=== PATIENT | female | born 1965 | race Caucasian/White ===

== ENCOUNTER 2017-06-04 17:22 | Emergency (ER) | payer MEDICARE, SELFPAY ==
[2017-06-04 17:23] VITALS: BP 169/82; PULSE 88; RESP 18; TEMP 36.6; O2SAT 97; BMI 47.3
[2017-06-04] MEDS: Ondansetron 4 MG/2 ML Vial IV (18:35)
[2017-06-04] MEDS: HYDROmorphone 1 MG/ML Syringe 0.5 MG IV ×2 (18:35→19:54)
--- NOTE | 2017-06-04 18:45 | ED.VISSUMM ---
- ER Visit Summary Date of Service: 06/04/17 Chief Complaint: Back pain History of Present Illness: The patient is a 51 F with history of chronic back pain and had back surgery in October 2015. Patient states when she woke this morning she had some normal low back aching, when she sat up and felt sudden sharp pain shooting down her back and down her legs. She has had no problems with bowel or bladder control. Patient does take tramadol chronically for rheumatoid arthritis and fibromyalgia. Physical Examination: Blood pressure is 169/82, otherwise vitals are normal. Patient is an obese female lying in bed. She appears uncomfortable but she is in no acute distress. Heart is regular rate and rhythm. Lung sounds are clear. Abdomen is soft, obese, nontender. Lower extremity examination reveals 1+ bilateral patellar reflexes. She is strong and equal distal pulses. She has good strength and sensation in the legs. Test Results: [] Emergency Department Course and Treatment: Patient was initially treated with a dose of Dilaudid and Zofran. Is no direct injury to the patient's back do not believe imaging is of great benefit. On repeat evaluation she did report some improvement. She was given an additional dose of Dilaudid, 0.5 mg, along with a dose of Toradol. On final repeat evaluation patient sitting upright in bed smiling. She states her pain is significantly improved. She wishes to take ibuprofen in addition to her normal tramadol at home. She will follow up with her primary care physician. Treatment Plan: [] Disposition: Discharge Impression: Acute on chronic back pain This note was generated with [employer] dictation software. It may contain incorrect words, spelling, and punctuation that were not noted in review of the chart prior to signing ED Disposition - Plan for ED Patient: Disposition: Home or Assisted Living Chief Complaint: Back Instructions: ED Neck Back Pain General Referrals: Richar Galvez MD [Primary Care Provider] - 3-5 Days if not improving
[2017-06-04] MEDS: Ketorolac 30 MG/ML Syringe IV (19:54)
--- NOTE | 2017-06-04 20:52 | ED.DEP ---
ED Disposition - Plan for ED Patient: Disposition: Home or Assisted Living Chief Complaint: Back Instructions: ED Neck Back Pain General Referrals: Richar Galvez MD [Primary Care Provider] - 3-5 Days if not improving
== END 2017-06-04 20:59 | disposition home or self-care (01) ==
PROVIDERS: Emergency Provider Emergency Medicine; Family Provider Family Medicine; PCP Family Medicine
DX: M54.5 Low back pain (principal); G89.29 Other chronic pain; M06.9 Rheumatoid arthritis, unspecified; M79.7 Fibromyalgia; E66.9 Obesity, unspecified; E11.9 Type 2 diabetes mellitus without complications; I10 Essential (primary) hypertension; E78.00 Pure hypercholesterolemia, unspecified; F41.9 Anxiety disorder, unspecified; F32.9 Major depressive disorder, single episode, unspecified; Z72.0 Tobacco use; Z79.4 Long term (current) use of insulin; Z79.51 Long term (current) use of inhaled steroids; Z79.82 Long term (current) use of aspirin; Z79.891 Long term (current) use of opiate analgesic; Z79.899 Other long term (current) drug therapy
CPT/HCPCS: 96374; 96375; 96376; 99285; A4216; J2405

== ENCOUNTER 2017-06-06 16:59 | Emergency (ER) | payer MEDICARE, SELFPAY ==
[2017-06-06 17:00] VITALS: BP 158/81; PULSE 88; RESP 18; TEMP 36.8; O2SAT 94; BMI 47.0
[2017-06-06] MEDS: Ketorolac 15 MG/ML Vial IV (18:05)
[2017-06-06] MEDS: HYDROmorphone 1 MG/ML Syringe 0.5 MG IV (18:05)
[2017-06-06] MEDS: Ondansetron 4 MG/2 ML Vial IV (18:05)
--- NOTE | 2017-06-06 19:26 | ED.DCSUM_ITS ---
- ER Visit Summary Date of Service: 06/06/17 Chief Complaint: Back pain History of Present Illness: The patient is a 51 F 3 day history of low back pain. She has a history of prior back surgery. On the morning of the she sat up in bed and had sudden pain. It does radiate to her legs. She has had no problems with bowel or bladder control. She was seen here on the and was improved after pain meds. She has been taking tramadol and ibuprofen at home without improvement. She presents back today due to continued worsening pain. She is an appointment with her primary care physician next week. Physical Examination: Vital signs are gross unremarkable. Patient's lying in bed, tearful. Head and neck examination is otherwise unremarkable. Heart is regular rate and rhythm. Lung sounds are clear. Abdomen is soft, obese, distended. There is no focal tenderness. Back examination was tenderness in the low lumbar paraspinals. Lower extremity examination reveals good strength and sensation with strong distal pulses. Test Results: [] Emergency Department Course and Treatment: She was given 0.5 mg of Dilaudid and 15 mill grams of Toradol. On repeat evaluation she is significantly improved. She will be given a short course of Percocet that she is to use in place of her tramadol. She is going to call her primary care physician tomorrow to see if she can be seen sooner. There was no direct injury to her back so I do not feel that imaging is going to be beneficial. Treatment Plan: [] Disposition: Discharge Impression: Acute on chronic back pain This note was generated with [employer] dictation software. It may contain incorrect words, spelling, and punctuation that were not noted in review of the chart prior to signing ED Disposition - Plan for ED Patient: Chief Complaint: Back Referrals: Richar Galvez MD [Primary Care Provider] -
--- NOTE | 2017-06-06 19:26 | ED.DEP ---
ED Disposition - Plan for ED Patient: Disposition: Home or Assisted Living Chief Complaint: Back Instructions: ED Neck Back Pain General Prescriptions: Oxycodone HCl/Acetaminophen [Percocet 5/325] 1 tablet PO Q6H PRN PRN 3 Days #12 tablet PRN Reason: Pain Referrals: Richar Galvez MD [Primary Care Provider] - Keep Aiden appointment
[2017-06-06 19:49] VITALS: BP 138/76; PULSE 77; RESP 16; O2SAT 98
== END 2017-06-06 19:49 | disposition home or self-care (01) ==
PROVIDERS: Emergency Provider Emergency Medicine; Family Provider Family Medicine; PCP Family Medicine
DX: M54.5 Low back pain (principal); G89.29 Other chronic pain; E66.9 Obesity, unspecified; E11.9 Type 2 diabetes mellitus without complications; I10 Essential (primary) hypertension; E78.00 Pure hypercholesterolemia, unspecified; F41.9 Anxiety disorder, unspecified; F32.9 Major depressive disorder, single episode, unspecified; Z79.51 Long term (current) use of inhaled steroids; Z79.82 Long term (current) use of aspirin; Z79.4 Long term (current) use of insulin; Z79.891 Long term (current) use of opiate analgesic; Z79.899 Other long term (current) drug therapy
CPT/HCPCS: 96374; 96375; 99285; A4216; J2405

== ENCOUNTER 2017-06-08 14:48 | Emergency (ER) | payer MEDICARE, SELFPAY ==
[2017-06-08 15:03] VITALS: BP 121/65; PULSE 75; RESP 18; TEMP 36.6; O2SAT 96; BMI 46.3
[2017-06-08] MEDS: Ketorolac 30 MG/ML Syringe IM (17:06)
--- NOTE | 2017-06-08 17:30 | ED.DCSUM_ITS ---
- ER Visit Summary Date of Service: 06/08/17 Chief Complaint: Back pain History of Present Illness: The patient is a 51 F with history of chronic back pain and history of spine surgery presents for lower back pain for 4 days. This is patient's third visit this week, and she states she woke up 4 days ago with severe lower back pain worse than her baseline. She received Dilaudid in the emergency department and was discharged home. She felt well for 2 days and then was having worsening pain again. She returned to the emergency department and received additional Dilaudid, and was prescribed Percocet for home. She states the Percocet is not helping but the Dilaudid did. She denies any loss of bowel or bladder function or any worsening numbness in her legs above her baseline diabetic neuropathy. She states her home medications have not been helping. She called her primary care doctor and states he told her to come to the emergency department for an MRI. Patient denies abdominal pain, fever, dysuria, urinary frequency or urgency, bowel or bladder incontinence, or numbness in the groin. Physical Examination: Vital signs: afebrile, hemodynamically stable, no hypoxia on room air General: well nourished, well developed,, obese, sitting in a wheelchair in no distress Skin: warm, dry, no rash, no pallor HEENT: normocephalic and atraumatic; PERRL, EOMI, moist mucous membranes Cardiovascular: regular rate and rhythm without murmurs, no peripheral edema, 2 + pulses all distal extremities Respiratory: No increased work of breathing Abdominal: Abdomen is soft, nontender with normoactive bowel sounds, no guarding or rebound, no masses Back: Diffuse bilateral lower back tenderness to palpation. No difficulty walking. No diminished strength or sensation. Patient urinated while in the emergency department and stated she had no difficulty. MSK: Moves all extremities, no deformities, normal strength Neuro: Awake and alert, oriented ?4. No facial droop, sensation and motor function intact and symmetric Test Results: [] Emergency Department Course and Treatment: Patient's examination shows no lower extremity weakness or sensory deficits that are new beyond her baseline neuropathy. Patient was able to walk without difficulty to the bathroom. Patient was given Toradol IM for pain. Because she said she was sent to the emergency department to get an MRI by her primary care doctor, she was discussed with Dr. Galvez, who said that she had called his office and said she could not get out of bed and made it sound like she was paralyzed. Thus they instructed her to call 911 but did not tell her she was getting an MRI. We discussed her pain control issues, and he would like her to make an appointment with him next week. I discussed with the patient that because this is a chronic pain issue, I cannot give her an opiate prescription, especially since she has regular prescriptions for tramadol. I also do not give Dilaudid for chronic back pain. Patient was instructed that she will need to follow-up with her doctor for further discussion about pain control. We also discussed nonopiate pain management as well as non-medicinal pain management, such as exercise and stretching. Patient was discharged home. She had no red flag symptoms that indicated imaging or any further testing. Treatment Plan: [] Disposition: [] Impression: chronic back pain This note was generated with [employer] dictation software. It may contain incorrect words, spelling, and punctuation that were not noted in review of the chart prior to signing ED Disposition - Plan for ED Patient: Disposition: Home or Assisted Living Chief Complaint: Back Instructions: ED Back Care Tips, ED Chronic Pain Management Referrals: Richar Galvez MD [Primary Care Provider] - Keep Aiden appointment Additional Instructions: Please keep your appointment next week with her primary care doctor. Please continue your home pain management regimen, including [id number] pain medications as needed. You may try a heat pack for your back pain or ice if that works better. Gentle exercise such as walking also is known to help back pain. You may try gentle stretching.
== END 2017-06-08 18:07 | disposition home or self-care (01) ==
PROVIDERS: Emergency Provider Emergency Medicine; Family Provider Family Medicine; PCP Family Medicine
DX: M54.5 Low back pain (principal); G89.29 Other chronic pain; E11.40 Type 2 diabetes mellitus with diabetic neuropathy, unspecified; E66.9 Obesity, unspecified; Z79.51 Long term (current) use of inhaled steroids; Z79.82 Long term (current) use of aspirin; Z79.4 Long term (current) use of insulin; Z79.891 Long term (current) use of opiate analgesic; Z79.899 Other long term (current) drug therapy
CPT/HCPCS: 96372; 99283

== ENCOUNTER → 2017-06-12 15:14 | Outpatient (CLI) | payer MEDICARE, SELFPAY ==
--- NOTE | 2017-06-12 15:17 | RAD_ITS ---
STUDY: X-RAY - LUMBAR SPINE REASON FOR EXAM: Female, 51 years old. Chronic low back pain. TECHNIQUE: 4 view(s) of the lumbar spine were obtained. COMPARISON: August 07, 2015 FINDINGS: Normal lumbar lordosis. There is mild dextroscoliosis of the mid lumbar spine. There is a normal alignment of the vertebrae. Normal vertebral bodies and endplates. There is multilevel mild intervertebral disc space narrowing with small osteophytes at L2-3, L3-4 and L4-5. There is stable diffuse facet sclerosis. The soft tissue structures are unremarkable. RAD/L/S Spine Min 4 Views IMPRESSION: Stable mild lumbar spondylosis as described. Electronically Signed: Theron Gomez MD at 18:57 EST , Service support ,
== END ==
PROVIDERS: Family Provider Family Medicine; PCP Family Medicine; Visit Provider Family Medicine
DX: M51.27 Other intervertebral disc displacement, lumbosacral region (principal); M54.42 Lumbago with sciatica, left side; M54.41 Lumbago with sciatica, right side
CPT/HCPCS: 72110

== ENCOUNTER 2017-06-19 12:07 | Emergency (ER) | payer MEDICARE, SELFPAY ==
[2017-06-19 12:09] VITALS: BP 128/82; PULSE 85; RESP 22; TEMP 37; O2SAT 94; BMI 46.3
--- NOTE | 2017-06-19 13:16 | ED.VISSUMM ---
- ER Visit Summary Date of Service: 06/19/17 Chief Complaint: Back pain History of Present Illness: The patient is a 51 F with a long-term history of lower back pain. The pain radiates into her bilateral buttocks and down her legs. This has been going on for several weeks. It started after she rolled out of bed. She had an outpatient x-ray which showed degenerative changes. She was recently approved for an MRI. Her PCP sent her here because she is having trouble walking despite taking ibuprofen, tramadol, and prednisone. No other new symptoms. Physical Examination: Afebrile and vital signs unremarkable. Nontoxic and in no acute distress. Bilateral paraspinal muscle tenderness to palpation. Legs unremarkable. Good strength and sensation. Good pulses. Diminished reflexes bilaterally. Skin appears normal. Test Results: None indicated. Emergency Department Course and Treatment: I spoke with the hospitalist. They will admit the patient if she is unable to ambulate, but otherwise she and I felt that this was appropriate for an outpatient workup. I did treat the patient's pain with morphine and Norflex. Will reassess the patient and try to ambulate. The patient received a dose of morphine and Norflex here. Her pain improved. She was able to ambulate without any difficulty at all. She was up multiple times. I do not believe she requires inpatient care. The patient agrees. She was also seen by the group social worker. She also discussed this with the patient and the patient felt like they would follow-up as an outpatient. Will prescribe a course of Flexeril. Return for any new or worsening issues. Treatment Plan: As above Disposition: Discharge Impression: 1. Low back pain This note was generated with [employer] dictation software. It may contain incorrect words, spelling, and punctuation that were not noted in review of the chart prior to signing ED Disposition - Plan for ED Patient: Chief Complaint: Back Referrals: Richar Galvez MD [Primary Care Provider] -
[2017-06-19] MEDS: Orphenadrine 60 MG/2 ML Ampul IM (13:41)
--- NOTE | 2017-06-19 14:03 | CM.ED ---
CM consulted due to frequent utilization of ED. This is the patient's forth visit to ED in the past two weeks. Patient states she Dr. Foster for pain management, prior to back surgery. Patient remarked that he told her she took too much Tramadol (650 mg per pt). Patient states she had an epidural and it only worked for two days. Patient states she does not want to see pain management again. Patient states that in addition to chronic back pain she has lupus, rheumatoid arthritis and fibromyalgia. She no longer has a glass bulb silverer because there are none in network with [facility]. I offered to assist in locating one for her and she refused stating that she just checked herself. Patient plans to move to [place], [place] this summer. She states her block and case maker with [facility], Marta Liriano, is finding new providers for her relocation. Patient states she is having separation anxiety from her dog and would like to discharge to home and have MRI as an outpatient. Patient comments that she is having relief from meds provided in ED and does have a ride she can call to transport her to home.
--- NOTE | 2017-06-19 14:11 | ED.DEP ---
ED Disposition - Plan for ED Patient: Chief Complaint: Back Instructions: ED Sciatica Prescriptions: Cyclobenzaprine [Flexeril] 10 mg PO TID #20 tab Referrals: Richar Galvez MD [Primary Care Provider] -
[2017-06-19 14:23] VITALS: PULSE 79; RESP 16; O2SAT 94
== END 2017-06-19 14:24 | disposition home or self-care (01) ==
LOC: ED 12:37
PROVIDERS: Emergency Provider Emergency Medicine; Family Provider Family Medicine; PCP Family Medicine
DX: M54.5 Low back pain (principal); I10 Essential (primary) hypertension; E78.00 Pure hypercholesterolemia, unspecified; M06.9 Rheumatoid arthritis, unspecified; M79.7 Fibromyalgia; E03.9 Hypothyroidism, unspecified; H40.9 Unspecified glaucoma; G62.9 Polyneuropathy, unspecified; Z72.0 Tobacco use; Z79.51 Long term (current) use of inhaled steroids; Z79.82 Long term (current) use of aspirin; Z79.891 Long term (current) use of opiate analgesic; Z79.899 Other long term (current) drug therapy
CPT/HCPCS: 96372; 99282

== ENCOUNTER → 2017-07-03 12:28 | Outpatient (CLI) | payer MEDICARE, SELFPAY ==
--- NOTE | 2017-07-03 12:32 | MRI_ITS ---
STUDY: MRI LUMBAR SPINE WITH AND WITHOUT CONTRAST REASON FOR EXAM: Female, 52 years old. Radiculopathy. Low back pain and bilateral leg pain. TECHNIQUE: Standardized fat and water weighted pulse sequences were obtained in the sagittal and axial planes. 11 ml of Gadavist contrast material was administered for the contrast portion of the examination. COMPARISON: 08/23/2015. FINDINGS: T10-T11: (Sagittal only). Prominent right anterior marginal spurs. Minimal degenerative anterolisthesis of T10 on T1. Normal endplates. Minimal disc height narrowing at normal disc hydration and morphology. Normal central canal and bilateral intervertebral neural foramina. T11-T12: (Sagittal only). Normal endplates. Normal disc height, hydration and morphology. Normal central canal and bilateral intervertebral neural foramina. T12-L1: (Sagittal only). Normal endplates. Normal disc height, hydration and morphology. Normal central canal and bilateral intervertebral neural foramina. Normal lumbar lordosis. There is no substantial scoliosis. Normal conus medullaris that terminates at the L1-L2 disc level. L1-2: Normal endplates. Normal disc height, hydration and morphology. Normal bilateral facet joints. Normal central canal and bilateral lateral recesses. Normal bilateral intervertebral neural foramina. L2-3: Normal endplates. Normal disc height, hydration and morphology. Mild central canal stenosis secondary to developmentally short pedicles and dorsal epidural lipomatosis. The AP canal diameter is 8 mm. Normal bilateral lateral recesses. Moderate left degenerative facet arthropathy. Mild right degenerative facet arthropathy. Normal bilateral intervertebral neural foramina. L3-4: Normal endplates. Increased disc height narrowing following discectomy of the right-sided caudally extruded disc fragment. Pronounced central canal stenosis secondary to developmentally short pedicles and dorsal epidural lipomatosis. There is, however, worsening of pronounced central canal stenosis due to nonenhancing recurrent right posterior paramedian extruded disc fragment with surrounding enhancing postoperative fibrosis. Moderately pronounced left due to facet arthropathy and moderate right degenerative facet arthropathy are unchanged. Normal bilateral intervertebral neural foramina. L4-5: More pronounced right-sided disc space height narrowing with Modic type II degenerative vertebral marrow fatty changes underneath the right side of the adjacent vertebral endplates. Pronounced central canal stenosis secondary to developmentally short pedicles, dorsal epidural lipomatosis and bilateral posterior ligamenta flava hypertrophy. The AP canal diameter is 4 mm. Moderate bilateral degenerative facet hypertrophy. Normal bilateral intervertebral neural foramina. L5-S1: Normal endplates. Normal disc height but moderate loss of disc hydration. Normal disc morphology. Normal central canal and bilateral lateral recesses. Moderate right degenerative facet arthropathy. Mild left degenerative facet arthropathy. Normal bilateral intervertebral neural foramina. Normal visualized sacral ala. Normal visualized paraspinous soft tissue structures. Enhancing posterior fibrosis surrounding the right-sided L3-L4 posteriorly extruded disc fragment. MRI/Spine Lumbar W/WO Contrast IMPRESSION: 1. Recurrent right L3-L4 posterior paramedian extruded disc fragment causing worsening of the pronounced central canal stenosis when compared to 08/23/2015. 2. Increased L3-L4 disc height narrowing following discectomy of the right-sided caudally extruded disc fragment when compared to 08/23/2015. 3. Pronounced central canal stenosis at L4-L5 disc space level secondary to developmentally short pedicles is unchanged but there is more pronounced right-sided L4-L5 disc space height narrowing when compared to 08/23/2015. 4. Mild central canal stenosis at L2-L3 disc space level secondary to developmentally short pedicles and dorsal epidural lipomatosis. 5. Prominent right T10-T11 anterior marginal spurs with minimal degenerative anterolisthesis of T10 on T11. This area was not included to the previous study. Electronically Signed: Mick Holcomb MD at 14:20 EDT , Service support ,
[2017-07-03 12:56] LABS: CREATININE FINGERSTICK 0.8 mg/dL (0.55-1.02); EGFR FINGERSTICK > 60.0000 mL/min (>60)
== END ==
PROVIDERS: Family Provider Family Medicine; PCP Family Medicine; Visit Provider Family Medicine
DX: M54.16 Radiculopathy, lumbar region (principal); M51.27 Other intervertebral disc displacement, lumbosacral region
CPT/HCPCS: 72158; A9585

== ENCOUNTER → 2017-08-21 12:50 | Outpatient (CLI) | payer MEDICARE, SELFPAY ==
--- NOTE | 2017-08-21 12:51 | BI_ITS ---
MAMMOGRAPHY - BILATERAL SCREENING REASON FOR EXAM: Female, 52 years old. Routine annual screening examination. PERTINENT HISTORY: NO FAM HX LT NEEDLE BX 2006 TECHNIQUE: Digital bilateral breast jeremie (3D mammographic acquisition) in the CC and MLO projections. 2-D mediolateral oblique (MLO) and craniocaudad (CC) views of both breasts were obtained. CAD: Full Field Digital Mammography with Computer Added Detection was performed. COMPARISON: Jun 15 2016 3:11pm , May 20 2015 4:49pm FINDINGS: Breast Composition: There are scattered areas of fibroglandular density. There are no dominant masses or suspicious calcifications. No other significant abnormalities are identified. BI/SCREENING MAMM (CAD), BILAT IMPRESSION: Stable bilateral screening mammogram. Yearly follow-up mammogram recommended. (A) ASSESSMENT CATEGORY: BIRADS Category 2: Benign. A letter regarding these results will be sent to the patient by the facility within 30 days. Approximately 10% of breast cancers are not detected by mammography. A normal mammogram should not delay biopsy of a clinically suspicious abnormality. [id number] Electronically Signed: Bennett Patel MD at 12:49 EDT Tel , Service support ,
== END ==
PROVIDERS: Family Provider Family Medicine; PCP Family Medicine; Visit Provider Obstetrics & Gynecology
DX: Z12.31 Encounter for screening mammogram for malignant neoplasm of breast (principal)
CPT/HCPCS: 77063; 77067

== ENCOUNTER → 2017-09-19 07:33 | Outpatient (CLI) | payer MEDICARE, SELFPAY ==
[2017-09-19 10:40] LABS: ALB/GLOB Ratio 0.8 RATIO (0.9-2.4); AST(SGOT) 14 U/L (15-37); Alanine Aminotransfer ALT/SGPT 33 U/L (13-56); Albumin, Serum 3.4 g/dL (3.2-5.0); Alkaline Phosphatase 134 U/L (45-117); Anion Gap 10 (5-15); BUN 25 mg/dL (7-18); Chloride 99 mmol/L (98-107); Cholesterol 127 mg/dL (200); Creatinine, Serum 1.04 mg/dL (0.55-1.02); EST Glomerular Filtration Rate 59 mL/min (>60); Est Glom Filt Rate - Afr Amer 71 mL/min (>60); Globulin 4.3 g/dL (2.2-4.2); Glucose 62 mg/dL (74-106); High Density Lipoprotein 58 mg/dL; Potassium 3.6 mmol/L (3.5-5.1); Protein, Total 7.7 g/dL (6.4-8.2); Sodium Level 143 mmol/L (136-145); Thyroid Stim Hormone (TSH) 3.83 uIU/mL (0.358-3.74); Triglycerides 160 mg/dL; Very Low Density Lipoprotein 32 mg/dL (5-40)
== END ==
PROVIDERS: Family Provider Family Medicine; PCP Family Medicine; Visit Provider Nurse Practitioner
DX: E11.621 Type 2 diabetes mellitus with foot ulcer (principal); E11.49 Type 2 diabetes mellitus with other diabetic neurological complication; L97.509 Non-pressure chronic ulcer of other part of unspecified foot with unspecified severity; M32.9 Systemic lupus erythematosus, unspecified
CPT/HCPCS: 36415; 80053; 80061; 82043; 82570; 83036; 84443

== ENCOUNTER → 2017-11-06 14:03 | Outpatient (CLI) | payer MEDICARE, SELFPAY ==
[2017-11-06 16:01] LABS: Thyroid Stim Hormone (TSH) 1.32 uIU/mL (0.358-3.74)
== END ==
PROVIDERS: Family Provider Family Medicine; PCP Family Medicine; Visit Provider Nurse Practitioner
DX: E03.9 Hypothyroidism, unspecified (principal)
CPT/HCPCS: 36415; 84443

== ENCOUNTER 2017-11-22 15:30 | Outpatient (RCR) | payer MEDICARE, SELFPAY ==
--- NOTE | 2017-10-17 16:12 | HP.PTEVAL_ITS ---
Patient's Visit Information NAVEEN DANIELS is a 52 year old F referred to Physical Therapy by DAMARIS COLEMAN with a diagnosis of Lumbar Disc Herniation. Date of Evaluation: 10/12/17 Physical Therapist: Ronit Cárdenas - Visit Plan Frequency: 2x /Week Duration: 4 Weeks Plan: Therapeutic exercises and activities on land and in an aquatic setting targeting BLE/core strength, endurance and flexibility. Modalities and Manual as needed to decrease pain and improve ROM. Incorporate HEP to promote maintainence and progression. - Subjective Subjective: Patient presents in therapy today with low back pain. Started about 4 months ago with L leg pain that runs down back to knee with no cause i just woke up like this. States she had surgery October 2015 low back surgery to repair a disc. She saw a doctor who said pain is originating in same spot as surgery and is unable to have surgery there again. She is taking pain medication to help relieve pain. She tried heat but it did not make anything better. Had x- ray showing central canal stenosis L3-L5, decreased disc height throughout lumbar spine. Pain worsens throughout the day, when standing for longer durations. Sitting help relieves the pain. Has a health aide that helps with house work and bathing. PMHx: Patient has lupus and arthritis in all joints, edema in legs, diabetic, fibromyalgia. Patient is on disability. - Pain low back Pain Intensity (Out of 10): Unrated Pain Intensity Range: 4, 10 Comment: left side more than the right - Objective Appearance: Patient obese; Slouched posture with increasing posterior pelvic tilt. Palpation: Tenderness along paraspinals throughout lower thoracic and lumbar spine; tenderness along left buttock area. Sensaton: No numbness or tingling; Intact to light touch. Posture: Static standing equal WB through BLE ; Slight L scoliosis of thoracic spine. ROM: Limited lumbar and thoracic motion in all planes with moderate limitation of lumbar flexion, extension, sidebending and minimal rotation limitation. moderate limitation throracic rotation to the right and minimal to the left. Strength: BLE grossly 4/5 except hip abduction 4-/5, hip extension 4-/5 and hip adduction 4-/5, core strength grossly 3/5 strength. Endurance: Patient displays poor endurance with SOB with transitions from supine to sitting and multiple repetitions of movements. Gait: Patient ambulating with heel/toe to flat foot progression with mild hip drop bilaterally; Ascend/descend step to pattern with handrail support. Flexibility: Moderate hamstring tightness bilaterally (testing limited by adipose tissue restriction). Repeated Movements: Pain worsen with repeated extension and flexion - Goals Goal 1:: Patient will increase BLE grossly 4+/5 for improved performance with functional mobility. Goal Time Frame: 4-6 Weeks Goal 2:: Patient will increase core strength 4/5 for improved posture Goal Time Frame: 4-6 Weeks Goal 3:: Patient will maintain upright sitting posture for 5 minutes without low back pain. Goal Time Frame: 4-6 Weeks Goal 4:: Patient will increase hamstring flexibility bilaterally for improved mobility Goal Time Frame: 4-6 Weeks Goal 5:: Patient will increase lumbar spine motion in all planes for improved mobility. Goal Time Frame: 4-6 Weeks - Rehabilitation Potential Physical Therapy Diagnosis: Muscle Weakness; Limited Flexibility; Decreased Activity Tolerance Rehabilitation Potential: Fair - Anticipated Interventions Patient/Client Instruction: Educate patient on: Condition, Plan of Care For the Purpose of:: To decrease pain, To increase ROM, To improve muscle performance and motor function, To improve performance and independence with ADL 's, To improve ability of physical actions for home/community/work/leisure, To increase flexibility/ROM, To improve endurance Therapeutic Exercise to Include: Strength training, Endurance training, Body mechanics, Postural training, Flexibilty training, In an aquatic setting, Dynamic Lumbar Stabilization, Carmen Exercises For the Purpose of:: To decrease pain, To increase ROM, To improve muscle performance and motor function, To improve performance and independence with ADL 's, To improve ability of physical actions for home/community/work/leisure, To increase flexibility/ROM, To improve endurance Functional Training to Include: ADL Training For the Purpose of:: To improve performance and independence with ADL's, To improve ability of physical actions for home/community/work/leisure Comment: MASSAGE NOT COVERED For the Purpose of:: To decrease pain, To increase ROM Iontophoresis (with Dexamethozone, with Acetic acid): No For the Purpose of:: To decrease pain, To increase ROM, To increase flexibility/ ROM Thank you for the opportunity to evaluate your patient. For Medicare and Medicare HMO plans, please review the plan of care and approve it. It will need to be FAXED BACK to us at [phone] for Medicare purposes. Please let me know if there are questions or concerns regarding this plan of care. Physician Signature: Date:
--- NOTE | 2017-12-13 13:15 | HP.PTDCNRP_ITS ---
HP - Discharge Summary (1) - Patient Information NAVEEN DANIELS was seen in my office for initial evaluation on 10/12/17. The following Plan of Care was established for this patient: Initial Frequency: 2x /Week Initial Duration: 4 Weeks - Anticipated Interventions Patient/Client Instruction: Educate patient on: Condition, Plan of Care For the Purpose of:: To decrease pain, To increase ROM, To improve muscle performance and motor function, To improve performance and independence with ADL 's, To improve ability of physical actions for home/community/work/leisure, To increase flexibility/ROM, To improve endurance Therapeutic Exercise to Include: Strength training, Endurance training, Body mechanics, Postural training, Flexibilty training, In an aquatic setting, Dynamic Lumbar Stabilization, Carmen Exercises For the Purpose of:: To decrease pain, To increase ROM, To improve muscle performance and motor function, To improve performance and independence with ADL 's, To improve ability of physical actions for home/community/work/leisure, To increase flexibility/ROM, To improve endurance Functional Training to Include: ADL Training For the Purpose of:: To improve performance and independence with ADL's, To improve ability of physical actions for home/community/work/leisure Comment: MASSAGE NOT COVERED For the Purpose of:: To decrease pain, To increase ROM Iontophoresis (with Dexamethozone, with Acetic acid): No For the Purpose of:: To decrease pain, To increase ROM, To increase flexibility/ ROM This patient was last seen in our office 11/22/17. Pertinent comments regarding their Physical therapy will appear below: This patient has not returned to Physical Therapy and is appropriate to return to MD for further follow-up as needed. At this point I will be discontinuing this patient from physical therapy. I would be happy to see this patient again in the future if found appropriate by the physician. Thank you! Ronit Cárdenas
== END 2017-11-22 19:00 | disposition home or self-care (01) ==
LOC: PT 15:30
PROVIDERS: Family Provider Family Medicine; PCP Family Medicine
DX: M51.26 Other intervertebral disc displacement, lumbar region (principal)
CPT/HCPCS: 97110; 97113; 97162; 97530

== ENCOUNTER → 2018-03-01 08:33 | Outpatient (CLI) | payer MEDICARE, SELFPAY ==
[2018-03-01 10:21] LABS: Erythrocyte Sedimentation Rate 22 mm/hr (0-30)
[2018-03-01 10:35] LABS: Hemoglobin A1c 9.7 % (4.2-6.3)
[2018-03-01 10:43] LABS: ALB/GLOB Ratio 0.8 RATIO (0.9-2.4); AST(SGOT) 12 U/L (15-37); Alanine Aminotransfer ALT/SGPT 25 U/L (13-56); Albumin, Serum 3.5 g/dL (3.2-5.0); Alkaline Phosphatase 141 U/L (45-117); Anion Gap 8 (5-15); BUN 12 mg/dL (7-18); BUN/Creat Ratio 11.3 RATIO (10-20); CRP 3.53 mg/L (0.0-3.0); Calcium,Total 8.8 mg/dL (8.5-10.1); Chloride 97 mmol/L (98-107); Cholesterol 96 mg/dL (200); Creatinine, Serum 1.06 mg/dL (0.55-1.02); EST Glomerular Filtration Rate 57 mL/min (>60); Est Glom Filt Rate - Afr Amer 69 mL/min (>60); Globulin 4.5 g/dL (2.2-4.2); Glucose 201 mg/dL (74-106); High Density Lipoprotein 32 mg/dL; Microalbumin:Creatinine Ratio 158.2 mg/g CRE (<30 mg/g CRE); Potassium 4.1 mmol/L (3.5-5.1); Rheumatoid Factor < 10.0 IU/mL (<15); Sodium Level 136 mmol/L (136-145); Thyroid Stim Hormone (TSH) 3.94 uIU/mL (0.358-3.74); Triglycerides 154 mg/dL; Very Low Density Lipoprotein 31 mg/dL (5-40)
[2018-03-04 12:04] LABS: CCP IgG Antibodies 6 units (0-19)
[2018-03-04 14:07] LABS: ANTINUCLEAR ANTIBODIES DIRECT Positive (Negative); Anti-Centromere B Ab <0.2 AI (0.0-0.9); Anti-Chromatin <0.2 AI (0.0-0.9); Anti-Jo <0.2 AI (0.0-0.9); Anti-Scleroderma-70 AB <0.2 AI (0.0-0.9); RNP Ab 0.2 AI (0.0-0.9); SJOGREN'S Anti-SS-A test < 0.2 AI (0.0-0.9); SJOGREN'S Anti-SS-B test < 0.2 AI (0.0-0.9); Smith Ab <0.2 AI (0.0-0.9)
[2018-03-05 11:55] LABS: Anti-dsDNA Ab 12 IU/mL (0-9)
== END ==
PROVIDERS: Nurse Practitioner; Family Provider Family Medicine; PCP Family Medicine; Referring Provider Family Medicine; Visit Provider Family Medicine
DX: E11.49 Type 2 diabetes mellitus with other diabetic neurological complication (principal); E11.65 Type 2 diabetes mellitus with hyperglycemia; E03.9 Hypothyroidism, unspecified; M06.9 Rheumatoid arthritis, unspecified; M32.19 Other organ or system involvement in systemic lupus erythematosus
CPT/HCPCS: 36415; 80053; 80061; 82043; 82570; 83036; 84443; 85652; 86038; 86140; 86200; 86225; 86235; 86431

== ENCOUNTER → 2018-04-04 13:55 | Outpatient (CLI) | payer MEDICARE, SELFPAY ==
[2018-04-04 12:46] VITALS: BMI 44.3
--- OUTSIDE RECORDS SUMMARY | 2018-05-21 10:14 | XMS RPT_ITS ---
:1965 Author Organization OHIP Support Name Relationship Address Phone D Unavailable Unavailable Unavailable FERGUSON, CHARLES Unavailable [address] + [place] [address] D Unavailable Unavailable Unavailable FERGUSON, CHARLES Unavailable [address] + [place] [address] D Unavailable Unavailable Unavailable FERGUSON, CHARLES Unavailable [address] + [place] [address] D Unavailable Unavailable Unavailable FERGUSON, CHARLES Unavailable [address] + [place] [address] D Unavailable Unavailable Unavailable FERGUSON, CHARLES Unavailable [address] + [place] [address] D Unavailable Unavailable Unavailable FERGUSON, CHARLES Unavailable [address] + [place] [address] D Unavailable Unavailable Unavailable FERGUSON, CHARLES Unavailable [address] + [place] [address] D Unavailable Unavailable Unavailable FERGUSON, CHARLES Unavailable [address] + [place] [address] D Unavailable Unavailable Unavailable FERGUSON, CHARLES Unavailable [address] + [place] [address] D Unavailable Unavailable Unavailable FERGUSON, CHARLES Unavailable [address] + [place] [address] D Unavailable Unavailable Unavailable FERGUSON, CHARLES Unavailable [address] + [place] [address] D Unavailable Unavailable Unavailable FERGUSON, CHARLES Unavailable [address] + [place] [address] D Unavailable Unavailable Unavailable FERGUSON, CHARLES Unavailable [address] + [place] [address] D Unavailable Unavailable Unavailable FERGUSON, CHARLES Unavailable [address] + [place] [address] D Unavailable Unavailable Unavailable FERGUSON, CHARLES Unavailable [address] + [place] [address] D Unavailable Unavailable Unavailable FERGUSON, CHARLES Unavailable [address] + [place] [address] D Unavailable Unavailable Unavailable FERGUSON, CHARLES Unavailable [address] + [place] [address] D Unavailable Unavailable Unavailable FERGUSON, CHARLES Unavailable [address] + [place] [address] D Unavailable Unavailable Unavailable FERGUSON, CHARLES Unavailable [address] + [place] [address] Care Team Providers Name Role Phone Tamica Zaidi SIDE STITCHING MACHINE OPERATOR-C Attending Unavailable Lenny, Richar Referring Unavailable Barbara Woodruff Attending Unavailable Lenny, Richar Primary Care Unavailable Tamica Zaidi SIDE STITCHING MACHINE OPERATOR-C Attending Unavailable Lenny, Richar Referring Unavailable Lenny, Richar Primary Care Unavailable Lenny, Richar Primary Care Unavailable Bhavani Galeana Attending Unavailable Lenny, Richar Primary Care Unavailable Bhavani Galeana Attending Unavailable Lenny, Richar Primary Care Unavailable Gayle Tian Attending Unavailable Lenny, Richar Attending Unavailable Lenny, Richar Primary Care Unavailable Lenny, Richar Primary Care Unavailable Froilan Lawton Attending Unavailable Lenny, Richar Attending Unavailable Lenny, Richar Referring Unavailable Lenny, Richar Primary Care Unavailable Vinayak Herrera Unavailable Tamica Zaidi SIDE STITCHING MACHINE OPERATOR-C Attending Unavailable Lenny, Richar Referring Unavailable Gail Scruggs Attending Unavailable Lenny, Richar Primary Care Unavailable Tamica Zaidi SIDE STITCHING MACHINE OPERATOR-C Attending Unavailable Tmaica Zaidi SIDE STITCHING MACHINE OPERATOR-C Referring Unavailable Lenny, Richar Primary Care Unavailable Tamica Zaidi SIDE STITCHING MACHINE OPERATOR-C Attending Unavailable Lenny, Richar Referring Unavailable Lenny, Richar Primary Care Unavailable Ryan Wiseman Attending Unavailable Lenny, Richar Referring Unavailable Lenny, Richar Primary Care Unavailable Lenny, Richar Primary Care Unavailable EDWIN ACUNA Attending Unavailable EDWIN ACUNA Referring Unavailable Tamica Zaidi SIDE STITCHING MACHINE OPERATOR-C Attending Unavailable Tamica Zaidi SIDE STITCHING MACHINE OPERATOR-C Referring Unavailable Lenny, Richar Primary Care Unavailable Tamica Zaidi SIDE STITCHING MACHINE OPERATOR-C Attending Unavailable Lenny, Richar Referring Unavailable Lenny, Richar Primary Care Unavailable Juaquin Alberto Attending Unavailable Richar Galvez Referring Unavailable Richar Galvez Attending Unavailable Richar Galvez Referring Unavailable Richar Galvez Primary Care Unavailable Tamica Zaidi SIDE STITCHING MACHINE OPERATOR-C Consulting Unavailable PROBLEMS PROBLEMS DATE TYPE CONDITION / CODE ATTENDING STATUS SOURCE 04/04/2018 Unknown E11.49 - Type 2 Tamica Zaidi Active [facility] diabetes mellitus SIDE STITCHING MACHINE OPERATOR-C Community with other diabetic Hospital neurological Repository complication / E11.49(ICD-10) 04/04/2018 Unknown E03.9 - Tamica Zaidi Active [facility] Hypothyroidism, SIDE STITCHING MACHINE OPERATOR-C Community unspecified / Hospital E03.9(ICD-10) Repository 04/04/2018 Unknown E11.621 - Type 2 Tamica Zaidi Active [facility] diabetes mellitus SIDE STITCHING MACHINE OPERATOR-C Community with foot ulcer / Hospital E11.621(ICD-10) Repository 04/04/2018 Unknown M32.9 - Systemic Tamica Zaidi Active [facility] lupus erythematosus, SIDE STITCHING MACHINE OPERATOR-C Community unspecified / Hospital M32.9(ICD-10) Repository 04/04/2018 Unknown L97.509 - Tamica Zaidi Active [facility] Non-pressure chronic SIDE STITCHING MACHINE OPERATOR-C Community ulcer of other part Hospital of unspecified foot Repository with unspecified severity / L97.509(ICD-10) 03/01/2018 Unknown E11.65 - Type 2 LennyRichar parker Active [facility] diabetes mellitus Community with hyperglycemia / Hospital E11.65(ICD-10) Repository 03/01/2018 Unknown M06.9 - Rheumatoid Richar Galvez Active [facility] arthritis, Community unspecified / Hospital M06.9(ICD-10) Repository 03/01/2018 Unknown M32.19 - Other organ Lenny Richar Active [facility] or system Community involvement in Hospital systemic lupus Repository erythematosus / M32.19(ICD-10) 01/09/2018 Unknown E11.40 - Type 2 Juaquin Alberto Active [facility] diabetes mellitus Community with diabetic Hospital neuropathy, Repository unspecified / E11.40(ICD-10) 12/14/2017 Unknown M51.26 - Other EDWIN ACUNA Active [facility] intervertebral disc Community displacement, lumbar Hospital region / Repository M51.26(ICD-10) 06/12/2017 Unknown M51.27 - Other Richar Galvez Active [facility] intervertebral disc Community displacement, Hospital lumbosacral region / Repository M51.27(ICD-10) 06/12/2017 Unknown M54.42 - [place] Richar Galvez Active [facility] with sciatica, left Community side / Hospital M54.42(ICD-10) Repository 06/12/2017 Unknown M54.41 - [place] Richar Galvez Active [facility] with sciatica, right Community side / Hospital M54.41(ICD-10) Repository 06/06/2017 Unknown M54.9 - Dorsalgia, GaleanaBhavani trevizo Active [facility] unspecified / Community M54.9(ICD-10) Hospital Repository PROCEDURES PROCEDURES No Procedure Records FoundRESULTS RESULTS ENDOCRINOLOGY VISIT Observed: 04/06/2018 Status: F Source: [place] REPORT 7:29 PM [facility] REPOSITORY [facility] [address] [place] [address] OFFICE VISIT Date of Service: 04/04/18 MR#: [id number] Acct: [id number] Name: CARLIE WATKINS Rep #: [id number] : 1965 Provider: Tamica Zaidi NP Age/Sex: 52/F Location: [facility] Status: Signed HPI History of present illness Carlie Watkins is a 52 year old female who present for follow up of diabetes type 2. Last seen 11/08/2017 Continues on U-500 insulin daily taking what appears to be 15 units in am and 15 in pm using an insulin syringe U-100. She reports her BG readings have been in the 100 - 250 range. Feels she is getting things back in order after passing of her boyfriend, her dog, and then her father. Pt denies difficulty with injections or self monitoring of BG. Denies any signs of infection or irritation at site of injections. Reports taking insulin as directed Since our last visit she denies excessive thirst, increased frequency of urination, chest pain or dyspnea. Follows a reasonable diet, Is compliant with medication and is tolerating without side effects. At time of visit: -Pt denies symptoms of hypertensive emergency (CP,SOB,FLORES, or blurred vision) and hypotension(dizziness or lightheadedness) -Pt denies symptoms of hypoglycemia ( sweaty, confusion, anxiety, tremor, hunger, palpitations) and hyperglycemia ( polydipsia, polyuria) -Pt denies potential medication adverse effect. Hypoglycemia Aware of hypoglycemia: When awake Able to self treat low BG: Yes Frequent low Blood sugar: No Has supply of glucagon: No SMBG BG 3-4 times daily reported 100-250 range with occ higher BG if she does not monitor diet and activity. Pain issues with back which creates higher BG Exam Const General: comfortable, no acute distress Nutritional Appearance: overweight Orientation: oriented x3 HENMT Head: normal to inspection, atraumatic Ears: hearing grossly normal bilaterally Mouth: oral mucosae normal, moist mucous membranes Eyes General: appearance normal, both eyes and all related structures Conjunctivae: conjunctivae normal Sclera: sclerae normal Pupils: PERRL Neck Neck: normal visual inspection Neck mass: No Chest Chest palpation AND inspection: deferred Resp Effort AND Inspection: normal respiratory effort, able to speak in complete sentences, symmetric chest movement Cardio Rate: regular rate Rhythm: regular rhythm Heart Sounds: S1 normal, S2 normal GI Inspection: obese Auscultation: normal bowel sounds Palpation: no guarding Skin General: sweaty Wounds: no wounds Diabetic Foot Monofilament test: Left foot: abnormal, Right foot: abnormal Neuro General: oriented x3, decrease sensation to monofilament Cranial Nerves: hearing normal Cognition: normal cognition Speech: speech normal Extrem General: normal to inspection, pedal edema Psych Appearance: well kempt Mood: congruent mood Affect: normal affect Attitude: cooperative Thought Process: normal Thought Content: normal Judgment: judgment good Type: type 2, insulin-requiring Glucose control symptoms: Reports high post-meal glucose Weight and fatigue symptoms: Reports weight loss; denies snoring Cardiopulmonary symptoms: Reports lightheadedness; denies chest pain at rest, dyspnea on exertion or myalgias GI symptoms: Reports diarrhea, nausea/dyspepsia and vomiting; denies constipation Other symptoms: Denies blurry vision or change in vision Self monitoring: Yes Percentage of fasting blood glucose within goal: 25%-50% of the time Dietary compliance: Diabetes: good Diabetes education in past year: Yes Glucose testing: demonstrates correct use of meter, understands testing schedule Sick day education - understands ketone testing: Yes Physical activity: sedentary lifestyle Intake Vital Signs04/04/18 Height 5 ft 4 in 04/04/18 Weight: 258 lb 2 oz 04/04/18 Body Mass Index (BMI) 44.3 04/04/18 Blood Pressure 102/63 04/04/18 Blood Pressure Location Lt popliteal 04/04/18 Blood Pressure Position Sitting Intake Visit Reasons: diabetes Payroll Administrator Required: No Accompanied by: Self Allergies Sulfa (Sulfonamide Antibiotics) Allergy (Verified 04/04/18 12:42) Hives Medications Albuterol Inhaler [Ventolin Hfa] 2 puff INHALATION Q4H PRN 01/20/13 [History Confirmed 04/04/18] Aspirin E.C. [Ecotrin] 81 mg PO DAILY@0800 01/20/13 [History Confirmed 04/04/18] Latanoprost 0.005% [Xalatan Opthalmic] 1 drp EACH EYE QHS 01/20/13 [History Confirmed 04/04/18] Furosemide [Lasix] 10 mg PO QODAY 01/27/15 [History Confirmed 04/04/18] Timolol 0.5% [Timoptic] 1 drp EACH EYE DAILY 01/27/15 [History Confirmed 04/04/18] traMADol [Ultram (G)] 100 mg PO TID 02/20/15 [History Confirmed 04/04/18] busPIRone [Buspar] 15 mg PO TID 03/10/17 [History Confirmed 04/04/18] gabapentin 300 mg capsule 300 mg PO DAILY cap 05/08/17 [History Confirmed 04/04/18] gabapentin 600 mg tablet 600 mg PO .4 x qd tab 05/08/17 [History Confirmed 04/04/18] lisinopril 40 mg tablet 20 mg PO DAILY 05/08/17 [History Confirmed 04/04/18] rosuvastatin 40 mg tablet 40 mg PO DAILY 05/08/17 [History Confirmed 04/04/18] Cyclobenzaprine [Flexeril] 10 mg PO TID #20 tab 06/19/17 [Rx Confirmed 04/04/18] Zolpidem Tartrate [Ambien] 06/19/17 [History Confirmed 04/04/18] insulin syringe-needle U-100 0.5 mL 29 gauge x 1/2 1 syr SQ .MEDSUPPLY #100 ea 06/19/17 [Rx Confirmed 04/04/18] OneTouch Ultra Blue Test Strip See Dose Instructions .ROUTE .MEDSUPPLY #100 ea NS 10/10/17 [Rx Confirmed 04/04/18] duloxetine 60 mg capsule,delayed release 120 mg PO DAILY 01/09/18 [History Confirmed 04/04/18] fluticasone 500 mcg-salmeterol 50 mcg/dose blistr powdr for inhalation 1 inh INHALATION DAILY ea 01/09/18 [History Confirmed 04/04/18] insulin regular human U- 500concentrate 500 unit/mL subcutaneous soln See Rx Instructions SC BID ml 01/09/18 [History Confirmed 04/04/18] fluconazole 50 mg tablet 50 mg PO DAILY 04/04/18 [History Confirmed 04/04/18] levothyroxine 100 mcg tablet 100 mcg PO DAILY 04/04/18 [History Confirmed 04/04/18] Nurse's Note: blood sugars : low : 46 high : 370 [facility] Medical History Asthma (Acute) Chest pain (Acute) Diabetes (Acute) Diabetes type 2, controlled (Acute) Difficulty balancing (Acute) Fatigue (Acute) Glaucoma (Acute) Hyperlipidemia (Acute) Hypothyroidism (Acute) Incontinence (Acute) Knee pain (Acute) Limb weakness (Acute) Obesity, Class III, BMI 40-49.9 (morbid obesity) (Acute) Rheumatoid arthritis (Acute) SLE (systemic lupus erythematosus) (Acute) SOB (shortness of breath) (Acute) Shoulder pain (Acute) Thyroid disease (Acute) Tremor (Acute) HTN (hypertension) (Chronic) Surgical History H/O dilation and curettage (Acute) H/O tubal ligation (Acute) H/O umbilical hernia repair (Acute) History of bladder surgery (Acute) S/P LASIK surgery of both eyes (Acute) lower back surgery (Acute) Family History Father Heart disease Parkinsons Hypertension Diabetes Mother Heart disease Kidney disease Thyroid disorder High cholesterol Hypertension Diabetes Brother Hypertension Diabetes Chronic bronchitis Asthma Seasonal allergies Grandfather CVA (cerebral vascular accident) Heart disease Hypertension Diabetes Grandmother Diabetes Throat cancer Arthritis Rheumatoid arthritis Osteoarthritis Hypertension Unknown Asthma Diabetes Alcoholism Arthritis Social History Smoking Status: Current every day smoker tobacco type: cigarettes second hand exposure: No alcohol intake: current alcohol intake frequency: holidays/special occasions only substance use type: marijuana ROS Const Constitutional: Positive for chills, fever(s), night sweats and change in appetite; no anorexia, body ache, fatigue, frequent falls, decreased energy, malaise, weakness, weight change, sleep problems, abnormal sleep pattern, other, headache(s), snoring or excessive sweating Eyes Eyes: No blurry vision, change in vision, double vision, discharge, dry eyes, bulging eyes, floaters, visual disturbances, eye pain, light sensitivity, spots in vision, tunnel vision or other ENT ENT: No abnormal hearing, ear pain, ear discharge, ear pressure, hearing loss, tinnitus, dizziness/vertigo, balance problems, nosebleed/epistaxis, nasal congestion, nasal obstruction, nose pain, sinus pressure, sinus pain, nasal discharge, post nasal drip, headache(s), facial pain, dental pain, dry mouth, bad breath, hoarseness, lip swelling, mouth lesions, mouth pain, sore throat, tongue swelling, throat swelling, other, difficulty swallowing or neck pain Resp Respiratory: Positive for cough, shortness of breath and wheezing; no change in phlegm color, chest congestion, excessive phlegm production, hemoptysis, pain on inspiration, pain with cough, snoring, stridor or other Cardio Cardiology: Positive for generalized swelling and lightheadedness; no chest pain at rest, chest pain with exertion, leg pain with exertion, excessive sweating, shortness of breath, dyspnea on exertion, irregular heart rhythm, orthopnea, radiating jaw, neck or arm pain, fast heart rate, slow heart rate, palpitations or other Gastro GI: Positive for diarrhea, nausea/dyspepsia and vomiting; no abdominal pain, belching, bloating, change in bowel habits, change in stool character, coffee ground emesis, constipation, cramping, heartburn, difficulty swallowing, feeling full early, excessive flatus, incontinent of stools, Vomiting blood/hematemesis, blood in stool, loose stools, Black,tarry stools, pain with swallowing or other Genitourinary-Female: Positive for burning urination and urinary frequency; no difficulty urinating, painful urination, urinary incontinence, urinary hesitancy, urinary retention, blood in urine, Frequent nighttime urination/ nocturia, post void dribbling, suprapubic fullness, side pain, sexual problems, genital lesions, genital itching, hot flashes, abnormal periods, abnormal vaginal bleeding, absent period, painful periods, light periods, heavy periods, difficulty getting , painful intercourse, pelvic pain, vaginal dryness, vaginal odor, Vaginal Itching or other Musc Musculoskeletal: No abnormal walking, joint pain, back pain, deformity, joint swelling, limited range of motion, loss of height, muscle cramps, muscle weakness, decreased muscle mass, body aches, neck pain, numbness, radiating pain into limb, stiffness, tingling or other Skin Skin: No acne, hair loss, change in hair, nail changes, boil, change in skin color, dry skin, redness, excessive hair growth, yellowing of the skin, lesions, itching, rash, skin pain, skin ulcer, sores, skin swelling, wounds or other Breast Breast: No other Neuro Neurology: No frequent falls, weakness, visual disturbances, abnormal hearing, headache(s), abnormal walking, numbness or tingling Psych Psychiatric: No abnormal sleep pattern, Positive for change in appetite Endo Endocrine: No fatigue, other or excessive sweating Aller/Imm Allergy/Immunologic: Positive for wheezing; no lip swelling, tongue swelling, throat swelling or itchy eyes Assessment AND Plan Problems 1. Acquired hypothyroidism E03.9 2. 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 Systemic lupus erythematosus, unspecified SLE type, unspecified organ involvement status M32.9 Plan Hypothyroidism Levothyroxine adjusted to 100mcg daily. Patient feeling better. Taking medication as directed. Lupus: Managed by Another provider. Diabetes: Is losing weight and reports she has decreased her insulin to avoid low BG. We reviewed incremental changes/adjustment and also how to adjust reviewed. Continues to report chronic pain issues. On statin as directed and without side effects. On noe inhibitor without side effects. Patient Instructions Control portions Food selections should be healthy Choose more low carb vegetables Avoid snacks and desserts. Drink water Exercise daily Eat more fresh foods, not canned or processed Eat more slowly Orders Orders: Medications New: Plan Detail Additional Comments 1. Please schedule follow up in 3 months. 2. Lab work one week before appointment. 3. Discussed importance of regular exercise and recommend starting or continuing a regular exercise program for good health. 4. The patient was encouraged to lose weight for good health 5. The importance of monitoring blood sugar regularly was reviewed. 6. The importance of monitoring the HBA1c level regularly was reviewed. 7. The importance of prper foot care and regularly checking feet to prevent sores and loss of limbs was reviewed. 8. The importance of keeping BP at or below 130/80 to prevent stroke, heart attacks, kidney failure, blindness was reviewed. Spent approximately 30 minutes with patient with over 50% of time spent in discussion and counseling regarding medication adjustment, symptoms and treatment of hypoglycemia, diet adherence, and checking BG before driving. 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 Systemic lupus erythematosus, unspecified SLE type, unspecified organ involvement status M32.9 Systemic lupus erythematosus type: unspecified Systemic lupus erythematosus organ involvement: unspecified 04/06/181928 <Electronically signed by Tamica AMARO> Date Tamica AMARO Cosigner Signature: Date (if applicable) CC: Observed: 04/04/2018 Status: F Source: [place] CULTURE, URINE 1:57 PM [facility] REPOSITORY Urine Culture ORGANISM 1: Klebsiella pneumoniae sp pneum [place] Count 25,000-50,000 Klebsiella pneumoniae sp pneum: REACTION Amoxacillin/Clavulanic Acid $ <=2 S Ampicillin $ >=32 R Ampicillin/Sulbactam $ 4 S Cefazolin $ <=4 S Cefepime $ <=1 S Ceftriaxone $ <=1 S Ciprofloxacin $ <=0.25 S ESBL - Ertapenim $$$ <=0.5 S Gentamicin $ <=1 S Imipenem *NF <=0.25 S Levofloxacin $ <=0.12 S Nitrofurantoin $ 64 I Piperacillin/Tazobactam $$ <=4 S Tobramycin $ <=1 S Trimethoprim/Sulfametho $ <=20 S (NF) indicates non-formulary drug at [facility]. Approval by Infectious Disease Specialist required before non-formulary drugs may be ordered and/or dispensed. Performed By: #### M100.0650 #### [facility] [address] [place], [place], [address] ERYTHROCYTE SED RATE Collected: 03/01/2018 Status: F Source: [place] 8:38 AM [facility] REPOSITORY Order Comment: LUIS ZAIDI ORDERED A1C LIPID MIACRE CMP DR. GALVEZ ORDERED BMP TSH SED CRP RF CBCD G[facility] CCP TYPE CODE TESTS RESULT OUT OF RANGE REFERENCE UNITS LAB L102.0000 0-30 mm/hr Normal SED RATE 22 Performed By: #### L101.9900 #### [facility] [address] [place], [place], [address] CCP IGG ANTIBODIES Collected: 03/01/2018 Status: F Source: [place] 8:38 AM [facility] REPOSITORY Order Comment: LUIS ZAIDI ORDERED A1C LIPID MIACRE CMP DR. GALVEZ ORDERED BMP TSH SED CRP RF CBCD GISELL CCP TYPE CODE TESTS RESULT OUT OF RANGE REFERENCE UNITS LAB L4600.0100 0-19 units Normal ANTI-CCP 6 [id number] Result Comment: Negative <20 Weak positive 20 - 39 Moderate positive 40 - 59 Strong positive >59 Performed at: - [facility] [id number] Certified Massage Therapist: Jose Moser MD, Phone: [phone] Performed By: #### L4600.0100 #### [facility] (refer to report for specific site) refer to report for address and phone number GISELL W/ REFLEX MULT Collected: 03/01/2018 Status: F Source: [place] CONFIRM 8:38 AM [facility] REPOSITORY Order Comment: LUIS ZAIDI ORDERED A1C LIPID MIACRE CMP DR. GALVEZ ORDERED BMP TSH SED CRP RF CBCD GISELL CCP TYPE CODE TESTS RESULT OUT OF REFERENCE UNITS RANGE LAB L3100.5475 Negative High Positive GISELL-DIRECT LAB L3100.5500 0-9 IU/mL 12 High dsDNA AB Result Comment: Negative <5 Equivocal 5 - 9 Positive >9 LAB L3100.9200 0.0-0.9 AI Anti-SS-A Normal < 0.2 LAB L3100.9300 0.0-0.9 AI Anti-SS-B Normal < 0.2 LAB L3410.0427 0.0-0.9 AI ANTICHROMATIN Normal <0.2 LAB L3410.0500 0.0-0.9 AI ANTI-SHERRY Normal <0.2 LAB L3410.0700 0.0-0.9 AI ANTISCLER Normal <0.2 LAB L3410.1200 0.0-0.9 AI COMPRESSOR TECHNICIAN Ab Normal 0.2 LAB L3410.1300 0.0-0.9 AI ESTRADA Ab Normal <0.2 LAB L3410.4010 0.0-0.9 AI ANTI-CENT B Normal <0.2 LAB L3410.4150 . COMMENT Normal Comment Result Comment: Autoantibody Disease Association Condition Frequency --------- Antinuclear Antibody, SLE, mixed connective Direct (GISELL-D) tissue diseases --------- dsDNA SLE 40 - 60% --------- Chromatin Drug induced SLE 90% SLE 48 - 97% --------- SSA (Ro) SLE 25 - 35% Sjogren's Syndrome 40 - 70% Lupus 100% --------- SSB ([place]) SLE 10% Sjogren's Syndrome 30% --------- Sm (anti-Estrada) SLE 15 - 30% --------- COMPRESSOR TECHNICIAN Mixed Connective Tissue Disease 95% (U1 nRNP, SLE 30 - 50% anti-ribonucleoprotein) Polymyositis and/or Dermatomyositis 20% --------- Scl-70 (antiDNA Scleroderma (diffuse) 20 - 35% topoisomerase) Crest 13% --------- Sherry-1 Polymyositis and/or Dermatomyositis 20 - 40% --------- Centromere B Scleroderma - Crest variant 80% Performed at: - [facility] [address] [id number] Certified Massage Therapist: Ba Clark PhD, Phone: [phone] Performed By: #### L3377.1502 #### [facility] (refer to report for specific site) refer to report for address and phone number HEMOGLOBIN A1C Collected: 03/01/2018 Status: F Source: [place] 8:37 AM [facility] REPOSITORY Order Comment: LUIS ZAIDI ORDERED A1C LIPID MIACRE CMP DR. GALVEZ ORDERED BMP TSH SED CRP RF CBCD GISELL CCP TYPE CODE TESTS RESULT OUT OF RANGE REFERENCE UNITS LAB L501.9985 4.2-6.3 % High HGB A1C 9.7 Performed By: #### L501.9985 #### [facility] [address] [place], [address] COMPREHENSIVE METABOLIC Collected: 03/01/2018 Status: F Source: [place] PROFIL 8:37 AM [facility] REPOSITORY Order Comment: LUIS ZAIDI ORDERED A1C LIPID MIACRE CMP DR. GALVEZ ORDERED BMP TSH SED CRP RF CBCD GISELL CCP TYPE CODE TESTS RESULT OUT OF RANGE REFERENCE UNITS LAB L501.0100 74-106 mg/dL High GLU 201 Result Comment: Glucose result greater than or equal to 200 mg/dL suggests DIABETES MELLITUS per A.D.A. criteria. Please note revised GLUCOSE reference range effective 2017. LAB L501.1000 7-18 mg/dL Normal BUN 12 LAB L501.1100 0.55-1.02 mg/dL High CREAT,SERUM 1.06 Result Comment: The validity of the calculated GFR AND GFRAA in patients over 70 years has not been determined. Clinical correlation is essential. LAB L501.1110 >60 mL/min Low EST GFR 57 Result Comment: Non- GFR Calc LAB L501.1115 >60 mL/min Normal EST GFR - AA 69 Result Comment: GFR Calc LAB L501.1300 10-20 RATIO Normal BUN/CRE 11.3 LAB L501.1500 6.4-8.2 g/dL T Normal PROT 8.0 LAB L501.1800 3.2-5.0 g/dL Normal ALB 3.5 LAB L501.1950 2.2-4.2 g/dL High GLOB 4.5 LAB L501.2000 0.9-2.4 RATIO Low A/G 0.8 LAB L501.2200 8.5-10.1 mg/dL CA Normal 8.8 LAB L501.4100 15-37 U/L Low AST 12 Result Comment: Slight Hemolysis, Result may be falsely increased. LAB L501.4305 45-117 U/L High ALK P 141 LAB L501.4405 13-56 U/L Normal ALT 25 LAB L501.4600 0.20-1.00 mg/dL Normal T BILI 0.20 LAB L501.5300 136-145 mmol/L Normal NA 136 LAB L501.5600 3.5-5.1 mmol/L Normal K 4.1 Result Comment: Slight Hemolysis, Result may be falsely increased. LAB L501.5900 98-107 mmol/L Low CL 97 LAB L501.6100 21.0-32.0 mmol/L Normal CO2 31.0 LAB L501.6200 5-15 Normal GAP 8 Performed By: #### L500.4050, L500.4100, L501.6710, L501.9520, L505.7010 #### [facility] [address] [place], [place], [id number] LIPID PROFILE Collected: 03/01/2018 Status: F Source: [place] 8:37 AM [facility] REPOSITORY Order Comment: LUIS ZAIDI ORDERED A1C LIPID MIACRE CMP DR. GALVEZ ORDERED BMP TSH SED CRP RF CBCD GISELL CCP TYPE CODE TESTS RESULT OUT OF RANGE REFERENCE UNITS LAB L501.4900 200 mg/dL Normal CHOL 96 Result Comment: <200 mg/dL Desirable 200-240 mg/dL Borderline >240 mg/dL High Risk LAB L501.5000 mg/dL Normal TRIG 154 Result Comment: The drugs N-Acetylcysteine and Metamizole may falsely depress this assay. Serum Triglycerides Reference Interval Normal <150 mg/dL Borderline high 150 - 199 mg/dL High 200 - 499 mg/dL Very High > or = 500 mg/dL LAB L501.6400 mg/dL Low HDL 32 Result Comment: The drugs N-Acetylcysteine and Metamizole may falsely depress this assay. Reference Range HDL <40 mg/dL Low HDL Cholesterol HDL >or= 60 mg/dL High HDL Cholesterol LAB L501.6500 0-130 mg/dL Normal LDL 33 LAB L501.6600 5-40 mg/dL Normal VLDL 31 Performed By: #### L500.4050, L500.4100, L501.6710, L501.9520, L505.7010 #### [facility] [address] [place], [place], [id number] CRP Collected: 03/01/2018 Status: F Source: [place] 8:37 AM [facility] REPOSITORY Order Comment: LUIS ZAIDI ORDERED A1C LIPID MIACRE CMP DR. GALVEZ ORDERED BMP TSH SED CRP RF CBCD GISELL CCP TYPE CODE TESTS RESULT OUT OF RANGE REFERENCE UNITS LAB L501.6710 0.0-3.0 mg/L High 3.53 C-REACTIVE PROT Result Comment: C-Reactive Protein (CRP) provides useful information for the diagnosis, therapy and monitoring of inflammatory processes and associated diseases. For the evaluation of Relative Risk for Cardiovascular Disease, a High Sensitivity CRP (HSCRP) should be ordered. Performed By: #### L500.4050, L500.4100, L501.6710, L501.9520, L505.7010 #### [facility] [address] [facility] [place], [place], [id number] THYROID STIM HORMONE Collected: 03/01/2018 Status: F Source: [place] (TSH) 8:37 AM [facility] REPOSITORY Order Comment: LUIS ZAIDI ORDERED A1C LIPID MIACRE CMP DR. GALVEZ ORDERED BMP TSH SED CRP RF CBCD GISELL CCP TYPE CODE TESTS RESULT OUT OF RANGE REFERENCE UNITS LAB L501.9520 0.358-3.74 uIU/mL High TSH 3.94 Performed By: #### L500.4050, L500.4100, L501.6710, L501.9520, L505.7010 #### [facility] [address] [place], [place], [id number] RHEUMATOID FACTOR Collected: 03/01/2018 Status: F Source: [place] 8:37 AM [facility] REPOSITORY Order Comment: LUIS ZAIDI ORDERED A1C LIPID MIACRE CMP DR. GALVEZ ORDERED BMP TSH SED CRP RF CBCD GISELL CCP TYPE CODE TESTS RESULT OUT OF RANGE REFERENCE UNITS LAB L505.7010 <15 IU/mL Normal RHEUMATOID FAC < 10.0 Performed By: #### L500.4050, L500.4100, L501.6710, L501.9520, L505.7010 #### [facility] [address] [place], [place], [id number] MICROALB:CREAT Collected: 03/01/2018 Status: F Source: [place] RATIO,RANDOM UR 8:37 AM [facility] REPOSITORY Order Comment: LUIS ZAIDI ORDERED A1C LIPID MIACRE CMP DR. GALVEZ ORDERED BMP TSH SED CRP RF CBCD GISELL CCP TYPE CODE TESTS RESULT OUT OF RANGE REFERENCE UNITS LAB L501.1200 NO RANGE EST. mg/dL Normal UR CREAT 55.00 LAB L502.0500 NO RANGE EST. mg/L Normal 87.0 MICROALBUMIN ,UR LAB L502.0600 <30 mg/g CRE mg/g CRE High 158.2 MALB:CREAT Performed By: #### L502.0250 #### [facility] [address] [place], [place], [address] URGENT CARE VISIT Observed: 01/09/2018 Status: F Source: [place] REPORT 4:28 PM [facility] REPOSITORY [facility] [address] [place] [address] [address] [place], [place] [address] OFFICE VISIT Date of Service: 01/09/18 MR#: [id number] Acct: [id number] Name: CARLIE WATKINS Rep #: [id number] : 1965 Provider: KORINA Alberto Age/Sex: 52/F Location: [facility] [place] Status: Signed Intake Vital Signs01/09/18 Height 5 ft 4 in Intake Visit Reasons: CHEST CONGESTION Chief Complaint: Chest congestion and cough Allergies Sulfa (Sulfonamide Antibiotics) Allergy (Verified 01/09/18 15:18) Hives Medications Albuterol Inhaler [Ventolin Hfa] 2 puff INHALATION Q4H PRN 01/20/13 [History Confirmed 01/09/18] Aspirin E.C. [Ecotrin] 81 mg PO DAILY@0800 01/20/13 [History Confirmed 01/09/18] Latanoprost 0.005% [Xalatan Opthalmic] 1 drp EACH EYE QHS 01/20/13 [History Confirmed 01/09/18] Levothyroxine Sodium [Levoxyl] 75 mcg PO DAILY 01/20/13 [History Confirmed 01/09/18] Furosemide [Lasix] 10 mg PO QODAY 01/27/15 [History Confirmed 01/09/18] Timolol 0.5% [Timoptic] 1 drp EACH EYE DAILY 10/07/15 [History Confirmed 01/09/18] traMADol [Ultram (G)] 100 mg PO TID 02/20/15 [History Confirmed 01/09/18] busPIRone [Buspar] 15 mg PO TID 03/10/17 [History Confirmed 01/09/18] gabapentin 300 mg capsule 300 mg PO DAILY cap 05/08/17 [History Confirmed 01/09/18] gabapentin 600 mg tablet 600 mg PO .4 x qd tab 05/08/17 [History Confirmed 01/09/18] lisinopril 40 mg tablet 20 mg PO DAILY 05/08/17 [History Confirmed 01/09/18] rosuvastatin 40 mg tablet 40 mg PO DAILY 05/08/17 [History Confirmed 01/09/18] Cyclobenzaprine [Flexeril] 10 mg PO TID #20 tab 06/19/17 [Rx Confirmed 01/09/18] Zolpidem Tartrate [Ambien] 06/19/17 [History Confirmed 01/09/18] insulin syringe-needle U-100 0.5 mL 29 gauge x 1/2 1 syr SQ .MEDSUPPLY #100 ea 06/19/17 [Rx Confirmed 01/09/18] OneTouch Ultra Blue Test Strip See Dose Instructions .ROUTE .MEDSUPPLY #100 ea NS 10/10/17 [Rx Confirmed 01/09/18] azithromycin 250 mg tablet See Label Instructions PO .COMPLEX #6 tab 01/09/18 [Rx Confirmed 01/09/18] duloxetine 60 mg capsule,delayed release 120 mg PO DAILY 01/09/18 [History Confirmed 01/09/18] fluticasone 500 mcg-salmeterol 50 mcg/dose blistr powdr for inhalation 1 inh INHALATION DAILY ea 01/09/18 [History Confirmed 01/09/18] insulin regular human U-500concentrate 500 unit/mL subcutaneous soln See Label Instructions SC BID ml 01/09/18 [History] PFSH Medical History Asthma (Acute) Chest pain (Acute) Diabetes (Acute) Diabetes type 2, controlled (Acute) Difficulty balancing (Acute) Fatigue (Acute) Glaucoma (Acute) Hyperlipidemia (Acute) Hypothyroidism (Acute) Incontinence (Acute) Knee pain (Acute) Limb weakness (Acute) Obesity, Class III, BMI 40-49.9 (morbid obesity) (Acute) Rheumatoid arthritis (Acute) SLE (systemic lupus erythematosus) (Acute) SOB (shortness of breath) (Acute) Shoulder pain (Acute) Thyroid disease (Acute) Tremor (Acute) HTN (hypertension) (Chronic) Surgical History H/O dilation and curettage (Acute) H/O tubal ligation (Acute) H/O umbilical hernia repair (Acute) History of bladder surgery (Acute) S/P LASIK surgery of both eyes (Acute) lower back surgery (Acute) Family History Father Heart disease Parkinsons Hypertension Diabetes Mother Heart disease Kidney disease Thyroid disorder High cholesterol Hypertension Diabetes Brother Hypertension Diabetes Chronic bronchitis Asthma Seasonal allergies Grandfather CVA (cerebral vascular accident) Heart disease Hypertension Diabetes Grandmother Diabetes Throat cancer Arthritis Rheumatoid arthritis Osteoarthritis Hypertension Unknown Asthma Diabetes Alcoholism Arthritis Social History Smoking Status: Current every day smoker tobacco type: cigarettes second hand exposure: No alcohol intake: current alcohol intake frequency: holidays/special occasions only substance use type: marijuana HPI HPI Chief Complaint: Chest congestion and cough Details: CARLIE WATKINS, is a 52 F who presents to the office today for chest congestion with cough. She is productive of yellow sputum. She continues to smoke 1 pack of cigarettes per day. She continues to take her Advair and albuterol inhalers as directed. ROS Const Constitutional: No chills or fever(s) Eyes Eyes: No change in vision ENT ENT: No ear pain, sore throat, nasal congestion or nasal discharge Resp Respiratory: Positive for cough, change in phlegm color, chest congestion and wheezing; no shortness of breath Cardio Cardiology: No chest pain at rest or chest pain with exertion Gastro GI: No abdominal pain, diarrhea, vomiting or nausea/dyspepsia Musc Musculoskeletal: No back pain or abnormal walking Skin Skin: No rash or change in skin color Neuro Neurology: No confusion, abnormal walking or abnormal speech Psych Psychiatric: No confusion Aller/Imm Allergy/Immunologic: Positive for wheezing Exam Const General: healthy appearing, no acute distress Orientation: oriented x3, oriented to person, oriented to place, oriented to time [facility] Head: normocephalic Ears: external ears normal, TM's normal bilaterally, EAC's normal Eyes General: appearance normal, both eyes and all related structures Conjunctivae: conjunctivae normal Sclera: sclerae normal Pupils: PERRL Neck Neck: no lymphadenopathy Thyroid: thyroid normal Resp Auscultation: Bilateral: Diminished Lung Sounds, Rhonchi Cardio Rate: regular rate Rhythm: regular rhythm GI Inspection: normal to inspection Auscultation: normal bowel sounds Palpation: no hepatosplenomegaly, no splenomegaly, no masses Skin General: no pallor Rashes: no rashes Nails: no clubbing Neuro General: oriented x3, gait normal Extrem General: normal to inspection, no pedal edema, no calf tenderness, normal gait, no edema, no cyanosis, no clubbing, no calf tenderness bilaterally, no pedal edema Psych Mood: congruent mood Affect: normal affect Speech and Movement: speech and movement normal Assessment AND Plan Problems 1. URI, acute J06.9 Plan Patient was advised to take the antibiotic as directed. Advised to quit smoking. Continue her home medications as she is doing. Return to the clinic if needed. Follow-up with primary care if needed. Medications New: Coding Level of Care Code Off vis,new,level 4 Diagnoses URI, acute J06.9 01/09/18 1628 <Electronically signed by Juaquin HUI> Date Juaquin HUI Cosigner Signature: Date (if applicable) CC: ENDOCRINOLOGY VISIT Observed: 11/11/2017 Status: F Source: [place] REPORT 8:54 PM [facility] REPOSITORY [facility] [address] [place] [address]. [address] [place] [address] OFFICE VISIT Date of Service: 11/08/17 MR#: [id number] Acct: [id number] Name: CARLIE WATKINS Rep #: [id number] : 1965 Provider: Tamica Zaidi NP Age/Sex: 52/F Location: [facility] [place] Status: Signed HPI History of present illness HPI History of present illness Carlie Watkins is a 52 year old female who present for follow up of diabetes type 2. Continues on U-500 insulin daily taking what appears to be 23 units in am and 17 in pm using an insulin syringe U-100. She reports her BG readings have been in the 100 - 250 range. Feels she is getting things back in order after passing of her boyfriend, her dog, and then her father. Pt denies difficulty with injections or self monitoring of BG. Denies any signs of infection or irritation at site of injections. Reports taking insulin as directed Since our last visit she denies excessive thirst, increased frequency of urination, chest pain or dyspnea. Follows a reasonable diet, Is compliant with medication and is tolerating without side effects. At time of visit: -Pt denies symptoms of hypertensive emergency (CP,SOB,FLORES, or blurred vision) and hypotension(dizziness or lightheadedness) -Pt denies symptoms of hypoglycemia ( sweaty, confusion, anxiety, tremor, hunger, palpitations) and hyperglycemia ( polydipsia, polyuria) -Pt denies potential medication adverse effect. Hypoglycemia Aware of hypoglycemia: When awake Able to self treat low BG: Yes Frequent low Blood sugar: No Has supply of glucagon: No SMBG BG 3-4 times daily reported 100-250 range with occ higher BG if she does not monitor diet and activity. Pain issues with back which creates higher BG Type: insulin-requiring, type 2 Cardiopulmonary symptoms: Reports dyspnea on exertion; denies chest pain at rest GI symptoms: Denies constipation or increased hunger Other symptoms: Reports depression; denies blurry vision or change in vision Self monitoring: Yes Glucometer type: Relion Exam Const General: comfortable, no acute distress Nutritional Appearance: overweight Orientation: oriented x3 [facility] Head: normal to inspection, atraumatic Ears: hearing grossly normal bilaterally Mouth: oral mucosae normal, moist mucous membranes Eyes General: appearance normal, both eyes and all related structures Conjunctivae: conjunctivae normal Sclera: sclerae normal Pupils: PERRL Neck Neck: normal visual inspection Neck mass: No Chest Chest palpation AND inspection: deferred Resp Effort AND Inspection: normal respiratory effort, able to speak in complete sentences, symmetric chest movement Cardio Rate: regular rate Rhythm: regular rhythm Heart Sounds: S1 normal, S2 normal GI Inspection: obese Auscultation: normal bowel sounds Palpation: no guarding Skin General: sweaty Wounds: no wounds Diabetic Foot Monofilament test: Left foot: abnormal, Right foot: abnormal Neuro General: oriented x3, decrease sensation to monofilament Cranial Nerves: hearing normal Cognition: normal cognition Speech: speech normal Extrem General: normal to inspection, pedal edema Psych Appearance: well kempt Mood: congruent mood Affect: normal affect Attitude: cooperative Thought Process: normal Thought Content: normal Judgment: judgment good Weight and fatigue symptoms: Denies snoring Cardiopulmonary symptoms: Reports lightheadedness; denies chest pain at rest, GI symptoms: Reports nausea/dyspepsia and vomiting; denies constipation or diarrhea Other symptoms: Denies blurry vision or change in vision Weight and fatigue symptoms: Denies snoring Cardiopulmonary symptoms: Reports chest pain at rest and lightheadedness; denies dyspnea on exertion or myalgias GI symptoms: Denies constipation, diarrhea, nausea/dyspepsia or vomiting Other symptoms: Denies blurry vision or change in vision Type: type 2 Glucose control symptoms: Reports nocturia (occasionally will get up to use restroom more closely to morning time.); denies high fasting glucose, high post-meal glucose, polydipsia, polyuria, hypoglycemic with activity, daytime hypoglycemia, nocturnal hypoglycemia, confusion at night, recent nightmares or loss of consciousness Weight and fatigue symptoms: Denies weight gain, weight loss, not sleeping well, wakes up feeling tired, tired all the time, daytime sleepiness or snoring Cardiopulmonary symptoms: Denies chest pain with activity, chest pain at rest, dyspnea, dyspnea on exertion, dyspnea at rest, myalgias, postural hypotension, lightheadedness, dizziness or claudication GI symptoms: Denies early satiety, nausea/dyspepsia, vomiting, diarrhea, constipation or increased hunger Skin and extremity symptoms: Reports tingling/numbness/burning (in all four extremities ); denies erectile dysfunction, foot ulcers, poorly healing wound, claudication or recurrent infections Other symptoms: Denies blurry vision, change in vision, recurrent infections, depression or other Pertinent visit history: Reports recent visit to ER (in August, for her back. 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 [Ecotrin] 81 mg PO DAILY@0800 01/20/13 [History Confirmed 11/08/17] Fluticasone/Salmeterol [Advair 500/50 Mcg Diskus] 1 puff INHALATION DAILY 01/20/13 [History Confirmed 11/08/17] Latanoprost 0.005% [Xalatan Opthalmic] 1 drp EACH EYE QHS 01/20/13 [History Confirmed 11/08/17] Levothyroxine Sodium [Levoxyl] 75 mcg PO DAILY 01/20/13 [History Confirmed 11/08/17] Duloxetine Hcl [Cymbalta] 120 mg PO DAILY 01/27/15 [History Confirmed 11/08/17] Furosemide [Lasix] 10 mg PO QODAY 01/27/15 [History Confirmed 11/08/17] Timolol 0.5% [Timoptic] 1 drp EACH EYE DAILY 01/27/15 [History Confirmed 11/08/17] traMADol [Ultram (G)] 100 mg PO TID 02/20/15 [History Confirmed 11/08/17] busPIRone [Buspar] 15 mg PO TID 03/10/17 [History Confirmed 11/08/17] gabapentin 300 mg capsule 300 mg PO DAILY cap 05/08/17 [History Confirmed 11/08/17] gabapentin 600 mg tablet 600 mg PO .4 x qd tab 05/08/17 [History Confirmed 11/08/17] hydroxyzine pamoate 50 mg capsule 50 mg PO TID cap 05/08/17 [History Confirmed 11/08/17] lisinopril 40 mg tablet 20 mg PO DAILY 05/08/17 [History Confirmed 11/08/17] rosuvastatin 40 mg tablet 40 mg PO DAILY 05/08/17 [History Confirmed 11/08/17] Cyclobenzaprine [Flexeril] 10 mg PO TID #20 tab 06/19/17 [Rx Confirmed 11/08/17] Zolpidem Tartrate [Ambien] 06/19/17 [History Confirmed 11/08/17] insulin regular human U-500concentrate 500 unit/mL subcutaneous soln See Label Instructions SC BID #20 ml 06/19/17 [Rx Confirmed 11/08/17] insulin syringe-needle U-100 0.5 mL 29 gauge x 1/2 1 syr SQ .MEDSUPPLY #100 ea 06/19/17 [Rx Confirmed 11/08/17] OneTouch Ultra Blue Test Strip See Dose Instructions .ROUTE .MEDSUPPLY #100 ea NS 10/10/17 [Rx Confirmed 11/08/17] diphenhydramine 25 mg capsule 25 mg PO QHS PRN 10/15/17 [History Confirmed 11/08/17] [facility] Medical History Diabetes type 2, controlled (Acute) Glaucoma (Acute) Hyperlipidemia (Acute) Hypothyroidism (Acute) Obesity, Class III, BMI 40-49.9 (morbid obesity) (Acute) Rheumatoid arthritis (Acute) SLE (systemic lupus erythematosus) (Acute) Tremor (Acute) HTN (hypertension) (Chronic) Surgical History H/O dilation and curettage (Acute) H/O tubal ligation (Acute) H/O umbilical hernia repair (Acute) History of bladder surgery (Acute) S/P LASIK surgery of both eyes (Acute) lower back surgery (Acute) Family History Father Heart disease Parkinsons Hypertension Diabetes Mother Heart disease Kidney disease Thyroid disorder High cholesterol Hypertension Diabetes Brother Hypertension Diabetes Chronic bronchitis Asthma Seasonal allergies Grandfather CVA (cerebral vascular accident) Heart disease Hypertension Diabetes Grandmother Diabetes Throat cancer Arthritis Rheumatoid arthritis Osteoarthritis Hypertension Unknown Asthma Diabetes Alcoholism Arthritis Social History Smoking Status: Current every day smoker tobacco type: cigarettes second hand exposure: No alcohol intake: current alcohol intake frequency: holidays/special occasions only substance use type: marijuana ROS Const Constitutional: No snoring, excessive sweating or fatigue Eyes Eyes: No blurry vision or change in vision ENT ENT: No other Resp Respiratory: No snoring Cardio Cardiology: No chest pain at rest, dyspnea on exertion, lightheadedness or excessive sweating Gastro GI: No nausea/dyspepsia, vomiting, diarrhea or constipation Musc Musculoskeletal: No body aches Neuro Neurology: No dizziness Psych Psychiatric: No depression Endo Endocrine: Positive for cold intolerance; no change in body appearance, excessive sweating, fatigue, flushing, heat intolerance, increased thirst/drinking, increased hunger, increased urination or other Assessment AND Plan Problems 1. Acquired hypothyroidism E03.9 2. 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 Drink water Exercise daily Eat more fresh foods, not canned or processed Eat more slowly Armchair exercises as well as physical therapy. Make sure approved by therapist. Orders Orders: Plan Detail Additional Comments 1. Please schedule follow up in 3 months. 2. Lab work one week before appointment. 3. Discussed importance of regular exercise and recommend starting or continuing a regular exercise program for good health. 4. The patient was encouraged to lose weight for good health 5. The importance of monitoring blood sugar regularly was reviewed. 6. The importance of monitoring the HBA1c level regularly was reviewed. 7. The importance of prper foot care and regularly checking feet to prevent sores and loss of limbs was reviewed. 8. The importance of keeping BP at or below 130/80 to prevent stroke, heart attacks, kidney failure, blindness was reviewed. Spent approximately 30 minutes with patient with over 50% of time spent in discussion and counseling regarding medication adjustment, symptoms and treatment of hypoglycemia, diet adherence, and checking BG before driving. 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 [place], [address] ENDOCRINOLOGY VISIT Observed: 10/26/2017 Status: F Source: [place] REPORT 6:45 AM [facility] REPOSITORY [facility] [address] [place] [address] OFFICE VISIT Date of Service: 09/25/17 MR#: [id number] Acct: [id number] Name: CARLIE WATKINS Rep #: [id number] : 1965 Provider: Tamica Zaidi NP Age/Sex: 52/F Location: [facility] [place] Status: Signed HPI History of present illness Carlie Watkins is a 52 year old female who present for follow up of diabetes type 2. Continues on U-500 insulin daily taking what appears to be 23 units in am and 17 in pm using an insulin syringe U-100. She reports her BG readings have been in the 100 - 200 range. Feels she is getting things back in order after passing of her boyfriend, her dog, and then her father. Pt denies difficulty with injections or self monitoring of BG. Denies any signs of infection or irritation at site of injections. Reports taking insulin as directed Since our last visit she denies excessive thirst, increased frequency of urination, chest pain or dyspnea. Follows a reasonable diet, Is compliant with medication and is tolerating without side effects. At time of visit: -Pt denies symptoms of hypertensive emergency (CP,SOB,FLORES, or blurred vision) and hypotension(dizziness or lightheadedness) -Pt denies symptoms of hypoglycemia ( sweaty, confusion, anxiety, tremor, hunger, palpitations) and hyperglycemia ( polydipsia, polyuria) -Pt denies potential medication adverse effect. Hypoglycemia Aware of hypoglycemia: When awake Able to self treat low BG: Yes Frequent low Blood sugar: No Has supply of glucagon: Yes BG 4 times daily reported 100-200 range with occ higher BG if she does not monitor diet and activity. Type: insulin-requiring, type 2 Cardiopulmonary symptoms: Reports dyspnea on exertion; denies chest pain at rest GI symptoms: Denies constipation or increased hunger Other symptoms: Reports depression; denies blurry vision or change in vision Self monitoring: Yes Glucometer type: Relion Exam Const General: comfortable, no acute distress Nutritional Appearance: overweight Orientation: oriented x3 HENSC Head: normal to inspection, atraumatic Ears: hearing grossly normal bilaterally Mouth: oral mucosae normal, moist mucous membranes Eyes General: appearance normal, both eyes and all related structures Conjunctivae: conjunctivae normal Sclera: sclerae normal Pupils: PERRL Neck Neck: normal visual inspection Neck mass: No Chest Chest palpation AND inspection: deferred Resp Effort AND Inspection: normal respiratory effort, able to speak in complete sentences, symmetric chest movement Cardio Rate: regular rate Rhythm: regular rhythm Heart Sounds: S1 normal, S2 normal GI Inspection: obese Auscultation: normal bowel sounds Palpation: no guarding Skin General: sweaty Wounds: no wounds Diabetic Foot Monofilament test: Left foot: abnormal, Right foot: abnormal Neuro General: oriented x3, decrease sensation to monofilament Cranial Nerves: hearing normal Cognition: normal cognition Speech: speech normal Extrem General: normal to inspection, pedal edema Psych Appearance: well kempt Mood: congruent mood Affect: normal affect Attitude: cooperative Thought Process: normal Thought Content: normal Judgment: judgment good Weight and fatigue symptoms: Denies snoring Cardiopulmonary symptoms: Reports lightheadedness; denies chest pain at rest, GI symptoms: Reports nausea/dyspepsia and vomiting; denies constipation or diarrhea Other symptoms: Denies blurry vision or change in vision Weight and fatigue symptoms: Denies snoring Cardiopulmonary symptoms: Reports chest pain at rest and lightheadedness; denies dyspnea on exertion or myalgias GI symptoms: Denies constipation, diarrhea, nausea/dyspepsia or vomiting Other symptoms: Denies blurry vision or change in vision Intake Vital Signs09/25/17 Weight: 277 lb 6 oz 09/25/17 Blood Pressure 115/71 09/25/17 Blood Pressure Location Lt popliteal 09/25/17 Blood Pressure Position Sitting 09/25/17 Respiratory Rate 18 Intake Visit Reasons: Diabetes follow-up Payroll Administrator Required: No Accompanied by: Self Is patient in pain?: No Allergies Sulfa (Sulfonamide Antibiotics) Allergy (Verified 10/15/17 16:11) Hives Medications Albuterol Inhaler [Ventolin Hfa] 2 puff INHALATION Q4H PRN 01/20/13 [History Confirmed 10/15/17] Aspirin E.C. [Ecotrin] 81 mg PO DAILY@0800 01/20/13 [History Confirmed 10/15/17] Fluticasone/Salmeterol [Advair 500/50 Mcg Diskus] 1 puff INHALATION DAILY 01/20/13 [History Confirmed 10/15/17] Latanoprost 0.005% [Xalatan Opthalmic] 1 drp EACH EYE QHS 01/20/13 [History Confirmed 10/15/17] Levothyroxine Sodium [Levoxyl] 75 mcg PO DAILY 01/20/13 [History Confirmed 10/15/17] Duloxetine Hcl [Cymbalta] 120 mg PO DAILY 01/27/15 [History Confirmed 10/15/17] Furosemide [Lasix] 10 mg PO QODAY 01/27/15 [History Confirmed 10/15/17] Timolol 0.5% [Timoptic] 1 drp EACH EYE DAILY 01/27/15 [History Confirmed 10/15/17] traMADol [Ultram (G)] 100 mg PO TID 02/20/15 [History Confirmed 10/15/17] busPIRone [Buspar] 15 mg PO TID 03/10/17 [History Confirmed 10/15/17] gabapentin 300 mg capsule 300 mg PO DAILY cap 05/08/17 [History Confirmed 10/15/17] gabapentin 600 mg tablet 600 mg PO .4 x qd tab 05/08/17 [History Confirmed 10/15/17] hydroxyzine pamoate 50 mg capsule 50 mg PO TID cap 05/08/17 [History Confirmed 10/15/17] lisinopril 40 mg tablet 20 mg PO DAILY 05/08/17 [History Confirmed 10/15/17] rosuvastatin 40 mg tablet 40 mg PO DAILY 05/08/17 [History Confirmed 10/15/17] Oxycodone HCl/Acetaminophen [Percocet 5/325] 1 tab PO Q6H PRN PRN 3 Days #12 tab 06/06/17 [Rx Confirmed 10/15/17] Cyclobenzaprine [Flexeril] 10 mg PO TID #20 tab 06/19/17 [Rx Confirmed 10/15/17] Zolpidem Tartrate [Ambien] 06/19/17 [History Confirmed 10/15/17] insulin regular human U-500concentrate 500 unit/mL subcutaneous soln See Label Instructions SC BID #20 ml 06/19/17 [Rx Confirmed 10/15/17] insulin syringe-needle U-100 0.5 mL 29 gauge x 1/2 1 syr SQ .MEDSUPPLY #100 ea 06/19/17 [Rx Confirmed 10/15/17] OneTouch Ultra Blue Test Strip See Dose Instructions .ROUTE .MEDSUPPLY #100 ea NS 10/10/17 [Rx Confirmed 10/15/17] diphenhydramine 25 mg capsule 25 mg PO QHS PRN 10/15/17 [History Confirmed 10/15/17] prednisone 5 mg tablets in a dose pack mg PO 10/15/17 [History Confirmed 10/15/17] Is last menstrual period known: No Post menopausal: Yes Patient : No Nurse's Note: blood sugars : low : 128 high : 400+ PFSH Medical History Diabetes type 2, controlled (Acute) Glaucoma (Acute) Hyperlipidemia (Acute) Hypothyroidism (Acute) Obesity, Class III, BMI 40-49.9 (morbid obesity) (Acute) Rheumatoid arthritis (Acute) SLE (systemic lupus erythematosus) (Acute) Tremor (Acute) HTN (hypertension) (Chronic) Surgical History H/O dilation and curettage (Acute) H/O tubal ligation (Acute) H/O umbilical hernia repair (Acute) History of bladder surgery (Acute) S/P LASIK surgery of both eyes (Acute) lower back surgery (Acute) Family History Father Heart disease Parkinsons Hypertension Diabetes Mother Heart disease Kidney disease Thyroid disorder High cholesterol Hypertension Diabetes Brother Hypertension Diabetes Chronic bronchitis Asthma Seasonal allergies Grandfather CVA (cerebral vascular accident) Heart disease Hypertension Diabetes Grandmother Diabetes Throat cancer Arthritis Rheumatoid arthritis Osteoarthritis Hypertension Unknown Asthma Diabetes Alcoholism Arthritis Social History Smoking Status: Current every day smoker tobacco type: cigarettes second hand exposure: No alcohol intake: current alcohol intake frequency: holidays/special occasions only substance use type: marijuana ROS Const Constitutional: Positive for fatigue, night sweats, weight change and change in appetite; no anorexia, body ache, chills, fever(s), frequent falls, decreased energy, malaise, weakness, sleep problems, abnormal sleep pattern, other, headache(s), snoring or excessive sweating Eyes Eyes: No blurry vision, change in vision, double vision, discharge, dry eyes, bulging eyes, floaters, visual disturbances, eye pain, light sensitivity, spots in vision, tunnel vision or other ENT ENT: Positive for ear pressure, nasal discharge and sore throat; no abnormal hearing, ear pain, ear discharge, hearing loss, tinnitus, dizziness/vertigo, balance problems, nosebleed/epistaxis, nasal congestion, nasal obstruction, nose pain, sinus pressure, sinus pain, post nasal drip, headache(s), facial pain, dental pain, dry mouth, bad breath, hoarseness, lip swelling, mouth lesions, mouth pain, tongue swelling, throat swelling, other, difficulty swallowing or neck pain Resp Respiratory: Positive for cough, shortness of breath and wheezing; no change in phlegm color, chest congestion, excessive phlegm production, hemoptysis, pain on inspiration, pain with cough, snoring, stridor or other Cardio Cardiology: Positive for chest pain at rest, chest pain with exertion, generalized swelling and lightheadedness; no leg pain with exertion, excessive sweating, shortness of breath, dyspnea on exertion, irregular heart rhythm, orthopnea, radiating jaw, neck or arm pain, fast heart rate, slow heart rate, palpitations or other Gastro GI: No abdominal pain, belching, bloating, change in bowel habits, change in stool character, coffee ground emesis, constipation, cramping, diarrhea, heartburn, difficulty swallowing, feeling full early, excessive flatus, incontinent of stools, Vomiting blood/hematemesis, blood in stool, loose stools, Black,tarry stools, nausea/dyspepsia, pain with swallowing, vomiting or other Genitourinary-Female: Positive for urinary incontinence; no difficulty urinating, burning urination, painful urination, urinary frequency, urinary urgency, urinary hesitancy, urinary retention, blood in urine, Frequent nighttime urination/ nocturia, post void dribbling, suprapubic fullness, side pain, sexual problems, genital lesions, genital itching, hot flashes, abnormal periods, abnormal vaginal bleeding, absent period, painful periods, light periods, heavy periods, difficulty getting , painful intercourse, pelvic pain, vaginal dryness, vaginal odor, Vaginal Itching or other Musc Musculoskeletal: Positive for back pain; no abnormal walking, joint pain, deformity, joint swelling, limited range of motion, loss of height, muscle cramps, muscle weakness, decreased muscle mass, body aches, neck pain, numbness, radiating pain into limb, stiffness, tingling or other Skin Skin: Positive for sores (bilat legs); no acne, hair loss, change in hair, nail changes, boil, change in skin color, dry skin, redness, excessive hair growth, yellowing of the skin, lesions, itching, rash, skin pain, skin ulcer, skin swelling, wounds or other Breast Breast: No other Neuro Neurology: No frequent falls, weakness, visual disturbances, abnormal hearing, headache(s), abnormal walking, numbness or tingling Psych Psychiatric: No abnormal sleep pattern, Positive for change in appetite Endo Endocrine: Positive for fatigue; no other or excessive sweating Aller/Imm Allergy/Immunologic: Positive for wheezing; no lip swelling, tongue swelling, throat swelling or itchy eyes Assessment AND Plan 1. 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 Need to develop habits in eating, exercise, monitoring. 2. Acquired hypothyroidism E03.9 Plan Add 1/2 additional tablet to regimen each week and then recheck in 6 weeks. 3. Anxiety F41.9 Plan Detail Additional Comments 1. Please schedule follow up in 3 months. 2. Lab work one week before appointment. 3. Discussed importance of regular exercise and recommend starting or continuing a regular exercise program for good health. 4. The patient was encouraged to lose weight for good health 5. The importance of monitoring blood sugar regularly was reviewed. 6. The importance of monitoring the HBA1c level regularly was reviewed. 7. The importance of prper foot care and regularly checking feet to prevent sores and loss of limbs was reviewed. 8. The importance of keeping BP at or below 130/80 to prevent stroke, heart attacks, kidney failure, blindness was reviewed. Spent approximately 30 minutes with patient with over 50% of time spent in discussion and counseling regarding medication adjustment, symptoms and treatment of hypoglycemia, diet adherence, and checking BG before driving. 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 [place], [place] [address] Fax REHABILITATION SERVICES INITIAL EVALUATION MR#: [id number] Acct: [id number] Name: CARLIE WATKINS Rep #: [id number] : 1965 52 From: Ronit Cárdenas PT, Cert. MDT Referring DrJeannine: Status: REG R Insurance: [facility] SELF PAY INSURANCE Patient's Visit Information CARLIE WATKINS is a 52 year old F referred to Physical Therapy by DAMARIS COLEMAN with a diagnosis of Lumbar Disc Herniation. Date of Evaluation: 10/12/17 Physical Therapist: Ronit Cárdenas - Visit Plan Frequency: 2x /Week Duration: 4 Weeks Plan: Therapeutic exercises and activities on land and in an aquatic setting targeting BLE/core strength, endurance and flexibility. Modalities and Manual as needed to decrease pain and improve ROM. Incorporate HEP to promote maintainence and progression. - Subjective Subjective: Patient presents in therapy today with low back pain. Started about 4 months ago with L leg pain that runs down back to knee with no cause i just woke up like this. States she had surgery October 2015 low back surgery to repair a disc. She saw a doctor who said pain is originating in same spot as surgery and is unable to have surgery there again. She is taking pain medication to help relieve pain. She tried heat but it did not make anything better. Had x-ray showing central canal stenosis L3-L5, decreased disc height throughout lumbar spine. Pain worsens throughout the day, when standing for longer durations. Sitting help relieves the pain. Has a health aide that helps with house work and bathing. PMHx: Patient has lupus and arthritis in all joints, edema in legs, diabetic, fibromyalgia. Patient is on disability. - Pain low back Pain Intensity (Out of 10): Unrated Pain Intensity Range: 4, 10 Comment: left side more than the right - Objective Appearance: Patient obese; Slouched posture with increasing posterior pelvic tilt. Palpation: Tenderness along paraspinals throughout lower thoracic and lumbar spine; tenderness along left buttock area. Sensaton: No numbness or tingling; Intact to light touch. Posture: Static standing equal WB through BLE; Slight L scoliosis of thoracic spine. ROM: Limited lumbar and thoracic motion in all planes with moderate limitation of lumbar flexion, extension, sidebending and minimal rotation limitation. moderate limitation throracic rotation to the right and minimal to the left. Strength: BLE grossly 4/5 except hip abduction 4-/5, hip extension 4-/5 and hip adduction 4-/5, core strength grossly 3/5 strength. Endurance: Patient displays poor endurance with SOB with transitions from supine to sitting and multiple repetitions of movements. Gait: Patient ambulating with heel/toe to flat foot progression with mild hip drop bilaterally; Ascend/descend step to pattern with handrail support. Flexibility: Moderate hamstring tightness bilaterally (testing limited by adipose tissue restriction). Repeated Movements: Pain worsen with repeated extension and flexion - Goals Goal 1:: Patient will increase BLE grossly 4+/5 for improved performance with functional mobility. Goal Time Frame: 4-6 Weeks Goal 2:: Patient will increase core strength 4/5 for improved posture Goal Time Frame: 4-6 Weeks Goal 3:: Patient will maintain upright sitting posture for 5 minutes without low back pain. Goal Time Frame: 4-6 Weeks Goal 4:: Patient will increase hamstring flexibility bilaterally for improved mobility Goal Time Frame: 4-6 Weeks Goal 5:: Patient will increase lumbar spine motion in all planes for improved mobility. Goal Time Frame: 4-6 Weeks - Rehabilitation Potential Physical Therapy Diagnosis: Muscle Weakness; Limited Flexibility; Decreased Activity Tolerance Rehabilitation Potential: Fair - Anticipated Interventions Patient/Client Instruction: Educate patient on: Condition, Plan of Care For the Purpose of:: To decrease pain, To increase ROM, To improve muscle performance and motor function, To improve performance and independence with ADL's, To improve ability of physical actions for home/community/work/leisure, To increase flexibility/ROM, To improve endurance Therapeutic Exercise to Include: Strength training, Endurance training, Body mechanics, Postural training, Flexibilty training, In an aquatic setting, Dynamic Lumbar Stabilization, Carmen Exercises For the Purpose of:: To decrease pain, To increase ROM, To improve muscle performance and motor function, To improve performance and independence with ADL's, To improve ability of physical actions for home/community/work/leisure, To increase flexibility/ROM, To improve endurance Functional Training to Include: ADL Training For the Purpose of:: To improve performance and independence with ADL's, To improve ability of physical actions for home/community/work/leisure Comment: MASSAGE NOT COVERED For the Purpose of:: To decrease pain, To increase ROM Iontophoresis (with Dexamethozone, with Acetic acid): No For the Purpose of:: To decrease pain, To increase ROM, To increase flexibility/ROM Thank you for the opportunity to evaluate your patient. For Medicare and Medicare HMO plans, please review the plan of care and approve it. It will need to be FAXED BACK to us at [phone] for Medicare purposes. Please let me know if there are questions or concerns regarding this plan of care. Physician Signature: Date: <Electronically signed by Ronit Cárdenas PT, Cert. MDT> 10/17/17 1925 CC: OUT OF TOWN DOCTOR; Richar Galvez MD PTIER Signed For Medicare only, by signing this I certify the plan of care. Physicians Signature Date MICROALB:QUANG Collected: 09/19/2017 Status: F Source: [place] RATIO,RANDOM UR 7:38 AM [facility] REPOSITORY TYPE CODE TESTS RESULT OUT OF RANGE REFERENCE UNITS LAB L501.1200 NO RANGE EST. mg/dL Normal UR CREAT 150.00 LAB L502.0500 NO RANGE EST. mg/L Normal 273.0 MICROALBUMIN ,UR LAB L502.0600 <30 mg/g CRE mg/g CRE High 182.0 MALB:CREAT Performed By: #### L502.0250, L501.9985, L500.4050, L500.4100, L501.9520 #### [facility] [address] [place], [place], [address] HEMOGLOBIN A1C Collected: 09/19/2017 Status: F Source: [place] 7:38 AM [facility] REPOSITORY TYPE CODE TESTS RESULT OUT OF RANGE REFERENCE UNITS LAB L501.9985 4.2-6.3 % High HGB A1C 10.0 Performed By: #### L502.0250, L501.9985, L500.4050, L500.4100, L501.9520 #### [facility] [address] [place], [place], [id number] COMPREHENSIVE METABOLIC Collected: 09/19/2017 Status: F Source: [place] PROFIL 7:38 AM [facility] REPOSITORY TYPE CODE TESTS RESULT OUT OF RANGE REFERENCE UNITS LAB L501.0100 74-106 mg/dL Low GLU 62 Result Comment: Please note revised GLUCOSE reference range effective 2017. LAB L501.1000 7-18 mg/dL High BUN 25 LAB L501.1100 0.55-1.02 mg/dL High CREAT,SERUM 1.04 Result Comment: The validity of the calculated GFR AND GFRAA in patients over 70 years has not been determined. Clinical correlation is essential. LAB L501.1110 >60 mL/min Low EST GFR 59 Result Comment: Non- GFR Calc LAB L501.1115 >60 mL/min Normal EST GFR - AA 71 Result Comment: GFR Calc LAB L501.1300 10-20 RATIO High BUN/CRE 24.0 LAB L501.1500 6.4-8.2 g/dL T Normal PROT 7.7 LAB L501.1800 3.2-5.0 g/dL Normal ALB 3.4 LAB L501.1950 2.2-4.2 g/dL High GLOB 4.3 LAB L501.2000 0.9-2.4 RATIO Low A/G 0.8 LAB L501.2200 8.5-10.1 mg/dL CA Normal 9.0 LAB L501.4100 15-37 U/L Low AST 14 LAB L501.4305 45-117 U/L High ALK P 134 LAB L501.4405 13-56 U/L Normal ALT 33 LAB L501.4600 0.20-1.00 mg/dL T Normal BILI 0.30 LAB L501.5300 136-145 mmol/L NA Normal 143 LAB L501.5600 3.5-5.1 mmol/L K Normal 3.6 LAB L501.5900 98-107 mmol/L CL Normal 99 LAB L501.6100 21.0-32.0 mmol/L High CO2 34.0 LAB L501.6200 5-15 Normal GAP 10 Performed By: #### L502.0250, L501.9985, L500.4050, L500.4100, L501.9520 #### [facility] [address] [place], [address] LIPID PROFILE Collected: 09/19/2017 Status: F Source: [place] 7:38 AM [facility] REPOSITORY TYPE CODE TESTS RESULT OUT OF RANGE REFERENCE UNITS LAB L501.4900 200 mg/dL Normal CHOL 127 Result Comment: <200 mg/dL Desirable 200-240 mg/dL Borderline >240 mg/dL High Risk LAB L501.5000 mg/dL Normal TRIG 160 Result Comment: The drugs N-Acetylcysteine and Metamizole may falsely depress this assay. Serum Triglycerides Reference Interval Normal <150 mg/dL Borderline high 150 - 199 mg/dL High 200 - 499 mg/dL Very High > or = 500 mg/dL LAB L501.6400 mg/dL Normal HDL 58 Result Comment: The drugs N-Acetylcysteine and Metamizole may falsely depress this assay. Reference Range HDL <40 mg/dL Low HDL Cholesterol HDL >or= 60 mg/dL High HDL Cholesterol LAB L501.6500 0-130 mg/dL Normal LDL 37 LAB L501.6600 5-40 mg/dL Normal VLDL 32 Performed By: #### L502.0250, L501.9985, L500.4050, L500.4100, L501.9520 #### [facility] [address] [place], [address] THYROID STIM HORMONE Collected: 09/19/2017 Status: F Source: [place] (TSH) 7:38 AM [facility] REPOSITORY TYPE CODE TESTS RESULT OUT OF RANGE REFERENCE UNITS LAB L501.9520 0.358-3.74 uIU/mL High TSH 3.83 Performed By: #### L502.0250, L501.9985, L500.4050, L500.4100, L501.9520 #### [facility] [address] [place], [address] SCREENING MAMM (CAD), Observed: 08/21/2017 Status: F Source: [place] BILAT 12:51 PM [facility] REPOSITORY [facility] Imaging Services [address] [place] [address] SCREENING MAMM (CAD), BILAT MR#: [id number] Acct: [id number] Name: CARLIE WATKINS Preet Rep #: [id number] : 1965 F 52 From: Bennett Patel MD PCP: Richar Galvez Status: REG CLI Study: SCREENING MAMM (CAD), BILAT Date of Exam: 08/21/17 Exam# [id number] Ordering Dr: Gail Benavidez MD MAMMOGRAPHY - BILATERAL SCREENING REASON FOR EXAM: Female, 52 years old. Routine annual screening examination. PERTINENT HISTORY: NO FAM HX LT NEEDLE BX 2006 TECHNIQUE: Digital bilateral breast jeremie (3D mammographic acquisition) in the CC and MLO projections. 2-D mediolateral oblique (MLO) and craniocaudad (CC) views of both breasts were obtained. CAD: Full Field Digital Mammography with Computer Added Detection was performed. COMPARISON: Jun 15 2016 3:11pm , May 20 2015 4:49pm FINDINGS: Breast Composition: There are scattered areas of fibroglandular density. There are no dominant masses or suspicious calcifications. No other significant abnormalities are identified. BI/SCREENING MAMM (CAD), BILAT IMPRESSION: Stable bilateral screening mammogram. Yearly follow-up mammogram recommended. (A) ASSESSMENT CATEGORY: BIRADS Category 2: Benign. A letter regarding these results will be sent to the patient by the facility within 30 days. Approximately 10% of breast cancers are not detected by mammography. A normal mammogram should not delay biopsy of a clinically suspicious abnormality. [id number] Electronically Signed: Bennett Patel MD at 12:49 EDT Tel , Service support , CC: Richar Galvez; Gail Scruggs MD Vegetable Cook: Signed ENDOCRINOLOGY VISIT Observed: 08/05/2017 Status: F Source: [place] REPORT 7:28 PM [facility] REPOSITORY [facility] [address] [place] [address]. [address] [place] [address] OFFICE VISIT Date of Service: 08/02/17 MR#: [id number] Acct: [id number] Name: CARLIE WAKTINS Rep #: [id number] : 1965 Provider: Tamica Zaidi NP Age/Sex: 52/F Location: [facility] Status: Signed HPI History of present illness Carlie Watkins is a 52 year old female who present for follow up of diabetes type 2. Continues on U-500 insulin daily taking what appears to be 23 units in am and 17 in pm using an insulin syringe U-100. She reports her BG readings have recently began to improve and her readings are mostly in the 100 range. Feels she is getting things back in order after passing of her boyfriend, her dog, and then her father. Pt denies difficulty with injections or self monitoring of BG. Denies any signs of infection or irritation at site of injections. Reports taking insulin as directed At time of visit: -Pt denies symptoms of hypertensive emergency (CP,SOB,FLORES, or blurred vision) and hypotension(dizziness or lightheadedness) -Pt denies symptoms of hypoglycemia ( sweaty, confusion, anxiety, tremor, hunger, palpitations) and hyperglycemia ( polydipsia, polyuria) -Pt denies potential medication adverse effect. Hypoglycemia Aware of hypoglycemia: When awake Able to self treat low BG: Yes Frequent low Blood sugar: No Has supply of glucagon: Yes BG 4 times daily reported 100 range with occ higher BG if she does not monitor diet and activity. Type: insulin-requiring, type 2 Cardiopulmonary symptoms: Reports dyspnea on exertion; denies chest pain at rest GI symptoms: Denies constipation or increased hunger Other symptoms: Reports depression; denies blurry vision or change in vision Self monitoring: Yes Glucometer type: Relion Exam Const General: comfortable, no acute distress Nutritional Appearance: overweight Orientation: oriented x3 HENMT Head: normal to inspection, atraumatic Ears: hearing grossly normal bilaterally Mouth: oral mucosae normal, moist mucous membranes Eyes General: appearance normal, both eyes and all related structures Conjunctivae: conjunctivae normal Sclera: sclerae normal Pupils: PERRL Neck Neck: normal visual inspection Neck mass: No Chest Chest palpation AND inspection: deferred Resp Effort AND Inspection: normal respiratory effort, able to speak in complete sentences, symmetric chest movement Cardio Rate: regular rate Rhythm: regular rhythm Heart Sounds: S1 normal, S2 normal GI Inspection: normal to inspection Auscultation: normal bowel sounds Palpation: no guarding Skin General: no rashes or lesions noted Wounds: no wounds Diabetic Foot Monofilament test: Left foot: abnormal, Right foot: abnormal Neuro General: oriented x3, decrease sensation to monofilament Cranial Nerves: hearing normal Cognition: normal cognition Speech: speech normal Extrem General: normal to inspection, pedal edema Psych Appearance: well kempt Mood: congruent mood Affect: normal affect Attitude: cooperative Thought Process: normal Thought Content: normal Judgment: judgment good Weight and fatigue symptoms: Denies snoring Cardiopulmonary symptoms: Reports lightheadedness; denies chest pain at rest, dyspnea on exertion or myalgias GI symptoms: Reports nausea/dyspepsia and vomiting; denies constipation or diarrhea Other symptoms: Denies blurry vision or change in vision Intake Vital Signs08/02/17 Blood Pressure 129/73 08/02/17 Weight: 272 lb 8 oz 08/02/17 Blood Pressure 113/68 08/02/17 Blood Pressure Location Lt popliteal 08/02/17 Blood Pressure Position Sitting Intake Visit Reasons: follow up Payroll Administrator Required: No Accompanied by: Self Is patient in pain?: No Allergies Sulfa (Sulfonamide Antibiotics) Allergy (Verified 08/02/17 13:26) Hives Medications Albuterol Inhaler [Ventolin Hfa] 2 puff INHALATION Q4H PRN 01/20/13 [History Confirmed 08/02/17] Aspirin E.C. [Ecotrin] 81 mg PO DAILY@0800 01/20/13 [History Confirmed 08/02/17] Fluticasone/Salmeterol [Advair 500/50 Mcg Diskus] 1 puff INHALATION DAILY 01/20/13 [History Confirmed 08/02/17] Latanoprost 0.005% [Xalatan Opthalmic] 1 drp EACH EYE QHS 01/20/13 [History Confirmed 08/02/17] Levothyroxine Sodium [Levoxyl] 75 mcg PO DAILY 01/20/13 [History Confirmed 08/02/17] Duloxetine Hcl [Cymbalta] 120 mg PO DAILY 01/27/15 [History Confirmed 08/02/17] Furosemide [Lasix] 10 mg PO QODAY 01/27/15 [History Confirmed 08/02/17] Timolol 0.5% [Timoptic] 1 drp EACH EYE DAILY 01/27/15 [History Confirmed 08/02/17] traMADol [Ultram (G)] 100 mg PO TID 02/20/15 [History Confirmed 08/02/17] busPIRone [Buspar] 15 mg PO TID 03/10/17 [History Confirmed 08/02/17] gabapentin 300 mg capsule 300 mg PO DAILY cap 05/08/17 [History Confirmed 08/02/17] gabapentin 600 mg tablet 600 mg PO .4 x qd tab 05/08/17 [History Confirmed 08/02/17] hydroxyzine pamoate 50 mg capsule 50 mg PO TID cap 05/08/17 [History Confirmed 08/02/17] lisinopril 40 mg tablet 20 mg PO DAILY 05/08/17 [History Confirmed 08/02/17] rosuvastatin 40 mg tablet 40 mg PO DAILY 05/08/17 [History Confirmed 08/02/17] Oxycodone HCl/Acetaminophen [Percocet 5/325] 1 tab PO Q6H PRN PRN 3 Days #12 tab 06/06/17 [Rx Confirmed 08/02/17] Cyclobenzaprine [Flexeril] 10 mg PO TID #20 tab 06/19/17 [Rx Confirmed 08/02/17] Zolpidem Tartrate [Ambien] 06/19/17 [History Confirmed 08/02/17] insulin regular human U-500concentrate 500 unit/mL subcutaneous soln See Label Instructions SC BID #20 ml 06/19/17 [Rx Confirmed 08/02/17] insulin syringe-needle U-100 0.5 mL 29 gauge x 1/2 1 syr SQ .MEDSUPPLY #100 ea 06/19/17 [Rx Confirmed 08/02/17] Is last menstrual period known: No Post menopausal: Yes Patient : No Nurse's Note: blood sugars : low : 67 high : 200+ PFSH Medical History Diabetes type 2, controlled (Acute) Glaucoma (Acute) Hyperlipidemia (Acute) Hypothyroidism (Acute) Obesity, Class III, BMI 40-49.9 (morbid obesity) (Acute) Rheumatoid arthritis (Acute) SLE (systemic lupus erythematosus) (Acute) Tremor (Acute) lower back surgery (Acute) HTN (hypertension) (Chronic) Surgical History H/O dilation and curettage (Acute) H/O tubal ligation (Acute) H/O umbilical hernia repair (Acute) History of bladder surgery (Acute) S/P LASIK surgery of both eyes (Acute) Family History Father Heart disease Parkinsons Hypertension Diabetes Mother Heart disease Kidney disease Thyroid disorder High cholesterol Hypertension Diabetes Brother Hypertension Diabetes Chronic bronchitis Asthma Seasonal allergies Grandfather CVA (cerebral vascular accident) Heart disease Hypertension Diabetes Grandmother Diabetes Throat cancer Arthritis Rheumatoid arthritis Osteoarthritis Hypertension Unknown Asthma Diabetes Alcoholism Arthritis Social History Smoking Status: Current every day smoker tobacco type: cigarettes second hand exposure: No alcohol intake: current alcohol intake frequency: holidays/special occasions only substance use type: marijuana ROS Const Constitutional: No anorexia, body ache, chills, fatigue, fever(s), frequent falls, decreased energy, malaise, night sweats, weakness, weight change, sleep problems, abnormal sleep pattern, change in appetite, other, headache(s), snoring or excessive sweating Eyes Eyes: No blurry vision, change in vision, double vision, discharge, dry eyes, bulging eyes, floaters, visual disturbances, eye pain, light sensitivity, spots in vision, tunnel vision or other ENT ENT: No abnormal hearing, ear pain, ear discharge, ear pressure, hearing loss, tinnitus, dizziness/vertigo, balance problems, nosebleed/epistaxis, nasal congestion, nasal obstruction, nose pain, sinus pressure, sinus pain, nasal discharge, post nasal drip, headache(s), facial pain, dental pain, dry mouth, bad breath, hoarseness, lip swelling, mouth lesions, mouth pain, sore throat, tongue swelling, throat swelling, other, difficulty swallowing or neck pain Resp Respiratory: Positive for shortness of breath and wheezing; no cough, change in phlegm color, chest congestion, excessive phlegm production, hemoptysis, pain on inspiration, pain with cough, snoring, stridor or other Cardio Cardiology: Positive for lightheadedness; no chest pain at rest, chest pain with exertion, leg pain with exertion, excessive sweating, shortness of breath, dyspnea on exertion, generalized swelling, irregular heart rhythm, orthopnea, radiating jaw, neck or arm pain, fast heart rate, slow heart rate, palpitations or other Gastro GI: Positive for nausea/dyspepsia and vomiting; no abdominal pain, belching, bloating, change in bowel habits, change in stool character, coffee ground emesis, constipation, cramping, diarrhea, heartburn, difficulty swallowing, feeling full early, excessive flatus, incontinent of stools, Vomiting blood/hematemesis, blood in stool, loose stools, Black,tarry stools, pain with swallowing or other Genitourinary-Female: Positive for urinary incontinence; no difficulty urinating, burning urination, painful urination, urinary frequency, urinary urgency, urinary hesitancy, urinary retention, blood in urine, Frequent nighttime urination/ nocturia, post void dribbling, suprapubic fullness, side pain, sexual problems, genital lesions, genital itching, hot flashes, abnormal periods, abnormal vaginal bleeding, absent period, painful periods, light periods, heavy periods, difficulty getting , painful intercourse, pelvic pain, vaginal dryness, vaginal odor, Vaginal Itching or other Musc Musculoskeletal: Positive for back pain and radiating pain into limb; no abnormal walking, joint pain, deformity, joint swelling, limited range of motion, loss of height, muscle cramps, muscle weakness, decreased muscle mass, body aches, neck pain, numbness, stiffness, tingling or other Skin Skin: Positive for sores (L outer calf); no acne, hair loss, change in hair, nail changes, boil, change in skin color, dry skin, redness, excessive hair growth, yellowing of the skin, lesions, itching, rash, skin pain, skin ulcer, skin swelling, wounds or other Breast Breast: No other Neuro Neurology: No frequent falls, weakness, visual disturbances, abnormal hearing, headache(s), abnormal walking, numbness or tingling Psych Psychiatric: No abnormal sleep pattern, No change in appetite Endo Endocrine: No fatigue, other or excessive sweating Aller/Imm Allergy/Immunologic: Positive for wheezing; no lip swelling, tongue swelling, throat swelling or itchy eyes Assessment AND Plan Problems 1. 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 Acquired hypothyroidism E03.9 Orders Orders: Plan Detail Additional Comments 1. Please schedule follow up in 3 months. 2. Lab work one week before appointment. 3. Discussed importance of regular exercise and recommend starting or continuing a regular exercise program for good health. 4. The patient was encouraged to lose weight for good health 5. The importance of monitoring blood sugar regularly was reviewed. 6. The importance of monitoring the HBA1c level regularly was reviewed. 7. The importance of prper foot care and regularly checking feet to prevent sores and loss of limbs was reviewed. 8. The importance of keeping BP at or below 130/80 to prevent stroke, heart attacks, kidney failure, blindness was reviewed. Spent approximately 30 minutes with patient with over 50% of time spent in discussion and counseling regarding medication adjustment, symptoms and treatment of hypoglycemia, diet adherence, and checking BG before driving. 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 [place] [address] SPINE LUMBAR W/WO Observed: 07/03/2017 Status: F Source: [place] CONTRAST 12:33 PM [facility] REPOSITORY [facility] Imaging Services [address] [place] [address] Spine Lumbar W/WO Contrast MR#: [id number] Acct: [id number] Name: CARLIE WATKINS Rep #: [id number] : 1965 F 52 From: Mick Holcomb MD PCP: Richar Galvez Status: REG CLI Study: Spine Lumbar W/WO Contrast Date of Exam: 07/03/17 Exam# [id number] Ordering Dr: Richar Galvez MD STUDY: MRI LUMBAR SPINE WITH AND WITHOUT CONTRAST REASON FOR EXAM: Female, 52 years old. Radiculopathy. Low back pain and bilateral leg pain. TECHNIQUE: Standardized fat and water weighted pulse sequences were obtained in the sagittal and axial planes. 11 ml of Gadavist contrast material was administered for the contrast portion of the examination. COMPARISON: 08/23/2015. FINDINGS: T10-T11: (Sagittal only). Prominent right anterior marginal spurs. Minimal degenerative anterolisthesis of T10 on T1. Normal endplates. Minimal disc height narrowing at normal disc hydration and morphology. Normal central canal and bilateral intervertebral neural foramina. T11-T12: (Sagittal only). Normal endplates. Normal disc height, hydration and morphology. Normal central canal and bilateral intervertebral neural foramina. T12-L1: (Sagittal only). Normal endplates. Normal disc height, hydration and morphology. Normal central canal and bilateral intervertebral neural foramina. Normal lumbar lordosis. There is no substantial scoliosis. Normal conus medullaris that terminates at the L1-L2 disc level. L1-2: Normal endplates. Normal disc height, hydration and morphology. Normal bilateral facet joints. Normal central canal and bilateral lateral recesses. Normal bilateral intervertebral neural foramina. L2-3: Normal endplates. Normal disc height, hydration and morphology. Mild central canal stenosis secondary to developmentally short pedicles and dorsal epidural lipomatosis. The AP canal diameter is 8 mm. Normal bilateral lateral recesses. Moderate left degenerative facet arthropathy. Mild right degenerative facet arthropathy. Normal bilateral intervertebral neural foramina. L3-4: Normal endplates. Increased disc height narrowing following discectomy of the right-sided caudally extruded disc fragment. Pronounced central canal stenosis secondary to developmentally short pedicles and dorsal epidural lipomatosis. There is, however, worsening of pronounced central canal stenosis due to nonenhancing recurrent right posterior paramedian extruded disc fragment with surrounding enhancing postoperative fibrosis. Moderately pronounced left due to facet arthropathy and moderate right degenerative facet arthropathy are unchanged. Normal bilateral intervertebral neural foramina. L4-5: More pronounced right-sided disc space height narrowing with Modic type II degenerative vertebral marrow fatty changes underneath the right side of the adjacent vertebral endplates. Pronounced central canal stenosis secondary to developmentally short pedicles, dorsal epidural lipomatosis and bilateral posterior ligamenta flava hypertrophy. The AP canal diameter is 4 mm. Moderate bilateral degenerative facet hypertrophy. Normal bilateral intervertebral neural foramina. L5-S1: Normal endplates. Normal disc height but moderate loss of disc hydration. Normal disc morphology. Normal central canal and bilateral lateral recesses. Moderate right degenerative facet arthropathy. Mild left degenerative facet arthropathy. Normal bilateral intervertebral neural foramina. Normal visualized sacral ala. Normal visualized paraspinous soft tissue structures. Enhancing posterior fibrosis surrounding the right-sided L3- L4 posteriorly extruded disc fragment. MRI/Spine Lumbar W/WO Contrast IMPRESSION: 1. Recurrent right L3-L4 posterior paramedian extruded disc fragment causing worsening of the pronounced central canal stenosis when compared to 08/23/2015. 2. Increased L3-L4 disc height narrowing following discectomy of the right-sided caudally extruded disc fragment when compared to 08/23/2015. 3. Pronounced central canal stenosis at L4-L5 disc space level secondary to developmentally short pedicles is unchanged but there is more pronounced right-sided L4-L5 disc space height narrowing when compared to 08/23/2015. 4. Mild central canal stenosis at L2-L3 disc space level secondary to developmentally short pedicles and dorsal epidural lipomatosis. 5. Prominent right T10-T11 anterior marginal spurs with minimal degenerative anterolisthesis of T10 on T11. This area was not included to the previous study. Electronically Signed: Mick Holcomb MD at 14:20 EDT , Service support , CC: Richar Galvez Vegetable Cook: Signed EMERGENCY DEPARTMENT Observed: 06/19/2017 Status: F Source: [place] SUMMARY 4:35 PM [facility] REPOSITORY [facility] Medical Records Department [address] [place] [address] Emergency Department Summary 06/19/17 1316 MR#: [id number] Acct: [id number] Name: JERMEIAHCARLIE D Rep #: [id number] : 1965 51 From: Froilan Lawton MD PCP: Richar Galvez Status: DEP ER - ER Visit Summary Date of Service: 06/19/17 Chief Complaint: Back pain History of Present Illness: The patient is a 51 F with a long- term history of lower back pain. The pain radiates into her bilateral buttocks and down her legs. This has been going on for several weeks. It started after she rolled out of bed. She had an outpatient x-ray which showed degenerative changes. She was recently approved for an MRI. Her PCP sent her here because she is having trouble walking despite taking ibuprofen, tramadol, and prednisone. No other new symptoms. Physical Examination: Afebrile and vital signs unremarkable. Nontoxic and in no acute distress. Bilateral paraspinal muscle tenderness to palpation. Legs unremarkable. Good strength and sensation. Good pulses. Diminished reflexes bilaterally. Skin appears normal. Test Results: None indicated. Emergency Department Course and Treatment: I spoke with the hospitalist. They will admit the patient if she is unable to ambulate, but otherwise she and I felt that this was appropriate for an outpatient workup. I did treat the patient's pain with morphine and Norflex. Will reassess the patient and try to ambulate. The patient received a dose of morphine and Norflex here. Her pain improved. She was able to ambulate without any difficulty at all. She was up multiple times. I do not believe she requires inpatient care. The patient agrees. She was also seen by the transition social worker. She also discussed this with the patient and the patient felt like they would follow-up as an outpatient. Will prescribe a course of Flexeril. Return for any new or worsening issues. Treatment Plan: As above Disposition: Discharge Impression: 1. Low back pain This note was generated with [employer] dictation software. It may contain incorrect words, spelling, and punctuation that were not noted in review of the chart prior to signing ED Disposition - Plan for ED Patient: Chief Complaint: Back Referrals: Richar Galvez MD [Primary Care Provider] - What to do if you have Problems For any increased pain, shortness of breath, bleeding, nausea or vomiting, chest pain, or any unexpected problems, contact your Primary Care Provider. Call [facility] ([phone]) or report to the closest Emergency Room. Call 911 if necessary. 06/19/17 2459 <Electronically signed by Froilan Lawton MD> Date Froilan Lawton MD Cosigner Signature (If Indicated): Date CC: Richar Galvez DISCHARGE INSTRUCTION Observed: 06/19/2017 Status: F Source: [place] 4:35 PM [facility] Medical Records Department [address] [place] [address] Discharge Instruction 06/19/17 1411 MR#: [id number] Acct: [id number] Name: CARLIE WATKINS Rep #: [id number] : 1965 51 From: Froilan Lawton MD PCP: Richar Galvez Status: DEP ER ED Disposition - Plan for ED Patient: Chief Complaint: Back Instructions: ED Sciatica Prescriptions: Cyclobenzaprine [Flexeril] 10 mg PO TID #20 tab Referrals: Richar Galvez MD [Primary Care Provider] - What to do if you have Problems For any increased pain, shortness of breath, bleeding, nausea or vomiting, chest pain, or any unexpected problems, contact your Primary Care Provider. Call [facility] ([phone]) or report to the closest Emergency Room. Call 911 if necessary. 06/19/17 1635 <Electronically signed by Froilan Lawton MD> Date Froilan Lawton MD Cosigner Signature (If Indicated): Date CC: Richar Galvez L/S SPINE MIN 4 Observed: 06/12/2017 Status: F Source: [place] VIEWS 3:18 PM [facility] Imaging Services [address] [place] [address] L/S Spine Min 4 Views MR#: [id number] Acct: [id number] Name: CARLIE WATKINS Rep #: [id number] : 1965 F 51 From: Theron Gomez MD PCP: Richar Galvez Status: REG CLI Study: L/S Spine Min 4 Views Date of Exam: 06/12/17 Exam# [id number] Ordering Dr: Richar Galvez MD STUDY: X-RAY - LUMBAR SPINE REASON FOR EXAM: Female, 51 years old. Chronic low back pain. TECHNIQUE: 4 view(s) of the lumbar spine were obtained. COMPARISON: August 07, 2015 FINDINGS: Normal lumbar lordosis. There is mild dextroscoliosis of the mid lumbar spine. There is a normal alignment of the vertebrae. Normal vertebral bodies and endplates. There is multilevel mild intervertebral disc space narrowing with small osteophytes at L2-3, L3-4 and L4-5. There is stable diffuse facet sclerosis. The soft tissue structures are unremarkable. RAD/L/S Spine Min 4 Views IMPRESSION: Stable mild lumbar spondylosis as described. Electronically Signed: Theron Gomez MD at 18:57 EST , Service support , CC: Richar Galvez Vegetable Cook: Signed EMERGENCY DEPARTMENT Observed: 06/09/2017 Status: F Source: [place] SUMMARY 1:21 AM [facility] Medical Records Department [address] [place] [address] Emergency Department Summary 06/08/17 1726 MR#: [id number] Acct: [id number] Name: CARLIE WATKINS Rep #: [id number] : 1965 51 From: Gayle Tian MD PCP: Richar Galvez Status: DEP ER - ER Visit Summary Date of Service: 06/08/17 Chief Complaint: Back pain History of Present Illness: The patient is a 51 F with history of chronic back pain and history of spine surgery presents for lower back pain for 4 days. This is patient's third visit this week, and she states she woke up 4 days ago with severe lower back pain worse than her baseline. She received Dilaudid in the emergency department and was discharged home. She felt well for 2 days and then was having worsening pain again. She returned to the emergency department and received additional Dilaudid, and was prescribed Percocet for home. She states the Percocet is not helping but the Dilaudid did. She denies any loss of bowel or bladder function or any worsening numbness in her legs above her baseline diabetic neuropathy. She states her home medications have not been helping. She called her primary care doctor and states he told her to come to the emergency department for an MRI. Patient denies abdominal pain, fever, dysuria, urinary frequency or urgency, bowel or bladder incontinence, or numbness in the groin. Physical Examination: Vital signs: afebrile, hemodynamically stable, no hypoxia on room air General: well nourished, well developed,, obese, sitting in a wheelchair in no distress Skin: warm, dry, no rash, no pallor HEENT: normocephalic and atraumatic; PERRL, EOMI, moist mucous membranes Cardiovascular: regular rate and rhythm without murmurs, no peripheral edema, 2+ pulses all distal extremities Respiratory: No increased work of breathing Abdominal: Abdomen is soft, nontender with normoactive bowel sounds, no guarding or rebound, no masses Back: Diffuse bilateral lower back tenderness to palpation. No difficulty walking. No diminished strength or sensation. Patient urinated while in the emergency department and stated she had no difficulty. MSK: Moves all extremities, no deformities, normal strength Neuro: Awake and alert, oriented 4. No facial droop, sensation and motor function intact and symmetric Test Results: [] Emergency Department Course and Treatment: Patient's examination shows no lower extremity weakness or sensory deficits that are new beyond her baseline neuropathy. Patient was able to walk without difficulty to the bathroom. Patient was given Toradol IM for pain. Because she said she was sent to the emergency department to get an MRI by her primary care doctor, she was discussed with Dr. Galvez, who said that she had called his office and said she could not get out of bed and made it sound like she was paralyzed. Thus they instructed her to call 911 but did not tell her she was getting an MRI. We discussed her pain control issues, and he would like her to make an appointment with him next week. I discussed with the patient that because this is a chronic pain issue, I cannot give her an opiate prescription, especially since she has regular prescriptions for tramadol. I also do not give Dilaudid for chronic back pain. Patient was instructed that she will need to follow-up with her doctor for further discussion about pain control. We also discussed nonopiate pain management as well as non-medicinal pain management, such as exercise and stretching. Patient was discharged home. She had no red flag symptoms that indicated imaging or any further testing. Treatment Plan: [] Disposition: [] Impression: chronic back pain This note was generated with [employer] dictation software. It may contain incorrect words, spelling, and punctuation that were not noted in review of the chart prior to signing ED Disposition - Plan for ED Patient: Disposition: Home or Assisted Living Chief Complaint: Back Instructions: ED Back Care Tips, ED Chronic Pain Management Referrals: Richar Galvez MD [Primary Care Provider] - Keep [place]iden appointment Additional Instructions: Please keep your appointment next week with her primary care doctor. Please continue your home pain management regimen, including [id number] pain medications as needed. You may try a heat pack for your back pain or ice if that works better. Gentle exercise such as walking also is known to help back pain. You may try gentle stretching. What to do if you have Problems For any increased pain, shortness of breath, bleeding, nausea or vomiting, chest pain, or any unexpected problems, contact your Primary Care Provider. Call [facility] ([phone]) or report to the closest Emergency Room. Call 911 if necessary. 06/09/17 0121 <Electronically signed by Gayle Tian MD> Date Gayle Tian MD Cosigner Signature (If Indicated): Date CC: Richar Galvez DISCHARGE INSTRUCTION Observed: 06/09/2017 Status: F Source: [place] 12:18 AM [facility] REPOSITORY [facility] Medical Records Department [address] [place] [address] Discharge Instruction 06/08/17 1730 MR#: [id number] Acct: [id number] Name: CARLIE WATKINS Rep #: [id number] : 1965 51 From: Gayle Tian MD PCP: Richar Galvez Status: DEP ER ED Disposition - Plan for ED Patient: Disposition: Home or Assisted Living Chief Complaint: Back Instructions: ED Back Care Tips, ED Chronic Pain Management Referrals: Richar Galvez MD [Primary Care Provider] - Keep Aiden appointment Additional Instructions: Please keep your appointment next week with her primary care doctor. Please continue your home pain management regimen, including [id number]-[id number] pain medications as needed. You may try a heat pack for your back pain or ice if that works better. Gentle exercise such as walking also is known to help back pain. You may try gentle stretching. What to do if you have Problems For any increased pain, shortness of breath, bleeding, nausea or vomiting, chest pain, or any unexpected problems, contact your Primary Care Provider. Call [facility] ([phone]) or report to the closest Emergency Room. Call 911 if necessary. 06/09/17 0018 <Electronically signed by Gayle Tian MD> Date Gayle Tian MD Cosigner Signature (If Indicated): Date CC: Richar Galvez EMERGENCY DEPARTMENT Observed: 06/06/2017 Status: F Source: [place] SUMMARY 10:54 PM [facility] REPOSITORY [facility] Medical Records Department [address] [place] [address] Emergency Department Summary 06/06/174 MR#: [id number] Acct: [id number] Name: CARLIE WATKINS Rep #: [id number] : 1965 51 From: Bhavani Galeana MD PCP: Richar Galvez Status: DEP ER - ER Visit Summary Date of Service: 06/06/17 Chief Complaint: Back pain History of Present Illness: The patient is a 51 F 3 day history of low back pain. She has a history of prior back surgery. On the morning of the she sat up in bed and had sudden pain. It does radiate to her legs. She has had no problems with bowel or bladder control. She was seen here on the and was improved after pain meds. She has been taking tramadol and ibuprofen at home without improvement. She presents back today due to continued worsening pain. She is an appointment with her primary care physician next week. Physical Examination: Vital signs are gross unremarkable. Patient's lying in bed, tearful. Head and neck examination is otherwise unremarkable. Heart is regular rate and rhythm. Lung sounds are clear. Abdomen is soft, obese, distended. There is no focal tenderness. Back examination was tenderness in the low lumbar paraspinals. Lower extremity examination reveals good strength and sensation with strong distal pulses. Test Results: [] Emergency Department Course and Treatment: She was given 0.5 mg of Dilaudid and 15 mill grams of Toradol. On repeat evaluation she is significantly improved. She will be given a short course of Percocet that she is to use in place of her tramadol. She is going to call her primary care physician tomorrow to see if she can be seen sooner. There was no direct injury to her back so I do not feel that imaging is going to be beneficial. Treatment Plan: [] Disposition: Discharge Impression: Acute on chronic back pain This note was generated with [employer] dictation software. It may contain incorrect words, spelling, and punctuation that were not noted in review of the chart prior to signing ED Disposition - Plan for ED Patient: Chief Complaint: Back Referrals: Richar Galvez MD [Primary Care Provider] - What to do if you have Problems For any increased pain, shortness of breath, bleeding, nausea or vomiting, chest pain, or any unexpected problems, contact your Primary Care Provider. Call [facility] ([phone]) or report to the closest Emergency Room. Call 911 if necessary. 06/06/17 9560 <Electronically signed by Bhavani Galeana MD> Date Bhavani Mcintosh Signature (If Indicated): Date CC: Richar Galvez DISCHARGE INSTRUCTION Observed: 06/06/2017 Status: F Source: [place] 7:28 PM [facility] REPOSITORY [facility] Medical Records Department [address] [place] [address] Discharge Instruction 06/06/171925 MR#: [id number] Acct: [id number] Name: CARLIE WATKINS Rep #: [id number] : 1965 51 From: Bhavani Galeana MD PCP: Richar Galvez Status: REG ER ED Disposition - Plan for ED Patient: Disposition: Home or Assisted Living Chief Complaint: Back Instructions: ED Neck Back Pain General Prescriptions: Oxycodone HCl/Acetaminophen [Percocet 5/325] 1 tablet PO Q6H PRN PRN 3 Days #12 tablet PRN Reason: Pain Referrals: Richar Galvez MD [Primary Care Provider] - Keep [place] appointment What to do if you have Problems For any increased pain, shortness of breath, bleeding, nausea or vomiting, chest pain, or any unexpected problems, contact your Primary Care Provider. Call [facility] ([phone]) or report to the closest Emergency Room. Call 911 if necessary. 06/06/171927 <Electronically signed by Bhavani Galeana MD> Date Bhavani Mcintosh Signature (If Indicated): Date CC: Richar Galvez EMERGENCY DEPARTMENT Observed: 06/05/2017 Status: F Source: [place] SUMMARY 2:35 AM [facility] REPOSITORY [facility] Medical Records Department [address] [place] [address] Emergency Department Summary 06/04/17 1845 MR#: [id number] Acct: [id number] Name: CARLIE WATKINS Rep #: [id number] : 1965 51 From: Bhavani Galeana MD PCP: Richar Galvez Status: DEP ER - ER Visit Summary Date of Service: 06/04/17 Chief Complaint: Back pain History of Present Illness: The patient is a 51 F with history of chronic back pain and had back surgery in October 2015. Patient states when she woke this morning she had some normal low back aching, when she sat up and felt sudden sharp pain shooting down her back and down her legs. She has had no problems with bowel or bladder control. Patient does take tramadol chronically for rheumatoid arthritis and fibromyalgia. Physical Examination: Blood pressure is 169/82, otherwise vitals are normal. Patient is an obese female lying in bed. She appears uncomfortable but she is in no acute distress. Heart is regular rate and rhythm. Lung sounds are clear. Abdomen is soft, obese, nontender. Lower extremity examination reveals 1+ bilateral patellar reflexes. She is strong and equal distal pulses. She has good strength and sensation in the legs. Test Results: [] Emergency Department Course and Treatment: Patient was initially treated with a dose of Dilaudid and Zofran. Is no direct injury to the patient's back do not believe imaging is of great benefit. On repeat evaluation she did report some improvement. She was given an additional dose of Dilaudid, 0.5 mg, along with a dose of Toradol. On final repeat evaluation patient sitting upright in bed smiling. She states her pain is significantly improved. She wishes to take ibuprofen in addition to her normal tramadol at home. She will follow up with her primary care physician. Treatment Plan: [] Disposition: Discharge Impression: Acute on chronic back pain This note was generated with [employer] dictation software. It may contain incorrect words, spelling, and punctuation that were not noted in review of the chart prior to signing ED Disposition - Plan for ED Patient: Disposition: Home or Assisted Living Chief Complaint: Back Instructions: ED Neck Back Pain General Referrals: Richar Galvez MD [Primary Care Provider] - 3-5 Days if not improving What to do if you have Problems For any increased pain, shortness of breath, bleeding, nausea or vomiting, chest pain, or any unexpected problems, contact your Primary Care Provider. Call [facility] ([phone]) or report to the closest Emergency Room. Call 911 if necessary. 06/05/175 <Electronically signed by Bhavani Galeana MD> Date Bhavani Galeana MD Cosigner Signature (If Indicated): Date CC: Richar Galvez DISCHARGE INSTRUCTION Observed: 06/04/2017 Status: F Source: [place] 8:53 PM [facility] REPOSITORY [facility] Medical Records Department [address] [place] [address] [place] [address] Discharge Instruction 06/04/172051 MR#: [id number] Acct: [id number] Name: CARLIE WATKINS Rep #: [id number] : 1965 51 From: Bhavani Galeana MD PCP: Richar Galvez Status: REG ER ED Disposition - Plan for ED Patient: Disposition: Home or Assisted Living Chief Complaint: Back Instructions: ED Neck Back Pain General Referrals: Richar Galvez MD [Primary Care Provider] - 3-5 Days if not improving What to do if you have Problems For any increased pain, shortness of breath, bleeding, nausea or vomiting, chest pain, or any unexpected problems, contact your Primary Care Provider. Call [facility] ([phone]) or report to the closest Emergency Room. Call 911 if necessary. 06/04/172052 <Electronically signed by Bhavani Galeana MD> Date Bhavani Galeana MD Cosigner Signature (If Indicated): Date CC: Richar Galvez ENDOCRINOLOGY VISIT Observed: 05/30/2017 Status: F Source: [place] REPORT 7:56 PM [facility] REPOSITORY [place] [facility] [address] [place] [address] OFFICE VISIT Date of Service: 05/24/17 MR#: [id number] Acct: [id number] Name: CARLIE WATKINS Rep #: [id number] : 1965 Provider: Tamica Zaidi NP Age/Sex: 51/F Location: [facility] Status: Signed HPI History of present illness Carlie Watkins is a 51 year old female who present for follow up of diabetes type 2. Continues on U-500 insulin daily taking what appears to be 23 units in am and 17 in pm using an insulin syringe U-100. She reports her BG readings have recently began to improve and her readings are mostly in the 100 range. Feels she is getting things back in order after passing of her boyfriend, her dog, and then her father. Pt denies difficulty with injections or self monitoring of BG. Denies any signs of infection or irritation at site of injections. Reports taking insulin as directed At time of visit: -Pt denies symptoms of hypertensive emergency (CP,SOB,FLORES, or blurred vision) and hypotension(dizziness or lightheadedness) -Pt denies symptoms of hypoglycemia ( sweaty, confusion, anxiety, tremor, hunger, palpitations) and hyperglycemia ( polydipsia, polyuria) -Pt denies potential medication adverse effect. Hypoglycemia Aware of hypoglycemia: When awake Able to self treat low BG: Yes Frequent low Blood sugar: No Has supply of glucagon: Yes BG 4 times daily reported 100 range with occ higher BG if she does not monitor diet and activity. Type: insulin-requiring, type 2 Cardiopulmonary symptoms: Reports dyspnea on exertion; denies chest pain at rest GI symptoms: Denies constipation or increased hunger Other symptoms: Reports depression; denies blurry vision or change in vision Self monitoring: Yes Glucometer type: Relion Exam Const General: comfortable, no acute distress Nutritional Appearance: overweight Orientation: oriented x3 HENMT Head: normal to inspection, atraumatic Ears: hearing grossly normal bilaterally Mouth: oral mucosae normal, moist mucous membranes Eyes General: appearance normal, both eyes and all related structures Conjunctivae: conjunctivae normal Sclera: sclerae normal Pupils: PERRL Neck Neck: normal visual inspection Neck mass: No Chest Chest palpation AND inspection: deferred Resp Effort AND Inspection: normal respiratory effort, able to speak in complete sentences, symmetric chest movement Cardio Rate: regular rate Rhythm: regular rhythm Heart Sounds: S1 normal, S2 normal GI Inspection: normal to inspection Auscultation: normal bowel sounds Palpation: no guarding Skin General: no rashes or lesions noted Wounds: no wounds Diabetic Foot Monofilament test: Left foot: abnormal, Right foot: abnormal Neuro General: oriented x3, decrease sensation to monofilament Cranial Nerves: hearing normal Cognition: normal cognition Speech: speech normal Extrem General: normal to inspection, pedal edema Psych Appearance: well kempt Mood: congruent mood Affect: normal affect Attitude: cooperative Thought Process: normal Thought Content: normal Judgment: judgment good Intake Vital Signs05/24/17 Height 5 ft 4 in 05/24/17 Blood Pressure 129/73 05/24/17 Pulse Ox 93 Intake Visit Reasons: 3 M FU, Diabetes Mellitus Type 2 Payroll Administrator Required: No Accompanied by: Self Is patient in pain?: No Allergies Sulfa (Sulfonamide Antibiotics) Allergy (Verified 05/08/17 16:41) Hives Medications Albuterol Inhaler [Ventolin Hfa] 2 puff INHALATION Q4H PRN 01/20/13 [History Confirmed 05/24/17] Aspirin E.C. [Ecotrin] 81 mg PO DAILY@0800 01/20/13 [History Confirmed 05/24/17] Fluticasone/Salmeterol [Advair 500/50 Mcg Diskus] 1 puff INHALATION DAILY 01/20/13 [History Confirmed 05/24/17] Latanoprost 0.005% [Xalatan Opthalmic] 1 drp EACH EYE QHS 01/20/13 [History Confirmed 05/24/17] Levothyroxine Sodium [Levoxyl] 75 mcg PO DAILY 01/20/13 [History Confirmed 05/24/17] Duloxetine Hcl [Cymbalta] 120 mg PO DAILY 01/27/15 [History Confirmed 05/24/17] Furosemide [Lasix] 10 mg PO QODAY 01/27/15 [History Confirmed 05/24/17] Timolol 0.5% [Timoptic] 1 drp EACH EYE DAILY 01/27/15 [History Confirmed 05/24/17] TraMADol [Ultram (G)] 100 mg PO TID 02/20/15 [History Confirmed 05/24/17] BusPIRone [Buspar] 15 mg PO TID 03/10/17 [History Confirmed 05/24/17] gabapentin 300 mg capsule 300 mg PO QDAY cap 05/08/17 [History Confirmed 05/24/17] gabapentin 600 mg tablet 600 mg PO .4 x qd tab 05/08/17 [History Confirmed 05/24/17] hydroxyzine pamoate 50 mg capsule 50 mg PO TID cap 05/08/17 [History Confirmed 05/24/17] insulin regular human U-500concentrate 500 unit/mL subcutaneous soln See Label Instructions SC BID ml 05/08/17 [History Confirmed 05/24/17] insulin syringe-needle U-100 0.5 mL 29 gauge x 1/2 See Dose Instructions .ROUTE .MEDSUPPLY #10 ea 05/08/17 [History Confirmed 05/24/17] lisinopril 40 mg tablet 40 mg PO QDAY 05/08/17 [History Confirmed 05/24/17] nabumetone 750 mg tablet 750 mg PO BID 05/08/17 [History Confirmed 05/24/17] nitrofurantoin macrocrystal 100 mg capsule 100 mg PO QHS 05/08/17 [History Confirmed 05/24/17] prednisone 10 mg tablet 10 mg PO TID tab 05/08/17 [History Confirmed 05/24/17] rosuvastatin 40 mg tablet 40 mg PO QDAY 05/08/17 [History Confirmed 05/24/17] [facility] Medical History Diabetes type 2, controlled (Acute) Glaucoma (Acute) Hyperlipidemia (Acute) Hypothyroidism (Acute) Obesity, Class III, BMI 40-49.9 (morbid obesity) (Acute) Rheumatoid arthritis (Acute) SLE (systemic lupus erythematosus) (Acute) Tremor (Acute) lower back surgery (Acute) HTN (hypertension) (Chronic) Surgical History H/O dilation and curettage (Acute) H/O tubal ligation (Acute) H/O umbilical hernia repair (Acute) History of bladder surgery (Acute) S/P LASIK surgery of both eyes (Acute) Family History Father Heart disease Parkinsons Hypertension Diabetes Mother Heart disease Kidney disease Thyroid disorder High cholesterol Hypertension Diabetes Brother Hypertension Diabetes Chronic bronchitis Asthma Seasonal allergies Grandfather CVA (cerebral vascular accident) Heart disease Hypertension Diabetes Grandmother Diabetes Throat cancer Arthritis Rheumatoid arthritis Osteoarthritis Hypertension Unknown Asthma Diabetes Alcoholism Arthritis Social History Smoking Status: Current every day smoker tobacco type: cigarettes second hand exposure: No alcohol intake: current alcohol intake frequency: holidays/special occasions only substance use type: marijuana ROS Const Constitutional: Positive for excessive sweating; no body ache, chills, frequent falls or fatigue Eyes Eyes: No blurry vision, change in vision, double vision, discharge, visual disturbances, floaters or bulging eyes ENT ENT: No hearing loss, abnormal hearing, dizziness/vertigo, nasal congestion, nosebleed/epistaxis, difficulty swallowing, mouth lesions, sore throat, lip swelling or hoarseness Resp Respiratory: Positive for wheezing (Intermittently; has inhalers if occurs. Not often currently) Cardio Cardiology: Positive for excessive sweating and dyspnea on exertion; no chest pain at rest, shortness of breath, radiating jaw, neck or arm pain, fast heart rate or palpitations Gastro GI: No difficulty swallowing, constipation, blood in stool, incontinent of stools, Vomiting blood/hematemesis or Black,tarry stools Genitourinary-Female: No difficulty urinating, burning urination, painful urination, urinary urgency, urinary frequency, urinary incontinence, urinary hesitancy, urinary retention, blood in urine, post void dribbling, Frequent nighttime urination/ nocturia, side pain, sexual problems, abnormal periods, suprapubic fullness, abnormal vaginal bleeding, painful periods, light periods, painful intercourse, difficulty getting , heavy periods, pelvic pain, vaginal dryness, vaginal odor or Vaginal Itching Musc Musculoskeletal: Positive for back pain, joint pain, stiffness, numbness and tingling; no abnormal walking, deformity or joint swelling Skin Skin: Positive for dry skin; no hair loss, change in hair, nail changes, excessive hair growth, redness, change in skin color, yellowing of the skin, lesions, itching or rash Breast Breast: No change in breast shape, breast swelling, nipple discharge, breast lump, breast pain or breast skin changes Neuro Neurology: Positive for numbness and tingling; no frequent falls, visual disturbances, abnormal hearing or abnormal walking Psych Psychiatric: Positive for depression, No panic attacks, No hallucinations, No paranoia, No Thoughts of harming yourself/Others Endo Endocrine: Positive for excessive sweating and heat intolerance; no change in body appearance, cold intolerance, fatigue, increased thirst/drinking, increased urination or increased hunger Aller/Imm Allergy/Immunologic: Positive for wheezing (Intermittently; has inhalers if occurs. Not often currently); no lip swelling or itchy eyes Omar/Lymp Hematologic/Lymphatic: No easy bleeding, easy bruising or enlarged lymph nodes Assessment AND Plan Problems 1. 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 Acquired hypothyroidism E03.9 Hypothyroidism type: acquired Time Spent (min) 30 05/30/171955 <Electronically signed by Tamica AMARO> Date Tamica AMARO Cosigner Signature: Date (if applicable) CC: ALLERGIES ALLERGIES DATE TYPE / CODE NAME / CODE REACTION SEVERITY SOURCE 04/04/2018 Drug Sulfa Hives Unknown [facility] Allergy/4160 (Sulfonamide [facility] 14820(SNOMED Antibiotics)/ Repository CT) [id number](RX NORM) ENCOUNTERS ENCOUNTERS ADMIT/DISCHARGE ACCOUNT ADMITTING ENCOUNTER LOCATION SOURCE NUMBER CLASS 04/04/2018 [id number] Ambulatory [address] ing:BFHLAB Repository 04/04/2018/ [id number] Ambulatory BMSBuilding:B [place] [address] [facility] Repository 03/01/2018 [id number] Ambulatory [place] 8 [facility] Hospital ing:MTLAB Repository 01/09/2018/ [id number] Ambulatory BMSBuilding:B [place] [facility] 2 [facility] Repository 11/22/2017/ [id number] [place] 7 [facility] Hospital ing:PT Repository 11/08/2017/ [id number] Ambulatory BMSBuilding:B [place] [address] [facility] Repository 11/06/2017 [id number] Ambulatory [place] 8 [facility] Hospital ing:MTLAB Repository 09/25/2017/ [id number] Ambulatory BMSBuilding:B [place] [address] [facility] Repository 09/25/2017/ [id number] Ambulatory BMSBuilding:B [place] 8 4 [facility] Repository 09/19/2017 [id number] Ambulatory [place] 7 [facility] Hospital ing:MTLAB Repository 08/21/2017 [id number] Ambulatory [place] 2 [facility] Hospital ing:OPBI Repository 08/02/2017/ [id number] Ambulatory BMSBuilding:B [place] [address] [facility] Repository 07/03/2017 [id number] [facility] [place] [facility] Repository 06/19/2017/ [id number] Emergency [place] [facility] ing:ED Repository 06/12/2017 [id number] [facility] [place] [facility]HPR[facility] Repository 06/08/2017/ [id number] Emergency [place] [facility] Repository 06/06/2017/ [id number] Emergency [place] [facility]ED Repository 06/04/2017/ [id number] Emergency [place] [facility] ing:ED Repository 05/24/2017/ [id number] Ambulatory BMSBuilding:B [place] [address] [facility] Repository PAYERS PAYERS ENCOUNTER GUARANTOR PAYER SUBSCRIBER SOURCE 04/04/2018 CARLIE D Primary CARLIE D [place] [id number] Insurance:MYCARE CRSC HATCHERDOB: [address] *IN [facility] [id number] Number: Repository [id number]: [phone] [id number] [phone] (HP) Date:[id number] CLAIMS [address] [place] [id number]: 04/04/2018 Secondary NOT GIVENUNK [place] Insurance:SELF PAY [facility] Number: Effective Repository Date:2018-04-04 04/04/2018 CARLIE D Primary CARLIE D [place] [id number] Insurance:MYCARE CRSC HATCHERDOB: Community [address] *IN [facility] [id number] Number: Repository [id number]: [phone] [id number] [phone] (HP) Date:3642-60-29MMMI CLAIMS DEPTPO [address] [place] [id number]: 04/04/2018 Secondary NOT GIVENUNK [place] Insurance:SELF PAY [facility] Number: Effective Repository Date:2018-04-04 03/01/2018 CARLIE D Primary CARLIE D [place] [id number] Insurance:MYCARE CRSC HATCHERDOB: Community [address] *IN [facility] [id number] Number: Repository [id number]: [phone] [id number] [phone] (HP) Date:4478-13-19EYOE CLAIMS [address], [place] [address]SY: 03/01/2018 Secondary NOT GIVENUNK [place] Insurance:SELF PAY [facility] Number: Effective Repository Date:2018-03-01 01/09/2018 CARLIE D Primary CARLIE D [place] [id number] Insurance:MYCARE CRSC HATCHERDOB: Community [address] *IN [facility] [id number] Number: Repository [id number]: [phone] [id number] [phone] (HP) Date:[id number] CLAIMS DEPTPO [address], [place] [address]YA: 01/09/2018 Secondary NOT GIVENUNK [place] Insurance:SELF PAY [facility] Number: Effective Repository Date:2018-01-09 11/22/2017 CARLIE D Primary CARLIE D [place] [id number] Insurance:MYCARE CRSC HATCHERDOB: Community [address] *IN [facility] [id number], [place] Number: Repository [id number]: [phone] [id number] [phone] (HP) Date:5516-64-42VFBJ CLAIMS DEPTPO [address] [place] [address]BO: 11/22/2017 Secondary NOT GIVENUNK [place] Insurance:SELF PAY [facility] Number: Effective Repository Date:2017-10-09 11/08/2017 CARLIE D Primary CARLIE D [place] [id number] Insurance:MYCARE CRSC HATCHERDOB: Community [address] *IN [facility] [id number], [place] Number: Repository [id number]: [phone] [id number] [phone] (HP) Date:4436-93-67UZPH CLAIMS DEPTPO [address], [place] [address]UD: 11/08/2017 Secondary NOT GIVENUNK [place] Insurance:SELF PAY [facility] Number: Effective Repository Date:2017-11-08 11/06/2017 CARLIE D Primary CARLIE D [place] [id number] Insurance:MYCARE CRSC HATCHERDOB: Community [address] *IN [facility] [id number], [place] Number: Repository [id number]: [phone] [id number] [phone] (HP) Date:0451-93-55GMWS CLAIMS DEPTPO [address] [place] [address]SN: 11/06/2017 Secondary NOT GIVENUNK [place] Insurance:SELF PAY [facility] Number: Effective Repository Date:2017-11-06 09/25/2017 CARLIE D Primary CARLIE D [place] [id number] Insurance:MYCARE CRSC HATCHERDOB: Community [address] *IN [facility] [id number] Number: Repository [address]Zph: [phone] [id number] [phone]) Date:3661-43-57VDBM CLAIMS DEPTPO [address] [place] [address]TN: 09/25/2017 Secondary NOT GIVENUNK [place] Insurance:[facility] Number: Effective Repository Date:2017-10-04 09/25/2017 CARLIE D Primary CARLIE D [place] [id number] Insurance:MYCARE CRSC HATCHERDOB: Community [address] *IN [facility] [id number] Number: Repository [address]Sbw: [id number] [phone] (HP) Date:4406-52-90NLNU CLAIMS DEPTPO [address] [place] [address]CY: 09/25/2017 Secondary NOT GIVENUNK [place] Insurance:[facility] Number: Effective Repository Date:2017-10-08 09/19/2017 CARLIE D Primary CARLIE D [place] [id number] Insurance:MYCARE CRSC HATCHERDOB: Community [address] *IN [facility] [id number] Number: Repository [id number]: [phone] [id number] [phone]) Date:4431-92-40JIZK CLAIMS DEPTPO [address], [place] [address]OJ: 09/19/2017 Secondary NOT GIVENUNK [place] Insurance:SELF PAY [facility] Number: Effective Repository Date:2017-09-19 08/21/2017 CARLIE D Primary CARLIE D [place] [id number] Insurance:MYCARE CRSC HATCHERDOB: Community [address] *IN [facility] [id number] Number: Repository [address]Olb: [phone] [id number] [phone] (HP) Date:4096-16-93DVIS CLAIMS DEPTPO [address] [place] [address]LI: 08/21/2017 Secondary NOT GIVENUNK [place] Insurance:SELF PAY [facility] Number: Effective Repository Date:2017-07-25 08/02/2017 CARLIE D Primary CARLIE D [place] [id number] Insurance:MYCARE CRSC HATCHERDOB: Community [address] *IN [facility] [id number] [place] Number: Repository [address]Iyw: [phone] [id number] [phone] (HP) Date:0847-01-01KYSF CLAIMS DEPTPO [address] [address]CL: 08/02/2017 Secondary NOT GIVENUNK [place] Insurance:SELF PAY [facility] Number: Effective Repository Date:2017-08-02 07/03/2017 CARLIE D Primary CARLIE D [place] [id number] Insurance:MYCARE CRSC HATCHERDOB: Community [address] *IN [facility] [id number] Number: Repository [phone]: [phone] [id number] [phone] (HP) Date:9562-77-29ZQED CLAIMS DEPTPO [address], [place] [address]TK: 07/03/2017 Secondary NOT GIVENUNK [place] Insurance:SELF PAY [facility] Number: Effective Repository Date:2017-06-25 06/19/2017 CARLIE D Primary CARLEI D [place] [id number] Insurance:MYCARE CRSC HATCHERDOB: Community [address] *IN [facility] [id number] [place] Number: Repository [address]Xgz: [phone] [id number] [phone]) Date:6683-19-47PLAD CLAIMS [address]PO [address], [place] [address]UZ: 06/19/2017 Secondary NOT GIVENUNK [place] Insurance[facility] Number: Effective Repository Date:2017-06-19 06/12/2017 CARLIE D Primary CARLIE D [place] [id number] Insurance:MYCARE CRSC HATCHERDOB: Community [address] *IN [facility] [id number], [place] Number: Repository [address]Mek: [phone] [id number] [phone] (HP) Date:8986-62-49TUEE CLAIMS [address]PTPO [address], [place] [address]FT: 06/12/2017 Secondary NOT GIVENUNK [place] Insurance[facility] Number: Effective Repository Date:2017-06-12 06/08/2017 CARLIE D Primary CARLIE D [place] [id number] Insurance:MYCARE CRSC HATCHERDOB: Community [address] *IN [facility] [id number] Number: Repository [address]Kho: [phone] [id number] [phone] (HP) Date:2829-07-72FJDB CLAIMS DEPTPO [address], [place] [address]MX: 06/08/2017 Secondary NOT GIVENUNK [place] Insurance[facility] Number: Effective Repository Date:2017-06-08 06/06/2017 CARLIE D Primary CARLIE D [place] [id number] Insurance:MYCARE CRSC HATCHERDOB: Community [address] *IN [facility] [id number], [place] Number: Repository [address]Mjv: [phone] [id number] [phone] (HP) Date:4145-00-05PYIK CLAIMS DEPTPO [address] [address]SP: 06/06/2017 Secondary NOT GIVENUNK [place] Insurance:SELF PAY [facility] Number: Effective Repository Date:2017-06-06 06/04/2017 CARLIE D Primary CARLIE D [place] [id number] Insurance:MYCARE CRSC HATCHERDOB: Community [address] *IN [facility] [id number] Number: Repository [phone]: [phone] [id number] [phone] (HP) Date:3830-62-20AVVL CLAIMS [address]PO [address], [place] [address]LV: 06/04/2017 Secondary NOT GIVENUNK [place] Insurance:SELF PAY [facility] Number: Effective Repository Date:2017-06-04 05/24/2017 CARLIE D Primary CARLIE D [place] [id number] Insurance:MYCARE CRSC HATCHERDOB: Community [address] *IN [facility] [id number] Number: Repository [address]Ptu: [phone] [id number] [phone] (HP) Date:7509-83-82KXFI CLAIMS [address], [place] [address]BE: 05/24/2017 Secondary NOT GIVENUNK [place] Insurance:SELF PAY [facility] Number: Effective Repository Date:2017-05-24
== END ==
PROVIDERS: Family Provider Family Medicine; PCP Family Medicine; Visit Provider Family Medicine
DX: N39.0 Urinary tract infection, site not specified (principal); R30.0 Dysuria
CPT/HCPCS: 87077; 87086; 87088; 87186

== ENCOUNTER → 2018-05-28 15:25 | Outpatient (CLI) | payer MEDICARE, SELFPAY ==
[2018-04-04 12:46] VITALS: BMI 44.3
[2018-06-03 12:13] LABS: HPV APTIMA, High Risk Negative (Negative)
== END ==
PROVIDERS: Visit Provider Obstetrics & Gynecology
DX: Z12.4 Encounter for screening for malignant neoplasm of cervix (principal)
CPT/HCPCS: 87624; 88175; G0145

== ENCOUNTER → 2018-06-05 15:32 | Outpatient (CLI) | payer MEDICARE, SELFPAY ==
[2018-04-04 12:46] VITALS: BMI 44.3
[2018-06-05 18:00] LABS: T4 Free Direct 1.18 ng/dL (0.76-1.46); Thyroid Stim Hormone (TSH) 1.33 uIU/mL (0.358-3.74)
== END ==
PROVIDERS: Visit Provider Family Medicine
DX: E03.9 Hypothyroidism, unspecified (principal)
CPT/HCPCS: 36415; 84439; 84443

== ENCOUNTER → 2018-06-25 13:57 | Outpatient (CLI) | payer MEDICARE, SELFPAY ==
[2018-04-04 12:46] VITALS: BMI 44.3
[2018-06-20 12:31] VITALS: BMI 44.3
--- NOTE | 2018-06-25 14:00 | US_ITS ---
STUDY: RENAL ULTRASOUND - COMPLETE REASON FOR EXAM: Female, 53 years old. Chronic UTIs TECHNIQUE: Ultrasound evaluation of the kidneys was performed with real-time and static sutton-scale imaging. COMPARISON: None. FINDINGS: RIGHT KIDNEY: Normal location of the right kidney, which is normal in size. The right kidney measures 13.0 x 6.6 x 5.5 cm. There is a normal cortex of the right kidney. The renal cortex measures 1.5 cm. There is no right renal mass or cyst. There are no right renal calculi. There is no right hydronephrosis. DISTAL RIGHT URETER: There is non-visualization of the distal right ureter. There is a visualized right ureteral jet. LEFT KIDNEY: Normal location of the left kidney, which is normal in size. The left kidney measures 12.6 x 5.1 x 5.2 cm. There is a normal cortex of the left kidney. The renal cortex measures 1.3 cm. There is no left renal mass or cyst. There are no left renal calculi. There is no left hydronephrosis. DISTAL LEFT URETER: There is non-visualization of the distal left ureter. There is a visualized left ureteral jet. BLADDER: The distended urinary bladder has a volume of 114 ml. There is a normal wall thickness of the distended urinary bladder. There is no demonstrated mass within the urinary bladder. There are no demonstrated bladder calculi. US/Kidney and Bladder IMPRESSION: Normal ultrasound of the kidneys and urinary bladder. Electronically Signed: Marvin Mehta DO at 23:50 EST Tel [phone], Service support ,
== END ==
PROVIDERS: Family Provider Family Medicine; PCP Family Medicine; Referring Provider Urology; Visit Provider Urology
DX: N39.0 Urinary tract infection, site not specified (principal)
CPT/HCPCS: 76770

== ENCOUNTER → 2018-09-03 14:09 | Outpatient (CLI) | payer MEDICARE, SELFPAY ==
[2018-06-20 12:31] VITALS: BMI 44.3
[2018-09-03 15:20] LABS: Absolute Lymphocyte Count 1.66 X10^3/ul (0.83-4.51); Absolute Neutrophil Count 5.8 X10^3/uL (2.0-7.7); Basophil# 0.04 X10^3/uL; Basophil% 0.5 % (0-1); Eosinophil# 0.18 X10^3/uL; Eosinophils% 2.2 % (0-5); Hemoglobin 16.7 g/dl (12.0-15.0); Lymphocyte # 1.66 X10^3/ul (4.0); Lymphocyte % 19.9 % (19-41); Mean Corp Hgb Conc 32.7 g/gl (32-36); Mean Corpuscular Hgb 27.7 pg (27.0-32.0); Mean Corpuscular Volume 84.7 fL (81-99); Mean Platelet Vol. 9.9 fl (6.2-12.0); Monocyte# 0.63 X10^3/uL; Monocyte% 7.6 % (0-10); Neutrophil % 69.6 % (47-70); Platelet Count 216 K/mm3 (150-450); RBC Distribution Width CV 14.6 % (11.6-14.6); RBC Distribution Width SD 45.3 fl (35.1-43.9); Red Blood Count 6.02 M/mm3 (4.2-5.4); White Blood Count 8.3 K/mm3 (4.4-11.0)
[2018-09-03 15:35] LABS: Hemoglobin A1c 8.4 % (4.2-6.3)
[2018-09-03 15:50] LABS: POSITIVE COUNT NO; POSITIVE DIFFERENTIAL NO; POSITIVE MORPHOLOGY NO
[2018-09-03 16:00] LABS: Vitamin B12 429 pg/mL (211-911)
[2018-09-03 16:08] LABS: ALB/GLOB Ratio 0.8 RATIO (0.9-2.4); AST(SGOT) 18 U/L (15-37); Alanine Aminotransfer ALT/SGPT 23 U/L (13-56); Albumin, Serum 3.2 g/dL (3.2-5.0); Alkaline Phosphatase 139 U/L (45-117); Anion Gap 9 (5-15); BUN 15 mg/dL (7-18); BUN/Creat Ratio 14.2 RATIO (10-20); Calcium,Total 8.5 mg/dL (8.5-10.1); Chloride 99 mmol/L (98-107); Creatinine, Serum 1.06 mg/dL (0.55-1.02); EST Glomerular Filtration Rate 57 mL/min (>60); Est Glom Filt Rate - Afr Amer 69 mL/min (>60); Glucose 271 mg/dL (74-106); Potassium 4.1 mmol/L (3.5-5.1); Protein, Total 7.2 g/dL (6.4-8.2); Sodium Level 136 mmol/L (136-145); T4 Free Direct 1.13 ng/dL (0.76-1.46); Thyroid Stim Hormone (TSH) 1.09 uIU/mL (0.358-3.74)
[2018-09-03 19:48] LABS: Cholesterol 190 mg/dL (200); High Density Lipoprotein 38 mg/dL; Triglycerides 154 mg/dL; Very Low Density Lipoprotein 31 mg/dL (5-40)
== END ==
PROVIDERS: Nurse Practitioner; Family Provider Family Medicine; PCP Family Medicine; Visit Provider Family Medicine
DX: M06.9 Rheumatoid arthritis, unspecified (principal); E03.9 Hypothyroidism, unspecified; E11.21 Type 2 diabetes mellitus with diabetic nephropathy; I10 Essential (primary) hypertension; E55.9 Vitamin D deficiency, unspecified
CPT/HCPCS: 36415; 80053; 80061; 82306; 82607; 83036; 84439; 84443; 85025

== ENCOUNTER → 2018-09-24 | Outpatient (CLI) | payer MEDICARE, SELFPAY ==
[2018-06-20 12:31] VITALS: BMI 44.3
--- NOTE | 2018-09-24 13:34 | BI_ITS ---
MAMMOGRAPHY - BILATERAL SCREENING REASON FOR EXAM: Female, 53 years old. Routine annual screening examination. PERTINENT HISTORY: Non-contributory. Remote left breast biopsy. TECHNIQUE: Digital bilateral breast bk (3D mammographic acquisition) in the CC and MLO projections. 2-D mediolateral oblique (MLO) and craniocaudad (CC) views of both breasts were obtained. CAD: Full Field Digital Mammography with Computer Added Detection was performed. COMPARISON: Comparison is made with prior study August 21, 2017 and April 14, 2017. FINDINGS: Breast Composition: There are scattered areas of fibroglandular density. There are no dominant masses or suspicious calcifications. A tissue clip marker is seen in the upper lateral aspect of the left breast. This is unchanged. Stable benign appearing bilateral axillary lymph nodes. No other significant abnormalities are identified. There has been no significant change since the prior study. BI/SCREEN MAMM (CAD) W/BK BILAT IMPRESSION: Stable bilateral screening mammogram. Yearly follow-up mammogram recommended. (A) ASSESSMENT CATEGORY: BIRADS Category 2: Benign. A letter regarding these results will be sent to the patient by the facility within 30 days. Approximately 10% of breast cancers are not detected by mammography. A normal mammogram should not delay biopsy of a clinically suspicious abnormality. [id number] Electronically Signed: Joey Morris, at 15:08 EDT , Service support ,
== END | disposition home or self-care (01) ==
LOC: OPBI 13:32
PROVIDERS: Family Provider Family Medicine; PCP Family Medicine; Referring Provider Obstetrics & Gynecology; Visit Provider Obstetrics & Gynecology
DX: Z12.31 Encounter for screening mammogram for malignant neoplasm of breast (principal)
CPT/HCPCS: 77063; 77067

== ENCOUNTER → 2019-01-09 | Outpatient (CLI) | payer MEDICARE, SELFPAY ==
[2018-06-20 12:31] VITALS: BMI 44.3
[2019-01-09 15:51] LABS: Basophil# 0.05 X10^3/uL; Basophil% 0.6 % (0-1); Eosinophil# 0.22 X10^3/uL; Eosinophils% 2.5 % (0-5); Hematocrit 50.6 % (37-47); Hemoglobin 16.5 g/dL (12.0-15.0); Lymphocyte % 20.1 % (19-41); Mean Corp Hgb Conc 32.6 g/dL (32-36); Mean Corpuscular Hgb 27.8 pg (27.0-32.0); Mean Corpuscular Volume 85.2 fL (81-99); Mean Platelet Vol. 9.6 fl (6.2-12.0); Monocyte% 8.9 % (0-10); NRBC Flagged by Analyzer 0 % (0-5); Neutrophil # 6.04 X10^3/uL (2.7-7.7); Neutrophil % 67.2 % (47-70); Platelet Count 214 K/mm3 (150-450); RBC Distribution Width CV 15.7 % (11.6-14.6); RBC Distribution Width SD 46.5 fl (35.1-43.9); Red Blood Count 5.94 M/mm3 (4.2-5.4)
[2019-01-09 16:03] LABS: Erythrocyte Sedimentation Rate 40 mm/hr (0-30)
[2019-01-09 16:15] LABS: ALB/GLOB Ratio 0.8 RATIO (0.9-2.4); AST(SGOT) 13 U/L (15-37); Alanine Aminotransfer ALT/SGPT 25 U/L (13-56); Albumin, Serum 3.3 g/dL (3.2-5.0); Alkaline Phosphatase 150 U/L (45-117); Anion Gap 7 (5-15); BUN 15 mg/dL (7-18); BUN/Creat Ratio 17.4 RATIO (10-20); CRP 5.58 mg/L (0.0-3.0); Chloride 99 mmol/L (98-107); Creatinine, Serum 0.86 mg/dL (0.55-1.02); EST Glomerular Filtration Rate 73 mL/min (>60); Est Glom Filt Rate - Afr Amer 88 mL/min (>60); Globulin 4.4 g/dL (2.2-4.2); Glucose 189 mg/dL (74-106); Potassium 3.8 mmol/L (3.5-5.1); Protein, Total 7.7 g/dL (6.4-8.2); Sodium Level 137 mmol/L (136-145); Thyroid Stim Hormone (TSH) 1.97 uIU/mL (0.358-3.74)
[2019-01-09 16:16] LABS: Rheumatoid Factor < 10.0 IU/mL (<15)
[2019-01-10 11:09] LABS: Hepatitis B Surface Antigen Non-Reactive (Nonreactive); Hepatitis C Antibody Non-Reactive (Nonreactive)
[2019-01-12 21:41] LABS: CCP IgG Antibodies 7 units (0-19)
[2019-01-14 16:53] LABS: ANTINUCLEAR ANTIBODIES DIRECT Negative (Negative)
== END | disposition home or self-care (01) ==
LOC: BFHLAB 11:46
PROVIDERS: Family Provider Family Medicine; PCP Family Medicine; Visit Provider Family Medicine
DX: E03.9 Hypothyroidism, unspecified (principal); E11.21 Type 2 diabetes mellitus with diabetic nephropathy; E11.65 Type 2 diabetes mellitus with hyperglycemia; M32.9 Systemic lupus erythematosus, unspecified; M06.9 Rheumatoid arthritis, unspecified; R06.00 Dyspnea, unspecified; R60.9 Edema, unspecified
CPT/HCPCS: 36415; 80053; 83880; 84443; 85025; 85652; 86038; 86140; 86200; 86225; 86235; 86431; 86803; 87340

== ENCOUNTER → 2019-01-21 | Outpatient (CLI) | payer MEDICARE, SELFPAY ==
[2018-06-20 12:31] VITALS: BMI 44.3
[2019-01-21 12:59] LABS: Anion Gap 9 (5-15); BUN 21 mg/dL (7-18); BUN/Creat Ratio 17.9 RATIO (10-20); Chloride 97 mmol/L (98-107); Creatinine, Serum 1.17 mg/dL (0.55-1.02); EST Glomerular Filtration Rate 51 mL/min (>60); Est Glom Filt Rate - Afr Amer 62 mL/min (>60); Glucose 309 mg/dL (74-106); Sodium Level 134 mmol/L (136-145)
== END | disposition home or self-care (01) ==
LOC: BFHLAB 11:20
PROVIDERS: Family Provider Family Medicine; PCP Family Medicine; Visit Provider Family Medicine
DX: R60.9 Edema, unspecified (principal)
CPT/HCPCS: 36415; 80048

== ENCOUNTER → 2019-02-20 | Outpatient (CLI) | payer MEDICARE, SELFPAY ==
[2018-06-20 12:31] VITALS: BMI 44.3
--- NOTE | 2019-02-20 12:37 | ECHOCS_ITS ---
Reason For Study: DYSPNEA Procedure This was a 2D Doppler, Color Flow transthoracic echocardiogram. The study was technically difficult. Contrast injection was performed. Exam performed in department. Left Ventricle Normal LV size. The estimated ejection fraction is 65 %. Diastolic function is indeterminate. No regional wall motion abnormalities noted. Right Ventricle Normal RV size. Normal systolic function. Atria The left atrium is mildly enlarged. Normal right atrium. No doppler evidence for ASD. Mitral Valve There is mild mitral annular calcification. There is no mitral valve stenosis. No mitral valve insufficiency. Tricuspid Valve There is no tricuspid stenosis. Unable to estimate RV systolic pressure due to insufficient tricuspid regurgitant envelope. Trivial tricuspid valve insufficiency. Aortic Valve Aortic sclerosis, no stenosis. There is no aortic stenosis. No aortic valve insufficiency. Pulmonic Valve There is no pulmonic valvular stenosis. No pulmonic valve insufficiency. Great Vessels Normal aortic root. Pericardium/Pleural No pericardial effusion. Medication 22 gauge I.V. with prn adaptor inserted into right arm. Diluted definity 3.0ml given slow IV push to enhance endocardial definition. MMode/2D Measurements & Calculations RVDd: 3.6 cm LVOT diam: 2.2 cm Ao root diam: 3.3 cm LVOT area: 3.8 cm2 LAV(MOD-bp): 74.4 ml SV(MOD-sp4): 66.1 ml LVAd ap4: 29.2 cm2 LAV(MOD-bp) Indexed: 34.0 ml/m2 EDV(MOD-sp4): 93.8 ml LAV(MOD-sp2): 60.2 ml EDV(sp4-el): 96.3 ml LAV(MOD-sp4): 72.2 ml LVAs ap4: 14.3 cm2 ESV(MOD-sp4): 27.7 ml ESV(sp4-el): 27.3 ml EF(MOD-sp4): 70.4 % EF(sp4-el): 71.7 % SV(sp4-el): 69.1 ml LA dimension(2D): 4.4 cm LA A4 area: 23.6 cm2 RA A4 area: 16.3 cm2 Time Measurements MV dec time: 0.19 sec Doppler Measurements & Calculations MV E max edison: 135.1 cm/sec Lat Peak E' Edison: 7.7 cm/sec Med Peak E' Edison: 5.9 cm/sec MV A max edison: 89.4 cm/sec E/E' lat: 17.4 E/E' med: 22.8 MV E/A: 1.5 MV V2 max: 133.3 cm/sec Ao V2 max: 168.7 cm/sec LV V1 max: 135.5 cm/sec MV max P.1 mmHg Ao max P.4 mmHg LV V1 max P.3 mmHg MV V2 mean: 83.9 cm/sec TAWANA(V,D): 3.0 cm2 MV mean P.2 mmHg MV V2 VTI: 30.2 cm TR max edison: 269.8 cm/sec MV P1/2t-pr_phl: 59.1 msec TR max P.3 mmHg Interpretation Summary The study was technically difficult. Diluted definity 3.0ml given slow IV push to enhance endocardial definition. The estimated ejection fraction is 65 %. Diastolic function is indeterminate. Trivial tricuspid valve insufficiency. Aortic sclerosis, no stenosis. The study was technically difficult. Ordering Physician: Richar Galvez Referring Physician: Richar Galvez Performed By: Aby Delaney, RDCS, RVT
== END | disposition home or self-care (01) ==
LOC: CVS 12:34
PROVIDERS: Family Provider Family Medicine; PCP Family Medicine; Referring Provider Family Medicine; Visit Provider Family Medicine
DX: R06.00 Dyspnea, unspecified (principal); R60.9 Edema, unspecified; R09.89 Other specified symptoms and signs involving the circulatory and respiratory systems; Z72.0 Tobacco use
CPT/HCPCS: 93306; Q9957; A4216; C8929

== ENCOUNTER → 2019-05-27 17:58 | Outpatient (CLI) | payer MEDICARE, MEDICAID, SELFPAY ==
[2018-06-20 12:31] VITALS: BMI 44.3
== END ==
PROVIDERS: PCP Family Medicine; Referring Provider Podiatrist; Visit Provider Podiatrist
DX: L03.115 Cellulitis of right lower limb (principal)
CPT/HCPCS: 87070; 87075; 87077; 87186; 87205

== ENCOUNTER → 2019-06-05 13:43 | Outpatient (CLI) | payer MEDICARE, SELFPAY ==
[2019-06-03 14:33] VITALS: BMI 44.6
--- NOTE | 2019-06-05 13:56 | RAD_ITS ---
STUDY: X-RAY - RIGHT FOOT CLINICAL: Female, 53 years old. Right foot, diabetic foot infection TECHNIQUE: 3 view(s) of the foot. COMPARISON: None. FINDINGS: There is an enthesophyte involving the posterior superior calcaneus at the site of insertion of the Achilles tendon. Normal visualized subtalar, talonavicular, calcaneocuboid, tarsal and tarsometatarsal articulations. Normal metatarsi. Normal metatarsophalangeal joint of the great toe. Normal tibial and fibular sesamoid bones. Normal interphalangeal joint of the great toe. Normal phalanges of the great toe. Normal second through fifth metatarsophalangeal joints. Normal interphalangeal joints and phalanges of the lesser toes. There is soft tissue swelling of the dorsal aspect of the foot. RAD/Foot min 3 Views IMPRESSION: Soft tissue swelling. No demonstrated acute osseous changes. Electronically Signed: Vinay Quesada MD at 0:48 EST Tel , Service support ,
[2019-06-05 15:39] LABS: Hemoglobin 17.3 g/dL (12.0-15.0); Mean Corp Hgb Conc 29.6 g/dL (32-36); Mean Corpuscular Hgb 24.7 pg (27.0-32.0); Mean Corpuscular Volume 83.5 fL (81-99); Mean Platelet Vol. 9.2 fl (6.2-12.0); Platelet Count 271 K/mm3 (150-450); RBC Distribution Width CV 17.3 % (11.6-14.6); RBC Distribution Width SD 47.6 fl (35.1-43.9); Red Blood Count 6.99 M/mm3 (4.2-5.4); White Blood Count 7.8 K/mm3 (4.4-11.0)
[2019-06-05 15:50] LABS: Erythrocyte Sedimentation Rate 8 mm/hr (0-30)
[2019-06-05 15:51] LABS: Hematocrit 58.4 % (37-47)
[2019-06-05 15:59] LABS: ALB/GLOB Ratio 0.7 RATIO (0.9-2.4); AST(SGOT) 8 U/L (15-37); Alanine Aminotransfer ALT/SGPT 18 U/L (13-56); Albumin, Serum 3.3 g/dL (3.2-5.0); Alkaline Phosphatase 170 U/L (45-117); Anion Gap 5 (5-15); BUN 18 mg/dL (7-18); BUN/Creat Ratio 15.5 RATIO (10-20); Calcium,Total 9.7 mg/dL (8.5-10.1); Chloride 93 mmol/L (98-107); Creatinine, Serum 1.16 mg/dL (0.55-1.02); EST Glomerular Filtration Rate 51 mL/min (>60); Est Glom Filt Rate - Afr Amer 62 mL/min (>60); Globulin 4.9 g/dL (2.2-4.2); Glucose 157 mg/dL (74-106); Prealbumin 23.4 mg/dL (20.0-40.0); Protein, Total 8.2 g/dL (6.4-8.2); Sodium Level 134 mmol/L (136-145)
[2019-06-05 16:00] LABS: Hemoglobin A1c 10.8 % (4.2-6.3)
== END ==
PROVIDERS: PCP Family Medicine; Referring Provider Nurse Practitioner Family; Visit Provider Nurse Practitioner Family
DX: E11.9 Type 2 diabetes mellitus without complications (principal); L97.519 Non-pressure chronic ulcer of other part of right foot with unspecified severity
CPT/HCPCS: 36415; 73630; 80053; 83036; 84134; 85027; 85652

== ENCOUNTER 2019-06-09 15:56 | Observation (INO) | payer MEDICARE, MEDICAID, SELFPAY ==
[2019-06-03 14:33] VITALS: BMI 44.6
[2019-06-09 15:57] VITALS: BP 122/62; PULSE 89; RESP 18; TEMP 36.4; O2SAT 92; BMI 43.9
--- NOTE | 2019-06-09 16:11 | ED.DCSUM_ITS ---
- ER Visit Summary Date of Service: 06/09/19 Chief Complaint: [Foot infection] History of Present Illness: The patient is a 53 F [presents to the emergency department with a diabetic foot wound that she had for about 2 weeks. Patient denies any pain to the area she has neuropathy. Patient has been seen at the wound center and just finished a round of antibiotics today however the wound is no better. Patient states that she had blood work and an x-ray of the foot several days ago. Patient was referred to the ER by the wound center for admission for IV antibiotics. Patient denies any fever although she has had some chills. Patient has history of diabetes, hypertension, rheumatoid arthritis, lupus, SLE, hypothyroidism, and anxiety. Patient continues to smoke cigarettes.] Physical Examination: [HEENT-PERRLA, EOMI. Cranial nerves II through XII grossly intact. TMs clear. Mucous membranes moist. No adenopathy. Cardiovascular-regular rate and rhythm without murmur or ectopy Lungs-clear to auscultation, chest wall stable without crepitus or subcu emphysema Abdomen-normoactive bowel sounds, soft, nontender, no rebound or rigidity, no peritoneal signs. Extremities-intact ?4, normal range of motion, normal pulses, atraumatic. Right foot-patient has a diabetic foot wound/ulceration to the plantar aspect of the medial midfoot just proximal to the first MTP joints. Patient has some surrounding erythema. No significant drainage noted. Patient does have some chronic venous stasis discoloration to left foot and lower extremity. No lymphangitic streaking noted. No real bony tenderness on exam.] Test Results: [CBC with differential obtained showed a white blood cell count of 8.0, hemoglobin 17, hematocrit 57, platelets 221. Chemistries unremarkable. X-ray obtained on the 13th of the month showed no bony destruction.] Emergency Department Course and Treatment: [Patient was started on Unasyn and vancomycin IV.] Treatment Plan: [Admit for IV antibiotics] Disposition: [Admit] Impression: [Diabetic foot ulcer with cellulitis-failed outpatient therapy] This note was generated with [employer]view[employer] software. It may contain incorrect words, spelling, and punctuation that were not noted in review of the chart prior to signing ED Disposition - Plan for ED Patient: Referrals: Richar Galvez MD [Primary Care Provider] -
[2019-06-09 16:24] VITALS: TEMP 36.4
[2019-06-09 16:48] LABS: Absolute Lymphocyte Count 2.04 X10^3/uL (0.83-4.51); Absolute Neutrophil Count 4.6 X10^3/uL (2.0-7.7); Basophil# 0.07 X10^3/uL; Basophil% 0.9 % (0-1); Eosinophil# 0.33 X10^3/uL; Eosinophils% 4.1 % (0-5); Hemoglobin 17.5 g/dL (12.0-15.0); Lymphocyte # 2.04 X10^3/ul (4.0); Lymphocyte % 25.6 % (19-41); Mean Corp Hgb Conc 30.8 g/dL (32-36); Mean Corpuscular Hgb 25.8 pg (27.0-32.0); Mean Corpuscular Volume 83.9 fL (81-99); Mean Platelet Vol. 9.3 fl (6.2-12.0); Monocyte# 0.86 X10^3/uL; Monocyte% 10.8 % (0-10); NRBC Flagged by Analyzer 0 % (0-5); Neutrophil # 4.61 X10^3/uL (2.7-7.7); Neutrophil % 57.8 % (47-70); Platelet Count 221 K/mm3 (150-450); RBC Distribution Width CV 17.2 % (11.6-14.6); RBC Distribution Width SD 47.3 fl (35.1-43.9); Red Blood Count 6.78 M/mm3 (4.2-5.4)
[2019-06-09 17:01] LABS: Anion Gap 1 (5-15); BUN 19 mg/dL (7-18); BUN/Creat Ratio 17.8 RATIO (10-20); Calcium,Total 9.6 mg/dL (8.5-10.1); Chloride 100 mmol/L (98-107); Creatinine, Serum 1.07 mg/dL (0.55-1.02); EST Glomerular Filtration Rate 56 mL/min (>60); Est Glom Filt Rate - Afr Amer 68 mL/min (>60); Glucose 106 mg/dL (74-106); Potassium 4.3 mmol/L (3.5-5.1); Sodium Level 137 mmol/L (136-145)
[2019-06-09 17:06] LABS: Hematocrit 56.9 % (37-47)
[2019-06-09 17:09] LABS: Erythrocyte Sedimentation Rate 26 mm/hr (0-30)
--- NOTE | 2019-06-09 17:54 | NURSING ---
MED SURG OBS KOTSONIS DIABETIC FOOT ULCER AND CELLULITIS
[2019-06-09 18:29] VITALS: BMI 43.9; BMI 44.0
[2019-06-09 18:41] VITALS: BP 116/63; PULSE 78; RESP 18; TEMP 36.4; O2SAT 92
--- NOTE | 2019-06-09 18:49 | HP.PCM_ITS ---
History of Present Illness Date of Admission: 06/09/19 Chief Complaint: Told to come in to the ER The patient is a 53 year old F with a PMH as below who presents from the wound care center. She says that she feels fine and that her foot looks great however they felt that it was not getting any better and she just completed about a week's worth of antibiotics however she was told that she needed to come into the ER for IV antibiotics. She does not know why and she cannot remember what organism they said she was growing and why she needed IV antibiotics. She has no leukocytosis. She is hemoconcentrated but otherwise denies any fevers or chills. She says that the ulcer on the bottom of her right foot looks about the same as when they started treatment. There is no redness and she has not noticed any increasing pain or drainage. She also has not noticed any red streaking up her legs. 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 Hypothyroidism (Chronic) Continues on levothyroxine 100 mcg daily. Takes as directed. Denies any s/s of hypothyroidism. Medical History: Medical History (Last Reviewed 06/20/18 @ 12:28 by Ann Licea) Asthma J45.909 Chest pain R07.9 Diabetes E11.9 Diabetes type 2, controlled E11.9 Dx : 1996 Last exacerbation : DKA : never Hypoglycemic episode : never ER visit : never Difficulty balancing R29.818 Fatigue R53.83 Glaucoma H40.9 Hyperlipidemia E78.5 Hypothyroidism E03.9 Incontinence R32 Knee pain M25.569 Limb weakness R29.898 Obesity, Class III, BMI 40-49.9 (morbid obesity) E66.01 Rheumatoid arthritis M06.9 SLE (systemic lupus erythematosus) M32.9 SOB (shortness of breath) R06.02 Shoulder pain M25.519 Thyroid disease E07.9 Tremor R25.1 HTN (hypertension) I10 Allergies Sulfa (Sulfonamide Antibiotics) Allergy (Verified 06/09/19 15:59) Hives Home Medications: Ambulatory Orders Medication Instructions Recorded Aspirin E.C. [Ecotrin] 81 mg PO DAILY@0800 01/20/13 Latanoprost 0.005% [Xalatan 1 drp EACH EYE QHS 01/20/13 Opthalmic] Furosemide [Lasix] 20 mg PO DAILY 01/27/15 Timolol 0.5% [Timoptic] 1 drp EACH EYE DAILY 01/27/15 traMADol [Ultram (G)] 100 mg PO Q6H PRN PRN 02/20/15 busPIRone [Buspar] 7.5 mg PO TID 03/10/17 insulin regular hum U-500 conc 500 15 - 25 units SC BID ml 01/09/18 unit/mL subcutaneous soln levothyroxine 100 mcg tablet 100 mcg PO DAILY 04/04/18 Albuterol Inhaler [Ventolin Hfa 2 puff INHALATION DAILY 06/03/19 (SP)] Aripiprazole 15 mg PO DAILY@1200 06/03/19 Cholecalciferol (Vitamin D3) 5,000 unit PO DAILY 06/03/19 [Vitamin D3] Duloxetine Hcl [Cymbalta] 60 mg PO DAILY 06/03/19 Fluticasone/Salmeterol [Advair 1 ea IH BID 06/03/19 500-50 Diskus] Mirabegron [Myrbetriq] 50 mg PO DAILY 06/03/19 Zolpidem Tartrate [Ambien] 10 mg PO QHS 06/03/19 cycloBENZAPRine HCl [Flexeril] 10 mg PO QHS 06/03/19 Duloxetine Hcl [Cymbalta] 30 mg PO DAILY 06/09/19 Gabapentin 600 mg PO 4X/DAY 06/09/19 Gabapentin [Neurontin] 300 mg PO QHS 06/09/19 Lisinopril [Zestril] 20 mg PO DAILY 06/09/19 Surgical History: Surgical History (Last Reviewed 06/20/18 @ 12:28 by Ann Licea) H/O dilation and curettage Z98.890 H/O tubal ligation Z98.51 H/O umbilical hernia repair Z98.890, Z87.19 History of bladder surgery Z98.890 S/P LASIK surgery of both eyes Z98.890 lower back surgery Surgical History: dilatation and curettage, - - Tubal ligation, bladder sling, umbilical hernia Smoking Status: Current every day smoker Tobacco Use: Cigarettes Alcohol: None Drugs: None - *Family History Maternal Family History: Family History (Last Reviewed 06/20/18 @ 12:28 by Ann Licea) Father Heart disease Parkinsons Hypertension Diabetes Mother Heart disease Kidney disease Thyroid disorder High cholesterol Hypertension Diabetes Brother Hypertension Diabetes Chronic bronchitis Asthma Seasonal allergies Grandfather CVA (cerebral vascular accident) Heart disease Hypertension Diabetes Grandmother Diabetes Throat cancer Arthritis Rheumatoid arthritis Osteoarthritis Hypertension Unknown Asthma Diabetes Alcoholism Arthritis History Items: Cancer, Diabetes, Hypertension, Renal Disease, Stroke, - - Thyroid, kidney disease Paternal Family History: Family History (Last Reviewed 06/20/18 @ 12:28 by Ann Licea) Father Heart disease Parkinsons Hypertension Diabetes Mother Heart disease Kidney disease Thyroid disorder High cholesterol Hypertension Diabetes Brother Hypertension Diabetes Chronic bronchitis Asthma Seasonal allergies Grandfather CVA (cerebral vascular accident) Heart disease Hypertension Diabetes Grandmother Diabetes Throat cancer Arthritis Rheumatoid arthritis Osteoarthritis Hypertension Unknown Asthma Diabetes Alcoholism Arthritis History Items: Diabetes, Heart Disease, Hypertension Sibling Family History: Family History (Last Reviewed 06/20/18 @ 12:28 by Ann Licea) Father Heart disease Parkinsons Hypertension Diabetes Mother Heart disease Kidney disease Thyroid disorder High cholesterol Hypertension Diabetes Brother Hypertension Diabetes Chronic bronchitis Asthma Seasonal allergies Grandfather CVA (cerebral vascular accident) Heart disease Hypertension Diabetes Grandmother Diabetes Throat cancer Arthritis Rheumatoid arthritis Osteoarthritis Hypertension Unknown Asthma Diabetes Alcoholism Arthritis History Items: Diabetes, Hypertension Review of Systems Constitutional: Denies: Chills, Fever, Weight Change HEENT: Denies: Head Aches, Sinus Congestion, Sinus Drainage Cardiovascular: Denies: Chest Pain, Palpitations Respiratory: Denies: Cough, Shortness of breath at rest, Sputum production Gastrointestinal: Denies: Abdominal Pain, Nausea, Vomiting Genitourinary: Denies: Dysuria Musculoskeletal: Denies: Joint Pain, Joint Tenderness Skin: Reports: Wounds - Chronic ulcer on the bottom of her right foot. Denies: Rash Neurological: Denies: Numbness, Tingling, Focal weakness Psychiatric: Denies: Anxiety, Depression, Homicidal Ideations, Suicidal Ideations Hematologic/ Lymphatic: Denies: Easy Bruising, Easy Bleeding VTE Information - Inpt Only VTE Present on Admission: No - Physical Exam Vitals/I&O's: Vital Signs Temp Pulse Resp BP Pulse Ox 97.6 F L 78 18 116/63 92 06/09/19 18:41 06/09/19 18:41 06/09/19 18:41 06/09/19 18:41 06/09/19 18:41 Oxygen Delivery Method Room Air Weight: 256 lb 3.187 oz Body Mass Index (BMI) 43.9 Intake and Output for Last 24 Hours 06/07/19 06/08/19 06/09/19 23:59 23:59 23:59 Intake Total 121.75 / 121.75 Balance 121.75 / 121.75 General: Alert, Oriented x3, Cooperative, No apparent distress HEENT: Atraumatic, PERRLA, EOMI, Normocephalic Oral: Moist Mucosa Neck: Supple, No JVD Lungs: Clear to auscultation, Normal air movement, No rhonchi, No wheeze, No rales, Diminished Cardiovascular: Regular rate, Regular Rhythm, Normal S1, Normal S2, No murmurs Abdomen: Soft, Non Tender, Non-Distended, No Hepato-splenomegaly Extremities: No edema, Capillary Refill Less than 3 Seconds Skin: Ulcer/ Wound - She has had a 3 to 4 cm ulcer on the bottom of her right foot with sloughing, there is no surrounding redness erythema swelling or drainage Neurological: Neuro grossly intact, Sensory exam intact to light touch and pain Psych/Mental Status: Normal Affect, Appropriate Laboratory Results 06/09/19 16:20: WBC 8.0, RBC 6.78 H, Hgb 17.5 H, Hct 56.9 H, MCV 83.9, MCH 25.8 L, MCHC 30.8 L, RDW Std Deviation 47.3 H, RDW Coeff of Kierra 17.2 H, Plt Count 221, MPV 9.3, Immature Gran % (Auto) 0.800, Neut % (Auto) 57.8, Lymph % (Auto) 25.6, [place] % (Auto) 10.8 H, Eos % (Auto) 4.1, Baso % (Auto) 0.9, Absolute Neuts (auto) 4.6, Absolute Lymphs (auto) 2.04, Nucleated RBC % 0, ESR 26 06/09/19 16:20: Sodium 137, Potassium 4.3, Chloride 100, Carbon Dioxide 36.0 H, Anion Gap 1 L, BUN 19 H, Creatinine 1.07 H, Estim Creat Clear Calc 51.30, Est GFR (MDRD) Af Amer 68, Est GFR (MDRD) Non-Af 56 L, BUN/Creatinine Ratio 17.8, Glucose 106, Calcium 9.6 Current Medications Sodium Chloride () 250 mls @ 15 mls/hr IV .[id number] PRN PRN Reason: Saline Flush Last Infusion: 06/09/19 17:46 Dose: 0 mls/hr Documented by: Sodium Chloride () 250 mls @ 15 mls/hr IV .[id number] PRN PRN Reason: Additional IVPB Infusion Assessment/Plan All Active Problems (Last Reviewed 06/20/18 @ 12:28 by Ann Licea) Non-healing ulcer of foot with fat layer exposed (Acute) Diabetic foot infection (Acute) 1. Chronic right lower extremity wound -This was being managed with the wound care center however this that she is growing a bacteria that needs IV antibiotics -The only culture data that I can see is MRSA and enterococcus from June 04, the Pseudomonas that she had been growing earlier was not growing on the most recent culture -We will consult both podiatry and ID and continue with vancomycin -She received a dose of Unasyn as well in the ER but it looks based on the previous culture data that she should be able to do fine with vancomycin alone 2. DM 2 -We will place her on Lantus 20 units at night as well as a sliding scale insulin -Accu-Cheks AC at bedtime 3. Hypothyroidism -Stable -Continue with Synthroid 4. HTN/HLD/morbid obesity -We will continue with her home blood pressure medications -Discussed lifestyle modifications 5. RA/SLE - c/w gabapentin Flexeril -Continue with latanoprost and timolol 6. Anxiety/depression -Stable -Continue with Abilify, BuSpar, duloxetine DVT: Low risk, ambulation Code Visit OBSV E&M: [id number] Initial observation care L2
--- NOTE | 2019-06-09 19:01 | PCM.RX.CS ---
Consult Pharmacy has been consulted to manage selected antiobiotic: Vancomycin Type of Consult: New start Prior Doses of Antibiotics Received/Current Regimen: Medications Discontinued Medications Vancomycin HCl 1,750 mg/ (Dextrose) 535 mls @ 250 mls/hr IV X1 ONE Stop: 06/09/19 18:23 Last Admin: 06/09/19 17:44 Dose: 250 mls/hr Documented by: Labs: Sodium 137 mmol/L (136-145) 06/09/19 16:20 Potassium 4.3 mmol/L (3.5-5.1) 06/09/19 16:20 Chloride 100 mmol/L (98-107) 06/09/19 16:20 Carbon Dioxide 36.0 mmol/L (21.0-32.0) H 06/09/19 16:20 Anion Gap 1 (5-15) L 06/09/19 16:20 BUN 19 mg/dL (7-18) H 06/09/19 16:20 Creatinine 1.07 mg/dL (0.55-1.02) H 06/09/19 16:20 Est GFR (MDRD) Af Amer 68 mL/min (>60) 06/09/19 16:20 Est GFR (MDRD) Non-Af 56 mL/min (>60) L 06/09/19 16:20 BUN/Creatinine Ratio 17.8 RATIO (10-20) 06/09/19 16:20 Glucose 106 mg/dL (74-106) 06/09/19 16:20 Weight used for dosin kg Estimated Creatinine Clearance: 51 mL/min Goal Trough: 15-20 mcg/mL Pharmacy Plan for Drug Dosing: Initial 1750mg vanc given x1 in ED, continue 1250mg IV q12h with trough prior to 4th dose per policy. Pharmacy Service will continue to monitor and adjust dosing as required. Follow-Up Labs: Trough Vancomycin - 06/11 @ 0530
[2019-06-09] MEDS: Gabapentin 600 MG Tablet PO (20:25)
[2019-06-09] MEDS: 0.9% Normal Saline 1,000 ML 100 ML IV (20:27)
[2019-06-09] MEDS: busPIRone 5 MG Tablet 7.5 MG PO (20:29)
[2019-06-09 20:56] VITALS: BP 124/63; PULSE 86; RESP 20; TEMP 36.5; O2SAT 94
[2019-06-09 22:30] VITALS: PULSE 88; RESP 16
[2019-06-09] MEDS: Albuterol 2.5 MG/3 ML VIAL.NEB. INHALATION (22:30)
[2019-06-09] MEDS: Budesonide Respules 0.5 MG/2 ML AMPUL.NEB. INHALATION (22:40)
[2019-06-09] MEDS: cycloBENZAPRine HCl 10 MG Tablet PO (23:46)
[2019-06-09] MEDS: Gabapentin 300 MG Capsule PO (23:47)
[2019-06-09] MEDS: Latanoprost 0.005% 1 Bottle 1 DRP EACH EYE (23:48)
[2019-06-09] MEDS: traMADol 50 MG Tablet 100 MG PO (23:50)
[2019-06-10] VITALS (7 sets, daily range): BP systolic 130–148; BP diastolic 70–88; PULSE 75–90; RESP 18–21; TEMP 36.5–36.7; O2SAT 86–94
[2019-06-10 01:01] LABS: Bedside Glucose 89 mg/dL (70-110)
[2019-06-10 06:16] LABS: Absolute Lymphocyte Count 1.69 X10^3/uL (0.83-4.51); Absolute Neutrophil Count 4.5 X10^3/uL (2.0-7.7); Basophil# 0.06 X10^3/uL; Basophil% 0.8 % (0-1); Eosinophil# 0.33 X10^3/uL; Eosinophils% 4.5 % (0-5); Hematocrit 53.9 % (37-47); Hemoglobin 16.5 g/dL (12.0-15.0); Lymphocyte # 1.69 X10^3/ul (4.0); Lymphocyte % 23.3 % (19-41); Mean Corp Hgb Conc 30.6 g/dL (32-36); Mean Corpuscular Hgb 25.7 pg (27.0-32.0); Mean Corpuscular Volume 84.1 fL (81-99); Mean Platelet Vol. 9.4 fl (6.2-12.0); Monocyte# 0.61 X10^3/uL; Monocyte% 8.4 % (0-10); NRBC Flagged by Analyzer 0 % (0-5); Neutrophil # 4.54 X10^3/uL (2.7-7.7); Neutrophil % 62.6 % (47-70); Platelet Count 199 K/mm3 (150-450); RBC Distribution Width CV 17.4 % (11.6-14.6); RBC Distribution Width SD 48.2 fl (35.1-43.9); Red Blood Count 6.41 M/mm3 (4.2-5.4); White Blood Count 7.3 K/mm3 (4.4-11.0)
[2019-06-10 06:39] LABS: Anion Gap 3 (5-15); BUN 12 mg/dL (7-18); BUN/Creat Ratio 14.4 RATIO (10-20); Chloride 99 mmol/L (98-107); Creatinine, Serum 0.83 mg/dL (0.55-1.02); EST Glomerular Filtration Rate 75 mL/min (>60); Est Glom Filt Rate - Afr Amer 91 mL/min (>60); Estimated Creatinine Clearance 66.13 ml/min; Glucose 158 mg/dL (74-106); Potassium 4.2 mmol/L (3.5-5.1); Sodium Level 137 mmol/L (136-145)
[2019-06-10] MEDS: Levothyroxine 100 MCG Tablet PO (07:00)
[2019-06-10] MEDS: busPIRone 5 MG Tablet 7.5 MG PO (07:00)
[2019-06-10] MEDS: Gabapentin 600 MG Tablet PO ×2 (07:00→09:29)
[2019-06-10] MEDS: Budesonide Respules 0.5 MG/2 ML AMPUL.NEB. INHALATION (07:20)
[2019-06-10] MEDS: Albuterol 2.5 MG/3 ML VIAL.NEB. INHALATION (07:20)
[2019-06-10] MEDS: Insulin Lispro 100 UNIT/ML INSULN.PEN SC (07:25)
[2019-06-10] MEDS: 0.9% Normal Saline 1,000 ML 100 ML IV (07:25)
[2019-06-10 07:45] LABS: Bedside Glucose 153 mg/dL (70-110)
[2019-06-10] MEDS: Aspirin E.C. 81 MG Tablet PO (08:15)
--- NOTE | 2019-06-10 09:04 | CON.PCM_ITS ---
Reason for Consult Date of Consultation: 06/10/19 Reason for Consultation: Ulcer right foot History of Present Illness: The patient is a 53 year old female with uncontrolled diabetes, tobacco dependence was admitted for right foot ulceration yesterday. Patient was following with me in office, I referred patient to the wound center, who she saw last week on Sunday, wound was debrided and new cultures obtained. Patient relates she was called by wound center yesterday and told to go to the hospital for IV antibiotics. She was admitted for IV antibiotics which have been started. Podiatry was consulted for further evaluation. WBC normal, patient afebrile. 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 Hypothyroidism (Chronic) Continues on levothyroxine 100 mcg daily. Takes as directed. Denies any s/s of hypothyroidism. Medical History: Medical History (Last Reviewed 06/20/18 @ 12:28 by Ann Licea) Asthma J45.909 Chest pain R07.9 Diabetes E11.9 Diabetes type 2, controlled E11.9 Dx : 1996 Last exacerbation : DKA : never Hypoglycemic episode : never ER visit : never Difficulty balancing R29.818 Fatigue R53.83 Glaucoma H40.9 Hyperlipidemia E78.5 Hypothyroidism E03.9 Incontinence R32 Knee pain M25.569 Limb weakness R29.898 Obesity, Class III, BMI 40-49.9 (morbid obesity) E66.01 Rheumatoid arthritis M06.9 SLE (systemic lupus erythematosus) M32.9 SOB (shortness of breath) R06.02 Shoulder pain M25.519 Thyroid disease E07.9 Tremor R25.1 HTN (hypertension) I10 Allergies Sulfa (Sulfonamide Antibiotics) Allergy (Verified 06/09/19 15:59) Hives Home Medications: Ambulatory Orders Medication Instructions Recorded Aspirin E.C. [Ecotrin] 81 mg PO DAILY@0800 01/20/13 Latanoprost 0.005% [Xalatan 1 drp EACH EYE QHS 01/20/13 Opthalmic] Furosemide [Lasix] 20 mg PO DAILY 01/27/15 Timolol 0.5% [Timoptic] 1 drp EACH EYE DAILY 01/27/15 traMADol [Ultram] 100 mg PO TID 02/20/15 busPIRone [Buspar] 7.5 mg PO TID 03/10/17 insulin regular hum U-500 conc 500 15 - 25 units SC BID ml 01/09/18 unit/mL subcutaneous soln levothyroxine 100 mcg tablet 100 mcg PO DAILY 04/04/18 Albuterol Inhaler [Ventolin Hfa] 2 puff INHALATION DAILY 06/03/19 Aripiprazole 15 mg PO DAILY@1200 06/03/19 Cholecalciferol (Vitamin D3) 5,000 unit PO DAILY 06/03/19 [Vitamin D3] Duloxetine Hcl [Cymbalta] 60 mg PO DAILY 06/03/19 Fluticasone/Salmeterol [Advair 1 ea IH BID 06/03/19 500-50 Diskus] Mirabegron [Myrbetriq] 50 mg PO DAILY 06/03/19 Zolpidem Tartrate [Ambien] 10 mg PO QHS 06/03/19 cycloBENZAPRine HCl [Flexeril] 10 mg PO QHS 06/03/19 Duloxetine Hcl [Cymbalta] 30 mg PO DAILY 06/09/19 Gabapentin 600 mg PO 4X/DAY 06/09/19 Gabapentin [Neurontin] 300 mg PO QHS 06/09/19 Lisinopril [Zestril] 20 mg PO DAILY 06/09/19 Nicotine [Nicoderm Cq] 21 mg TRANSDERM. DAILY #30 patch 06/10/19 Surgical History: Surgical History (Last Reviewed 06/20/18 @ 12:28 by Ann Licea) H/O dilation and curettage Z98.890 H/O tubal ligation Z98.51 H/O umbilical hernia repair Z98.890, Z87.19 History of bladder surgery Z98.890 S/P LASIK surgery of both eyes Z98.890 lower back surgery Surgical History: dilatation and curettage, - - Tubal ligation, bladder sling, umbilical hernia Smoking Status: Current every day smoker Tobacco Use: Cigarettes Alcohol: None Drugs: None - *Family History Maternal Family History: Family History (Last Reviewed 06/20/18 @ 12:28 by Ann Licea) Father Heart disease Parkinsons Hypertension Diabetes Mother Heart disease Kidney disease Thyroid disorder High cholesterol Hypertension Diabetes Brother Hypertension Diabetes Chronic bronchitis Asthma Seasonal allergies Grandfather CVA (cerebral vascular accident) Heart disease Hypertension Diabetes Grandmother Diabetes Throat cancer Arthritis Rheumatoid arthritis Osteoarthritis Hypertension Unknown Asthma Diabetes Alcoholism Arthritis History Items: Cancer, Diabetes, Hypertension, Renal Disease, Stroke, - - Thyroid, kidney disease Paternal Family History: Family History (Last Reviewed 06/20/18 @ 12:28 by Ann Licea) Father Heart disease Parkinsons Hypertension Diabetes Mother Heart disease Kidney disease Thyroid disorder High cholesterol Hypertension Diabetes Brother Hypertension Diabetes Chronic bronchitis Asthma Seasonal allergies Grandfather CVA (cerebral vascular accident) Heart disease Hypertension Diabetes Grandmother Diabetes Throat cancer Arthritis Rheumatoid arthritis Osteoarthritis Hypertension Unknown Asthma Diabetes Alcoholism Arthritis History Items: Diabetes, Heart Disease, Hypertension Sibling Family History: Family History (Last Reviewed 06/20/18 @ 12:28 by Ann Licea) Father Heart disease Parkinsons Hypertension Diabetes Mother Heart disease Kidney disease Thyroid disorder High cholesterol Hypertension Diabetes Brother Hypertension Diabetes Chronic bronchitis Asthma Seasonal allergies Grandfather CVA (cerebral vascular accident) Heart disease Hypertension Diabetes Grandmother Diabetes Throat cancer Arthritis Rheumatoid arthritis Osteoarthritis Hypertension Unknown Asthma Diabetes Alcoholism Arthritis History Items: Diabetes, Hypertension Review of Systems Constitutional: Denies: Chills, Fever Gastrointestinal: Denies: Nausea, Vomiting Skin: Reports: Wounds - Physical Exam Vitals/I&O's: Vital Signs Temp Pulse Resp BP Pulse Ox 97.7 F L 75 18 138/70 H 92 06/10/19 07:26 06/10/19 07:26 06/10/19 07:26 06/10/19 07:26 06/10/19 07:26 Oxygen Flow Rate (L/min) 1 Oxygen Delivery Method Nasal Cannula Weight: 116.21 kg Body Mass Index (BMI) 43.9 Intake and Output for Last 24 Hours 06/08/19 06/09/19 06/10/19 23:59 23:59 23:59 Intake Total 656.75 / 1156.75 1611.67 / 1611.67 Output Total 550 / 550 Balance 656.75 / 606.75 1061.67 / 1061.67 General: Alert, Oriented x3, Cooperative, No apparent distress Extremities: No cyanosis, Capillary Refill Less than 3 Seconds, No Calf Tenderness, - - Plantar right foot ulceration to the arch area down to subcutaneous tissue layer with fibrogranular base, there is dry eschar to dorsal distal base of 5th toe on the right foot. There is no cellulitis, no visible abscess, no maloder, no fluctuance, no crepitus, no probe to bone or deeper tissue, no blistering, no necrosis or evidence of acute infection to the right foot at this time. No evidence of acute ischemia to the foot bilateral. No open lesions to the left foot. Psych/Mental Status: Normal Affect, Appropriate, Alert and oriented to time, place, person, mood and affect Laboratory Results 06/09/19 16:20: WBC 8.0, RBC 6.78 H, Hgb 17.5 H, Hct 56.9 H, MCV 83.9, MCH 25.8 L, MCHC 30.8 L, RDW Std Deviation 47.3 H, RDW Coeff of Kierra 17.2 H, Plt Count 221, MPV 9.3, Immature Gran % (Auto) 0.800, Neut % (Auto) 57.8, Lymph % (Auto) 25.6, [place] % (Auto) 10.8 H, Eos % (Auto) 4.1, Baso % (Auto) 0.9, Absolute Neuts (auto) 4.6, Absolute Lymphs (auto) 2.04, Nucleated RBC % 0, ESR 26 06/09/19 16:20: Sodium 137, Potassium 4.3, Chloride 100, Carbon Dioxide 36.0 H, Anion Gap 1 L, BUN 19 H, Creatinine 1.07 H, Estim Creat Clear Calc 51.30, Est GFR (MDRD) Af Amer 68, Est GFR (MDRD) Non-Af 56 L, BUN/Creatinine Ratio 17.8, Glucose 106, Calcium 9.6 06/09/19 23:59: POC Glucose 89 06/10/19 06:04: WBC 7.3, RBC 6.41 H, Hgb 16.5 H, Hct 53.9 H, MCV 84.1, MCH 25.7 L, MCHC 30.6 L, RDW Std Deviation 48.2 H, RDW Coeff of Kierra 17.4 H, Plt Count 199, MPV 9.4, Immature Gran % (Auto) 0.400, Neut % (Auto) 62.6, Lymph % (Auto) 23.3, [place] % (Auto) 8.4, Eos % (Auto) 4.5, Baso % (Auto) 0.8, Absolute Neuts (auto) 4.5, Absolute Lymphs (auto) 1.69, Nucleated RBC % 0 06/10/19 06:04: Sodium 137, Potassium 4.2, Chloride 99, Carbon Dioxide 35.0 H, Anion Gap 3 L, BUN 12, Creatinine 0.83, Estim Creat Clear Calc 66.13, Est GFR (MDRD) Af Amer 91, Est GFR (MDRD) Non-Af 75, BUN/Creatinine Ratio 14.4, Glucose 158 H, Calcium 9.0 06/10/19 07:09: POC Glucose 153 H Current Medications Acetaminophen (Tylenol) 650 mg PO Q6H PRN PRN PRN Reason: Pain Score 1-10/Temp > 100.7 F Albuterol Sulfate (Ventolin Aerosols) 2.5 mg INHALATION Q6HWA.RT [facility] Last Admin: 06/10/19 07:20 Dose: 2.5 mg Documented by: Aspirin (Ecotrin) 81 mg PO DAILY@0800 [facility] Last Admin: 06/10/19 08:15 Dose: 81 mg Documented by: Budesonide (Pulmicort Aerosol) 0.5 mg INHALATION Q12H.RT [facility] Last Admin: 06/10/19 07:20 Dose: 0.5 mg Documented by: Buspirone HCl (Buspar) 7.5 mg PO TID [facility] Last Admin: 06/10/19 07:00 Dose: 7.5 mg Documented by: Collagenase (Santyl) 1 applic TOPICAL DAILY [facility]; Protocol Cyclobenzaprine HCl (Flexeril) 10 mg PO QHS [facility] Last Admin: 06/09/19 23:46 Dose: 10 mg Documented by: Dextrose (D50w Syringe) 0 gm IV X1 PRN; Protocol PRN Reason: Hypoglycemia Duloxetine HCl (Cymbalta) 30 mg PO DAILY [facility] Duloxetine HCl (Cymbalta) 60 mg PO DAILY [facility] Furosemide (Lasix) 20 mg PO DAILY [facility] Gabapentin (Neurontin) 600 mg PO 0600,1000,1400,1800 [facility] Last Admin: 06/10/19 07:00 Dose: 600 mg Documented by: Gabapentin (Neurontin) 300 mg PO QHS [facility] Last Admin: 06/09/19 23:47 Dose: 300 mg Documented by: Glucagon () 1 mg IM .X1 PRN PRN Reason: Hypoglycemia Sodium Chloride () 1,000 mls @ 100 mls/hr IV .Q10H [facility] Last Infusion: 06/10/19 07:32 Dose: 0 mls/hr Documented by: Vancomycin IV Pharmacy to Dose (1 ea/ Sodium Chloride) 500 mls @ 250 mls/hr IV X1 PRN; Protocol PRN Reason: Rx to Dose Vancomycin HCl 1,250 mg/ (Sodium Chloride) 275 mls @ 167 mls/hr IV Q12H [facility] Last Admin: 06/10/19 07:00 Dose: 167 mls/hr Documented by: Insulin Glargine (Lantus (Bkc)) 20 units SC QHS [facility] Last Admin: 06/10/19 00:00 Dose: Not Given Documented by: Insulin Human Lispro (Humalog Kwikpen (Bkc)) 0 unit SC ACHS [facility]; Protocol Last Admin: 06/10/19 07:25 Dose: 2 u Documented by: Latanoprost (Xalatan Opthalmic) 1 drop EACH EYE QHS [facility] Last Admin: 06/09/19 23:48 Dose: 1 drop Documented by: Levothyroxine Sodium (Synthroid) 100 mcg PO DAILY@0600 [facility] Last Admin: 06/10/19 07:00 Dose: 100 mcg Documented by: Lisinopril (Zestril) 20 mg PO DAILY [facility] Melatonin (Melatonin) 3 mg PO QHS PRN PRN PRN Reason: INSOMNIA Mirabegron (Myrbetriq) 50 mg PO DAILY [facility] Ondansetron HCl (Zofran) 4 mg IV Q8H PRN PRN PRN Reason: NAUSEA/VOMITING Sodium Chloride () 10 - 40 ml IV UD PRN PRN Reason: SALINE FLUSH Timolol Maleate (Timoptic) 1 drop EACH EYE DAILY [facility] Tramadol HCl (Ultram) 100 mg PO Q8H PRN PRN PRN Reason: Pain Score 5-10/10 Last Admin: 06/09/19 23:50 Dose: 100 mg Documented by: Assessment/Plan All Active Problems (Last Reviewed 06/20/18 @ 12:28 by Ann Licea) Non-healing ulcer of foot with fat layer exposed (Acute) Diabetic foot infection (Acute) Ulceration right foot down to subcutaneous tissue Diabetes w/ peripheral neuropathy Tobacco Dependence, possible chronic PAD Reviewed diagnostic data. Reviewed findings, discussed with Dr. Loza. Reviewed culture results. There is no clinical evidence of infection at this time to the foot. Although culture results show multiple organisms, this is likely colonization. Dr. Taylor from ID service was consulted for further opinion, and per review of his note he agrees. Antibiotics were discontinued at this time. If new signs/symptoms of infection develop wound restart antibiotics with new cultures. I did order noninvasive lower extremity arterial studies but was not completed before patient left today. She is to get these as outpatient. Importance of proper blood sugar and tobacco cessation to optimize wound healing has been discussed with her in great detail. Continue with local wound care - santyl with overlying gauze dressing which was applied today. Keep offloaded at all times. Continue follow up with wound center for further wound care management. Thank you for consultation.
--- NOTE | 2019-06-10 09:17 | PCM.DC ---
You will use the following diet at home:: Calorie/Carbohydrate Controlled (specify 1200, 1400, etc) - 1600 ADA Your food should be the consistency of: Regular Discharge Activity: May Not Drive Call your doctor if you observe: Fever of 101 or Higher, Coldness, Increased Pain, Numbness or Tingling, Change in Color, Inability to have a bowel movement, Shortness of breath, Dizziness, Fainting spells, Swelling in the ankles, Chest pain, Prolonged hiccoughing, Increased palpitations (irregular heartbeat), Calf discomfort, Uncontrolled pain Additional Instructions: [facility] center Allergies/Adverse Reactions: Allergies Sulfa (Sulfonamide Antibiotics) Allergy (Verified 06/09/19 15:59) Hives Medications to take at Discharge Aspirin E.C. [Ecotrin] 81 mg PO DAILY@0800 01/20/13 Latanoprost 0.005% [Xalatan Opthalmic] 1 drp EACH EYE QHS 01/20/13 Furosemide [Lasix] 20 mg PO DAILY 01/27/15 Timolol 0.5% [Timoptic] 1 drp EACH EYE DAILY 01/27/15 traMADol [Ultram] 100 mg PO TID 02/20/15 busPIRone [Buspar] 7.5 mg PO TID 03/10/17 insulin regular hum U-500 conc 500 unit/mL subcutaneous soln 15 - 25 units SC BID ml 01/09/18 levothyroxine 100 mcg tablet 100 mcg PO DAILY 04/04/18 Albuterol Inhaler [Ventolin Hfa] 2 puff INHALATION DAILY 06/03/19 Aripiprazole 15 mg PO DAILY@1200 06/03/19 Cholecalciferol (Vitamin D3) [Vitamin D3] 5,000 unit PO DAILY 06/03/19 Duloxetine Hcl [Cymbalta] 60 mg PO DAILY 06/03/19 Fluticasone/Salmeterol [Advair 500-50 Diskus] 1 ea IH BID 06/03/19 Mirabegron [Myrbetriq] 50 mg PO DAILY 06/03/19 Zolpidem Tartrate [Ambien] 10 mg PO QHS 06/03/19 cycloBENZAPRine HCl [Flexeril] 10 mg PO QHS 06/03/19 Duloxetine Hcl [Cymbalta] 30 mg PO DAILY 06/09/19 Gabapentin 600 mg PO 4X/DAY 06/09/19 Gabapentin [Neurontin] 300 mg PO QHS 06/09/19 Lisinopril [Zestril] 20 mg PO DAILY 06/09/19 Nicotine [Nicoderm Cq] 21 mg TRANSDERM. DAILY #30 patch 06/10/19 Primary Care Physician: Richar Galvez MD [Primary Care Provider] - Please follow up with your Primary Care Physician in: in 2 weeks Test Results: Test results from this visit will be discussed in further detail at your follow-up appointment, if applicable. Please Follow Up With: Trey Estrada DPM When: for right foot chr ulcer Please Follow Up With: Deo Sandhu MD When: as needed for fever, antibiotic issues
[2019-06-10] MEDS: DULoxetine Hcl 60 MG Capsule PO (09:27)
[2019-06-10] MEDS: DULoxetine Hcl 30 MG Capsule PO (09:28)
[2019-06-10] MEDS: Mirabegron 50 MG TAB.ER.24H PO (09:29)
[2019-06-10] MEDS: Furosemide 20 MG Tablet PO (09:29)
[2019-06-10] MEDS: Collagenase 30gm Tube 1 APPLIC TOPICAL (09:30)
[2019-06-10] MEDS: Timolol 0.5% 5ML OPTH.BTL 1 DRP EACH EYE (09:32)
[2019-06-10] MEDS: Lisinopril 20 MG Tablet PO (09:33)
--- NOTE | 2019-06-10 10:17 | NURSING ---
wound photo: right plantar foot
--- NOTE | 2019-06-10 10:18 | NURSING ---
wound photo: right lateral foot
--- NOTE | 2019-06-10 10:36 | PCM.HP.ID ---
Problem List (1) Diabetic ulcer of right foot Status: Chronic Qualifiers: Diabetic foot ulcer location: toe Diabetes mellitus type: type 2 Non-pressure ulcer stage: with fat layer exposed Qualified Code(s): E11.621 - Type 2 diabetes mellitus with foot ulcer; L97.512 - Non-pressure chronic ulcer of other part of right foot with fat layer exposed Reason for Consult: foot infection Consulted by: Dr. Bello History of Present Illness: The patient is a 53 year old F with DM neuropathy, R foot wound for past 3 weeks. Started with a blister on foot. Started going to wound care, cxs sent, had some fever, some odor, some purulent drainage, some redness and pain. Given 1 week of levaquin and augmentin, foot much improved. No further odor or fever. Finished abx yesterday. She is not sure why she was sent to the hospital. Admitted with unasyn x1, then iv vanc. Feeling fine, no n/v/d. Full ROS Performed and neg except as noted above. 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 Hypothyroidism (Chronic) Continues on levothyroxine 100 mcg daily. Takes as directed. Denies any s/s of hypothyroidism. Allergies/Adverse Reactions: Allergies Sulfa (Sulfonamide Antibiotics) Allergy (Verified 06/09/19 15:59) Hives Home Medications: Ambulatory Orders Medication Instructions Recorded Aspirin E.C. [Ecotrin] 81 mg PO DAILY@0800 01/20/13 Latanoprost 0.005% [Xalatan 1 drp EACH EYE QHS 01/20/13 Opthalmic] Furosemide [Lasix] 20 mg PO DAILY 01/27/15 Timolol 0.5% [Timoptic] 1 drp EACH EYE DAILY 10/07/15 traMADol [Ultram] 100 mg PO TID 02/20/15 busPIRone [Buspar] 7.5 mg PO TID 03/10/17 insulin regular hum U-500 conc 500 15 - 25 units SC BID ml 01/09/18 unit/mL subcutaneous soln levothyroxine 100 mcg tablet 100 mcg PO DAILY 04/04/18 Albuterol Inhaler [Ventolin Hfa] 2 puff INHALATION DAILY 06/03/19 Aripiprazole 15 mg PO DAILY@1200 06/03/19 Cholecalciferol (Vitamin D3) 5,000 unit PO DAILY 06/03/19 [Vitamin D3] Duloxetine Hcl [Cymbalta] 60 mg PO DAILY 06/03/19 Fluticasone/Salmeterol [Advair 1 ea IH BID 06/03/19 500-50 Diskus] Mirabegron [Myrbetriq] 50 mg PO DAILY 06/03/19 Zolpidem Tartrate [Ambien] 10 mg PO QHS 06/03/19 cycloBENZAPRine HCl [Flexeril] 10 mg PO QHS 06/03/19 Duloxetine Hcl [Cymbalta] 30 mg PO DAILY 06/09/19 Gabapentin 600 mg PO 4X/DAY 06/09/19 Gabapentin [Neurontin] 300 mg PO QHS 06/09/19 Lisinopril [Zestril] 20 mg PO DAILY 06/09/19 Nicotine [Nicoderm Cq] 21 mg TRANSDERM. DAILY #30 patch 06/10/19 - Social History Tobacco Use: cigarettes Vital Signs Temp Pulse Resp BP Pulse Ox 97.7 F L 80 18 130/82 H 92 06/10/19 09:25 06/10/19 09:25 06/10/19 09:25 06/10/19 09:25 06/10/19 09:25 Oxygen Flow Rate (L/min) 1 Oxygen Delivery Method Room Air Weight: 116.21 kg Body Mass Index (BMI) 43.9 Laboratory Tests Past 24 Hrs 06/09/19 06/09/19 06/10/19 16:20 16:20 06:04 WBC 8.0 7.3 RBC 6.78 H 6.41 H Hgb 17.5 H 16.5 H Hct 56.9 H 53.9 H MCV 83.9 84.1 MCH 25.8 L 25.7 L MCHC 30.8 L 30.6 L RDW Std Deviation 47.3 H 48.2 H RDW Coeff of Kierra 17.2 H 17.4 H Plt Count 221 199 MPV 9.3 9.4 Immature Gran % (Auto) 0.800 0.400 Neut % (Auto) 57.8 62.6 Lymph % (Auto) 25.6 23.3 Walton % (Auto) 10.8 H 8.4 Eos % (Auto) 4.1 4.5 Baso % (Auto) 0.9 0.8 Absolute Neuts (auto) 4.6 4.5 Absolute Lymphs (auto) 2.04 1.69 Nucleated RBC % 0 0 ESR 26 Sodium 137 Potassium 4.3 Chloride 100 Carbon Dioxide 36.0 H Anion Gap 1 L BUN 19 H Creatinine 1.07 H Estim Creat Clear Calc 51.30 Est GFR (MDRD) Af Amer 68 Est GFR (MDRD) Non-Af 56 L BUN/Creatinine Ratio 17.8 Glucose 106 Calcium 9.6 06/10/19 06:04 WBC RBC Hgb Hct MCV MCH MCHC RDW Std Deviation RDW Coeff of Kierra Plt Count MPV Immature Gran % (Auto) Neut % (Auto) Lymph % (Auto) Walton % (Auto) Eos % (Auto) Baso % (Auto) Absolute Neuts (auto) Absolute Lymphs (auto) Nucleated RBC % ESR Sodium 137 Potassium 4.2 Chloride 99 Carbon Dioxide 35.0 H Anion Gap 3 L BUN 12 Creatinine 0.83 Estim Creat Clear Calc 66.13 Est GFR (MDRD) Af Amer 91 Est GFR (MDRD) Non-Af 75 BUN/Creatinine Ratio 14.4 Glucose 158 H Calcium 9.0 - Other Studies Radiology: [] reviewed Other Studies: [] Route of nutrition/ use of supplements: [] Nutritional Intake: [] IV Site: [] Martínez Catheter: [] - Physical Exam General: Alert, Oriented x3, Cooperative, No apparent distress HEENT: Atraumatic, PERRLA, EOMI Neck: Supple, No Nodes Lungs: Clear to auscultation, Normal air movement Cardiovascular: Regular rate, Regular Rhythm Abdomen: Soft, Non Tender, Non-Distended Extremities: Edema Skin: Ulcer/ Wound - R foot photos reviewed IV Site: Peripheral, without redness Musculoskeletal: No Tenderness to Palpation of Joints or Extremities Neurological: Cranial nerves II-XII grossly intact - Assessment/Plan Antibiotics: [] Assessment/Plan: [] R foot infected ulcer - recent cxs with mrsa, PsA, enterococcus, anaerobes, strep. Responded well to appropriate course of levaquin/augmentin as an outpt, does not appear to have an ongoing infection. Ok for d/c home off of abx. 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
[2019-06-10 11:25] LABS: Bedside Glucose 307 mg/dL (70-110)
--- NOTE | 2019-06-10 11:53 | PCM.DC.SUM ---
<Geovanna Cabral - Last Filed: 06/10/19 12:07> Discharge Date and Diagnosis Date of Admission: 06/09/19 Date of Discharge: 06/10/19 - Primary Discharge Diagnosis 1. Nonhealing right foot infected ulcer 2. Type 2 diabetes mellitus 3. Hypothyroidism 4. Hypertension 4. Hyperlipidemia 5. Morbid obesity 6. RA/SLE 7. 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 Hypothyroidism (Chronic) Continues on levothyroxine 100 mcg daily. Takes as directed. Denies any s/s of hypothyroidism. Hospital Course and Treatment Consultations 06/09/19 18:51 Consult: Onc/Wound/television servicer Routine Comment: Reason for Consult:: RLE foot wound Dr. Sandhu- ID Dr. Estrada- Podiatry Operations: None Procedures: None Summary of Care Provided: The patient is a 53 year old F admitted 06/09/2019 due to right foot wound. 1. Nonhealing right foot infected ulcer-following with wound center. Evaluated by podiatry and ID. Per ID, no ongoing infection. No further antibiotics at discharge. Afebrile. No leukocytosis. Wound does not appear actively infected. Recent wound cultures with MRSA, PSA, enterococcus, anaerobes and strep. Continue close follow-up with wound center/Podiatry. Continue dressing changes as ordered. 2. Type 2 diabetes mellitus-continue home insulin regimen. 3. Hypothyroidism-continue Synthroid regimen. 4. Hypertension-continue Lasix, lisinopril regimen. 4. Hyperlipidemia-continue statin. 5. Morbid obesity-encouraged diet lifestyle of occasions. 6. RA/SLE-continue gabapentin, Flexeril regimen. 7. Anxiety/depression-continue Abilify, BuSpar, duloxetine. General: Alert, Oriented x3, Cooperative, No apparent distress HEENT: Atraumatic, PERRLA, EOMI, Normocephalic Oral: Moist Mucosa Neck: Supple, No JVD Lungs: Clear to auscultation, Normal air movement Cardiovascular: Regular rate, Regular Rhythm, Normal S1, Normal S2, No murmurs Abdomen: Soft, Non Tender, Non-Distended, No Hepato-splenomegaly Extremities: No edema, Capillary Refill Less than 3 Seconds Skin: Stable right foot ulcer, present on admission Neurological: Neuro grossly intact, Sensory exam intact to light touch and pain Psych/Mental Status: Normal Affect, Appropriate Patient seen and examined prior to discharge. Physical assessment as noted above. Patient is stable for discharge with follow up recommendations as noted above. This patient was seen by SONDRA Encarnacion under the supervision of Dr. Loza. - Physical Exam Vitals/I&O's: Vital Signs Temp Pulse Resp BP Pulse Ox 97.7 F L 80 18 130/82 H 92 06/10/19 09:25 06/10/19 09:25 06/10/19 09:25 06/10/19 09:25 06/10/19 09:25 Oxygen Flow Rate (L/min) 1 Oxygen Delivery Method Room Air Weight: 256 lb 3.187 oz Body Mass Index (BMI) 43.9 Intake and Output for Last 24 Hours 06/08/19 06/09/19 06/10/19 23:59 23:59 23:59 Intake Total 656.75 / 1156.75 1611.67 / 1611.67 Output Total 550 / 550 Balance 656.75 / 606.75 1061.67 / 1061.67 Laboratory Results 06/09/19 16:20: WBC 8.0, RBC 6.78 H, Hgb 17.5 H, Hct 56.9 H, MCV 83.9, MCH 25.8 L, MCHC 30.8 L, RDW Std Deviation 47.3 H, RDW Coeff of Kierra 17.2 H, Plt Count 221, MPV 9.3, Immature Gran % (Auto) 0.800, Neut % (Auto) 57.8, Lymph % (Auto) 25.6, Sac % (Auto) 10.8 H, Eos % (Auto) 4.1, Baso % (Auto) 0.9, Absolute Neuts (auto) 4.6, Absolute Lymphs (auto) 2.04, Nucleated RBC % 0, ESR 26 06/09/19 16:20: Sodium 137, Potassium 4.3, Chloride 100, Carbon Dioxide 36.0 H, Anion Gap 1 L, BUN 19 H, Creatinine 1.07 H, Estim Creat Clear Calc 51.30, Est GFR (MDRD) Af Amer 68, Est GFR (MDRD) Non-Af 56 L, BUN/Creatinine Ratio 17.8, Glucose 106, Calcium 9.6 06/09/19 23:59: POC Glucose 89 06/10/19 06:04: WBC 7.3, RBC 6.41 H, Hgb 16.5 H, Hct 53.9 H, MCV 84.1, MCH 25.7 L, MCHC 30.6 L, RDW Std Deviation 48.2 H, RDW Coeff of Kierra 17.4 H, Plt Count 199, MPV 9.4, Immature Gran % (Auto) 0.400, Neut % (Auto) 62.6, Lymph % (Auto) 23.3, Sac % (Auto) 8.4, Eos % (Auto) 4.5, Baso % (Auto) 0.8, Absolute Neuts (auto) 4.5, Absolute Lymphs (auto) 1.69, Nucleated RBC % 0 06/10/19 06:04: Sodium 137, Potassium 4.2, Chloride 99, Carbon Dioxide 35.0 H, Anion Gap 3 L, BUN 12, Creatinine 0.83, Estim Creat Clear Calc 66.13, Est GFR (MDRD) Af Amer 91, Est GFR (MDRD) Non-Af 75, BUN/Creatinine Ratio 14.4, Glucose 158 H, Calcium 9.0 06/10/19 07:09: POC Glucose 153 H 06/10/19 11:09: POC Glucose 307 H Current Medications Acetaminophen (Tylenol) 650 mg PO Q6H PRN PRN PRN Reason: Pain Score 1-10/Temp > 100.7 F Albuterol Sulfate (Ventolin Aerosols) 2.5 mg INHALATION Q6HWA.RT [facility] Last Admin: 06/10/19 07:20 Dose: 2.5 mg Documented by: Aspirin (Ecotrin) 81 mg PO DAILY@0800 [facility] Last Admin: 02/18/20 08:15 Dose: 81 mg Documented by: Budesonide (Pulmicort Aerosol) 0.5 mg INHALATION Q12H.RT [facility] Last Admin: 06/10/19 07:20 Dose: 0.5 mg Documented by: Buspirone HCl (Buspar) 7.5 mg PO TID [facility] Last Admin: 06/10/19 07:00 Dose: 7.5 mg Documented by: Collagenase (Santyl) 1 applic TOPICAL DAILY [facility]; Protocol Last Admin: 06/10/19 09:30 Dose: 1 applicatio Documented by: Cyclobenzaprine HCl (Flexeril) 10 mg PO QHS [facility] Last Admin: 06/09/19 23:46 Dose: 10 mg Documented by: Dextrose (D50w Syringe) 0 gm IV X1 PRN; Protocol PRN Reason: Hypoglycemia Duloxetine HCl (Cymbalta) 30 mg PO DAILY [facility] Last Admin: 06/10/19 09:28 Dose: 30 mg Documented by: Duloxetine HCl (Cymbalta) 60 mg PO DAILY [facility] Last Admin: 06/10/19 09:27 Dose: 60 mg Documented by: Furosemide (Lasix) 20 mg PO DAILY [facility] Last Admin: 06/10/19 09:29 Dose: 20 mg Documented by: Gabapentin (Neurontin) 600 mg PO 0600,1000,1400,1800 [facility] Last Admin: 06/10/19 09:29 Dose: 600 mg Documented by: Gabapentin (Neurontin) 300 mg PO QHS [facility] Last Admin: 06/09/19 23:47 Dose: 300 mg Documented by: Glucagon () 1 mg IM .X1 PRN PRN Reason: Hypoglycemia Sodium Chloride () 1,000 mls @ 100 mls/hr IV .Q10H [facility] Last Infusion: 06/10/19 07:32 Dose: 0 mls/hr Documented by: Insulin Glargine (Lantus (Bkc)) 20 units SC QHS [facility] Last Admin: 06/10/19 00:00 Dose: Not Given Documented by: Insulin Human Lispro (Humalog Kwikpen (Bkc)) 0 unit SC ACHS [facility]; Protocol Last Admin: 06/10/19 07:25 Dose: 2 u Documented by: Latanoprost (Xalatan Opthalmic) 1 drop EACH EYE QHS [facility] Last Admin: 06/09/19 23:48 Dose: 1 drop Documented by: Levothyroxine Sodium (Synthroid) 100 mcg PO DAILY@0600 [facility] Last Admin: 06/10/19 07:00 Dose: 100 mcg Documented by: Lisinopril (Zestril) 20 mg PO DAILY [facility] Last Admin: 06/10/19 09:33 Dose: 20 mg Documented by: Melatonin (Melatonin) 3 mg PO QHS PRN PRN PRN Reason: INSOMNIA Mirabegron (Myrbetriq) 50 mg PO DAILY [facility] Last Admin: 06/10/19 09:29 Dose: 50 mg Documented by: Nicotine (Nicoderm Cq (kc)) 21 mg TRANSDERM. DAILY [facility] Ondansetron HCl (Zofran) 4 mg IV Q8H PRN PRN PRN Reason: NAUSEA/VOMITING Sodium Chloride () 10 - 40 ml IV UD PRN PRN Reason: SALINE FLUSH Timolol Maleate (Timoptic) 1 drop EACH EYE DAILY [facility] Last Admin: 06/10/19 09:32 Dose: 1 drop Documented by: Tramadol HCl (Ultram) 100 mg PO Q8H PRN PRN PRN Reason: Pain Score 5-10/10 Last Admin: 06/09/19 23:50 Dose: 100 mg Documented by: Discharge Diet: Low fat/ Low Cholesterol Discharge Activity: May Not Drive Call your doctor if you observe: Fever of 101 or Higher, Coldness, Increased Pain, Numbness or Tingling, Change in Color, Inability to have a bowel movement, Shortness of breath, Dizziness, Fainting spells, Swelling in the ankles, Chest pain, Prolonged hiccoughing, Increased palpitations (irregular heartbeat), Calf discomfort, Uncontrolled pain Home Medications: Medications to take at Discharge Aspirin E.C. [Ecotrin] 81 mg PO DAILY@0800 01/20/13 Latanoprost 0.005% [Xalatan Opthalmic] 1 drp EACH EYE QHS 01/20/13 Furosemide [Lasix] 20 mg PO DAILY 01/27/15 Timolol 0.5% [Timoptic] 1 drp EACH EYE DAILY 01/27/15 traMADol [Ultram] 100 mg PO TID 02/20/15 busPIRone [Buspar] 7.5 mg PO TID 03/10/17 insulin regular hum U-500 conc 500 unit/mL subcutaneous soln 15 - 25 units SC BID ml 01/09/18 levothyroxine 100 mcg tablet 100 mcg PO DAILY 04/04/18 Albuterol Inhaler [Ventolin Hfa] 2 puff INHALATION DAILY 06/03/19 Aripiprazole 15 mg PO DAILY@1200 06/03/19 Cholecalciferol (Vitamin D3) [Vitamin D3] 5,000 unit PO DAILY 06/03/19 Duloxetine Hcl [Cymbalta] 60 mg PO DAILY 06/03/19 Fluticasone/Salmeterol [Advair 500-50 Diskus] 1 ea IH BID 06/03/19 Mirabegron [Myrbetriq] 50 mg PO DAILY 06/03/19 Zolpidem Tartrate [Ambien] 10 mg PO QHS 06/03/19 cycloBENZAPRine HCl [Flexeril] 10 mg PO QHS 06/03/19 Duloxetine Hcl [Cymbalta] 30 mg PO DAILY 06/09/19 Gabapentin 600 mg PO 4X/DAY 06/09/19 Gabapentin [Neurontin] 300 mg PO QHS 06/09/19 Lisinopril [Zestril] 20 mg PO DAILY 06/09/19 Nicotine [Nicoderm Cq] 21 mg TRANSDERM. DAILY #30 patch 06/10/19 Following Prescrptions Were Given to Patient: Nicotine [Nicoderm Cq] 21 mg TRANSDERM. DAILY #30 patch Transmission Status: Received by [facility] [place] - [id number] Primary Care Physician: Richar Galvez MD [Primary Care Provider] - Please follow up with your Primary Care Physician in: in 2 weeks Please Follow Up With: Trey Estrada DPM When: for right foot chr ulcer Please Follow Up With: Deo Sandhu MD When: as needed for fever, antibiotic issues Disposition: Home Minutes spent on discharge:: 35 Patient Condition:: Stable Medical Necessity - Tobacco Use Smoking Status: Current every day smoker Tobacco Use: Cigarettes Meaningful Use Info Meaningful Use Diagnoses (Choose all that apply): None applicable <Dipak Loza - Last Filed: 06/10/19 16:40> Discharge Date and Diagnosis - Secondary Discharge Diagnosis Chronic Problems (Last Reviewed 06/20/18 @ 12:28 by Ann Licea) Diabetic ulcer of right foot (Chronic) Tobacco dependence due to cigarettes (Chronic) Essential (primary) hypertension (Chronic) Rheumatoid arthritis (Chronic) Lupus (Chronic) Morbid obesity with BMI of 40.0-44.9, adult (Chronic) SLE (systemic lupus erythematosus) (Chronic) 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 Hypothyroidism (Chronic) Continues on levothyroxine 100 mcg daily. Takes as directed. Denies any s/s of hypothyroidism. Hospital Course and Treatment Consultations 06/09/19 18:51 Consult: Onc/Wound/television servicer Routine Comment: Reason for Consult:: RLE foot wound Summary of Care Provided: This patient was seen in conjunction with Geovanna STILL. I have independently interviewed and examined the patient and reviewed pertinent history, examination findings, laboratory and plan of management. I have reviewed the note and agree with the documented findings with the few additional points. In brief, patient is 53-year-old female with history of diabetes type 2 with chronic peripheral neuropathy was admitted with nonhealing right foot ulcer with no acute change in discharge of ulcer, fever or chills. Patient was evaluated by wound center and sent for abnormal wound culture. Wound culture shows multiple organization, MRSA, Enterococcus faecalis, Streptococcus, Pseudomonas aeruginosa, bacteroids fragilis/anaerobic cocci, and Klebsiella faecalis. In view of negative systemic signs of infection and multiple organisms in culture it is all suggestive of colonization of wound. ID was consulted for second opinion and agree that patient does not need oral or systemic antibiotics. Continue changing dressing and follow-up with wound center. Type 2 diabetes mellitus: Continue home insulin. Glucose was controlled. Needs further titration of insulin outpatient. Other comorbidities as mentioned above including hypothyroidism, hypertension, on inhaler; dyslipidemia and morbid obesity and RA/lupus. Discharge medication reconciliation done. Discharge follow-up instructions completed. Discharge process discussed with the patient and all questions were answered to patient's satisfaction. Patient was sent home without antibiotics as she does not need it Total time spent, exact 35 minutes on discharge meds reconciliation, examination, coordination of care with nurses and ancillary staff, review of imaging and blood test and discussion with the patient on follow-up instructions I have discussed my assessment with Geovanna STILL and orders have been reviewed. [] Subjective: Seen and examined. Hemodynamically stable. No fever or chills. There is no change of drainage from ulcer of the right foot. Discussed with the biofuels product development manager and wound care nurse and ID. - Physical Exam Vitals/I&O's: Vital Signs Temp Pulse Resp BP Pulse Ox 98.1 F 78 18 148/79 H 94 06/10/19 12:21 06/10/19 12:21 06/10/19 12:21 06/10/19 12:21 06/10/19 12:21 Oxygen Flow Rate (L/min) 1 Oxygen Delivery Method Room Air Weight: 256 lb 3.187 oz Body Mass Index (BMI) 43.9 Intake and Output for Last 24 Hours 06/08/19 06/09/19 06/10/19 23:59 23:59 23:59 Intake Total 656.75 / 1156.75 2061.67 / 2061.67 Output Total 550 / 550 Balance 656.75 / 606.75 1511.67 / 1511.67 General: Alert, Oriented x3, Cooperative HEENT: Atraumatic, PERRLA, EOMI, Normocephalic Neck: Supple, No JVD, Negative Carotid Bruits Lungs: Clear to auscultation, No rhonchi, No wheeze, No rales, Diminished Cardiovascular: Regular rate, Regular Rhythm, Normal S1, Normal S2, No murmurs Abdomen: Bowel Sounds Present, Soft, Non Tender Extremities: Capillary Refill Less than 3 Seconds, Edema Skin: Ulcer/ Wound - Chronic nonhealing ulcer at the arc of the right foot. Superficial minimal slough. Granulation tissue on the surface. Wound margin is thickened and fibrotic. Small dry ulcer over the lateral margin of foot. Musculoskeletal: No Tenderness to Palpation of Joints or Extremities, Arthritic Changes Neurological: Cranial nerves II-XII grossly intact, - - Patient has position sense of bilateral great toes. Decreased sensation to touch in both feet mainly on plantar surface, peripheral neuropathy Psych/Mental Status: Normal Affect, Appropriate Laboratory Results 06/09/19 16:20: WBC 8.0, RBC 6.78 H, Hgb 17.5 H, Hct 56.9 H, MCV 83.9, MCH 25.8 L, MCHC 30.8 L, RDW Std Deviation 47.3 H, RDW Coeff of Kierra 17.2 H, Plt Count 221, MPV 9.3, Immature Gran % (Auto) 0.800, Neut % (Auto) 57.8, Lymph % (Auto) 25.6, Sac % (Auto) 10.8 H, Eos % (Auto) 4.1, Baso % (Auto) 0.9, Absolute Neuts (auto) 4.6, Absolute Lymphs (auto) 2.04, Nucleated RBC % 0, ESR 26 06/09/19 16:20: Sodium 137, Potassium 4.3, Chloride 100, Carbon Dioxide 36.0 H, Anion Gap 1 L, BUN 19 H, Creatinine 1.07 H, Estim Creat Clear Calc 51.30, Est GFR (MDRD) Af Amer 68, Est GFR (MDRD) Non-Af 56 L, BUN/Creatinine Ratio 17.8, Glucose 106, Calcium 9.6 06/09/19 23:59: POC Glucose 89 06/10/19 06:04: WBC 7.3, RBC 6.41 H, Hgb 16.5 H, Hct 53.9 H, MCV 84.1, MCH 25.7 L, MCHC 30.6 L, RDW Std Deviation 48.2 H, RDW Coeff of Kierra 17.4 H, Plt Count 199, MPV 9.4, Immature Gran % (Auto) 0.400, Neut % (Auto) 62.6, Lymph % (Auto) 23.3, Sac % (Auto) 8.4, Eos % (Auto) 4.5, Baso % (Auto) 0.8, Absolute Neuts (auto) 4.5, Absolute Lymphs (auto) 1.69, Nucleated RBC % 0 06/10/19 06:04: Sodium 137, Potassium 4.2, Chloride 99, Carbon Dioxide 35.0 H, Anion Gap 3 L, BUN 12, Creatinine 0.83, Estim Creat Clear Calc 66.13, Est GFR (MDRD) Af Amer 91, Est GFR (MDRD) Non-Af 75, BUN/Creatinine Ratio 14.4, Glucose 158 H, Calcium 9.0 06/10/19 07:09: POC Glucose 153 H 06/10/19 11:09: POC Glucose 307 H Code Visit Inpatient E&M: 94571 Disch Hosp
== END 2019-06-10 12:27 | disposition home or self-care (01) ==
LOC: ED 16:12 → MS3 17:53
PROVIDERS: Admitting Provider Family Medicine; Emergency Provider Emergency Medicine; PCP Family Medicine; Visit Provider Internal Medicine
DX: E11.621 Type 2 diabetes mellitus with foot ulcer (principal); L97.512 Non-pressure chronic ulcer of other part of right foot with fat layer exposed; L03.115 Cellulitis of right lower limb; I10 Essential (primary) hypertension; E11.65 Type 2 diabetes mellitus with hyperglycemia; M06.9 Rheumatoid arthritis, unspecified; E11.42 Type 2 diabetes mellitus with diabetic polyneuropathy; E78.5 Hyperlipidemia, unspecified; F17.210 Nicotine dependence, cigarettes, uncomplicated; E66.01 Morbid (severe) obesity due to excess calories; F32.9 Major depressive disorder, single episode, unspecified; M32.9 Systemic lupus erythematosus, unspecified; E03.9 Hypothyroidism, unspecified; F41.9 Anxiety disorder, unspecified; Z79.899 Other long term (current) drug therapy; Z79.4 Long term (current) use of insulin; Z79.82 Long term (current) use of aspirin; Z79.51 Long term (current) use of inhaled steroids; Z68.41 Body mass index [BMI] 40.0-44.9, adult; Z71.3 Dietary counseling and surveillance
CPT/HCPCS: 36415; 80048; 82962; 85025; 85652; 94640; 96361; 96365; 96366; 96367; 99218; 99283; 99406; J7030; J7050; A4216; G0378; J0295

== ENCOUNTER 2019-06-20 08:00 | Outpatient (RCR) | payer MEDICARE, SELFPAY ==
[2018-06-20 12:31] VITALS: BMI 44.3
[2019-06-03 14:33] VITALS: BP 119/59; PULSE 94; RESP 18; TEMP 36.9; BMI 44.6
--- NOTE | 2019-06-03 17:18 | HP.PCM_ITS ---
(1) Diabetic ulcer of right foot Status: Chronic Current Visit: Yes Qualifiers: Diabetic foot ulcer location: toe Diabetes mellitus type: type 2 Non- pressure ulcer stage: with fat layer exposed Qualified Code(s): E11.621 - Type 2 diabetes mellitus with foot ulcer; L97.512 - Non-pressure chronic ulcer of other part of right foot with fat layer exposed Code(s): E11.621 - Type 2 diabetes mellitus with foot ulcer; L97.519 - Non- pressure chronic ulcer of other part of right foot with unspecified severity (2) Non-healing ulcer of foot with fat layer exposed Status: Acute Current Visit: Yes Qualifiers: Laterality: right Qualified Code(s): L97.512 - Non-pressure chronic ulcer of other part of right foot with fat layer exposed Code(s): L97.502 - Non-pressure chronic ulcer of other part of unspecified foot with fat layer exposed (3) Diabetic foot infection Status: Acute Current Visit: Yes Code(s): E11.628 - Type 2 diabetes mellitus with other skin complications; L08.9 - Local infection of the skin and subcutaneous tissue, unspecified (4) Tobacco dependence due to cigarettes Status: Chronic Current Visit: Yes Code(s): F17.210 - Nicotine dependence, cigarettes, uncomplicated (5) Essential (primary) hypertension Status: Chronic Current Visit: No Code(s): I10 - Essential (primary) hypertension (6) Rheumatoid arthritis Status: Chronic Current Visit: No Code(s): M06.9 - Rheumatoid arthritis, unspecified (7) Lupus Status: Chronic Current Visit: No Code(s): M32.9 - Systemic lupus erythematosus, unspecified (8) Morbid obesity with BMI of 40.0-44.9, adult Status: Chronic Current Visit: Yes Code(s): E66.01 - Morbid (severe) obesity due to excess calories; Z68.41 - Body mass index (BMI) 40.0-44.9, adult (9) Diabetes mellitus type 2 with neurological manifestations Status: Chronic Current Visit: Yes Code(s): E11.49 - Type 2 diabetes mellitus with other diabetic neurological complication (10) Diabetic neuropathy Status: Chronic Current Visit: Yes Qualifiers: Diabetes mellitus type: type 2 Diabetes mellitus complication detail: diabetic polyneuropathy Qualified Code(s): E11.42 - Type 2 diabetes mellitus with diabetic polyneuropathy Code(s): E11.40 - Type 2 diabetes mellitus with diabetic neuropathy, unspecified History of Present Illness Date of Service: 06/03/19 Chief Complaint: Right foot wounds History of Wound: Patient is a pleasant 53-year-old female who [facility] for evaluation and treatment of wounds to her right foot. About 2 weeks ago, she believes that she stepped on a hot cigarette butt, causing a wound on her right plantar arch. A few days later she visited her administrative office specialist, Dr. Estrada, and cultures were collected. She was started on Levaquin and Augmentin, and has a few days left of these antibiotics. She was instructed to use Pretty to her right foot wound, and cover with gauze. She has been doing daily dressing changes with Pretty. She also has a diabetic foot ulcer on her right dorsal fifth metatarsal, and is unsure how long this has been present. She is also using Pretty to this DFU. She denies any pain with her foot wounds, due to her diabetic neuropathy. She denies any increasing redness, swelling, or drainage. She denies any foul-smelling or purulent drainage. She reports having a fever before her antibiotics were started, but it has since resolved. She denies any nausea, vomiting, or diarrhea. Patient wears diabetic shoes, and has an offloading boot for her right foot which she sometimes wears. She reports walking barefoot in home. She also reports frequently sleeping in a chair without her feet elevated. Patient has a significant past medical history of tobacco dependence, smoking 1 pack/day. She is also a type II diabetic, with poor glycemic control. She has extensive peripheral neuropathy. She also has comorbidities of hypertension, rheumatoid arthritis, lupus, and morbid obesity with a BMI of 44.6. She sees Dr. Verdugo as her primary care provider. She denies any recent lab work. She has not had any x-rays of her right foot since these wounds developed, and has not had any recent vascular studies completed. 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 Hypothyroidism (Chronic) Continues on levothyroxine 100 mcg daily. Takes as directed. Denies any s/s of hypothyroidism. Surgical History: dilatation and curettage, - - Tubal ligation, bladder sling, umbilical hernia Allergies/Adverse Reactions: Allergies Sulfa (Sulfonamide Antibiotics) Allergy (Verified 06/20/18 12:27) Hives Home Medications: Ambulatory Orders Medication Instructions Recorded Aspirin E.C. [Ecotrin] 81 mg PO DAILY@0800 01/20/13 Latanoprost 0.005% [Xalatan 1 drp EACH EYE QHS 01/20/13 Opthalmic] Furosemide [Lasix] 20 mg PO DAILY 01/27/15 Timolol 0.5% [Timoptic] 1 drp EACH EYE DAILY 01/27/15 traMADol [Ultram (G)] 100 mg PO TID 02/20/15 busPIRone [Buspar] 7.5 mg PO TID 03/10/17 gabapentin 300 mg capsule 600 mg PO 4X/DAY cap 05/08/17 gabapentin 600 mg tablet 300 mg PO QHS tab 05/08/17 lisinopril 40 mg tablet 20 mg PO DAILY 05/08/17 rosuvastatin 40 mg tablet 40 mg PO DAILY 05/08/17 Zolpidem Tartrate [Ambien] 06/19/17 OneTouch Ultra Blue Test Strip See Dose Instructions .ROUTE 10/10/17 .MEDSUPPLY #100 ea NS insulin regular hum U-500 conc 500 See Rx Instructions SC BID ml 01/09/18 unit/mL subcutaneous soln levothyroxine 100 mcg tablet 100 mcg PO DAILY 04/04/18 aripiprazole 10 mg tablet 15 mg PO DAILY 06/20/18 mirabegron 25 mg tablet,extended 25 mg PO DAILY 06/20/18 release 24 hr Albuterol Inhaler [Ventolin Hfa 2 puff INHALATION DAILY 06/03/19 (SP)] Aripiprazole 15 mg PO DAILY 06/03/19 Cholecalciferol (Vitamin D3) 5,000 unit PO DAILY 06/03/19 [Vitamin D3] Duloxetine Hcl [Cymbalta] 90 mg PO DAILY 06/03/19 Fluticasone/Salmeterol [Advair 1 ea IH BID 06/03/19 500-50 Diskus] Lisinopril 20 mg PO DAILY 06/03/19 Mirabegron [Myrbetriq] 50 mg PO DAILY 06/03/19 Timolol 0.5% 0.5 drp EACH EYE DAILY 06/03/19 Zolpidem Tartrate [Ambien] 10 mg PO QHS 06/03/19 cycloBENZAPRine HCl [Flexeril] 10 mg PO QHS 06/03/19 traMADol [Ultram (G)] 50 mg PO Q6H PRN PRN 06/03/19 - Family History Maternal Family History: Family History (Last Reviewed 06/20/18 @ 12:28 by Ann Licea) Father Heart disease Parkinsons Hypertension Diabetes Mother Heart disease Kidney disease Thyroid disorder High cholesterol Hypertension Diabetes Brother Hypertension Diabetes Chronic bronchitis Asthma Seasonal allergies Grandfather CVA (cerebral vascular accident) Heart disease Hypertension Diabetes Grandmother Diabetes Throat cancer Arthritis Rheumatoid arthritis Osteoarthritis Hypertension Unknown Asthma Diabetes Alcoholism Arthritis Cancer, Diabetes, Hypertension, Renal Disease, Stroke, - - Thyroid, kidney disease Paternal Family History: Family History (Last Reviewed 06/20/18 @ 12:28 by Ann Licea) Father Heart disease Parkinsons Hypertension Diabetes Mother Heart disease Kidney disease Thyroid disorder High cholesterol Hypertension Diabetes Brother Hypertension Diabetes Chronic bronchitis Asthma Seasonal allergies Grandfather CVA (cerebral vascular accident) Heart disease Hypertension Diabetes Grandmother Diabetes Throat cancer Arthritis Rheumatoid arthritis Osteoarthritis Hypertension Unknown Asthma Diabetes Alcoholism Arthritis Diabetes, Heart Disease, Hypertension Sibling Family History: Family History (Last Reviewed 06/20/18 @ 12:28 by Ann Licea) Father Heart disease Parkinsons Hypertension Diabetes Mother Heart disease Kidney disease Thyroid disorder High cholesterol Hypertension Diabetes Brother Hypertension Diabetes Chronic bronchitis Asthma Seasonal allergies Grandfather CVA (cerebral vascular accident) Heart disease Hypertension Diabetes Grandmother Diabetes Throat cancer Arthritis Rheumatoid arthritis Osteoarthritis Hypertension Unknown Asthma Diabetes Alcoholism Arthritis Diabetes, Hypertension Smoking Status: Current every day smoker Review of Systems Constitutional: Denies: Chills, Fever, Weight Change Eyes: Denies: Pain, Vision Change HEENT: Denies: Difficulty Hearing, Difficulty Swallowing, Sinus Congestion Cardiovascular: Denies: Chest Pain, Palpitations Respiratory: Denies: Cough, Shortness of Breath Gastrointestinal: Denies: Diarrhea, Nausea, Vomiting Genitourinary: Denies: Dysuria, Hematuria Musculoskeletal: Denies: Foot Pain Skin: Reports: Wounds - Wounds of right foot?plantar arch and dorsal fifth metatarsal Neurological: Reports: Numbness, Tingling - Chronic diabetic neuropathy Endocrine: Denies: Heat/ Cold Intolerance Hematologic/ Lymphatic: Denies: Easy Bruising, Easy Bleeding - Physical Exam Vital Signs Temp Pulse Resp BP 98.4 F 94 18 119/59 L 06/03/19 14:33 06/03/19 14:33 06/03/19 14:33 06/03/19 14:33 General: Alert, Oriented x3, Cooperative, No apparent distress HEENT: Atraumatic, EOMI, Normocephalic Oral: Moist Mucosa Neck: Supple, No JVD, Trachea Midline Lungs: Clear to auscultation, Normal air movement Cardiovascular: Regular rate, Regular Rhythm Abdomen: Bowel Sounds Present, Soft, Non Tender, Obese Extremities: No clubbing, No Calf Tenderness, Clubbing, Diminished Peripheral Pulses, Edema - 1+ pitting edema bilateral lower extremities, capillary refill 5 seconds in bilateral lower extremities Skin: Ulcer/ Wound - Large ulcer of right plantar arch with subcutaneous layer exposed, with large amount of slough and devitalized tissue present; no tunneling, undermining, or probing to bone. Wound is malodorous, but no purulent drainage noted. Mild erythema of shraddha-ulcer area, no swelling. Mild tenderness with debridement. DFU of right dorsal fifth metatarsal, with subcutaneous layer exposed, no tunneling, undermining, or probing to bone. Small amount of purulent drainage, malodorous. Mild surrounding erythema, no swelling., Rash Present - Venous stasis dermatitis of bilateral lower extremities. Absence of hair on bilateral lower extremities below the knee. Wound Measurements and Assessment WC - Nurse 1 - General Ulcer Measurement Start: 06/03/19 14:32 Freq: Status: Active Protocol: Activity Type Activity Date Activity User E-Sign Co-Sign Detail Recorded Client Recorded Date Recorded By Document 06/03/19 14:33 IMMANUEL [id number] 06/03/19 14:47 IMMANUEL 06/03/19 14:33 Wound Center Nurse 1 [Ulcer Assessment] 4-right dorsal 5th metatarsal -Combined with other wound No -Current Size (cm) - Length 1.2 -Current Size (cm) - Width 0.7 -Current Size (cm) - Depth 0.1 -Total Square Cm 0.84 -Photo Taken Yes -Epithelialization None Present -Tunneling No -Undermining/Tunneling No -Circular Undermining No -Classification - Thickness Unclassifiable (Eschar Covered ) -Exudate Amt None Present -Wound Margin Flat & Intact -Granulation Amt None Present (0 %) -Slough/Fibrin Yes -Necrosis Amt Large (67-100%) -Necrotic Tissue Type Adherent Slough -Structure Exposed N/A -Texture (Shraddha-wound Skin Appearance) Assessed, Localized Edema -Moisture (Shraddha-wound Skin Appearance Assessed,Dry/ ) Scaly -Color (Shraddha-wound Skin Appearance) Assessed -Temperature (Shraddha-wound Skin No Abnormality Appearance) (Pt Warm) -Tenderness on Palpation (Shraddha-wound No Skin Appearance) -Ulcer Cleansing Rinsed/ Irrigated with Saline -Foul Odor after Cleansing No -Anesthetic Used 4% Lidocaine Solution 3-right plantar foot -Combined with other wound No -Current Size (cm) - Length 4.1 -Current Size (cm) - Width 2.0 -Current Size (cm) - Depth 0.3 -Total Square Cm 8.20 -Photo Taken Yes -Epithelialization None Present -Tunneling No -Undermining/Tunneling No -Circular Undermining No -Classification - Chavez Grading ( Grade 2 Diabetic Ulcer) -Exudate Amt Small -Exudate Type Serosanguineous -Wound Margin Flat & Intact -Granulation Amt Small (1-33%) -Granulation Quality Red -Slough/Fibrin Yes -Necrosis Amt Large (67-100%) -Necrotic Tissue Type Adherent Slough -Structure Exposed N/A -Texture (Shraddha-wound Skin Appearance) Assessed,Callus -Moisture (Shraddha-wound Skin Appearance Assessed ) -Color (Shraddha-wound Skin Appearance) Assessed -Temperature (Shraddha-wound Skin No Abnormality Appearance) (Pt Warm) -Tenderness on Palpation (Shraddha-wound No Skin Appearance) -Ulcer Cleansing Rinsed/ Irrigated with Saline -Foul Odor after Cleansing No -Anesthetic Used 4% Lidocaine Solution [Edema Assessment] -Lower Limb Edema Present Yes -Right Calf (cm) 41.2 -Right Ankle (cm) 26.2 -Left Calf (cm) 42.2 -Left Ankle (cm) 26.0 WC - Nurse 2 - General Ulcer CM Notes Start: 06/03/19 14:32 Freq: Status: Active Protocol: Activity Type Activity Date Activity User E-Sign Co-Sign Detail Recorded Client Recorded Date Recorded By Document 06/03/19 15:52 DV [id number] 06/03/19 16:18 DV 06/03/19 15:52 Wound Center Nurse 2 [Procedure/Treatment] 4-right dorsal 5th metatarsal -Time 15:57 -Correct Patient Yes -Correct Side, Site, Position Yes -Correct Procedure Yes -Procedure Performed Yes -Type of Procedure Debridement -Clinical Debridement Subcutaneous -Post Debridement Size (cm) - Length 1.3 -Post Debridement Size (cm) - Width 1.0 -Post Debridement Size (cm) - Depth 0.3 -Total Square Cm 1.30 -Wound/Ulcer Outcome Not Healed -Ulcer Cleansing Rinsed/ Irrigated with Saline -Foul Odor after Cleansing No -Bioengineered Tissue No -Bleeding Controlled with Pressure -Offloading Yes -Type of Offloading Camwalker -Treatment Response Procedure Tolerated Well 3-right plantar foot -Time 15:57 -Correct Patient Yes -Correct Side, Site, Position Yes -Correct Procedure Yes -Procedure Performed Yes -Type of Procedure Debridement -Clinical Debridement Subcutaneous -Post Debridement Size (cm) - Length 3.1 -Post Debridement Size (cm) - Width 4.2 -Post Debridement Size (cm) - Depth 0.9 -Total Square Cm 13.02 -Wound/Ulcer Outcome Not Healed -Ulcer Cleansing Rinsed/ Irrigated with Saline -Foul Odor after Cleansing No -Bioengineered Tissue No -Bleeding Controlled with Pressure -Offloading Yes -Type of Offloading Camwalker -Treatment Response Procedure Tolerated Well [See Physician Procedure note for Specifics] Pain Scale: 0-10 Numeric [Pain] -Is Patient Pain Free? Yes Musculoskeletal: No Muscle Wasting Neurological: Cranial nerves II-XII grossly intact Psych/Mental Status: Normal Affect, Appropriate Debridement Note Post-Debridement Measurements/Treatment WC - Nurse 2 - General Ulcer CM Notes Start: 06/03/19 14:32 Freq: Status: Active Protocol: Activity Type Activity Date Activity User E-Sign Co-Sign Detail Recorded Client Recorded Date Recorded By Document 06/03/19 15:52 DV [id number] 06/03/19 16:18 DV 06/03/19 15:52 Wound Center Nurse 2 4-right dorsal 5th metatarsal -Time 15:57 -Correct Patient Yes -Correct Side, Site, Position Yes -Correct Procedure Yes -Procedure Performed Yes -Type of Procedure Debridement -Clinical Debridement Subcutaneous -Post Debridement Size (cm) - Length 1.3 -Post Debridement Size (cm) - Width 1.0 -Post Debridement Size (cm) - Depth 0.3 -Total Square Cm 1.30 -Wound/Ulcer Outcome Not Healed -Ulcer Cleansing Rinsed/ Irrigated with Saline -Foul Odor after Cleansing No -Bioengineered Tissue No -Bleeding Controlled with Pressure -Offloading Yes -Type of Offloading Camwalker -Treatment Response Procedure Tolerated Well 3-right plantar foot -Time 15:57 -Correct Patient Yes -Correct Side, Site, Position Yes -Correct Procedure Yes -Procedure Performed Yes -Type of Procedure Debridement -Clinical Debridement Subcutaneous -Post Debridement Size (cm) - Length 3.1 -Post Debridement Size (cm) - Width 4.2 -Post Debridement Size (cm) - Depth 0.9 -Total Square Cm 13.02 -Wound/Ulcer Outcome Not Healed -Ulcer Cleansing Rinsed/ Irrigated with Saline -Foul Odor after Cleansing No -Bioengineered Tissue No -Bleeding Controlled with Pressure -Offloading Yes -Type of Offloading Camwalker -Treatment Response Procedure Tolerated Well Pain Scale: 0-10 Numeric Is Patient Pain Free? Yes Wound debrided: Right dorsal fifth metatarsal Laterality: Right Wound Grade/Stage: Grade 1 Type of Debridement: Excisional debridement Anesthesia Used: 5% Lidocaine Gel Depth: in the subcutaneous layer Percentage of wound debrided: 100 Instrument Used: 5mm curette Tissue Removed: Slough and devitalized tissue Severity: Fat Layer Exposed Amount of bleeding with debridement: Mild Bleeding Controlled with: Pressure Patient tolerated procedure well - Additional Wound Wound debrided: Right plantar foot Laterality: Right Wound Grade/Stage: Grade 1 Type of Debridement: Excisional debridement Anesthesia Used: 5% Lidocaine Gel Depth: in the subcutaneous layer Percentage of wound debrided: 100 Instrument Used: 7mm curette Tissue Removed: Slough and devitalized tissue Severity: Fat Layer Exposed Amount of bleeding with debridement: Mild Bleeding Controlled with: Pressure Patient tolerated procedure: Patient tolerated procedure well Assessment/Plan Active Problems (Last Reviewed 06/20/18 @ 12:28 by Ann Licea) Diabetic ulcer of right foot (Chronic) Non-healing ulcer of foot with fat layer exposed (Acute) Diabetic foot infection (Acute) Tobacco dependence due to cigarettes (Chronic) Morbid obesity with BMI of 40.0-44.9, adult (Chronic) 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 Diabetic ulcer of right foot, chronic (right dorsal 5th metatarsal). 2. Nonhealing ulcer of foot with fat layer exposed, acute (right plantar foot). 3. Diabetic foot infection, acute (right foot). 4. Tobacco dependence due to cigarettes, chronic. 5. Morbid obesity, BMI 44.6, chronic. 6. T2DM with neurological manifestations, chronic. 7. Diabetic neuropathy, chronic Plan: Debridement performed today in clinic today as annotated above. Santyl prescribed. Patient is to continue with daily dressing changes using Santyl. May use moisturizing lotion such as Aquacel, Eucerin, or CeraVe to legs and feet, but do not use on ulcers. May continue to shower. Remove dressing prior to showering. Wash shraddha-ulcer areas with mild antibacterial soap, rinse well and pat dry. Apply clean dressing following shower. Do not soak or submerge right foot/ulcers. Avoid ambulating barefoot at home, wear diabetic shoes and/or offloading boot to right foot when ambulating. Compression: Double Tubigrip applied today in office. Patient is to continue compression daily at home. Off-loading: Avoid prolonged standing or dangling of legs. Keep feet elevated at or above waist level when seated. Lay flat or with feet elevated while sleeping. Continue use of offloading boot to right foot. Diet: Patient encouraged to increase protein and vitamin C intake while taking caution to avoid high carbohydrate and/or sugar intake. Discussed at length the importance of smoking cessation, and patient encouraged to follow-up with primary care provider if smoking cessation aids are desired. Labs/cultures/imaging: Repeat cultures ordered and collected today, due to purulent and foul-smelling drainage from right foot. Routine baseline labwork ordered. Arterial studies ordered. X-ray of right foot ordered. Follow-up: Return to clinic in 1 week for re- evaluation. Return sooner or report to the emergency room should symptoms worsen, or new symptoms arise. Note: [employer] speech recognition golf cart attendant software was used to create portions of this document. Sound-alike and misspelled words, as well as other golf cart attendant errors may be contained in the documentation. Code Visit Office Visits / Consults: [id number] [facility] New [id number]: [id number] Teresa subq tissue 20 sq cm/<
[2019-06-13 08:07] VITALS: BP 134/71; PULSE 85; RESP 16; TEMP 36.1; BMI 44.6
--- NOTE | 2019-06-13 11:19 | PCM.WC.PN ---
(1) Diabetic ulcer of right foot Status: Chronic Current Visit: Yes Qualifiers: Diabetic foot ulcer location: toe Diabetes mellitus type: type 2 Non-pressure ulcer stage: with fat layer exposed Qualified Code(s): E11.621 - Type 2 diabetes mellitus with foot ulcer; L97.512 - Non-pressure chronic ulcer of other part of right foot with fat layer exposed Code(s): E11.621 - Type 2 diabetes mellitus with foot ulcer; L97.519 - Non-pressure chronic ulcer of other part of right foot with unspecified severity (2) Non-healing ulcer of foot with fat layer exposed Status: Acute Current Visit: Yes Qualifiers: Laterality: right Qualified Code(s): L97.512 - Non-pressure chronic ulcer of other part of right foot with fat layer exposed Code(s): L97.502 - Non-pressure chronic ulcer of other part of unspecified foot with fat layer exposed (3) Diabetic foot infection Status: Resolved Current Visit: Yes Code(s): E11.628 - Type 2 diabetes mellitus with other skin complications; L08.9 - Local infection of the skin and subcutaneous tissue, unspecified (4) Tobacco dependence due to cigarettes Status: Chronic Current Visit: Yes Code(s): F17.210 - Nicotine dependence, cigarettes, uncomplicated (5) Essential (primary) hypertension Status: Chronic Current Visit: No Code(s): I10 - Essential (primary) hypertension (6) Rheumatoid arthritis Status: Chronic Current Visit: No Code(s): M06.9 - Rheumatoid arthritis, unspecified (7) Lupus Status: Chronic Current Visit: No Code(s): M32.9 - Systemic lupus erythematosus, unspecified (8) Morbid obesity with BMI of 40.0-44.9, adult Status: Chronic Current Visit: No Code(s): E66.01 - Morbid (severe) obesity due to excess calories; Z68.41 - Body mass index (BMI) 40.0-44.9, adult (9) Diabetes mellitus type 2 with neurological manifestations Status: Chronic Current Visit: No Code(s): E11.49 - Type 2 diabetes mellitus with other diabetic neurological complication (10) Diabetic neuropathy Status: Chronic Current Visit: Yes Qualifiers: Diabetes mellitus type: type 2 Diabetes mellitus complication detail: diabetic polyneuropathy Qualified Code(s): E11.42 - Type 2 diabetes mellitus with diabetic polyneuropathy Code(s): E11.40 - Type 2 diabetes mellitus with diabetic neuropathy, unspecified Type of Wound Date of Service: 06/13/19 Chief Complaint: Right foot wounds History of Wound: Patient is a pleasant 53-year-old female who [facility] evaluation and treatment of wounds to her right foot. About 2 weeks ago, she believes that she stepped on a hot cigarette butt, causing a wound on her right plantar arch. A few days later she visited her groundwater consultant, Dr. Estrada, and cultures were collected. She was started on Levaquin and Augmentin, and has a few days left of these antibiotics. She was instructed to use Pretty to her right foot wound, and cover with gauze. She has been doing daily dressing changes with Pretty. She also has a diabetic foot ulcer on her right dorsal fifth metatarsal, and is unsure how long this has been present. She is also using Pretty to this DFU. She denies any pain with her foot wounds, due to her diabetic neuropathy. She denies any increasing redness, swelling, or drainage. She denies any foul-smelling or purulent drainage. She reports having a fever before her antibiotics were started, but it has since resolved. She denies any nausea, vomiting, or diarrhea. Patient wears diabetic shoes, and has an offloading boot for her right foot which she sometimes wears. She reports walking barefoot in home. She also reports frequently sleeping in a chair without her feet elevated. Patient has a significant past medical history of tobacco dependence, smoking 1 pack/day. She is also a type II diabetic, with poor glycemic control. She has extensive peripheral neuropathy. She also has comorbidities of hypertension, rheumatoid arthritis, lupus, and morbid obesity with a BMI of 44.6. She sees Dr. Verdugo as her primary care provider. She denies any recent lab work. She has not had any x-rays of her right foot since these wounds developed, and has not had any recent vascular studies completed. Progress of Wound: Patient has been compliant with Santyl dressing changes. No clinical signs or symptoms of infection today. The patient denies any fever, chills, nausea, vomiting, or diarrhea. Denies any signs of infection, including increasing pain, redness, swelling, or drainage from affected area. She has not been compliant with use of offloading boot at all times when ambulating. She reports her apartment is too small for her to wear offloading boot while inside. She does report she is keeping her foot covered with socks and diabetic shoes. On 06/10/2019, I contacted patient with the results of her wound cultures collected 06/03/2019, as follows: Right plantar foot positive for 1+ Streptococcus gallolyticus pas, rare Staphylococcus aureus, and anaerobic cocci. Right toe positive for very rare Staphylococcus aureus, and growth of Enterococcus faecalis. Given these positive results, and the clinical presentation of patient's wounds demonstrating purulent and malodorous drainage when last evaluated in the wound clinic, I consulted with collaborating physician, Dr. Bonilla, to discuss appropriate interventions. Patient was sent to the emergency room for evaluation and treatment. She was admitted to inpatient care and given a dose of Unasyn in the ER, followed by IV vancomycin. ID and podiatry (Dr. Estrada) were consulted, and it was felt that the positive cultures were indicative of colonization. Antibiotics were discontinued and patient was discharged home. Dr. Estrada ordered arterial studies for patient to complete outpatient--these have not yet been done. She reports feeling much better since her hospitalization. She reports the swelling in her bilateral legs has decreased. Patient's right foot x-ray (06/05/2019) demonstrated the following: Soft tissue swelling, no acute osseous changes. Patient's recent labs showed the following: A1c 10.8%, ESR 26, WBC 7.3, creatinine 1.16 (06/05/2019) down to 0.83 (06/10/2019), prealbumin 23.4. Please see lab reports in chart for full details. - Physical Exam Vital Signs Temp Pulse Resp BP 96.9 F L 85 16 134/71 H 06/13/19 08:07 06/13/19 08:07 06/13/19 08:07 06/13/19 08:07 General: Alert, Oriented x3, Cooperative, No apparent distress HEENT: Atraumatic, EOMI, Normocephalic Oral: Moist Mucosa Neck: Supple, No JVD, Trachea Midline Lungs: Normal air movement Cardiovascular: Regular rate Extremities: No cyanosis, Capillary Refill Less than 3 Seconds, No Calf Tenderness, Clubbing, Diminished Peripheral Pulses, Edema - Trace edema in bilateral lower extremities Skin: Ulcer/ Wound - Large ulcer of right plantar arch with subcutaneous layer exposed, moderate amount of slough and devitalized tissue present; no tunneling, undermining, or probing to bone. Malodor of wound has resolved. Shraddha-ulcer erythema has improved. Nontender to debridement. DFU of right dorsal fifth metatarsal with subcutaneous layer exposed, no tunneling, undermining, or probing to bone. Purulent drainage has resolved, as well as malodor. Shraddha-ulcer erythema is stable, no swelling. Venous stasis dermatitis of bilateral lower extremities present. Absence of hair on bilateral lower extremities below the knee. Wound Measurements and Assessment WC - Nurse 1 - General Ulcer Measurement Start: 06/03/19 14:32 Freq: Status: Active Protocol: Activity Type Activity Date Activity User E-Sign Co-Sign Detail Recorded Client Recorded Date Recorded By Document 06/13/19 08:07 MW [id number] 06/13/19 08:19 MW 06/13/19 08:07 Wound Center Nurse 1 [Ulcer Assessment] 4-right dorsal 5th metatarsal -Combined with other wound No -Current Size (cm) - Length 0.5 -Current Size (cm) - Width 0.3 -Current Size (cm) - Depth 0.1 -Total Square Cm 0.15 -Photo Taken No -Epithelialization None Present -Tunneling No -Undermining/Tunneling No -Circular Undermining No -Exudate Amt None Present -Wound Margin Flat & Intact -Granulation Amt None Present (0 %) -Granulation Quality N/A -Slough/Fibrin Yes -Necrosis Amt Large (67-100%) -Necrotic Tissue Type Adherent Slough -Structure Exposed N/A -Texture (Shraddha-wound Skin Appearance) No Abnormality, Assessed -Moisture (Shraddha-wound Skin Appearance Assessed,Dry/ ) Scaly -Color (Shraddha-wound Skin Appearance) No Abnormality, Assessed -Temperature (Shraddha-wound Skin No Abnormality Appearance) (Pt Warm) -Tenderness on Palpation (Shraddha-wound Yes Skin Appearance) -Ulcer Cleansing SOAP AND WATER -Foul Odor after Cleansing No -Anesthetic Used 5% Lidocaine Gel 3-right plantar foot -Combined with other wound No -Current Size (cm) - Length 2.3 -Current Size (cm) - Width 3.2 -Current Size (cm) - Depth 0.2 -Total Square Cm 7.36 -Photo Taken No -Epithelialization None Present -Tunneling No -Undermining/Tunneling No -Circular Undermining No -Exudate Amt Medium -Exudate Type Serosanguineous -Wound Margin Flat & Intact -Granulation Amt Large (67-100%) -Granulation Quality [place] -Slough/Fibrin Yes -Necrosis Amt Small (1-33%) -Necrotic Tissue Type Adherent Slough -Structure Exposed N/A -Texture (Shraddha-wound Skin Appearance) Assessed,Callus -Moisture (Shraddha-wound Skin Appearance Assessed,Dry/ ) Scaly -Color (Shraddha-wound Skin Appearance) No Abnormality, Assessed -Temperature (Shraddha-wound Skin No Abnormality Appearance) (Pt Warm) -Tenderness on Palpation (Shraddha-wound No Skin Appearance) -Ulcer Cleansing SOAP AND WATER -Foul Odor after Cleansing No -Anesthetic Used 5% Lidocaine Gel [Edema Assessment] -Lower Limb Edema Present Yes -Right Calf (cm) 37.6 -Right Ankle (cm) 23.5 WC - Nurse 2 - General Ulcer CM Notes Start: 06/03/19 14:32 Freq: Status: Active Protocol: Activity Type Activity Date Activity User E-Sign Co-Sign Detail Recorded Client Recorded Date Recorded By Document 06/13/19 08:33 DV [id number] 06/13/19 08:40 DV 20 08:33 Wound Center Nurse 2 [Procedure/Treatment] 4-right dorsal 5th metatarsal -Time 08:36 -Correct Patient Yes -Correct Side, Site, Position Yes -Correct Procedure Yes -Procedure Performed Yes -Type of Procedure Debridement -Clinical Debridement Subcutaneous -Post Debridement Size (cm) - Length 1.1 -Post Debridement Size (cm) - Width 1.1 -Post Debridement Size (cm) - Depth 0.2 -Total Square Cm 1.21 -Wound/Ulcer Outcome Not Healed -Ulcer Cleansing Rinsed/ Irrigated with Saline -Foul Odor after Cleansing No -Bioengineered Tissue No -Bleeding Controlled with Pressure -Offloading No -Treatment Response Procedure Tolerated Well 3-right plantar foot -Time 08:33 -Correct Patient Yes -Correct Side, Site, Position Yes -Correct Procedure Yes -Procedure Performed Yes -Type of Procedure Debridement -Clinical Debridement Subcutaneous -Post Debridement Size (cm) - Length 2.2 -Post Debridement Size (cm) - Width 3.4 -Post Debridement Size (cm) - Depth 0.6 -Total Square Cm 7.48 -Wound/Ulcer Outcome Not Healed -Ulcer Cleansing Rinsed/ Irrigated with Saline -Foul Odor after Cleansing No -Bioengineered Tissue No -Bleeding Controlled with Pressure -Offloading No -Treatment Response Procedure Tolerated Well [See Physician Procedure note for Specifics] Musculoskeletal: No Muscle Wasting Neurological: Cranial nerves II-XII grossly intact Psych/Mental Status: Normal Affect, Appropriate Debridement Note Post-Debridement Measurements/Treatment WC - Nurse 2 - General Ulcer CM Notes Start: 06/03/19 14:32 Freq: Status: Active Protocol: Activity Type Activity Date Activity User E-Sign Co-Sign Detail Recorded Client Recorded Date Recorded By Document 06/03/19 15:52 DV [id number] 06/03/19 16:18 DV Document 06/13/19 08:33 DV [id number] 06/13/19 08:40 DV 06/03/19 06/13/19 15:52 08:33 Wound Center Nurse 2 4-right dorsal 5th metatarsal -Time 15:57 08:36 -Correct Patient Yes Yes -Correct Side, Site, Position Yes Yes -Correct Procedure Yes Yes -Procedure Performed Yes Yes -Type of Procedure Debridement Debridement -Clinical Debridement Subcutaneous Subcutaneous -Post Debridement Size (cm) - Length 1.3 1.1 -Post Debridement Size (cm) - Width 1.0 1.1 -Post Debridement Size (cm) - Depth 0.3 0.2 -Total Square Cm 1.30 1.21 -Wound/Ulcer Outcome Not Healed Not Healed -Ulcer Cleansing Rinsed/ Rinsed/ Irrigated with Irrigated with Saline Saline -Foul Odor after Cleansing No No -Bioengineered Tissue No No -Bleeding Controlled with Pressure Pressure -Offloading Yes No -Type of Offloading Camwalker -Treatment Response Procedure Procedure Tolerated Well Tolerated Well 3-right plantar foot -Time 15:57 08:33 -Correct Patient Yes Yes -Correct Side, Site, Position Yes Yes -Correct Procedure Yes Yes -Procedure Performed Yes Yes -Type of Procedure Debridement Debridement -Clinical Debridement Subcutaneous Subcutaneous -Post Debridement Size (cm) - Length 3.1 2.2 -Post Debridement Size (cm) - Width 4.2 3.4 -Post Debridement Size (cm) - Depth 0.9 0.6 -Total Square Cm 13.02 7.48 -Wound/Ulcer Outcome Not Healed Not Healed -Ulcer Cleansing Rinsed/ Rinsed/ Irrigated with Irrigated with Saline Saline -Foul Odor after Cleansing No No -Bioengineered Tissue No No -Bleeding Controlled with Pressure Pressure -Offloading Yes No -Type of Offloading Camwalker -Treatment Response Procedure Procedure Tolerated Well Tolerated Well Pain Scale: 0-10 Numeric Is Patient Pain Free? Yes Wound debrided: Right dorsal fifth metatarsal Laterality: Right Wound Grade/Stage: Grade 1 Type of Debridement: Excisional debridement Anesthesia Used: 5% Lidocaine Gel Depth: in the subcutaneous layer Percentage of wound debrided: 100 Instrument Used: 5mm curette Tissue Removed: Slough and devitalized tissue Severity: Fat Layer Exposed Amount of bleeding with debridement: Mild Bleeding Controlled with: Pressure Patient tolerated procedure well - Additional Wound Wound debrided: Right plantar foot Laterality: Right Wound Grade/Stage: Grade 1 Type of Debridement: Excisional debridement Anesthesia Used: 5% Lidocaine Gel Depth: in the subcutaneous layer Percentage of wound debrided: 100 Instrument Used: 7mm curette Tissue Removed: Callus, slough, and devitalized tissue Severity: Fat Layer Exposed Amount of bleeding with debridement: Mild Bleeding Controlled with: Pressure Patient tolerated procedure: Patient tolerated procedure well Assessment/Plan Active Problems (Last Reviewed 06/20/18 @ 12:28 by Ann Licea) Diabetic ulcer of right foot (Chronic) Non-healing ulcer of foot with fat layer exposed (Acute) Tobacco dependence due to cigarettes (Chronic) Diabetic neuropathy (Chronic) Assessment: 1. Diabetic ulcer of right foot, chronic (right dorsal 5th metatarsal). 2. Nonhealing ulcer of foot with fat layer exposed, acute (right plantar foot). 3. Diabetic foot infection, acute (right foot)--resolved. 4. Tobacco dependence due to cigarettes, chronic. 5. Morbid obesity, BMI 44.6, chronic. 6. T2DM with neurological manifestations, chronic. 7. Diabetic neuropathy, chronic Plan: Debridement performed today in clinic today as annotated above. Santyl applied. Patient is to continue with daily dressing changes using Santyl. May use moisturizing lotion such as Aquacel, Eucerin, or CeraVe to legs and feet, but do not use on ulcers. May continue to shower. Remove dressing prior to showering. Wash shraddha-ulcer areas with mild antibacterial soap, rinse well and pat dry. Apply clean dressing following shower. Do not soak or submerge right foot/ulcers. Avoid ambulating barefoot at home, wear offloading boot to right foot at all times when ambulating. Compression: Double Tubigrip applied today in office. Patient is to continue compression daily at home. Off-loading: Avoid prolonged standing or dangling of legs. Keep feet elevated at or above waist level when seated. Lay flat or with feet elevated while sleeping. Continue use of offloading boot to right foot. Diet: Patient encouraged to increase protein and vitamin C intake while taking caution to avoid high carbohydrate and/or sugar intake. Discussed importance of tight glycemic control. Discussed at length the importance of smoking cessation, and patient encouraged to follow-up with primary care provider if smoking cessation aids are desired. Labs/cultures/imaging: Wound cultures collected 06/03/2019: Right plantar foot positive for 1+ Streptococcus gallolyticus pas, rare Staphylococcus aureus, and anaerobic cocci. Right toe positive for very rare Staphylococcus aureus, and growth of Enterococcus faecalis. Patient sent to ER, given Unasyn x1 dose, and IV vancomycin. Consulted with ID and podiatry (Dr. Estrada), felt culture results were indicative of wound colonization. IV antibiotics were DC'd and patient discharged home.Patient's right foot x-ray (06/05/2019) demonstrated the following: Soft tissue swelling, no acute osseous changes. Patient's recent labs showed the following: A1c 10.8%, ESR 26, WBC 7.3, creatinine 1.16 (06/05/2019) down to 0.83 (06/10/2019), prealbumin 23.4. Please see lab reports in chart for full details. Arterial studies not yet completed. Follow-up: Return to clinic in 1 week for re-evaluation. Return sooner or report to the emergency room should symptoms worsen, or new symptoms arise. Note: [employer] speech recognition blasting cap assembler software was used to create portions of this document. Sound-alike and misspelled words, as well as other blasting cap assembler errors may be contained in the documentation. Code Visit 111xxx-[id number]: [id number] Teresa subq tissue 20 sq cm/<
--- NOTE | 2019-06-16 13:44 | WC ---
Patient [place] and left [facility] [place] she is running low on her supplies. Originally ordered from [facility], they do not accept her insurance, so order was sent to [facility]
--- NOTE | 2019-06-19 11:06 | WC ---
this nurse spoke with Khadra at [facility] and she stated that no order was received for patient and that the last order was from Dr. Estrada on the 27 of May. The original order was sent to [facility] in which we were informed they did not accept her insurance so the order was then sent to [facility] in which there was confirmation they did receive it. Khadra took a verbal order over the phone and stated they would get an order out today. Patient was called and informed.
[2019-06-20 08:07] VITALS: BP 126/68; PULSE 87; RESP 16; TEMP 36.6; BMI 44.6
--- NOTE | 2019-06-20 09:11 | PCM.WC.PN ---
(1) Diabetic ulcer of right foot associated with type 2 diabetes mellitus Status: Chronic Current Visit: Yes Qualifiers: Diabetic foot ulcer location: midfoot Non-pressure ulcer stage: with fat layer exposed Qualified Code(s): E11.621 - Type 2 diabetes mellitus with foot ulcer; L97.412 - Non-pressure chronic ulcer of right heel and midfoot with fat layer exposed Code(s): E11.621 - Type 2 diabetes mellitus with foot ulcer; L97.519 - Non-pressure chronic ulcer of other part of right foot with unspecified severity (2) Diabetic ulcer of right foot Status: Chronic Current Visit: Yes Qualifiers: Diabetic foot ulcer location: toe Diabetes mellitus type: type 2 Non-pressure ulcer stage: with fat layer exposed Qualified Code(s): E11.621 - Type 2 diabetes mellitus with foot ulcer; L97.512 - Non-pressure chronic ulcer of other part of right foot with fat layer exposed Code(s): E11.621 - Type 2 diabetes mellitus with foot ulcer; L97.519 - Non-pressure chronic ulcer of other part of right foot with unspecified severity (3) Non-healing ulcer of foot with fat layer exposed Status: Chronic Current Visit: Yes Qualifiers: Laterality: right Qualified Code(s): L97.512 - Non-pressure chronic ulcer of other part of right foot with fat layer exposed Code(s): L97.502 - Non-pressure chronic ulcer of other part of unspecified foot with fat layer exposed (4) Diabetic foot infection Status: Resolved Current Visit: Yes Code(s): E11.628 - Type 2 diabetes mellitus with other skin complications; L08.9 - Local infection of the skin and subcutaneous tissue, unspecified (5) Tobacco dependence due to cigarettes Status: Chronic Current Visit: Yes Code(s): F17.210 - Nicotine dependence, cigarettes, uncomplicated (6) Essential (primary) hypertension Status: Chronic Current Visit: No Code(s): I10 - Essential (primary) hypertension (7) Diabetic neuropathy Status: Chronic Current Visit: Yes Qualifiers: Diabetes mellitus type: type 2 Diabetes mellitus complication detail: diabetic polyneuropathy Qualified Code(s): E11.42 - Type 2 diabetes mellitus with diabetic polyneuropathy Code(s): E11.40 - Type 2 diabetes mellitus with diabetic neuropathy, unspecified (8) Rheumatoid arthritis Status: Chronic Current Visit: No Code(s): M06.9 - Rheumatoid arthritis, unspecified (9) Lupus Status: Chronic Current Visit: No Code(s): M32.9 - Systemic lupus erythematosus, unspecified (10) Morbid obesity with BMI of 40.0-44.9, adult Status: Chronic Current Visit: No Code(s): E66.01 - Morbid (severe) obesity due to excess calories; Z68.41 - Body mass index (BMI) 40.0-44.9, adult (11) Diabetes mellitus type 2 with neurological manifestations Status: Chronic Current Visit: No Code(s): E11.49 - Type 2 diabetes mellitus with other diabetic neurological complication Type of Wound Date of Service: 06/20/19 Chief Complaint: Right foot wounds History of Wound: Patient is a pleasant 53-year-old female who [facility] for evaluation and treatment of wounds to her right foot. About 2 weeks ago, she believes that she stepped on a hot cigarette butt, causing a wound on her right plantar arch. A few days later she visited her guest services assistant, Dr. Estrada, and cultures were collected. She was started on Levaquin and Augmentin, and has a few days left of these antibiotics. She was instructed to use Pretty to her right foot wound, and cover with gauze. She has been doing daily dressing changes with Pretty. She also has a diabetic foot ulcer on her right dorsal fifth metatarsal, and is unsure how long this has been present. She is also using Pretty to this DFU. She denies any pain with her foot wounds, due to her diabetic neuropathy. She denies any increasing redness, swelling, or drainage. She denies any foul-smelling or purulent drainage. She reports having a fever before her antibiotics were started, but it has since resolved. She denies any nausea, vomiting, or diarrhea. Patient wears diabetic shoes, and has an offloading boot for her right foot which she sometimes wears. She reports walking barefoot in home. She also reports frequently sleeping in a chair without her feet elevated. Patient has a significant past medical history of tobacco dependence, smoking 1 pack/day. She is also a type II diabetic, with poor glycemic control. She has extensive peripheral neuropathy. She also has comorbidities of hypertension, rheumatoid arthritis, lupus, and morbid obesity with a BMI of 44.6. She sees Dr. Verdugo as her primary care provider. She denies any recent lab work. She has not had any x-rays of her right foot since these wounds developed, and has not had any recent vascular studies completed. Progress of Wound: Patient has been compliant with Santyl dressing changes. No clinical signs or symptoms of infection today. The patient denies any fever, chills, nausea, vomiting, or diarrhea. Denies any signs of infection, including increasing pain, redness, swelling, or drainage from affected area. She has not been compliant with use of offloading boot at all times when ambulating. She reports her apartment is too small for her to wear offloading boot while inside. She does report she is keeping her foot covered with socks and diabetic shoes. She reports she has been attempting to cut back on cigarette smoking with some success. On 06/10/2019, I contacted patient with the results of her wound cultures collected 06/03/2019, as follows: Right plantar foot positive for 1+ Streptococcus gallolyticus pas, rare Staphylococcus aureus, and anaerobic cocci. Right toe positive for very rare Staphylococcus aureus, and growth of Enterococcus faecalis. Given these positive results, and the clinical presentation of patient's wounds demonstrating purulent and malodorous drainage when last evaluated in the wound clinic, I consulted with collaborating physician, Dr. Bonilla, to discuss appropriate interventions. Patient was sent to the emergency room for evaluation and treatment. She was admitted to inpatient care and given a dose of Unasyn in the ER, followed by IV vancomycin. ID and podiatry (Dr. Estrada) were consulted, and it was felt that the positive cultures were indicative of colonization. Antibiotics were discontinued and patient was discharged home. Dr. Estrada ordered arterial studies for patient to complete outpatient--these have not yet been done. She reports feeling much better since her hospitalization. She reports the swelling in her bilateral legs has decreased. Patient's right foot x-ray (06/05/2019) demonstrated the following: Soft tissue swelling, no acute osseous changes. Patient's recent labs showed the following: A1c 10.8%, ESR 26, WBC 7.3, creatinine 1.16 (06/05/2019) down to 0.83 (06/10/2019), prealbumin 23.4. Please see lab reports in chart for full details. - Physical Exam Vital Signs Temp Pulse Resp BP 97.8 F 87 16 126/68 H 06/20/19 08:07 06/20/19 08:07 06/20/19 08:07 06/20/19 08:07 General: Alert, Oriented x3, Cooperative, No apparent distress HEENT: Atraumatic, Normocephalic Oral: Moist Mucosa Neck: Supple, No JVD, Trachea Midline Lungs: Normal air movement Cardiovascular: Regular rate Abdomen: Obese Extremities: No cyanosis, Capillary Refill Less than 3 Seconds, Clubbing, Diminished Peripheral Pulses, Edema - Trace edema in bilateral lower extremities Skin: Ulcer/ Wound - Ulcer of right plantar arch with subcutaneous layer exposed, moderate amount of surrounding callus, small amount of slough, and devitalized tissue present; undermining present, see measurements below; no tunneling or probing to bone; no purulent or malodorous drainage; no shraddha-ulcer erythema or swelling; nontender to debridement. DFU of right dorsal fifth metatarsal with subcutaneous layer exposed; no tunneling, undermining, or probing to bone. No purulent or malodorous drainage; shraddha-ulcer erythema has resolved, no shraddha-ulcer swelling. Venous stasis dermatitis of bilateral lower extremities present, as well as absence of hair on bilateral lower extremities below the knee. Wound Measurements and Assessment WC - Nurse 1 - General Ulcer Measurement Start: 06/03/19 14:32 Freq: Status: Active Protocol: Activity Type Activity Date Activity User E-Sign Co-Sign Detail Recorded Client Recorded Date Recorded By Document 06/20/19 08:07 MW [id number] 06/20/19 08:10 MW 06/20/19 08:07 Wound Center Nurse 1 [Ulcer Assessment] 4-right dorsal 5th metatarsal -Combined with other wound No -Current Size (cm) - Length 0.6 -Current Size (cm) - Width 0.7 -Current Size (cm) - Depth 0.1 -Total Square Cm 0.42 -Photo Taken No -Epithelialization None Present -Tunneling No -Undermining/Tunneling No -Circular Undermining No -Exudate Amt None Present -Wound Margin Flat & Intact -Granulation Amt None Present (0 %) -Granulation Quality N/A -Slough/Fibrin Yes -Necrosis Amt Large (67-100%) -Necrotic Tissue Type Eschar -Structure Exposed N/A -Texture (Shraddha-wound Skin Appearance) Assessed, Localized Edema -Moisture (Shraddha-wound Skin Appearance No Abnormality, ) Assessed -Color (Shraddha-wound Skin Appearance) No Abnormality, Assessed -Temperature (Shraddha-wound Skin No Abnormality Appearance) (Pt Warm) -Tenderness on Palpation (Shraddha-wound No Skin Appearance) -Ulcer Cleansing Rinsed/ Irrigated with Saline -Foul Odor after Cleansing No -Anesthetic Used 4% Lidocaine Solution 3-right plantar foot -Combined with other wound No -Current Size (cm) - Length 2.3 -Current Size (cm) - Width 2.5 -Current Size (cm) - Depth 0.4 -Total Square Cm 5.75 -Photo Taken No -Epithelialization None Present -Tunneling No -Undermining/Tunneling Yes -Undermining/Tunneling Starts (O' 1 clock) -Undermining/Tunneling Ends (O'clock) 8 -Maximum Distance (cm) 0.5 -Circular Undermining No -Exudate Amt None Present -Wound Margin Flat & Intact -Granulation Amt Large (67-100%) -Granulation Quality Pale -Slough/Fibrin Yes -Necrosis Amt Small (1-33%) -Necrotic Tissue Type Adherent Slough -Structure Exposed N/A -Texture (Shraddha-wound Skin Appearance) Assessed,Callus -Moisture (Shraddha-wound Skin Appearance No Abnormality, ) Assessed -Color (Shraddha-wound Skin Appearance) No Abnormality, Assessed -Temperature (Shraddha-wound Skin No Abnormality Appearance) (Pt Warm) -Tenderness on Palpation (Shraddha-wound No Skin Appearance) -Ulcer Cleansing Rinsed/ Irrigated with Saline -Foul Odor after Cleansing No -Anesthetic Used 4% Lidocaine Solution [Edema Assessment] -Lower Limb Edema Present No WC - Nurse 2 - General Ulcer CM Notes Start: 06/03/19 14:32 Freq: Status: Active Protocol: Activity Type Activity Date Activity User E-Sign Co-Sign Detail Recorded Client Recorded Date Recorded By Document 06/20/19 08:27 DV [id number] 06/20/19 08:40 DV 06/20/19 08:27 Wound Center Nurse 2 [Procedure/Treatment] 4-right dorsal 5th metatarsal -Time 08:29 -Correct Patient Yes -Correct Side, Site, Position Yes -Correct Procedure Yes -Procedure Performed Yes -Type of Procedure Debridement -Clinical Debridement Subcutaneous -Post Debridement Size (cm) - Length 0.8 -Post Debridement Size (cm) - Width 0.4 -Post Debridement Size (cm) - Depth 0.2 -Total Square Cm 0.32 -Wound/Ulcer Outcome Not Healed -Ulcer Cleansing Rinsed/ Irrigated with Saline -Foul Odor after Cleansing No -Bioengineered Tissue No -Bleeding Controlled with Pressure -Offloading No -Treatment Response Procedure Tolerated Well 3-right plantar foot -Time 08:29 -Correct Patient Yes -Correct Side, Site, Position Yes -Correct Procedure Yes -Procedure Performed Yes -Type of Procedure Debridement -Clinical Debridement Subcutaneous -Post Debridement Size (cm) - Length 2.2 -Post Debridement Size (cm) - Width 2.3 -Post Debridement Size (cm) - Depth 0.3 -Total Square Cm 5.06 -Wound/Ulcer Outcome Not Healed -Ulcer Cleansing Rinsed/ Irrigated with Saline -Foul Odor after Cleansing No -Bioengineered Tissue No -Bleeding Controlled with Pressure -Offloading No -Treatment Response Procedure Tolerated Well [See Physician Procedure note for Specifics] Pain Scale: 0-10 Numeric [Pain] -Is Patient Pain Free? Yes Musculoskeletal: No Muscle Wasting Neurological: Cranial nerves II-XII grossly intact Psych/Mental Status: Normal Affect, Appropriate Debridement Note Post-Debridement Measurements/Treatment WC - Nurse 2 - General Ulcer CM Notes Start: 06/03/19 14:32 Freq: Status: Active Protocol: Activity Type Activity Date Activity User E-Sign Co-Sign Detail Recorded Client Recorded Date Recorded By Document 06/03/19 15:52 DV [id number] 06/03/19 16:18 DV Document 06/13/19 08:33 DV [id number] 06/13/19 08:40 DV Document 06/20/19 08:27 DV [id number] 06/20/19 08:40 DV 06/03/19 06/13/19 06/20/19 15:52 08:33 08:27 Wound Center Nurse 2 4-right dorsal 5th metatarsal -Time 15:57 08:36 08:29 -Correct Patient Yes Yes Yes -Correct Side, Site, Position Yes Yes Yes -Correct Procedure Yes Yes Yes -Procedure Performed Yes Yes Yes -Type of Procedure Debridement Debridement Debridement -Clinical Debridement Subcutaneous Subcutaneous Subcutaneous -Post Debridement Size (cm) - Length 1.3 1.1 0.8 -Post Debridement Size (cm) - Width 1.0 1.1 0.4 -Post Debridement Size (cm) - Depth 0.3 0.2 0.2 -Total Square Cm 1.30 1.21 0.32 -Wound/Ulcer Outcome Not Healed Not Healed Not Healed -Ulcer Cleansing Rinsed/ Rinsed/ Rinsed/ Irrigated with Irrigated with Irrigated with Saline Saline Saline -Foul Odor after Cleansing No No No -Bioengineered Tissue No No No -Bleeding Controlled with Pressure Pressure Pressure -Offloading Yes No No -Type of Offloading Camwalker -Treatment Response Procedure Procedure Procedure Tolerated Well Tolerated Well Tolerated Well 3-right plantar foot -Time 15:57 08:33 08:29 -Correct Patient Yes Yes Yes -Correct Side, Site, Position Yes Yes Yes -Correct Procedure Yes Yes Yes -Procedure Performed Yes Yes Yes -Type of Procedure Debridement Debridement Debridement -Clinical Debridement Subcutaneous Subcutaneous Subcutaneous -Post Debridement Size (cm) - Length 3.1 2.2 2.2 -Post Debridement Size (cm) - Width 4.2 3.4 2.3 -Post Debridement Size (cm) - Depth 0.9 0.6 0.3 -Total Square Cm 13.02 7.48 5.06 -Wound/Ulcer Outcome Not Healed Not Healed Not Healed -Ulcer Cleansing Rinsed/ Rinsed/ Rinsed/ Irrigated with Irrigated with Irrigated with Saline Saline Saline -Foul Odor after Cleansing No No No -Bioengineered Tissue No No No -Bleeding Controlled with Pressure Pressure Pressure -Offloading Yes No No -Type of Offloading Camwalker -Treatment Response Procedure Procedure Procedure Tolerated Well Tolerated Well Tolerated Well Pain Scale: 0-10 Numeric Is Patient Pain Free? Yes Yes Wound debrided: Right dorsal fifth metatarsal Laterality: Right Wound Grade/Stage: Grade 1 Type of Debridement: Excisional debridement Anesthesia Used: 4% Lidocaine Solution Depth: in the subcutaneous layer Percentage of wound debrided: 100 Instrument Used: 5mm curette Tissue Removed: Slough and devitalized tissue Severity: Fat Layer Exposed Amount of bleeding with debridement: Mild Bleeding Controlled with: Pressure Patient tolerated procedure well - Additional Wound Wound debrided: Right plantar foot Laterality: Right Wound Grade/Stage: Grade 1 Type of Debridement: Excisional debridement Anesthesia Used: 4% Lidocaine Solution Depth: in the subcutaneous layer Percentage of wound debrided: 100 Instrument Used: 7mm curette Tissue Removed: Callus, slough, and devitalized tissue Severity: Fat Layer Exposed Amount of bleeding with debridement: Mild Bleeding Controlled with: Pressure Patient tolerated procedure: Patient tolerated procedure well Assessment/Plan Active Problems (Last Reviewed 06/20/18 @ 12:28 by Ann Licea) Diabetic ulcer of right foot (Chronic) Non-healing ulcer of foot with fat layer exposed (Chronic) Tobacco dependence due to cigarettes (Chronic) Diabetic ulcer of right foot associated with type 2 diabetes mellitus (Chronic) Diabetic neuropathy (Chronic) Assessment: 1. Diabetic ulcer of right foot, chronic (right dorsal 5th metatarsal). 2. Diabetic ulcer of right foot, chronic (midfoot, plantar). 3. Diabetic foot infection, acute (right foot)--resolved. 4. Tobacco dependence due to cigarettes, chronic. 5. Morbid obesity, BMI 44.6, chronic. 6. T2DM with neurological manifestations, chronic. 7. Diabetic neuropathy, chronic Plan: Debridement performed today in clinic today as annotated above. Santyl applied. Patient is to continue with daily dressing changes using Santyl. May use moisturizing lotion such as Aquacel, Eucerin, or CeraVe to legs and feet, but do not use on ulcers. May continue to shower. Remove dressing prior to showering. Wash shraddha-ulcer areas with mild antibacterial soap, rinse well and pat dry. Apply clean dressing following shower. Do not soak or submerge right foot/ulcers. Avoid ambulating barefoot at home, wear offloading boot to right foot at all times when ambulating. Compression: Double Tubigrip applied today in office. Patient is to continue compression daily at home. Off-loading: Avoid prolonged standing or dangling of legs. Keep feet elevated at or above waist level when seated. Lay flat or with feet elevated while sleeping. Continue use of offloading boot to right foot. Diet: Patient encouraged to increase protein and vitamin C intake while taking caution to avoid high carbohydrate and/or sugar intake. Discussed importance of tight glycemic control. Patient has upcoming appointment with Dr. Ocasio (endocrinology). Discussed at length the importance of smoking cessation, and patient encouraged to follow-up with primary care provider if smoking cessation aids are desired. Patient reports she is successfully cutting back on smoking cigarettes. Further reduction/cessation encouraged. Labs/cultures/imaging: Wound cultures collected 06/03/2019: Right plantar foot positive for 1+ Streptococcus gallolyticus pas, rare Staphylococcus aureus, and anaerobic cocci. Right toe positive for very rare Staphylococcus aureus, and growth of Enterococcus faecalis. Patient sent to ER, given Unasyn x1 dose, and IV vancomycin. Consulted with ID and podiatry (Dr. Estrada), felt culture results were indicative of wound colonization. IV antibiotics were DC'd and patient discharged home.Patient's right foot x-ray (06/05/2019) demonstrated the following: Soft tissue swelling, no acute osseous changes. Patient's recent labs showed the following: A1c 10.8%, ESR 26, WBC 7.3, creatinine 1.16 (06/05/2019) down to 0.83 (06/10/2019), prealbumin 23.4. Please see lab reports in chart for full details. Arterial studies not yet completed--rescheduled for 06/24/2019. Follow-up: Return to clinic in 1 week for re-evaluation. Return sooner or report to the emergency room should symptoms worsen, or new symptoms arise. Note: [employer] speech recognition medical technician assistant software was used to create portions of this document. Sound-alike and misspelled words, as well as other medical technician assistant errors may be contained in the documentation. Code Visit [id number]: [id number] Teresa subq tissue 20 sq cm/<
== END 2019-06-21 23:59 ==
LOC: WC 08:00
PROVIDERS: PCP Family Medicine; Visit Provider Nurse Practitioner Family
DX: E11.621 Type 2 diabetes mellitus with foot ulcer (principal); L97.512 Non-pressure chronic ulcer of other part of right foot with fat layer exposed; F17.210 Nicotine dependence, cigarettes, uncomplicated; I10 Essential (primary) hypertension; M06.9 Rheumatoid arthritis, unspecified; M32.9 Systemic lupus erythematosus, unspecified; E66.01 Morbid (severe) obesity due to excess calories; Z68.41 Body mass index [BMI] 40.0-44.9, adult; E11.42 Type 2 diabetes mellitus with diabetic polyneuropathy; E03.9 Hypothyroidism, unspecified; F41.9 Anxiety disorder, unspecified; Z79.899 Other long term (current) drug therapy; Z79.82 Long term (current) use of aspirin; Z79.4 Long term (current) use of insulin
CPT/HCPCS: 11042; 87070; 87075; 87077; 87186; 87205; 99213; G0463

== ENCOUNTER 2019-07-05 12:01 | Emergency (ER) | payer MEDICARE, MEDICAID, SELFPAY ==
[2019-07-02 11:35] VITALS: BMI 43.9
[2019-07-05] VITALS (12 sets, daily range): BP systolic 93–140; BP diastolic 61–75; PULSE 83–96; RESP 20–27; TEMP 36.6–36.8; O2SAT 87–95; BMI 44.6
--- NOTE | 2019-07-05 12:25 | EKG12_ITS ---
Test Reason : SOB Blood Pressure : / mmHG Vent. Rate : 088 BPM Atrial Rate : 088 BPM P-R Int : 150 ms QRS Dur : 070 ms QT Int : 354 ms P-R-T Axes : 072 193 078 degrees QTc Int : 428 ms Normal sinus rhythm Right superior axis deviation Abnormal ECG Confirmed by SHAJI SAWYER ([id number]), assignment editor PIERRE PINZON ([id number]) on 07/10/2019 9:19:37 AM Referred By: Confirmed By:SHAJI SAWYER
[2019-07-05 12:35] LABS: Absolute Lymphocyte Count 0.78 X10^3/uL (0.83-4.51); Absolute Neutrophil Count 5.7 X10^3/uL (2.0-7.7); Basophil# 0.06 X10^3/uL; Basophil% 0.8 % (0-1); Eosinophil# 0.06 X10^3/uL; Eosinophils% 0.8 % (0-5); Hemoglobin 17.7 g/dL (12.0-15.0); Lymphocyte # 0.78 X10^3/ul (4.0); Lymphocyte % 10.7 % (19-41); Mean Corp Hgb Conc 31.1 g/dL (32-36); Mean Corpuscular Hgb 25.8 pg (27.0-32.0); Mean Corpuscular Volume 82.9 fL (81-99); Mean Platelet Vol. 9.6 fl (6.2-12.0); Monocyte# 0.65 X10^3/uL; Monocyte% 8.9 % (0-10); NRBC Flagged by Analyzer 0 % (0-5); Neutrophil # 5.67 X10^3/uL (2.7-7.7); Platelet Count 204 K/mm3 (150-450); RBC Distribution Width CV 18.1 % (11.6-14.6); Red Blood Count 6.86 M/mm3 (4.2-5.4); White Blood Count 7.3 K/mm3 (4.4-11.0)
[2019-07-05] MEDS: 0.9% Normal Saline 1,000 ML 999 ML IV (12:38)
[2019-07-05] MEDS: Acetaminophen 500 MG Tablet 1000 MG PO (12:38)
[2019-07-05] MEDS: Ipratropium/Albuterol Sulfate 3 ML AMPUL.NEB INHALATION (12:44)
[2019-07-05 12:49] LABS: ALB/GLOB Ratio 0.7 RATIO (0.9-2.4); AST(SGOT) 19 U/L (15-37); Alanine Aminotransfer ALT/SGPT 18 U/L (13-56); Albumin, Serum 3.2 g/dL (3.2-5.0); Alkaline Phosphatase 131 U/L (45-117); Anion Gap 5 (5-15); BUN 26 mg/dL (7-18); BUN/Creat Ratio 21.1 RATIO (10-20); Calcium,Total 9.1 mg/dL (8.5-10.1); Chloride 94 mmol/L (98-107); Creatinine, Serum 1.23 mg/dL (0.55-1.02); EST Glomerular Filtration Rate 48 mL/min (>60); Est Glom Filt Rate - Afr Amer 58 mL/min (>60); Globulin 4.6 g/dL (2.2-4.2); Glucose 317 mg/dL (74-106); Protein, Total 7.8 g/dL (6.4-8.2); Sodium Level 133 mmol/L (136-145)
[2019-07-05] MEDS: Albuterol 2.5 MG/3 ML VIAL.NEB. INHALATION ×3 (12:51→13:03)
--- NOTE | 2019-07-05 12:52 | NURSING ---
NO OLD EKGS
[2019-07-05 13:01] LABS: Hematocrit 56.9 % (37-47)
--- NOTE | 2019-07-05 13:01 | ED.RN ---
LAB CALLED [facility] OF 2.0 DR ZACARIAS
--- NOTE | 2019-07-05 13:15 | RAD_ITS ---
STUDY: X-RAY CHEST REASON FOR EXAM: Female, 54 years old. DYSPNEA/SOB AND COUGH. TECHNIQUE: AP COMPARISON: 03/10/2017 FINDINGS: EKG leads project over the chest. The lungs are clear and expanded. There is no demonstrated pleural abnormality. Normal size heart. Normal mediastinum and quirino. Normal visualized pulmonary arteries. Normal visualized aortic arch and descending thoracic aorta. There are diffuse degenerative changes of the visualized thoracic spine. There is an old left rib fracture (initially evident on 06/15/2016 rib X-ray). There is no demonstrated abnormality of the visualized soft tissue structures of the upper abdomen. RAD/Chest 1 View (Portable) IMPRESSION: No airspace consolidation or pleural effusion. Stable exam. Electronically Signed: Tomy Kirkland MD ([place]) at 13:46 EDT , Service support ,
--- NOTE | 2019-07-05 13:17 | ED.DCSUM_ITS ---
History of Present Illness Informant: Patient, EMS Onset: Yesterday Activity at onset: Exertion, Light Activity Timing: Continuous Quality: Dyspnea on exertion, Wheezing Current Severity: Severe Maximum Severity: Severe Worsened by: Coughing, Exertion Relieved by: Albuterol, Oxygen Associated Symptoms: Cough, Green sputum, Post-nasal drainage, Rhinorrhea, Sore throat, Yellow sputum. Negative for: Bloody Sputum, Chills, Clear sputum, Ear pain, Fever, Sweats, White sputum Chest Pain: None Narrative: 54-year-old female history of COPD presents to the emergency department with progressively worsening shortness of breath over the last 24 hours. Productive cough with green and yellow sputum as well as wheezing with dyspnea on exertion. No chest pain or fever or hemoptysis. No vomiting or diarrhea. She is not lightheaded or dizzy. No leg pain or swelling. She uses an albuterol inhaler but did not have improvement with this. She does not have a nebulizer. She was recently admitted here last month for a diabetic ulcer on her foot is not currently on antibiotics and when she was in the hospital she was using oxygen at night only but is not on oxygen at home. She has an upcoming appoint with pulmonology PE Risk Factors: Recent immobilization. Negative for: Cancer, OCP + Smoking + > 35, Prior DVT or PE, Recent surgery, Recent travel Prior similar symptoms: Yes Recent Illness/Hospitalization: No <Ron Avila - Last Filed: 07/05/19 13:57> <Mason Diaz - Last Filed: 07/05/19 14:17> Chief Complaint: Shortness of Breath Past Medical History Prior records reviewed: Yes Past Medical History: - - COPD, hypertension, hyperlipidemia, insulin-dependent diabetes Surgical History: dilatation and curettage, - - Tubal ligation, bladder sling, umbilical hernia Lives: With Family Smoking Status: Current every day smoker Alcohol: None Drugs: None - Family History Maternal Family History: Family History (Last Reviewed 06/20/18 @ 12:28 by Ann Licea) Father Heart disease Parkinsons Hypertension Diabetes Mother Heart disease Kidney disease Thyroid disorder High cholesterol Hypertension Diabetes Brother Hypertension Diabetes Chronic bronchitis Asthma Seasonal allergies Grandfather CVA (cerebral vascular accident) Heart disease Hypertension Diabetes Grandmother Diabetes Throat cancer Arthritis Rheumatoid arthritis Osteoarthritis Hypertension Unknown Asthma Diabetes Alcoholism Arthritis Family History: Reports: Cancer, Diabetes, Hypertension, Renal Disease, Stroke, - - Thyroid, kidney disease Paternal Family History: Family History (Last Reviewed 06/20/18 @ 12:28 by Ann Licea) Father Heart disease Parkinsons Hypertension Diabetes Mother Heart disease Kidney disease Thyroid disorder High cholesterol Hypertension Diabetes Brother Hypertension Diabetes Chronic bronchitis Asthma Seasonal allergies Grandfather CVA (cerebral vascular accident) Heart disease Hypertension Diabetes Grandmother Diabetes Throat cancer Arthritis Rheumatoid arthritis Osteoarthritis Hypertension Unknown Asthma Diabetes Alcoholism Arthritis Family History: Reports: Diabetes, Heart Disease, Hypertension Sibling Family History: Family History (Last Reviewed 06/20/18 @ 12:28 by Ann Licea) Father Heart disease Parkinsons Hypertension Diabetes Mother Heart disease Kidney disease Thyroid disorder High cholesterol Hypertension Diabetes Brother Hypertension Diabetes Chronic bronchitis Asthma Seasonal allergies Grandfather CVA (cerebral vascular accident) Heart disease Hypertension Diabetes Grandmother Diabetes Throat cancer Arthritis Rheumatoid arthritis Osteoarthritis Hypertension Unknown Asthma Diabetes Alcoholism Arthritis Family History: Reports: Diabetes, Hypertension <Ron Avila - Last Filed: 07/05/19 13:57> - Family History Maternal Family History: Family History (Last Reviewed 06/20/18 @ 12:28 by Ann Licea) Father Heart disease Parkinsons Hypertension Diabetes Mother Heart disease Kidney disease Thyroid disorder High cholesterol Hypertension Diabetes Brother Hypertension Diabetes Chronic bronchitis Asthma Seasonal allergies Grandfather CVA (cerebral vascular accident) Heart disease Hypertension Diabetes Grandmother Diabetes Throat cancer Arthritis Rheumatoid arthritis Osteoarthritis Hypertension Unknown Asthma Diabetes Alcoholism Arthritis Paternal Family History: Family History (Last Reviewed 06/20/18 @ 12:28 by Ann Licea) Father Heart disease Parkinsons Hypertension Diabetes Mother Heart disease Kidney disease Thyroid disorder High cholesterol Hypertension Diabetes Brother Hypertension Diabetes Chronic bronchitis Asthma Seasonal allergies Grandfather CVA (cerebral vascular accident) Heart disease Hypertension Diabetes Grandmother Diabetes Throat cancer Arthritis Rheumatoid arthritis Osteoarthritis Hypertension Unknown Asthma Diabetes Alcoholism Arthritis Sibling Family History: Family History (Last Reviewed 06/20/18 @ 12:28 by Ann Licea) Father Heart disease Parkinsons Hypertension Diabetes Mother Heart disease Kidney disease Thyroid disorder High cholesterol Hypertension Diabetes Brother Hypertension Diabetes Chronic bronchitis Asthma Seasonal allergies Grandfather CVA (cerebral vascular accident) Heart disease Hypertension Diabetes Grandmother Diabetes Throat cancer Arthritis Rheumatoid arthritis Osteoarthritis Hypertension Unknown Asthma Diabetes Alcoholism Arthritis <Mason Diaz - Last Filed: 07/05/19 14:17> - Allergies and Home Meds Allergies/Adverse Reactions: Allergies Sulfa (Sulfonamide Antibiotics) Allergy (Verified 06/09/19 15:59) Hives Primary Care Physician: Rafael Londono DO [STAFF PHYSICIAN] - 2 Days Richar Galvez MD [Primary Care Provider] - Review of Systems All systems negative except as indicated General: Denies: Chills, Fever Eyes: Denies: Visual changes - bilaterally, Blurred Vision - bilaterally, Diplopia ENT: Reports: Rhinorrhea, Sore throat Cardiovascular: Denies: Chest pain, Palpitations, Heart racing Respiratory: Reports: Dyspnea, Cough, Sputum, Dyspnea on exertion. Denies: Orthopnea, Paroxysmal nocturnal dyspnea Gastrointestinal: Denies: Abdominal pain, Nausea, Vomiting, Diarrhea Genitourinary: Denies: Dysuria, Hematuria, Frequency Musculoskeletal: Denies: Swelling, Extremity Pain Skin: Reports: Wounds. Denies: Rash, Abscess, Abrasions Neurological: Denies: Headache, Weakness, Parasthesia <Ron Avila - Last Filed: 07/05/19 13:57> Physical Exam Vital Signs/Narrative: Vital Signs Temp Pulse Resp BP Pulse Ox 07/05/19 13:03 90 22 H 07/05/19 12:52 91 24 H 07/05/19 12:45 90 22 H 07/05/19 12:31 89 24 H 127/70 H 94 07/05/19 12:06 98.1 F 94 27 H 93/75 87 07/05/19 12:02 98.1 F 96 27 H 93/75 89 Inital Vital Signs reviewed: Yes General: Well nourished, Well developed, Obese, No Acute Distress Head: Normocephalic, Atraumatic Eyes: Perrl, EOMI ENT: Moist mucous membranes, TM's clear, Nasal congestion. Negative for: Sinus tenderness Neck: Supple, Nontender, No lymphadenopathy, No JVD Cardiovascular: Regular rate, Regular rhythm, No murmurs Respiratory: No distress, Chest nontender, Wheezing, Diminished, Decreased Air Movement Abdomen: Soft, Nontender, Nondistended, Normal bowel sounds, No masses Back: Nontender, Normal Inspection Extremities: Nontender, No edema Skin: Normal color, No rash, No Trauma Neurological: Alert, Oriented x3 Psychological: Normal affect, Normal Mood <Ron Avila Last Filed: 07/05/19 13:57> Vital Signs/Narrative: Vital Signs Temp Pulse Resp BP Pulse Ox 07/05/19 13:25 98.2 F 89 27 H 131/72 H 94 07/05/19 13:24 98.2 F 07/05/19 13:22 98.2 F 88 26 H 131/72 H 94 07/05/19 13:03 90 22 H 07/05/19 12:52 91 24 H 07/05/19 12:45 90 22 H 07/05/19 12:31 89 24 H 127/70 H 94 07/05/19 12:06 98.1 F 94 27 H 93/75 87 07/05/19 12:02 98.1 F 96 27 H 93/75 89 <Mason Diaz - Last Filed: 07/05/19 14:17> Diagnostic/Tx/Re-eval Chest X-Ray - ED: 1 View, Read by ED Physician, Read by Radiologist, No Acute Disease, Chronic Changes - Rhythm Strip Rhythm Strip: Sinus Rhythm Rate: 90 Ectopy: None - EKG Initial EKG Interpretation: Sinus Rhythm, No Acute Injury Pattern Treatment - Dyspnea: Oxygen, Albuterol, Atrovent Repeat Evaluation: Improved - Medical Decision Making On arrival EKG was sinus rhythm no signs of ischemic changes were noted patient was given aerosols. Laboratory work-up including CBC, BMP, PT/INR was unremarkable and lactic acid was 2.0. Influenza testing was negative. Chest x-ray showed chronic changes without any acute abnormality. Dr. Londono was contacted for pulmonology recommended that we send off a respiratory panel for the patient and that he will follow-up with the patient for the results when she calls the office on Sunday but the patient was advised to self quarantine herself until she calls Dr. Londono's office for the results of the panel. In the meantime we will start her on Levaquin. We will not use prednisone due to her poorly controlled diabetes. She states that she feels well currently her vital signs are stable she is not requiring oxygen at this time and is comfortable with her plan of discharge home <Ron Avila - Last Filed: 07/05/19 13:57> - Medical Decision Making Seen with Ron HUI agree with the above history and physical Patient has COPD complains of cough and shortness of breath, we are currently in the midst of the national emergency coronavirus, she has no risk factors based on flow sheets, a harsh cough chief complaint schedule see pulmonary this week, she is otherwise doing fine at home, her physical exam she has some rhonchi heart tones unremarkable abdomen soft nontender she is awake alert feeling better after aerosols, Did speak with pulmonary related to general management of these patients given the coronavirus National emergency, the recommendation was to obtain the mol ecular viral swab as well as flu swab patient was stable and desired home management started on Levaquin with follow-up in the office Sunday and to self quarantine discussed these options with the patient she preferred discharge home and will follow the plan outlined by pulmonary earlier today <Mason Diaz - Last Filed: 07/05/19 14:17> ED Disposition <Ron Avila - Last Filed: 07/05/19 13:57> <Mason Diaz - Last Filed: 07/05/19 14:17> - Plan for ED Patient: Disposition: Home or Assisted Living Diagnosis: COPD with exacerbation Instructions: Copd Flare Prescriptions: Levofloxacin [Levaquin] 750 mg PO DAILY #4 tab Prescription Printed Referrals: Richar Galvez MD [Primary Care Provider] - Rafael Londono DO [STAFF PHYSICIAN] - 2 Days
[2019-07-05 13:38] LABS: Prothrombin Time (Protime)PT. 13.3 SECONDS (11.7-14.9)
[2019-07-05 13:39] LABS: Partial Thromboplast Time 26.5 Seconds (24.1-36.2)
[2019-07-05] MEDS: levoFLOXacin 750 MG Tablet PO (14:10)
[2019-07-05 16:31] LABS: Reflex Lactate? Y
== END 2019-07-05 14:56 | disposition home or self-care (01) ==
PROVIDERS: Emergency Provider Physician Assistant Medical; PCP Family Medicine
DX: J44.1 Chronic obstructive pulmonary disease with (acute) exacerbation (principal); E11.621 Type 2 diabetes mellitus with foot ulcer; I10 Essential (primary) hypertension; F17.200 Nicotine dependence, unspecified, uncomplicated; Z79.4 Long term (current) use of insulin
CPT/HCPCS: 36415; 71045; 80053; 83605; 85025; 85610; 85730; 87040; 87804; 93005; 94640; 96360; 96361; 99251; 99285; J7030; A4216; G0463

== ENCOUNTER → 2019-07-17 14:02 | Outpatient (CLI) | payer MEDICARE, MEDICAID, SELFPAY ==
[2019-07-17 13:12] VITALS: BMI 43.6
[2019-07-17 17:24] LABS: T4 Free Direct 1.16 ng/dL (0.76-1.46)
== END ==
PROVIDERS: PCP Family Medicine; Visit Provider Internal Medicine Endocrinology, Diabetes & Metabolism
DX: E03.9 Hypothyroidism, unspecified (principal); E11.621 Type 2 diabetes mellitus with foot ulcer; L97.519 Non-pressure chronic ulcer of other part of right foot with unspecified severity
CPT/HCPCS: 36415; 84439; 84443

== ENCOUNTER 2019-07-18 08:00 | Outpatient (RCR) | payer MEDICARE, MEDICAID, SELFPAY ==
[2019-06-22 01:06] VITALS: BP 126/68; PULSE 87; RESP 16; TEMP 36.6; BMI 43.9
--- NOTE | 2019-06-24 12:54 | ART_ITS ---
Reason For Study: PVD Procedure A bilateral lower extremity continuous wave Doppler with analog waveform analysis,segmental pressures,and ankle brachial indexes without exercise. Left Segmental Pressures Left brachial= 124mmHg. Left posterior tibial artery = 128mmHg. Left dorsalis pedis artery = 142mmHg. Left digit = 107 mmHg. The left dorsalis pedis waveforms are triphasic. The left posterior tibial artery waveforms are triphasic. Right Segmental Pressures Right brachial= 123mmHg. Right posterior tibial artery = 130mmHg. Right dorsalis pedis artery = 136mmHg. Right digit = 98 mmHg. The right dorsalis pedis waveforms are triphasic. The right posterior tibial artery waveforms are triphasic. Indices The right ankle brachial index by the dorsalis pedis is 1.10. The right ankle brachial index by the posterior tibial artery is 1.05. The right digital-brachial index is 0.79. The left ankle brachial index by the dorsalis pedis is 1.15. The left ankle brachial index by the posterior tibial artery is 1.03. The left digital-brachial index is 0.86. Interpretation Summary Triphasic Doppler waveforms are noted at ankle level bilaterally. Pulse-volume recording waveform amplitudes are slightly diminished at digital level bilaterally, but otherwise satisfactory at all other levels. Resting ankle-brachial indices are normal bilaterally. Digital-brachial indices are normal bilaterally. There is no evidence of significant arterial occlusive disease in the lower extremities bilaterally. Ordering Physician: María Flores Referring Physician: Richar Galvez Performed By: Myla Bajwa RVT
[2019-06-27 08:07] VITALS: BP 121/61; PULSE 91; RESP 16; TEMP 35.5; BMI 43.9
--- NOTE | 2019-06-27 11:41 | PCM.WC.PN ---
(1) Diabetic ulcer of right foot Status: Chronic Current Visit: Yes Qualifiers: Diabetic foot ulcer location: toe Diabetes mellitus type: type 2 Non-pressure ulcer stage: with fat layer exposed Qualified Code(s): E11.621 - Type 2 diabetes mellitus with foot ulcer; L97.512 - Non-pressure chronic ulcer of other part of right foot with fat layer exposed Code(s): E11.621 - Type 2 diabetes mellitus with foot ulcer; L97.519 - Non-pressure chronic ulcer of other part of right foot with unspecified severity (2) Diabetic ulcer of right foot associated with type 2 diabetes mellitus Status: Chronic Current Visit: Yes Qualifiers: Diabetic foot ulcer location: midfoot Non-pressure ulcer stage: with fat layer exposed Qualified Code(s): E11.621 - Type 2 diabetes mellitus with foot ulcer; L97.412 - Non-pressure chronic ulcer of right heel and midfoot with fat layer exposed Code(s): E11.621 - Type 2 diabetes mellitus with foot ulcer; L97.519 - Non-pressure chronic ulcer of other part of right foot with unspecified severity (3) Diabetic neuropathy Status: Chronic Current Visit: Yes Qualifiers: Diabetes mellitus type: type 2 Code(s): E11.40 - Type 2 diabetes mellitus with diabetic neuropathy, unspecified (4) Non-healing ulcer of foot with fat layer exposed Status: Chronic Current Visit: Yes Qualifiers: Laterality: right Code(s): L97.502 - Non-pressure chronic ulcer of other part of unspecified foot with fat layer exposed (5) Essential (primary) hypertension Status: Chronic Current Visit: No Code(s): I10 - Essential (primary) hypertension (6) Hypothyroidism Status: Chronic Current Visit: No Qualifiers: Code(s): E03.9 - Hypothyroidism, unspecified Comment: Continues on levothyroxine 100 mcg daily. Takes as directed. Denies any s/s of hypothyroidism. (7) Morbid obesity with BMI of 40.0-44.9, adult Status: Chronic Current Visit: No Code(s): E66.01 - Morbid (severe) obesity due to excess calories; Z68.41 - Body mass index (BMI) 40.0-44.9, adult (8) Rheumatoid arthritis Status: Chronic Current Visit: No Code(s): M06.9 - Rheumatoid arthritis, unspecified (9) SLE (systemic lupus erythematosus) Status: Chronic Current Visit: No Qualifiers: Code(s): M32.9 - Systemic lupus erythematosus, unspecified (10) Tobacco dependence due to cigarettes Status: Chronic Current Visit: Yes Code(s): F17.210 - Nicotine dependence, cigarettes, uncomplicated (11) Diabetic foot infection Status: Resolved Current Visit: No Code(s): E11.628 - Type 2 diabetes mellitus with other skin complications; L08.9 - Local infection of the skin and subcutaneous tissue, unspecified Type of Wound Date of Service: 06/27/19 Chief Complaint: Right foot wounds History of Wound: Patient is a pleasant 53-year-old female who [facility] for evaluation and treatment of wounds to her right foot. About 2 weeks ago, she believes that she stepped on a hot cigarette butt, causing a wound on her right plantar arch. A few days later she visited her trolley coach driver, Dr. Estrada, and cultures were collected. She was started on Levaquin and Augmentin, and has a few days left of these antibiotics. She was instructed to use Pretty to her right foot wound, and cover with gauze. She has been doing daily dressing changes with Pretty. She also has a diabetic foot ulcer on her right dorsal fifth metatarsal, and is unsure how long this has been present. She is also using Pretty to this DFU. She denies any pain with her foot wounds, due to her diabetic neuropathy. She denies any increasing redness, swelling, or drainage. She denies any foul-smelling or purulent drainage. She reports having a fever before her antibiotics were started, but it has since resolved. She denies any nausea, vomiting, or diarrhea. Patient wears diabetic shoes, and has an offloading boot for her right foot which she sometimes wears. She reports walking barefoot in home. She also reports frequently sleeping in a chair without her feet elevated. Patient has a significant past medical history of tobacco dependence, smoking 1 pack/day. She is also a type II diabetic, with poor glycemic control. She has extensive peripheral neuropathy. She also has comorbidities of hypertension, rheumatoid arthritis, lupus, and morbid obesity with a BMI of 44.6. She sees Dr. Verdugo as her primary care provider. She denies any recent lab work. She has not had any x-rays of her right foot since these wounds developed, and has not had any recent vascular studies completed. Progress of Wound: Patient has been compliant with Santyl dressing changes. No clinical signs or symptoms of infection today. The patient denies any fever, chills, nausea, vomiting, or diarrhea. She does not a moderate amount of clear, watery drainage from right plantar foot ulcer. Denies any increasing pain, redness, swelling, or purulent/foul-smelling drainage from affected area. She has not been compliant with use of offloading boot at all times when ambulating. She reports her apartment is too small for her to wear offloading boot while inside. She does report she is keeping her foot covered with socks and diabetic shoes. She reports she has been attempting to cut back on cigarette smoking with some success. On 06/10/2019, I contacted patient with the results of her wound cultures collected 06/03/2019, as follows: Right plantar foot positive for 1+ Streptococcus gallolyticus pas, rare Staphylococcus aureus, and anaerobic cocci. Right toe positive for very rare Staphylococcus aureus, and growth of Enterococcus faecalis. Given these positive results, and the clinical presentation of patient's wounds demonstrating purulent and malodorous drainage when last evaluated in the wound clinic, I consulted with collaborating physician, Dr. Bonilla, to discuss appropriate interventions. Patient was sent to the emergency room for evaluation and treatment. She was admitted to inpatient care and given a dose of Unasyn in the ER, followed by IV vancomycin. ID and podiatry (Dr. Estrada) were consulted, and it was felt that the positive cultures were indicative of colonization. Antibiotics were discontinued and patient was discharged home. Dr. Estrada ordered arterial studies for patient to complete outpatient--these have not yet been done. She reports feeling much better since her hospitalization. She reports the swelling in her bilateral legs has decreased. Patient's right foot x-ray (06/05/2019) demonstrated the following: Soft tissue swelling, no acute osseous changes. Patient's recent labs showed the following: A1c 10.8%, ESR 26, WBC 7.3, creatinine 1.16 (06/05/2019) down to 0.83 (06/10/2019), prealbumin 23.4. Please see lab reports in chart for full details. Patient had arterial studies completed on 06/24/2019. Arterial studies showed the following: Right CHRISTELLE (DP) 1.10, (PT) 1.05. Right DBI 0.79. Left CHRISTELLE (DP) 1.15, (PT) 1.03. Left TBI 0.86. Triphasic Doppler waveforms noted at ankle level bilaterally. Pulse volume recording waveform amplitudes are slightly diminished at digital level bilaterally, but otherwise satisfactory at all other levels. No evidence of significant arterial occlusive disease in bilateral lower extremities. (See report for full details.) - Physical Exam Vital Signs Temp Pulse Resp BP 96 F L 91 16 121/61 H 06/27/19 08:07 06/27/19 08:07 06/27/19 08:07 06/27/19 08:07 General: Alert, Oriented x3, Cooperative, No apparent distress HEENT: Atraumatic, Normocephalic Oral: Moist Mucosa Neck: Supple, No JVD, Trachea Midline Lungs: Normal air movement Cardiovascular: Regular rate Abdomen: Obese Extremities: No cyanosis, Capillary Refill Less than 3 Seconds, Clubbing, Diminished Peripheral Pulses, Edema - Trace edema in bilateral lower extremities Skin: Ulcer/ Wound - Ulcer of right plantar foot with subcutaneous layer exposed, moderate amount of slough and devitalized tissue present; undermining has resolved, see measurements. No tunneling or probing to bone. No purulent or malodorous drainage. No shraddha-ulcer erythema or swelling. Nontender to debridement. DFU of right dorsal fifth metatarsal with subcutaneous layer exposed, no tunneling, undermining, or probing to bone. No purulent or malodorous drainage, no shraddha-ulcer erythema, no shraddha-ulcer swelling, no tenderness on debridement. Venous stasis dermatitis of bilateral lower extremities present, as well as absence of hair on bilateral lower extremities below the knee. Wound Measurements and Assessment WC - Nurse 1 - General Ulcer Measurement Start: 06/27/19 08:07 Freq: Status: Active Protocol: Activity Type Activity Date Activity User E-Sign Co-Sign Detail Recorded Client Recorded Date Recorded By Document 06/27/19 08:07 [facility] [id number] 06/27/19 08:11 [facility] 06/27/19 08:07 W[facility] Center Nurse 1 [Ulcer Assessment] 4-right dorsal 5th metatarsal -Combined with other wound No -Current Size (cm) - Length 0.7 -Current Size (cm) - Width 0.5 -Current Size (cm) - Depth 0.1 -Total Square Cm 0.35 -Photo Taken No -Epithelialization None Present -Tunneling No -Undermining/Tunneling No -Circular Undermining No -Exudate Amt None Present -Wound Margin Flat & Intact -Granulation Amt None Present (0 %) -Slough/Fibrin Yes -Necrosis Amt Large (67-100%) -Necrotic Tissue Type Adherent Slough -Texture (Shraddha-wound Skin Appearance) Assessed, Scarring -Moisture (Shraddha-wound Skin Appearance Assessed,Dry/ ) Scaly -Color (Shraddha-wound Skin Appearance) Assessed -Temperature (Shraddha-wound Skin No Abnormality Appearance) (Pt Warm) -Tenderness on Palpation (Shraddha-wound No Skin Appearance) -Ulcer Cleansing Rinsed/ Irrigated with Saline -Foul Odor after Cleansing No -Anesthetic Used 5% Lidocaine Gel 3-right plantar foot -Combined with other wound No -Current Size (cm) - Length 2 -Current Size (cm) - Width 2.7 -Current Size (cm) - Depth 0.3 -Total Square Cm 5.4 -Photo Taken No -Epithelialization None Present -Tunneling No -Undermining/Tunneling No -Circular Undermining No -Exudate Amt Small -Exudate Type Serosanguineous -Wound Margin Distinct, Outline Attached -Granulation Amt Large (67-100%) -Granulation Quality Pale,[place] -Slough/Fibrin Yes -Necrosis Amt Small (1-33%) -Necrotic Tissue Type Adherent Slough -Texture (Shraddha-wound Skin Appearance) Assessed,Callus ,Scarring -Moisture (Shraddha-wound Skin Appearance Assessed,Dry/ ) Scaly -Color (Shraddha-wound Skin Appearance) Assessed -Temperature (Shraddha-wound Skin No Abnormality Appearance) (Pt Warm) -Tenderness on Palpation (Shraddha-wound No Skin Appearance) -Ulcer Cleansing Rinsed/ Irrigated with Saline -Foul Odor after Cleansing No -Anesthetic Used 5% Lidocaine Gel [Edema Assessment] -Lower Limb Edema Present Yes -Right Calf (cm) 37.5 -Right Ankle (cm) 23.2 WC - Nurse 2 - General Ulcer CM Notes Start: 06/27/19 08:07 Freq: Status: Active Protocol: Activity Type Activity Date Activity User E-Sign Co-Sign Detail Recorded Client Recorded Date Recorded By Document 06/27/19 08:22 DV [id number] 06/27/19 08:30 DV 06/27/19 08:22 Wound Center Nurse 2 [Procedure/Treatment] 4-right dorsal 5th metatarsal -Time 08:23 -Correct Patient Yes -Correct Side, Site, Position Yes -Correct Procedure Yes -Procedure Performed Yes -Type of Procedure Debridement -Clinical Debridement Subcutaneous -Post Debridement Size (cm) - Length 0.5 -Post Debridement Size (cm) - Width 0.2 -Post Debridement Size (cm) - Depth 0.1 -Total Square Cm 0.10 -Wound/Ulcer Outcome Not Healed -Ulcer Cleansing Rinsed/ Irrigated with Saline -Foul Odor after Cleansing No -Bioengineered Tissue No -Bleeding Controlled with Pressure -Offloading No -Treatment Response Procedure Tolerated Well 3-right plantar foot -Time 08:24 -Correct Patient Yes -Correct Side, Site, Position Yes -Correct Procedure Yes -Procedure Performed Yes -Type of Procedure Debridement -Clinical Debridement Subcutaneous -Post Debridement Size (cm) - Length 2.2 -Post Debridement Size (cm) - Width 2.5 -Post Debridement Size (cm) - Depth 0.5 -Total Square Cm 5.50 -Wound/Ulcer Outcome Not Healed -Ulcer Cleansing Rinsed/ Irrigated with Saline -Foul Odor after Cleansing No -Bioengineered Tissue No -Bleeding Controlled with Pressure -Offloading No -Treatment Response Procedure Tolerated Well [See Physician Procedure note for Specifics] Pain Scale: 0-10 Numeric [Pain] -Is Patient Pain Free? Yes Musculoskeletal: Muscle Wasting Neurological: Cranial nerves II-XII grossly intact Psych/Mental Status: Normal Affect, Appropriate Debridement Note Post-Debridement Measurements/Treatment WC - Nurse 2 - General Ulcer CM Notes Start: 06/27/19 08:07 Freq: Status: Active Protocol: Activity Type Activity Date Activity User E-Sign Co-Sign Detail Recorded Client Recorded Date Recorded By Document 06/27/19 08:22 DV [id number] 06/27/19 08:30 DV 06/27/19 08:22 Wound Center Nurse 2 4-right dorsal 5th metatarsal -Time 08:23 -Correct Patient Yes -Correct Side, Site, Position Yes -Correct Procedure Yes -Procedure Performed Yes -Type of Procedure Debridement -Clinical Debridement Subcutaneous -Post Debridement Size (cm) - Length 0.5 -Post Debridement Size (cm) - Width 0.2 -Post Debridement Size (cm) - Depth 0.1 -Total Square Cm 0.10 -Wound/Ulcer Outcome Not Healed -Ulcer Cleansing Rinsed/ Irrigated with Saline -Foul Odor after Cleansing No -Bioengineered Tissue No -Bleeding Controlled with Pressure -Offloading No -Treatment Response Procedure Tolerated Well 3-right plantar foot -Time 08:24 -Correct Patient Yes -Correct Side, Site, Position Yes -Correct Procedure Yes -Procedure Performed Yes -Type of Procedure Debridement -Clinical Debridement Subcutaneous -Post Debridement Size (cm) - Length 2.2 -Post Debridement Size (cm) - Width 2.5 -Post Debridement Size (cm) - Depth 0.5 -Total Square Cm 5.50 -Wound/Ulcer Outcome Not Healed -Ulcer Cleansing Rinsed/ Irrigated with Saline -Foul Odor after Cleansing No -Bioengineered Tissue No -Bleeding Controlled with Pressure -Offloading No -Treatment Response Procedure Tolerated Well Pain Scale: 0-10 Numeric Is Patient Pain Free? Yes Wound debrided: Right dorsal fifth metatarsal Laterality: Right Wound Grade/Stage: Grade 1 Type of Debridement: Excisional debridement Anesthesia Used: 5% Lidocaine Gel Depth: in the subcutaneous layer Percentage of wound debrided: 100 Instrument Used: 3mm curette Tissue Removed: Slough and devitalized tissue Severity: Fat Layer Exposed Amount of bleeding with debridement: Mild Bleeding Controlled with: Pressure Patient tolerated procedure well - Additional Wound Wound debrided: Right plantar foot Laterality: Right Wound Grade/Stage: Grade 1 Type of Debridement: Excisional debridement Anesthesia Used: 5% Lidocaine Gel Depth: in the subcutaneous layer Percentage of wound debrided: 100 Instrument Used: 7mm curette Tissue Removed: Slough and devitalized tissue Severity: Fat Layer Exposed Amount of bleeding with debridement: Mild Bleeding Controlled with: Pressure Patient tolerated procedure: Patient tolerated procedure well Assessment/Plan Active Problems (Last Reviewed 06/20/18 @ 12:28 by Ann Licea) Diabetic ulcer of right foot (Chronic) Non-healing ulcer of foot with fat layer exposed (Chronic) Tobacco dependence due to cigarettes (Chronic) Diabetic ulcer of right foot associated with type 2 diabetes mellitus (Chronic) Diabetic neuropathy (Chronic) Assessment: 1. Diabetic ulcer of right foot, chronic (right dorsal 5th metatarsal). 2. Diabetic ulcer of right foot, chronic (midfoot, plantar). 3. Diabetic foot infection, acute (right foot)--resolved. 4. Tobacco dependence due to cigarettes, chronic. 5. Morbid obesity, BMI 44.6, chronic. 6. T2DM with neurological manifestations, chronic. 7. Diabetic neuropathy, chronic Plan: Debridement performed today in clinic today as annotated above. Hydrogel applied today in clinic, and patient given instructions to change dressing and apply Santyl when she returns home. Patient is to continue with daily dressing changes using Santyl. May use moisturizing lotion such as Aquacel, Eucerin, or CeraVe to legs and feet, but do not use on ulcers. May continue to shower. Remove dressing prior to showering. Wash shraddha-ulcer areas with mild antibacterial soap, rinse well and pat dry. Apply clean dressing following shower. Do not soak or submerge right foot/ulcers. Avoid ambulating barefoot at home, wear offloading boot to right foot at all times when ambulating. Compression: Double Tubigrip applied today in office. Patient is to continue compression daily at home. Off-loading: Avoid prolonged standing or dangling of legs. Keep feet elevated at or above waist level when seated. Lay flat or with feet elevated while sleeping. Continue use of offloading boot to right foot. Diet: Patient encouraged to increase protein and vitamin C intake while taking caution to avoid high carbohydrate and/or sugar intake. Discussed importance of tight glycemic control. Patient has upcoming appointment with Dr. Ocasio (endocrinology). Discussed at length the importance of smoking cessation, and patient encouraged to follow-up with primary care provider if smoking cessation aids are desired. Patient reports she is successfully cutting back on smoking cigarettes. Further reduction/cessation encouraged. Labs/cultures/imaging: Wound cultures collected 06/03/2019: Right plantar foot positive for 1+ Streptococcus gallolyticus pas, rare Staphylococcus aureus, and anaerobic cocci. Right toe positive for very rare Staphylococcus aureus, and growth of Enterococcus faecalis. Patient sent to ER, given Unasyn x1 dose, and IV vancomycin. Consulted with ID and podiatry (Dr. Estrada), felt culture results were indicative of wound colonization. IV antibiotics were DC'd and patient discharged home.Patient's right foot x-ray (06/05/2019) demonstrated the following: Soft tissue swelling, no acute osseous changes. Patient's recent labs showed the following: A1c 10.8%, ESR 26, WBC 7.3, creatinine 1.16 (06/05/2019) down to 0.83 (06/10/2019), prealbumin 23.4. Please see lab reports in chart for full details. Patient had arterial studies completed on 06/24/2019. Arterial studies showed the following: Right CHRISTELLE (DP) 1.10, (PT) 1.05. Right DBI 0.79. Left CHRISTELLE (DP) 1.15, (PT) 1.03. Left TBI 0.86. Triphasic Doppler waveforms noted at ankle level bilaterally. Pulse volume recording waveform amplitudes are slightly diminished at digital level bilaterally, but otherwise satisfactory at all other levels. No evidence of significant arterial occlusive disease in bilateral lower extremities. (See report for full details.). Follow-up: Return to clinic in 1 week for re-evaluation. Return sooner or report to the emergency room should symptoms worsen, or new symptoms arise. Note: [employer] speech recognition diversified crops farmworker software was used to create portions of this document. Sound-alike and misspelled words, as well as other diversified crops farmworker errors may be contained in the documentation. [id number]: [id number] Teresa subq tissue 20 sq cm/<
[2019-07-02 11:35] VITALS: BP 145/75; PULSE 101; RESP 18; TEMP 35.7; BMI 43.9
--- NOTE | 2019-07-02 13:20 | PN.PCM_ITS ---
(1) Non-pressure chronic ulcer of other part of right foot with fat layer exposed Status: Chronic Code(s): L97.512 - Non-pressure chronic ulcer of other part of right foot with fat layer exposed (2) Tobacco dependence due to cigarettes Status: Chronic Code(s): F17.210 - Nicotine dependence, cigarettes, uncomplicated (3) Rheumatoid arthritis Status: Chronic Code(s): M06.9 - Rheumatoid arthritis, unspecified (4) Lupus Status: Chronic Code(s): M32.9 - Systemic lupus erythematosus, unspecified (5) Diabetic neuropathy Status: Chronic Qualifiers: Diabetes mellitus type: type 2 Code(s): E11.40 - Type 2 diabetes mellitus with diabetic neuropathy, unspecified Type of Wound Date of Service: 07/02/19 Chief Complaint: Right foot wounds History of Wound: Patient is a pleasant 53-year-old female who [facility] for evaluation and treatment of wounds to her right foot. About 2 weeks prior, she believes that she stepped on a hot cigarette butt, causing a wound on her right plantar arch. A few days later she visited her search engine optimization specialist, Dr. Estrada, and cultures were collected. She was sta rted on Levaquin and Augmentin, and has a few days left of these antibiotics. She was instructed to use Pretty to her right foot wound, and cover with gauze. She has been doing daily dressing changes with Pretty. She also has a diabetic foot ulcer on her right dorsal fifth metatarsal, and is unsure how long this has been present. She is also using Pretty to this DFU. She denies any pain with h er foot wounds, due to her diabetic neuropathy. She denies any increasing redness, swelling, or drainage. She denies any foul-smelling or purulent drainage. She denies any nausea, vomiting, or diarrhea. Patient wears diabetic shoes, and has an offloading boot for her right foot which she sometimes wears. She reports walking barefoot in home. She also reports frequently sleeping in a chair without her feet elevated. Patient has a significant past medical history of tobacco dependence, smoking 1 pack/day. She is also a type II diabetic, with poor glycemic control. She has extensive peripheral neuropathy. She also has comorbidities of hypertension, rheumatoid arthritis, lupus, and morbid obesity with a BMI of 44.6. She sees Dr. Verdugo as her primary care provider. She denies redness, odor, or purulent drainage. Progress of Wound: Improving - Physical Exam Vital Signs Temp Pulse Resp BP 96.2 F L 101 H 18 145/75 H 07/02/19 11:35 07/02/19 11:35 07/02/19 11:35 07/02/19 11:35 General: Alert, Oriented x3, Cooperative, No apparent distress Extremities: No cyanosis, Capillary Refill Less than 3 Seconds, No Calf Tenderness, Diminished Peripheral Pulses, Edema Skin: Ulcer/ Wound - No purulence, erythema, streaking, odor, infection. Medial arch ulcer site has a granular beefy red base. There is no exposed deep tissue. Wound Measurements and Assessment WC - Nurse 1 - General Ulcer Measurement Start: 06/27/19 08:07 Freq: Status: Active Protocol: Activity Type Activity Date Activity User E-Sign Co-Sign Detail Recorded Client Recorded Date Recorded By Document 07/02/19 11:35 RB [id number] 07/02/19 11:39 RB 07/02/19 11:35 Wound Center Nurse 1 [Ulcer Assessment] 4-right dorsal 5th metatarsal -Combined with other wound No -Current Size (cm) - Length 0.1 -Current Size (cm) - Width 0.1 -Current Size (cm) - Depth 0.1 -Total Square Cm 0.01 -Tunneling No -Undermining/Tunneling No -Circular Undermining No -Exudate Amt None Present -Wound Margin Flat & Intact -Granulation Amt None Present (0 %) -Slough/Fibrin Yes -Necrosis Amt Large (67-100%) -Necrotic Tissue Type Adherent Slough -Structure Exposed N/A -Texture (Shraddha-wound Skin Appearance) Assessed -Moisture (Shraddha-wound Skin Appearance Dry/Scaly ) -Color (Shraddha-wound Skin Appearance) Assessed -Temperature (Shraddha-wound Skin No Abnormality Appearance) (Pt Warm) -Tenderness on Palpation (Shraddha-wound No Skin Appearance) -Ulcer Cleansing Wound Cleanser -Foul Odor after Cleansing No -Anesthetic Used 5% Lidocaine Gel 3-right plantar foot -Combined with other wound No -Current Size (cm) - Length 1.9 -Current Size (cm) - Width 2 -Current Size (cm) - Depth 0.3 -Total Square Cm 3.8 -Tunneling No -Undermining/Tunneling No -Circular Undermining No -Exudate Amt Medium -Exudate Type Serosanguineous -Wound Margin Thickened -Granulation Amt Small (1-33%) -Granulation Quality Red -Slough/Fibrin Yes -Necrosis Amt Medium (34-66%) -Necrotic Tissue Type Adherent Slough -Structure Exposed N/A -Texture (Shraddha-wound Skin Appearance) Callus -Moisture (Shraddha-wound Skin Appearance Assessed,Dry/ ) Scaly -Color (Shraddha-wound Skin Appearance) Assessed -Temperature (Shraddha-wound Skin No Abnormality Appearance) (Pt Warm) -Tenderness on Palpation (Shraddha-wound No Skin Appearance) -Ulcer Cleansing Wound Cleanser -Foul Odor after Cleansing No -Anesthetic Used 5% Lidocaine Gel [Edema Assessment] -Lower Limb Edema Present Yes -Right Calf (cm) 36 -Right Ankle (cm) 21.5 WC - Nurse 2 - General Ulcer CM Notes Start: 06/27/19 08:07 Freq: Status: Active Protocol: Activity Type Activity Date Activity User E-Sign Co-Sign Detail Recorded Client Recorded Date Recorded By Document 07/02/19 11:54 [id number] 07/02/19 11:59 IMMANUEL 07/02/19 11:54 Wound Center Nurse 2 [Procedure/Treatment] 4-right dorsal 5th metatarsal -Time 11:54 -Correct Patient No -Correct Side, Site, Position No -Correct Procedure No -Procedure Performed No -Post Debridement Size (cm) - Length 0 -Post Debridement Size (cm) - Width 0 -Post Debridement Size (cm) - Depth 0 -Total Square Cm 0 -Wound/Ulcer Outcome Healed- Epithelialized -Ulcer Cleansing Rinsed/ Irrigated with Saline -Foul Odor after Cleansing No -Bioengineered Tissue No -Bleeding Controlled with Pressure -Offloading Yes -Type of Offloading Camwalker -Treatment Response Procedure Tolerated Well 3-right plantar foot -Time 11:55 -Correct Patient Yes -Correct Side, Site, Position Yes -Correct Procedure Yes -Procedure Performed Yes -Type of Procedure Debridement -Clinical Debridement Subcutaneous -Post Debridement Size (cm) - Length 2.0 -Post Debridement Size (cm) - Width 2 -Post Debridement Size (cm) - Depth 0.3 -Total Square Cm 4.0 -Wound/Ulcer Outcome Not Healed -Ulcer Cleansing Rinsed/ Irrigated with Saline -Foul Odor after Cleansing No -Bioengineered Tissue No -Bleeding Controlled with Pressure -Offloading Yes -Type of Offloading Camwalker -Treatment Response Procedure Tolerated Well [See Physician Procedure note for Specifics] Pain Scale: 0-10 Numeric [Pain] -Is Patient Pain Free? Yes Musculoskeletal: No Tenderness to Palpation of Joints or Extremities, Muscle Wasting Neurological: - - Lack of normal epicritic sensation to light touch with the foot Psych/Mental Status: Normal Affect, Appropriate Debridement Note Post-Debridement Measurements/Treatment WC - Nurse 2 - General Ulcer CM Notes Start: 06/27/19 08:07 Freq: Status: Active Protocol: Activity Type Activity Date Activity User E-Sign Co-Sign Detail Recorded Client Recorded Date Recorded By Document 06/27/19 08:22 ALISE [id number] 06/27/19 08:30 DV Document 07/02/19 11:54 IMMANUEL [id number] 07/02/19 11:59 06/27/19 07/02/19 08:22 11:54 Wound Center Nurse 2 4-right dorsal 5th metatarsal -Time 08:23 11:54 -Correct Patient Yes No -Correct Side, Site, Position Yes No -Correct Procedure Yes No -Procedure Performed Yes No -Type of Procedure Debridement -Clinical Debridement Subcutaneous -Post Debridement Size (cm) - Length 0.5 0 -Post Debridement Size (cm) - Width 0.2 0 -Post Debridement Size (cm) - Depth 0.1 0 -Total Square Cm 0.10 0 -Wound/Ulcer Outcome Not Healed Healed- Epithelialized -Ulcer Cleansing Rinsed/ Rinsed/ Irrigated with Irrigated with Saline Saline -Foul Odor after Cleansing No No -Bioengineered Tissue No No -Bleeding Controlled with Pressure Pressure -Offloading No Yes -Type of Offloading Camwalker -Treatment Response Procedure Procedure Tolerated Well Tolerated Well 3-right plantar foot -Time 08:24 11:55 -Correct Patient Yes Yes -Correct Side, Site, Position Yes Yes -Correct Procedure Yes Yes -Procedure Performed Yes Yes -Type of Procedure Debridement Debridement -Clinical Debridement Subcutaneous Subcutaneous -Post Debridement Size (cm) - Length 2.2 2.0 -Post Debridement Size (cm) - Width 2.5 2 -Post Debridement Size (cm) - Depth 0.5 0.3 -Total Square Cm 5.50 4.0 -Wound/Ulcer Outcome Not Healed Not Healed -Ulcer Cleansing Rinsed/ Rinsed/ Irrigated with Irrigated with Saline Saline -Foul Odor after Cleansing No No -Bioengineered Tissue No No -Bleeding Controlled with Pressure Pressure -Offloading No Yes -Type of Offloading Camwalker -Treatment Response Procedure Procedure Tolerated Well Tolerated Well Pain Scale: 0-10 Numeric Is Patient Pain Free? Yes Yes Wound debrided: plantar medial foot Laterality: Right Wound Grade/Stage: grade 1 Type of Debridement: Excisional debridement Anesthesia Used: 5% Lidocaine Gel Depth: in the subcutaneous layer Percentage of wound debrided: 100 Instrument Used: #15 blade Tissue Removed: fibrous, devitalized subcutaneous, biofilm, slough Severity: Fat Layer Exposed Amount of bleeding with debridement: Mild Bleeding Controlled with: Pressure Patient tolerated procedure well Assessment/Plan Assessment: 1. Diabetic ulcer of right foot, chronic (right dorsal 5th metatarsal)--healed. 2. Diabetic ulcer of right foot, chronic (midfoot, plantar). 3. Diabetic foot infection, acute (right foot)--resolved. 4. Tobacco dependence due to cigarettes, chronic. 5. Morbid obesity, BMI 44.6, chronic. 6. T2DM with neurological manifestations, chronic. 7. Diabetic neuropathy, chronic Plan: I reviewed and discussed her case including her diagnostic data. Is noted she had some lab work and noninvasive vascular studies performed this past week. Debridement was performed today in clinic today as annotated above. He was advised to continue daily dressing changes with Santyl; This was applied today. May use moisturizing lotion such as Aquaphor, Eucerin, or CeraVe to legs and feet, but do not use on ulcers. May continue to shower. Remove dressing prior to showering. Wash shraddha-ulcer areas with mild antibacterial soap, rinse well and pat dry. Apply clean dressing following shower. Do not soak or submerge right foot/ulcers. Avoid ambulating barefoot at home, wear offloading boot to right foot at all times when ambulating. She relates she has been fitted for this already. Compression: Double Tubigrip applied today in office. Patient is to continue compression daily at home. Off-loading: Avoid prolonged standing or dangling of legs. Keep feet elevated at or above waist level when seated. Lay flat or with feet elevated while sleeping. Continue use of offloading boot to right foot. Diet: Patient encouraged to increase protein and vitamin C intake while taking caution to avoid high carbohydrate and/or sugar intake. Discussed importance of tight glycemic control. Patient has upcoming appointment with Dr. Ocasio (endocrinology). Discussed at length the importance of smoking cessation, and patient encouraged to follow-up with primary care provider if smoking cessation aids are desired. Patient reports she is successfully cutting back on smoking cigarettes. Further reduction/cessation encouraged. Labs/cultures/imaging: Wound cultures collected 06/03/2019: Right plantar foot positive for 1+ Streptococcus gallolyticus pas, rare Staphylococcus aureus, and anaerobic cocci. Right toe positive for very rare Staphylococcus aureus, and growth of Enterococcus faecalis. Patient sent to ER, given Unasyn x1 dose, and IV vancomycin. Consulted with ID and podiatry (Dr. Estrada), felt culture results were indicative of wound colonization. IV antibiotics were DC'd and patient discharged home.Patient's right foot x-ray (06/05/2019) demonstrated the following: Soft tissue swelling, no acute osseous changes. Patient's recent labs showed the following: A1c 10.8%, ESR 26, WBC 7.3, creatinine 1.16 (06/05/2019) down to 0.83 (06/10/2019), prealbumin 23.4. Please see lab reports in chart for full details. Patient had arterial studies completed on 06/24/2019. Arterial studies showed the following: Right CHRISTELLE (DP) 1.10, (PT) 1.05. Right DBI 0.79. Left CHRISTELLE (DP) 1.15, (PT) 1.03. Left TBI 0.86. Triphasic Doppler waveforms noted at ankle level bilaterally. Pulse volume recording waveform amplitudes are slightly diminished at digital level bilaterally, but otherwise satisfactory at all other levels. No evidence of significant arterial occlusive disease in bilateral lower extremities. (See report for full details.). Follow-up: Return to clinic in 1 week for re-evaluation. Return sooner or repo rt to the emergency room should symptoms worsen, or new symptoms arise.
[2019-07-11 08:16] VITALS: BP 144/83; PULSE 94; RESP 18; TEMP 36.6; BMI 43.9
--- NOTE | 2019-07-11 11:39 | PN.PCM_ITS ---
(1) Diabetic ulcer of right foot Status: Resolved Current Visit: No Qualifiers: Diabetic foot ulcer location: toe Diabetes mellitus type: type 2 Non- pressure ulcer stage: with fat layer exposed Qualified Code(s): E11.621 - Type 2 diabetes mellitus with foot ulcer; L97.512 - Non-pressure chronic ulcer of other part of right foot with fat layer exposed Code(s): E11.621 - Type 2 diabetes mellitus with foot ulcer; L97.519 - Non- pressure chronic ulcer of other part of right foot with unspecified severity (2) Diabetic ulcer of right foot associated with type 2 diabetes mellitus Status: Chronic Current Visit: Yes Qualifiers: Diabetic foot ulcer location: midfoot Non-pressure ulcer stage: with fat layer exposed Qualified Code(s): E11.621 - Type 2 diabetes mellitus with foot ulcer; L97.412 - Non-pressure chronic ulcer of right heel and midfoot with fat layer exposed Code(s): E11.621 - Type 2 diabetes mellitus with foot ulcer; L97.519 - Non- pressure chronic ulcer of other part of right foot with unspecified severity (3) Diabetic neuropathy Status: Chronic Current Visit: Yes Qualifiers: Diabetes mellitus type: type 2 Code(s): E11.40 - Type 2 diabetes mellitus with diabetic neuropathy, unspecified (4) Non-healing ulcer of foot with fat layer exposed Status: Chronic Current Visit: No Qualifiers: Laterality: right Code(s): L97.502 - Non-pressure chronic ulcer of other part of unspecified foot with fat layer exposed (5) Essential (primary) hypertension Status: Chronic Current Visit: No Code(s): I10 - Essential (primary) hypertension (6) Hypothyroidism Status: Chronic Current Visit: No Qualifiers: Code(s): E03.9 - Hypothyroidism, unspecified Comment: Continues on levothyroxine 100 mcg daily. Takes as directed. Denies any s/s of hypothyroidism. (7) Morbid obesity with BMI of 40.0-44.9, adult Status: Chronic Current Visit: No Code(s): E66.01 - Morbid (severe) obesity due to excess calories; Z68.41 - Body mass index (BMI) 40.0-44.9, adult (8) Rheumatoid arthritis Status: Chronic Current Visit: No Code(s): M06.9 - Rheumatoid arthritis, unspecified (9) SLE (systemic lupus erythematosus) Status: Chronic Current Visit: No Qualifiers: Code(s): M32.9 - Systemic lupus erythematosus, unspecified (10) Tobacco dependence due to cigarettes Status: Chronic Current Visit: No Code(s): F17.210 - Nicotine dependence, cigarettes, uncomplicated (11) Diabetic foot infection Status: Resolved Current Visit: No Code(s): E11.628 - Type 2 diabetes mellitus with other skin complications; L08.9 - Local infection of the skin and subcutaneous tissue, unspecified Type of Wound Date of Service: 07/11/19 Chief Complaint: Right foot wounds History of Wound: Patient is a pleasant 53-year-old female who [facility] for evaluation and treatment of wounds to her right foot. About 2 weeks prior, she believes that she stepped on a hot cigarette butt, causing a wound on her right plantar arch. A few days later she visited her tuck pointer, Dr. Estrada, and cultures were collected. She was started on Levaquin and Augmentin, and has a few days left of these antibiotics. She was instructed to use Pretty to her right foot wound, and cover with gauze. She has been doing daily dressing changes with Pretty. She also has a diabetic foot ulcer on her right dorsal fifth metatarsal, and is unsure how long this has been present. She is also using Pretty to this DFU. She denies any pain with her foot wounds, due to her diabetic neuropathy. She denies any increasing redness, swelling, or drainage. She denies any foul-smelling or purulent drainage. She denies any nausea, vomiting, or diarrhea. Patient wears diabetic shoes, and has an offloading boot for her right foot which she sometimes wears. She reports walking barefoot in home. She also reports frequently sleeping in a chair without her feet elevated. Patient has a significant past medical history of tobacco dependence, smoking 1 pack/day. She is also a type II diabetic, with poor glycemic control. She has extensive peripheral neuropathy. She also has comorbidities of hypertension, rheumatoid arthritis, lupus, and morbid obesity with a BMI of 44.6. She sees Dr. Verdugo as her primary care provider. On 06/10/2019, I contacted patient with the results of her wound cultures collected 06/03/2019, as follows: Right plantar foot positive for 1+ Streptococcus gallolyticus pas, rare Staphylococcus aureus, and anaerobic cocci. Right toe positive for very rare Staphylococcus aureus, and growth of Enterococcus faecalis. Given these positive results, and the clinical presentation of patient's wounds demonstrating purulent and malodorous drainage when last evaluated in the wound clinic, I consulted with collaborating physician, Dr. Maryuri torres, to discuss appropriate interventions. Patient was sent to the emergency room for evaluation and treatment. She was admitted to inpatient care and given a dose of Unasyn in the ER, followed by IV vancomycin. ID and podiatry (Dr. Estrada) were consulted, and it was felt that the positive cultures were indicative of colonization. Antibiotics were discontinued and patient was discharged home. Dr. Estrada ordered arterial studies for patient to complete outpatient--these have not yet been done. She reports feeling much better since her hospitalization. She reports the swelling in her bilateral legs has decreased. Patient's right foot x-ray (06/05/2019) demonstrated the following: Soft tissue swelling, no acute osseous changes. Patient's recent labs showed the following: A1c 10.8%, ESR 26, WBC 7.3, creatinine 1.16 (06/05/2019) down to 0.83 (06/10/2019), prealbumin 23.4. Please see lab reports in chart for full details. Patient had arterial studies completed on 06/24/2019. Arterial studies showed the following: Right CHRISTELLE (DP) 1.10, (PT) 1.05. Right DBI 0.79. Left CHRISTELLE (DP) 1.15, (PT) 1.03. Left TBI 0.86. Triphasic Doppler waveforms noted at ankle level bilaterally. Pulse volume recording waveform amplitudes are slightly diminished at digital level bilaterally, but otherwise satisfactory at all other levels. No evidence of significant arterial occlusive disease in bilateral lower extremities. (See report for full details.) Progress of Wound: Wound is stable in size and improved in appearance. The patient denies any signs of infection, including increasing pain, redness, swelling, or drainage from affected area. He has been compliant with Santyl dressing changes, but noncompliant with use of cam boot when ambulating. She has recently been experiencing a COPD exacerbation, and was evaluated in the emergency room last week, where she tested negative for influenza. She reports being afebrile throughout her illness. Since her COPD exacerbation, she has successfully cut back on cigarette smoking, only smoking 2 cigarettes in the past week. Patient did contact Dr. Hdz's (ID) office to schedule follow- up, and was advised that no follow-up is needed at this time, but to follow-up as needed. - Physical Exam Vital Signs Temp Pulse Resp BP 97.9 F 94 18 144/83 H 07/11/19 08:16 07/11/19 08:16 07/11/19 08:16 07/11/19 08:16 General: Alert, Oriented x3, Cooperative, No apparent distress HEENT: Atraumatic, EOMI, Normocephalic Oral: Moist Mucosa Neck: Supple, No JVD, Trachea Midline Lungs: Normal air movement Cardiovascular: Regular rate Abdomen: Obese Extremities: No cyanosis, Capillary Refill Less than 3 Seconds, Clubbing, Diminished Peripheral Pulses, Edema - Trace edema bilateral lower extremities Skin: Ulcer/ Wound - Ulcer of right plantar foot with subcutaneous layer exposed, moderate amount of slough and devitalized tissue present. Undermining has resolved. No tunneling or probing to bone. No purulent or malodorous drainage. No shraddha-ulcer erythema or swelling. Nontender to debridement. DFU of right fifth dorsal metatarsal is healed. Venous stasis dermatitis of bilateral lower extremities present, as well as absence of hair on bilateral lower extremities below the knee. Wound Measurements and Assessment WC - Nurse 1 - General Ulcer Measurement Start: 06/27/19 08:07 Freq: Status: Active Protocol: Activity Type Activity Date Activity User E-Sign Co-Sign Detail Recorded Client Recorded Date Recorded By Document 07/11/19 08:16 MW [id number] 07/11/19 08:22 MW 07/11/19 08:16 Wound Center Nurse 1 [Ulcer Assessment] 3-right plantar foot -Combined with other wound No -Current Size (cm) - Length 1.9 -Current Size (cm) - Width 2.0 -Current Size (cm) - Depth 0.2 -Total Square Cm 3.80 -Photo Taken No -Epithelialization None Present -Tunneling No -Undermining/Tunneling No -Circular Undermining No -Exudate Amt Medium -Exudate Type Serous -Wound Margin Thickened -Granulation Amt Large (67-100%) -Granulation Quality [place] -Slough/Fibrin Yes -Necrosis Amt Small (1-33%) -Necrotic Tissue Type Adherent Slough -Texture (Shraddha-wound Skin Appearance) Assessed,Callus -Moisture (Shraddha-wound Skin Appearance No Abnormality, ) Assessed -Color (Shraddha-wound Skin Appearance) No Abnormality, Assessed -Temperature (Shraddha-wound Skin No Abnormality Appearance) (Pt Warm) -Tenderness on Palpation (Shraddha-wound Yes Skin Appearance) -Ulcer Cleansing Rinsed/ Irrigated with Saline -Foul Odor after Cleansing No -Anesthetic Used 4% Lidocaine Solution [Edema Assessment] -Lower Limb Edema Present No WC - Nurse 2 - General Ulcer CM Notes Start: 06/27/19 08:07 Freq: Status: Active Protocol: Activity Type Activity Date Activity User E-Sign Co-Sign Detail Recorded Client Recorded Date Recorded By Document 07/11/19 08:39 DV [id number] 07/11/19 08:45 DV 07/11/19 08:39 Wound Center Nurse 2 [Procedure/Treatment] 3-right plantar foot -Time 08:40 -Correct Patient Yes -Correct Side, Site, Position Yes -Correct Procedure Yes -Procedure Performed Yes -Type of Procedure Debridement -Clinical Debridement Subcutaneous -Post Debridement Size (cm) - Length 2.0 -Post Debridement Size (cm) - Width 2.3 -Post Debridement Size (cm) - Depth 0.3 -Total Square Cm 4.60 -Wound/Ulcer Outcome Not Healed -Ulcer Cleansing Rinsed/ Irrigated with Saline -Foul Odor after Cleansing No -Bioengineered Tissue No -Bleeding Controlled with Pressure -Offloading No -Treatment Response Procedure Tolerated Well [See Physician Procedure note for Specifics] Pain Scale: 0-10 Numeric [Pain] -Is Patient Pain Free? Yes Musculoskeletal: No Tenderness to Palpation of Joints or Extremities Neurological: - - Decreased sensation in bilateral feet, consistent with chronic peripheral neuropathy Psych/Mental Status: Normal Affect, Appropriate Debridement Note Post-Debridement Measurements/Treatment WC - Nurse 2 - General Ulcer CM Notes Start: 06/27/19 08:07 Freq: Status: Active Protocol: Activity Type Activity Date Activity User E-Sign Co-Sign Detail Recorded Client Recorded Date Recorded By Document 06/27/19 08:22 DV [id number] 06/27/19 08:30 DV Document 07/02/19 11:54 [id number] 07/02/19 11:59 Document 07/11/19 08:39 DV [id number] 07/11/19 08:45 DV 06/27/19 07/02/19 07/11/19 08:22 11:54 08:39 Wound Center Nurse 2 4-right dorsal 5th metatarsal -Time 08:23 11:54 -Correct Patient Yes No -Correct Side, Site, Position Yes No -Correct Procedure Yes No -Procedure Performed Yes No -Type of Procedure Debridement -Clinical Debridement Subcutaneous -Post Debridement Size (cm) - Length 0.5 0 -Post Debridement Size (cm) - Width 0.2 0 -Post Debridement Size (cm) - Depth 0.1 0 -Total Square Cm 0.10 0 -Wound/Ulcer Outcome Not Healed Healed- Epithelialized -Ulcer Cleansing Rinsed/ Rinsed/ Irrigated with Irrigated with Saline Saline -Foul Odor after Cleansing No No -Bioengineered Tissue No No -Bleeding Controlled with Pressure Pressure -Offloading No Yes -Type of Offloading Camwalker -Treatment Response Procedure Procedure Tolerated Well Tolerated Well 3-right plantar foot -Time 08:24 11:55 08:40 -Correct Patient Yes Yes Yes -Correct Side, Site, Position Yes Yes Yes -Correct Procedure Yes Yes Yes -Procedure Performed Yes Yes Yes -Type of Procedure Debridement Debridement Debridement -Clinical Debridement Subcutaneous Subcutaneous Subcutaneous -Post Debridement Size (cm) - Length 2.2 2.0 2.0 -Post Debridement Size (cm) - Width 2.5 2 2.3 -Post Debridement Size (cm) - Depth 0.5 0.3 0.3 -Total Square Cm 5.50 4.0 4.60 -Wound/Ulcer Outcome Not Healed Not Healed Not Healed -Ulcer Cleansing Rinsed/ Rinsed/ Rinsed/ Irrigated with Irrigated with Irrigated with Saline Saline Saline -Foul Odor after Cleansing No No No -Bioengineered Tissue No No No -Bleeding Controlled with Pressure Pressure Pressure -Offloading No Yes No -Type of Offloading Camwalker -Treatment Response Procedure Procedure Procedure Tolerated Well Tolerated Well Tolerated Well Pain Scale: 0-10 Numeric Is Patient Pain Free? Yes Yes Yes Wound debrided: Plantar medial foot Laterality: Right Wound Grade/Stage: 1 Type of Debridement: Excisional debridement Anesthesia Used: 5% Lidocaine Gel Depth: in the subcutaneous layer Percentage of wound debrided: 100 Instrument Used: 7mm curette Tissue Removed: Slough and devitalized tissue Severity: Fat Layer Exposed Amount of bleeding with debridement: Mild Bleeding Controlled with: Pressure Patient tolerated procedure well Assessment/Plan Active Problems (Last Reviewed 06/20/18 @ 12:28 by Ann Licea) Diabetic ulcer of right foot associated with type 2 diabetes mellitus (Chronic) Diabetic neuropathy (Chronic) Assessment: 1. Diabetic ulcer of right foot, chronic (right dorsal 5th metatarsal)--healed. 2. Diabetic ulcer of right foot, chronic (midfoot, plantar). 3. Diabetic foot infection, acute (right foot)--resolved. 4. Tobacco dependence due to cigarettes, chronic-- improving. 5. Morbid obesity, BMI 44.6, chronic. 6. T2DM with neurological manifestations, chronic. 7. Diabetic neuropathy, chronic Plan: Debridement was performed today in clinic today as annotated above. She was advised to continue daily dressing changes with Santyl; hydrogel was applied today as patient forgot Santyl at home. May use moisturizing lotion such as Aquaphor, Eucerin, or CeraVe to legs and feet, but do not use on ulcers. May continue to shower. Remove dressing prior to showering. Wash shraddha-ulcer areas with mild antibacterial soap, rinse well and pat dry. Apply clean dressing fol lowing shower. Do not soak or submerge right foot/ulcers. Avoid ambulating barefoot at home, wear offloading boot to right foot at all times when ambulating. She relates she has been fitted for this already. Compression: Double Tubigrip applied today in office. Patient is to continue compression daily at home. Off-loading: Avoid prolonged standing or dangling of legs. Keep feet elevated at or above waist level when seated. Lay flat or with feet elevated while sleeping. Continue use of offloading boot to right foot. Diet: Patient encouraged to increase protein and vitamin C intake while taking caution to avoid high carbohydrate and/or sugar intake. Discussed importance of tight glycemic control. Discussed at length the importance of smoking cessation, and patient encouraged to follow-up with primary care provider if smoking cessation aids are desired. Patient reports she is successfully cutting back on smoking cigarettes. Further reduction/cessation encouraged. Labs/cultures/imaging: Wound cultures collected 06/03/2019: Right plantar foot positive for 1+ Streptococcus gallolyticus pas, rare Staphylococcus aureus, and anaerobic cocci. Right toe positive for very rare Staphylococcus aureus, and growth of Enterococcus faecalis. Patient sent to ER, given Unasyn x1 dose, and IV vancomycin. Consulted with ID and podiatry (Dr. Estrada), felt culture results were indicative of wound colonization. IV antibiotics were DC'd and patient discharged home.Patient's right foot x-ray (06/05/2019) demonstrated the following: Soft tissue swelling, no acute osseous changes. Patient's recent labs showed the following: A1c 10.8%, ESR 26, WBC 7.3, creatinine 1.16 (06/05/2019) down to 0.83 (06/10/2019), prealbumin 23.4. Please see lab reports in chart for full details. Patient had arterial studies completed on 06/24/2019. Arterial studies showed the following: Right CHRISTELLE (DP) 1.10, (PT) 1.05. Right DBI 0.79. Left CHRISTELLE (DP) 1.15, (PT) 1.03. Left TBI 0.86. Triphasic Doppler w aveforms noted at ankle level bilaterally. Pulse volume recording waveform amplitudes are slightly diminished at digital level bilaterally, but otherwise satisfactory at all other levels. No evidence of significant arterial occlusive disease in bilateral lower extremities. (See report for full details.). Follow-up: Return to clinic in 1 week for re-evaluation. Return sooner or report to the emergency room should symptoms worsen, or new symptoms arise. Note: [employer] speech recognition guidance secretary software was used to create portions of this document. Sound-alike and misspelled words, as well as other guidance secretary errors may be contained in the documentation. [id number]: [id number] Teresa subq tissue 20 sq cm/<
[2019-07-18 08:23] VITALS: BP 158/70; PULSE 72; RESP 20; TEMP 36.6; BMI 43.9
--- NOTE | 2019-07-18 09:27 | PN.PCM_ITS ---
(1) Non-healing ulcer of foot with fat layer exposed Status: Chronic Current Visit: Yes Qualifiers: Laterality: right Code(s): L97.502 - Non-pressure chronic ulcer of other part of unspecified foot with fat layer exposed (2) Diabetes mellitus type 2 with neurological manifestations Status: Chronic Current Visit: Yes Code(s): E11.49 - Type 2 diabetes mellitus with other diabetic neurological complication (3) Tobacco dependence due to cigarettes Status: Chronic Current Visit: Yes Code(s): F17.210 - Nicotine dependence, cigarettes, uncomplicated (4) Rheumatoid arthritis Status: Chronic Current Visit: Yes Code(s): M06.9 - Rheumatoid arthritis, unspecified (5) Lupus Status: Chronic Current Visit: Yes Code(s): M32.9 - Systemic lupus erythematosus, unspecified (6) Morbid obesity with BMI of 40.0-44.9, adult Status: Chronic Current Visit: Yes Code(s): E66.01 - Morbid (severe) obesity due to excess calories; Z68.41 - Body mass index (BMI) 40.0-44.9, adult Type of Wound Date of Service: 07/18/19 Chief Complaint: Right foot wounds History of Wound: Patient is a pleasant 53-year-old female who [facility] for evaluation and treatment of wounds to her right foot. About 2 weeks prior, she believes that she stepped on a hot cigarette butt, causing a wound on her right plantar arch. A few days later she visited her farm implement mechanic, Dr. Estrada, and cultures were collected. She was started on Levaquin and Augmentin, and has a few days left of these antibiotics. She was instructed to use Pretty to her right foot wound, and cover with gauze. She has been doing daily dressing changes with Pretty. She also has a diabetic foot ulcer on her right dorsal fifth metatarsal, and is unsure how long this has been present. She is also using Pretty to this DFU. She denies any pain with her foot wounds, due to her diabetic neuropathy. She denies any increasing redness, swelling, or drainage. She denies any foul-smelling or purulent drainage. She denies any nausea, vomiting, or diarrhea. Patient wears diabetic shoes, and has an offloading boot for her right foot which she sometimes wears. She reports walking barefoot in home. She also reports frequently sleeping in a chair without her feet elevated. Patient has a significant past medical history of tobacco dependence, smoking 1 pack/day. She is also a type II diabetic, with poor glycemic control. She has extensive peripheral neuropathy. She also has comorbidities of hypertension, rheumatoid arthritis, lupus, and morbid obesity with a BMI of 44.6. She sees Dr. Verdugo as her primary care provider. On 06/10/2019, I contacted patient with the results of her wound cultures collected 06/03/2019, as follows: Right plantar foot positive for 1+ Streptococcus gallolyticus pas, rare Staphylococcus aureus, and anaerobic cocci. Right toe positive for very rare Staphylococcus aureus, and growth of Enterococcus faecalis. Given these positive results, and the clinical presentation of patient's wounds demonstrating purulent and malodorous drainage when last evaluated in the wound clinic, I consulted with collaborating physician, Dr. Bonilla, to discuss appropriate interventions. Patient was sent to the emergency room for evaluation and treatment. She was admitted to inpatient care and given a dose of Unasyn in the ER, followed by IV vancomycin. ID and podiatry (Dr. Estrada) were consulted, and it was felt that the positive cultures were indicative of colonization. Antibiotics were discontinued and patient was discharged home. Dr. Estrada ordered arterial studies for patient to complete outpatient--these have not yet been done. She reports feeling much better since her hospitalization. She reports the swelling in her bilateral legs has decreased. Patient's right foot x-ray (06/05/2019) demonstrated the following: Soft tissue swelling, no acute osseous changes. Patient's recent labs showed the following: A1c 10.8%, ESR 26, WBC 7.3, creatinine 1.16 (06/05/2019) down to 0.83 (06/10/2019), prealbumin 23.4. Please see lab reports in chart for full details. Patient had arterial studies completed on 06/24/2019. Arterial studies showed the following: Right CHRISTELLE (DP) 1.10, (PT) 1.05. Right DBI 0.79. Left CHRISTELLE (DP) 1.15, (PT) 1.03. Left TBI 0.86. Triphasic Doppler waveforms noted at ankle level bilaterally. Pulse volume recording waveform amplitudes are slightly diminished at digital level bilaterally, but otherwise satisfactory at all other levels. No evidence of significant arterial occlusive disease in bilateral lower extremities. (See report for full details.) Progress of Wound: Wound is stable in size and improved in appearance. The patient denies any signs of infection, including increasing pain, redness, swelling, or drainage from affected area. She has been compliant with Santyl dressing changes, but noncompliant with use of cam boot when ambulating. - Physical Exam Vital Signs Temp Pulse Resp BP 97.9 F 72 20 H 158/70 H 07/18/19 08:23 07/18/19 08:23 07/18/19 08:23 07/18/19 08:23 General: Alert, Oriented x3, Cooperative HEENT: Atraumatic Oral: Moist Mucosa Lungs: Normal air movement Cardiovascular: Regular rate Abdomen: Obese Extremities: Capillary Refill Less than 3 Seconds, Diminished Peripheral Pulses Skin: Ulcer/ Wound - Right plantar arch foot ulcer Wound Measurements and Assessment WC - Nurse 1 - General Ulcer Measurement Start: 06/27/19 08:07 Freq: Status: Active Protocol: Activity Type Activity Date Activity User E-Sign Co-Sign Detail Recorded Client Recorded Date Recorded By Document 07/18/19 08:23 CP [id number] 07/18/19 08:27 CP 07/18/19 08:23 Wound Center Nurse 1 [Ulcer Assessment] 3-right plantar foot -Current Size (cm) - Length 1.6 -Current Size (cm) - Width 1.7 -Current Size (cm) - Depth 0.2 -Total Square Cm 2.72 -Date of Last Picture (Recall this 07/18/19 field) -Photo Taken Yes -Epithelialization None Present -Tunneling No -Undermining/Tunneling No -Circular Undermining No -Wound Margin Thickened & Rolled Under -Granulation Amt Large (67-100%) -Granulation Quality Red -Slough/Fibrin Yes -Necrosis Amt Small (1-33%) -Necrotic Tissue Type Adherent Slough -Structure Exposed N/A -Texture (Shraddha-wound Skin Appearance) Callus -Moisture (Shraddha-wound Skin Appearance No Abnormality ) -Color (Shraddha-wound Skin Appearance) No Abnormality -Temperature (Shraddha-wound Skin No Abnormality Appearance) (Pt Warm) -Tenderness on Palpation (Shraddha-wound No Skin Appearance) -Ulcer Cleansing Rinsed/ Irrigated with Saline -Foul Odor after Cleansing No -Anesthetic Used 4% Lidocaine Solution WC - Nurse 2 - General Ulcer CM Notes Start: 06/27/19 08:07 Freq: Status: Active Protocol: Activity Type Activity Date Activity User E-Sign Co-Sign Detail Recorded Client Recorded Date Recorded By Document 07/18/19 08:43 DV [id number] 07/18/19 08:46 DV 07/18/19 08:43 Wound Center Nurse 2 [Procedure/Treatment] -Time 08:44 -Correct Patient Yes -Correct Side, Site, Position Yes -Correct Procedure Yes -Procedure Performed Yes -Type of Procedure Debridement -Clinical Debridement Subcutaneous -Post Debridement Size (cm) - Length 1.0 -Post Debridement Size (cm) - Width 1.8 -Post Debridement Size (cm) - Depth 0.3 -Total Square Cm 1.80 -Wound/Ulcer Outcome Not Healed -Ulcer Cleansing Rinsed/ Irrigated with Saline -Foul Odor after Cleansing No -Bioengineered Tissue No -Bleeding Controlled with Pressure -Offloading No -Treatment Response Procedure Tolerated Well [See Physician Procedure note for Specifics] Pain Scale: 0-10 Numeric [Pain] -Is Patient Pain Free? Yes Musculoskeletal: No Tenderness to Palpation of Joints or Extremities Neurological: Neuro grossly intact Psych/Mental Status: Normal Affect, Appropriate Debridement Note Post-Debridement Measurements/Treatment - Nurse 2 - General Ulcer CM Notes Start: 06/27/19 08:07 Freq: Status: Active Protocol: Activity Type Activity Date Activity User E-Sign Co-Sign Detail Recorded Client Recorded Date Recorded By Document 06/27/19 08:22 [id number] 06/27/19 08:30 Document 07/02/19 11:54 [id number] 07/02/19 11:59 Document 07/11/19 08:39 DV [id number] 07/11/19 08:45 DV Document 07/18/19 08:43 DV [id number] 07/18/19 08:46 DV 06/27/19 07/02/19 07/11/19 08:22 11:54 08:39 Wound Center Nurse 2 4-right dorsal 5th metatarsal -Time 08:23 11:54 -Correct Patient Yes No -Correct Side, Site, Position Yes No -Correct Procedure Yes No -Procedure Performed Yes No -Type of Procedure Debridement -Clinical Debridement Subcutaneous -Post Debridement Size (cm) - Length 0.5 0 -Post Debridement Size (cm) - Width 0.2 0 -Post Debridement Size (cm) - Depth 0.1 0 -Total Square Cm 0.10 0 -Wound/Ulcer Outcome Not Healed Healed- Epithelialized -Ulcer Cleansing Rinsed/ Rinsed/ Irrigated with Irrigated with Saline Saline -Foul Odor after Cleansing No No -Bioengineered Tissue No No -Bleeding Controlled with Pressure Pressure -Offloading No Yes -Type of Offloading Camwalker -Treatment Response Procedure Procedure Tolerated Well Tolerated Well 3-right plantar foot -Time 08:24 11:55 08:40 -Correct Patient Yes Yes Yes -Correct Side, Site, Position Yes Yes Yes -Correct Procedure Yes Yes Yes -Procedure Performed Yes Yes Yes -Type of Procedure Debridement Debridement Debridement -Clinical Debridement Subcutaneous Subcutaneous Subcutaneous -Post Debridement Size (cm) - Length 2.2 2.0 2.0 -Post Debridement Size (cm) - Width 2.5 2 2.3 -Post Debridement Size (cm) - Depth 0.5 0.3 0.3 -Total Square Cm 5.50 4.0 4.60 -Wound/Ulcer Outcome Not Healed Not Healed Not Healed -Ulcer Cleansing Rinsed/ Rinsed/ Rinsed/ Irrigated with Irrigated with Irrigated with Saline Saline Saline -Foul Odor after Cleansing No No No -Bioengineered Tissue No No No -Bleeding Controlled with Pressure Pressure Pressure -Offloading No Yes No -Type of Offloading Camwalker -Treatment Response Procedure Procedure Procedure Tolerated Well Tolerated Well Tolerated Well Pain Scale: 0-10 Numeric Is Patient Pain Free? Yes Yes Yes 07/18/19 08:43 Wound Center Nurse 2 4-right dorsal 5th metatarsal -Time -Correct Patient -Correct Side, Site, Position -Correct Procedure -Procedure Performed -Type of Procedure -Clinical Debridement -Post Debridement Size (cm) - Length -Post Debridement Size (cm) - Width -Post Debridement Size (cm) - Depth -Total Square Cm -Wound/Ulcer Outcome -Ulcer Cleansing -Foul Odor after Cleansing -Bioengineered Tissue -Bleeding Controlled with -Offloading -Type of Offloading -Treatment Response 3-right plantar foot -Time 08:44 -Correct Patient Yes -Correct Side, Site, Position Yes -Correct Procedure Yes -Procedure Performed Yes -Type of Procedure Debridement -Clinical Debridement Subcutaneous -Post Debridement Size (cm) - Length 1.0 -Post Debridement Size (cm) - Width 1.8 -Post Debridement Size (cm) - Depth 0.3 -Total Square Cm 1.80 -Wound/Ulcer Outcome Not Healed -Ulcer Cleansing Rinsed/ Irrigated with Saline -Foul Odor after Cleansing No -Bioengineered Tissue No -Bleeding Controlled with Pressure -Offloading No -Type of Offloading -Treatment Response Procedure Tolerated Well Pain Scale: 0-10 Numeric Is Patient Pain Free? Yes Wound debrided: plantar arch ulcer Laterality: Right Type of Debridement: Excisional debridement Anesthesia Used: 4% Lidocaine Solution Depth: Down to and including healthy tissue, in the subcutaneous layer Percentage of wound debrided: 100 Instrument Used: 5mm curette Tissue Removed: Subcutaneous tissue and slough Severity: Fat Layer Exposed Amount of bleeding with debridement: Mild Bleeding Controlled with: Pressure Patient tolerated procedure well Assessment/Plan Active Problems (Last Reviewed 07/17/19 @ 17:[address] Nelson Ocasio MD) Non-healing ulcer of foot with fat layer exposed (Chronic) Tobacco dependence due to cigarettes (Chronic) Rheumatoid arthritis (Chronic) Lupus (Chronic) Morbid obesity with BMI of 40.0-44.9, adult (Chronic) Diabetic ulcer of right foot associated with type 2 diabetes mellitus (Chronic) 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 Diabetic ulcer of right foot, chronic (right dorsal 5th met atarsal)--healed. 2. Diabetic ulcer of right foot, chronic (midfoot, plantar). 3. Diabetic foot infection, acute (right foot)--resolved. 4. Tobacco dependence due to cigarettes, chronic-- improving. 5. Morbid obesity, BMI 44.6, chronic. 6. T2DM with neurological manifestations, chronic. 7. Diabetic neuropathy, chronic Plan: Debridement was performed today in clinic today as annotated above. She was advised to continue daily dressing changes with Santyl. May use moisturizing lotion such as Aquaphor, Eucerin, or CeraVe to legs and feet, but do not use on ulcers. May continue to shower. Remove dressing prior to showering. Wash shraddha-ulcer areas with mild antibacterial soap, rinse well and pat dry. Apply clean dressing following shower. Do not soak or submerge right foot/ulcers. Avoid ambulating barefoot at home, wear offloading boot to right foot at all times when ambulating. She relates she has been fitted for this already. Compression: Double Tubigrip applied today in office. Patient is to continue compression daily at home. She states that she has compression stockings at home that she bought over the counter, which she will bring in next week for us to evaluate the amount of compression. Off-loading: Avoid prolonged standing or dangling of legs. Keep feet elevated at or above waist level when seated. Lay flat or with feet elevated while sleeping. Continue use of offloading boot to right foot. Diet: Patient encouraged to increase protein and vitamin C intake while taking caution to avoid high carbohydrate and/or sugar intake. Discussed importance of tight glycemic control. Discussed at length the importance of smoking cessation, and patient encouraged to follow-up with primary care provider if smoking cessation aids are desired. Patient reports she is successfully cutting back on smoking cigarettes. She states she smokes one in the morning and then puts a patch on for the rest of the day. Further reduction/cessation encouraged. Labs/cultures/imaging: Wound cultures collected 06/03/2019: Right plantar foot positive for 1+ Streptococcus gallolyticus pas, rare Staphylococcus aureus, and anaerobic cocci. Right toe positive for very rare Staphylococcus aureus, and growth of Enterococcus faecalis. Patient sent to ER, given Unasyn x1 dose, and IV vancomycin. Consulted with ID and podiatry (Dr. Estraad), felt culture results were indicative of wound colonization. IV antibiotics were DC'd and patient discharged home.Patient's right foot x-ray (06/05/2019) demonstrated the following: Soft tissue swelling, no acute osseous changes. Patient's recent labs showed the following: A1c 10.8%, ESR 26, WBC 7.3, creatinine 1.16 (06/05/2019) down to 0.83 (06/10/2019), prealbumin 23.4. Please see lab reports in chart for full details. Patient had arterial studies completed on 06/24/2019. Arterial studies showed the following: Right CHRISTELLE (DP) 1.10, (PT) 1.05. Right DBI 0.79. Left CHRISTELLE (DP) 1.15, (PT) 1.03. Left TBI 0.8 6. Triphasic Doppler waveforms noted at ankle level bilaterally. Pulse volume recording waveform amplitudes are slightly diminished at digital level bilaterally, but otherwise satisfactory at all other levels. No evidence of significant arterial occlusive disease in bilateral lower extremities. (See report for full details.). Follow-up: Return to clinic in 1 week for re- evaluation. Return sooner or report to the emergency room should symptoms worsen, or new symptoms arise. Note: [employer] speech recognition energy operations vice president software was used to create portions of this document. Sound-alike and misspelled words, as well as other energy operations vice president errors may be contained in the documentation. [id number]: [id number] Teresa subq tissue 20 sq cm/<
== END 2019-07-22 23:59 ==
LOC: WC 08:00
PROVIDERS: PCP Family Medicine; Referring Provider Nurse Practitioner Family; Visit Provider Nurse Practitioner Family
DX: E11.621 Type 2 diabetes mellitus with foot ulcer (principal); E11.51 Type 2 diabetes mellitus with diabetic peripheral angiopathy without gangrene; E66.01 Morbid (severe) obesity due to excess calories; Z68.41 Body mass index [BMI] 40.0-44.9, adult; M32.9 Systemic lupus erythematosus, unspecified; F17.210 Nicotine dependence, cigarettes, uncomplicated; E11.42 Type 2 diabetes mellitus with diabetic polyneuropathy; M06.9 Rheumatoid arthritis, unspecified; I10 Essential (primary) hypertension; L97.412 Non-pressure chronic ulcer of right heel and midfoot with fat layer exposed
CPT/HCPCS: 11042; 93923

== ENCOUNTER 2019-08-14 11:00 | Outpatient (RCR) | payer MEDICARE, MEDICAID, SELFPAY ==
[2019-07-23 00:49] VITALS: BP 158/70; PULSE 72; RESP 20; TEMP 36.6
[2019-07-23 06:43] VITALS: BMI 43.9
[2019-07-25 08:36] VITALS: BP 128/69; PULSE 93; RESP 20; TEMP 36.7; BMI 43.9
--- NOTE | 2019-07-25 09:53 | PN.PCM_ITS ---
(1) Diabetic ulcer of right foot associated with type 2 diabetes mellitus Status: Chronic Current Visit: Yes Qualifiers: Diabetic foot ulcer location: midfoot Non-pressure ulcer stage: with fat layer exposed Qualified Code(s): E11.621 - Type 2 diabetes mellitus with foot ulcer; L97.412 - Non-pressure chronic ulcer of right heel and midfoot with fat layer exposed Code(s): E11.621 - Type 2 diabetes mellitus with foot ulcer; L97.519 - Non- pressure chronic ulcer of other part of right foot with unspecified severity (2) COPD (chronic obstructive pulmonary disease) Status: Chronic Current Visit: Yes Code(s): J44.9 - Chronic obstructive pulmonary disease, unspecified (3) Tobacco dependence due to cigarettes Status: Chronic Current Visit: No Code(s): F17.210 - Nicotine dependence, cigarettes, uncomplicated Type of Wound Date of Service: 07/25/19 Chief Complaint: Right foot wounds History of Wound: Patient is a pleasant 53-year-old female who [facility] for evaluation and treatment of wounds to her right foot. About 2 weeks prior, she believes that she stepped on a hot cigarette butt, causing a wound on her right plantar arch. A few days later she visited her boot and saddle repair person, Dr. Estrada, and cultures were collected. She was started on Levaquin and Augmentin, and has a few days left of these antibiotics. She was instructed to use Pretty to her right foot wound, and cover with gauze. She has been doing daily dressing changes with Pretty. She also has a diabetic foot ulcer on her right dorsal fifth metatarsal, and is unsure how long this has been present. She is also using Pretty to this DFU. She denies any pain with her foot wounds, due to her diabetic neuropathy. She denies any increasing redness, swelling, or drainage. She denies any foul-smelling or purulent drainage. She denies any nausea, vomiting, or diarrhea. Patient wears diabetic shoes, and has an offloading boot for her right foot which she sometimes wears. She reports walking barefoot in home. She also reports frequently sleeping in a chair without her feet elevated. Patient has a significant past medical history of tobacco dependence, smoking 1 pack/day. She is also a type II diabetic, with poor glycemic control. She has extensive peripheral neuropathy. She also has comorbidities of hypertension, rheumatoid arthritis, lupus, and morbid obesity with a BMI of 44.6. She sees Dr. Verdugo as her primary care provider. On 06/10/2019, I contacted patient with the results of her wound cultures collected 06/03/2019, as follows: Right plantar foot positive for 1+ Streptococcus gallolyticus pas, rare Staphylococcus aureus, and anaerobic cocci. Right toe positive for very rare Staphylococcus aureus, and growth of Enterococcus faecalis. Given these positive results, and the clinical presentation of patient's wounds demonstrating purulent and malodorous drainage when last evaluated in the wound clinic, I consulted with collaborating physician, Dr. Bonilla, to discuss appropriate interventions. Patient was sent to the emergency room for evaluation and treatment. She was admitted to inpatient care and given a dose of Unasyn in the ER, followed by IV vancomycin. ID and podiatry (Dr. Estrada) were consulted, and it was felt that the positive cultures were indicative of colonization. Antibiotics were discontinued and patient was discharged home. Dr. Estrada ordered arterial studies for patient to complete outpatient--these have not yet been done. She reports feeling much better since her hospitalization. She reports the swelling in her bilateral legs has decreased. Patient's right foot x-ray (06/05/2019) demonstrated the following: Soft tissue swelling, no acute osseous changes. Patient's recent labs showed the following: A1c 10.8%, ESR 26, WBC 7.3, creatinine 1.16 (06/05/2019) down to 0.83 (06/10/2019), prealbumin 23.4. Please see lab reports in chart for full det ails. Patient had arterial studies completed on 06/24/2019. Arterial studies showed the following: Right CHRISTELLE (DP) 1.10, (PT) 1.05. Right DBI 0.79. Left CHRISTELLE (DP) 1.15, (PT) 1.03. Left TBI 0.86. Triphasic Doppler waveforms noted at ankle level bilaterally. Pulse volume recording waveform amplitudes are slightly diminished at digital level bilaterally, but otherwise satisfactory at all other levels. No evidence of significant arterial occlusive disease in bilateral lower extremities. (See report for full details.) Progress of Wound: Wound is stable in size and improved in appearance. The patient denies any signs of infection, including increasing pain, redness, swelling, or drainage from affected area. She has been compliant with Santyl dressing changes, but noncompliant with use of cam boot when ambulating. - Physical Exam Vital Signs Temp Pulse Resp BP 98.1 F 93 20 H 128/69 H 07/25/19 08:36 07/25/19 08:36 07/25/19 08:36 07/25/19 08:36 General: Alert, Oriented x3, Cooperative HEENT: Atraumatic Oral: Moist Mucosa Lungs: Normal air movement Cardiovascular: Regular rate Abdomen: Obese Extremities: Capillary Refill Less than 3 Seconds Skin: Ulcer/ Wound - right plantar foot in arch Wound Measurements and Assessment WC - Nurse 1 - General Ulcer Measurement Start: 07/25/19 08:36 Freq: Status: Active Protocol: Activity Type Activity Date Activity User E-Sign Co-Sign Detail Recorded Client Recorded Date Recorded By Document 07/25/19 08:36 DL [id number] 07/25/19 08:39 DL 07/25/19 08:36 Wound Center Nurse 1 [Ulcer Assessment] 3-right plantar foot -Current Size (cm) - Length 1.6 -Current Size (cm) - Width 1.5 -Current Size (cm) - Depth 0.2 -Total Square Cm 2.40 -Photo Taken No -Exudate Amt Small -Exudate Type Serosanguineous -Wound Margin Thickened -Granulation Amt Medium (34-66%) -Granulation Quality Red -Necrosis Amt Medium (34-66%) -Necrotic Tissue Type Adherent Slough -Structure Exposed N/A -Texture (Shraddha-wound Skin Appearance) Scarring -Moisture (Shraddha-wound Skin Appearance No Abnormality ) -Color (Shraddha-wound Skin Appearance) Hemosiderin Staining,Rubor -Temperature (Shraddha-wound Skin No Abnormality Appearance) (Pt Warm) -Tenderness on Palpation (Shraddha-wound No Skin Appearance) -Ulcer Cleansing Wound Cleanser -Foul Odor after Cleansing No -Anesthetic Used 4% Lidocaine Solution [Edema Assessment] -Right Calf (cm) 36 -Right Ankle (cm) 21 WC - Nurse 2 - General Ulcer CM Notes Start: 07/25/19 08:36 Freq: Status: Active Protocol: Activity Type Activity Date Activity User E-Sign Co-Sign Detail Recorded Client Recorded Date Recorded By Document 07/25/19 08:50 DV [id number] 07/25/19 08:54 DV 04/03/20 08:50 Wound Center Nurse 2 [Procedure/Treatment] 3-right plantar foot -Time 08:52 -Correct Patient Yes -Correct Side, Site, Position Yes -Correct Procedure Yes -Procedure Performed Yes -Type of Procedure Debridement -Clinical Debridement Subcutaneous -Post Debridement Size (cm) - Length 0.7 -Post Debridement Size (cm) - Width 0.7 -Post Debridement Size (cm) - Depth 0.3 -Total Square Cm 0.49 -Wound/Ulcer Outcome Not Healed -Ulcer Cleansing Rinsed/ Irrigated with Saline -Foul Odor after Cleansing No -Bioengineered Tissue No -Bleeding Controlled with Pressure -Offloading No -Type of Offloading Surgical Shoe -Treatment Response Procedure Tolerated Well [See Physician Procedure note for Specifics] Pain Scale: 0-10 Numeric [Pain] -Is Patient Pain Free? Yes Musculoskeletal: Tenderness Neurological: Neuro grossly intact Psych/Mental Status: Normal Affect, Appropriate Debridement Note Post-Debridement Measurements/Treatment WC - Nurse 2 - General Ulcer CM Notes Start: 07/25/19 08:36 Freq: Status: Active Protocol: Activity Type Activity Date Activity User E-Sign Co-Sign Detail Recorded Client Recorded Date Recorded By Document 07/25/19 08:50 DV [id number] 07/25/19 08:54 DV 07/25/19 08:50 Wound Center Nurse 2 3-right plantar foot -Time 08:52 -Correct Patient Yes -Correct Side, Site, Position Yes -Correct Procedure Yes -Procedure Performed Yes -Type of Procedure Debridement -Clinical Debridement Subcutaneous -Post Debridement Size (cm) - Length 0.7 -Post Debridement Size (cm) - Width 0.7 -Post Debridement Size (cm) - Depth 0.3 -Total Square Cm 0.49 -Wound/Ulcer Outcome Not Healed -Ulcer Cleansing Rinsed/ Irrigated with Saline -Foul Odor after Cleansing No -Bioengineered Tissue No -Bleeding Controlled with Pressure -Offloading No -Type of Offloading Surgical Shoe -Treatment Response Procedure Tolerated Well Pain Scale: 0-10 Numeric Is Patient Pain Free? Yes Wound debrided: Plantar arch ulcer Laterality: Right Type of Debridement: Excisional debridement Anesthesia Used: 5% Lidocaine Gel Depth: Down to and including healthy tissue, in the subcutaneous layer Percentage of wound debrided: 100 Instrument Used: 5mm curette Tissue Removed: Subcutaneous tissue and slough Severity: Fat Layer Exposed Amount of bleeding with debridement: Mild Bleeding Controlled with: Compression and gauze Patient tolerated procedure well Assessment/Plan Active Problems (Last Updated 07/23/19 @ 11:44 by Geovanna Padgett) COPD (chronic obstructive pulmonary disease) (Chronic) Diabetic ulcer of right foot associated with type 2 diabetes mellitus (Chronic) Assessment: 1. Diabetic ulcer of right foot, chronic (right dorsal 5th metatarsal)--healed. 2. Diabetic ulcer of right foot, chronic (midfoot, plantar). 3. Diabetic foot infection, acute (right foot)--resolved. 4. Tobacco dependence due to cigarettes, chronic-- improving. 5. Morbid obesity, BMI 44.6, chronic. 6. T2DM with neurological manifestations, chronic. 7. Diabetic neuropathy, chronic Plan: Debridement was performed today in clinic today as annotated above. She was advised to continue daily dressing changes with Santyl. May use moisturizing lotion such as Aquaphor, Eucerin, or CeraVe to legs and feet, but do not use on ulcers. May continue to shower. Remove dressing prior to showering. Wash shraddha-ulcer areas with mild antibacterial soap, rinse well and pat dry. Apply clean dressing following shower. Do not soak or submerge right foot/ulcers. Avoid ambulating barefoot at home, wear offloading boot to right foot at all times when ambulating. She relates she has been fitted for this already. Comp ression: Double Tubigrip applied today in office. Patient is to continue compression daily at home. She states that she has compression stockings at home that she bought over the counter, which she will bring in next visit for us to evaluate the amount of compression. Off-loading: Avoid prolonged standing or dangling of legs. Keep feet elevated at or above waist level when seated. Lay flat or with feet elevated while sleeping. Continue use of offloading boot to right foot. Diet: Patient encouraged to increase protein and vitamin C intake while taking caution to avoid high carbohydrate and/or sugar intake. Discussed importance of tight glycemic control. Discussed at length the importance of smoking cessation, and patient encouraged to follow-up with primary care provider if smoking cessation aids are desired. Patient reports she is successfully cutting back on smoking cigarettes. She states she smokes one in the morning and then puts a patch on for the rest of the day. Further reduction/cessation encouraged. Labs/cultures/imaging: Wound cultures collected 06/03/2019: Right plantar foot positive for 1+ Streptococcus gallolyticus pas, rare Staphylococcus aureus, and anaerobic cocci. Right toe positive for very rare Staphylococcus aureus, and growth of Enterococcus faecalis. Patient sent to ER, given Unasyn x1 dose, and IV vancomycin. Consulted with ID and podiatry (Dr. Estrada), felt culture results were indicative of wound colonization. IV antibiotics were DC'd and patient discharged home.Patient's right foot x-ray (06/05/2019) demonstrated the following: Soft tissue swelling, no acute osseous changes. Patient's recent labs showed the following: A1c 10.8%, ESR 26, WBC 7.3, creatinine 1.16 (06/05/2019) down to 0.83 (06/10/2019), prealbumin 23.4. Please see lab reports in chart for full details. Patient had arterial studies completed on 06/24/2019. Arterial studies showed the following: Right CHRISTELLE (DP) 1.10, (PT) 1.05. Right DBI 0.79. Left CHRISTELLE (DP) 1.15, (PT) 1.03. Left TBI 0.86. Triphasic Doppler waveforms noted at ankle level bilaterally. Pulse volume recording waveform amplitudes are slightly diminished at digital level bilaterally, but otherwise satisfactory at all other levels. No evidence of significant arterial occlusive disease in bilateral lower extremities. (See report for full details.). Follow-up: Return to clinic in 2 weeks for re- evaluation (due to COVID-19). Return sooner or report to the emergency room should symptoms worsen, or new symptoms arise. Note: [employer] speech recognition hoisting engineer software was used to create portions of this document. Sound-alike and misspelled words, as well as other hoisting engineer errors may be contained in the documentation. [id number]: [id number] Teresa subq tissue 20 sq cm/<
[2019-08-14 11:01] VITALS: BP 121/66; PULSE 82; RESP 18; TEMP 36.6; BMI 43.9
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
== END 2019-08-21 23:59 ==
LOC: WC 11:00
PROVIDERS: PCP Family Medicine; Referring Provider Nurse Practitioner Family; Visit Provider Nurse Practitioner Family
DX: E11.621 Type 2 diabetes mellitus with foot ulcer (principal); L97.412 Non-pressure chronic ulcer of right heel and midfoot with fat layer exposed; E11.51 Type 2 diabetes mellitus with diabetic peripheral angiopathy without gangrene; J44.9 Chronic obstructive pulmonary disease, unspecified; L97.522 Non-pressure chronic ulcer of other part of left foot with fat layer exposed; F17.210 Nicotine dependence, cigarettes, uncomplicated; E11.42 Type 2 diabetes mellitus with diabetic polyneuropathy; E66.01 Morbid (severe) obesity due to excess calories; Z68.41 Body mass index [BMI] 40.0-44.9, adult; M06.9 Rheumatoid arthritis, unspecified; I10 Essential (primary) hypertension; M32.9 Systemic lupus erythematosus, unspecified
CPT/HCPCS: 11042

== ENCOUNTER → 2019-08-14 12:24 | Outpatient (CLI) | payer MEDICARE, MEDICAID, SELFPAY ==
[2019-07-25 08:36] VITALS: BMI 43.9
[2019-08-14 11:01] VITALS: BMI 43.9
--- NOTE | 2019-08-14 12:24 | CT_ITS ---
STUDY: LOW DOSE CT LUNG CANCER SCREENING REASON FOR EXAM: Female, 54 years old. Tobacco dependency smoked 2 packs/day x 44 years, now smokes 12 cigs/day, diabetes and hypertension. RADIATION DOSAGE (If Supplied By Facility): CTDIvol = ( 4.02 ) mGy, DLP = ( 148.98 ) mGycm TECHNIQUE: No contrast was administered. Low dose technique was utilized (average mAS-38 and kVp 120). 1.25 mm axial source images with a slice interval of 1.25-mm were reconstructed in lung windows. 2.5 mm axial source images with a slice interval of 2.5-mm were reconstructed in lung windows. 5.0 mm axial source images with a slice interval of 5.0-mm were reconstructed in soft tissue windows. Nodule measured using lung windows on PACS and/or independent workstation with automated measurement of minimum and maximum diameter. Nodule measurement reported as average diameter rounded to the nearest whole number. Growth is defined as an increase ins size of greater than 1.5 mm. COMPARISON: Comparison is made with prior examination dated October 13, 2014. NODULES: Stable 1.2 cm calcified granuloma in the posterior lateral aspect of the left upper lobe. There is also evidence of scattered calcified granulomas in the posterior lateral aspect of the left upper lobe. Stable calcified left hilar lymph nodes. Aorta: Minimal atherosclerotic calcification of the aortic arch. Coronary arteries: Coronary artery calcification. Heart: Not enlarged. Mediastinal nodes: Stable benign-appearing mediastinal lymph nodes. Other chest and abdominal findings: Degenerative changes of the dorsal spine. CT/Low Dose CT Lung Screening IMPRESSION: Lung-RADS category 2 - Continue annual screening with LDCT in 12 months. IMPORTANT NOTES FOR USE: ACR Lung-RADS Version 1.0 Assessment Categories Release Date: August 18, 2013 Category: Coded 0-4 bases on nodule(s) with highest degree of suspicion. Negative screen is defined as categories 1 and 2; a positive screen is defined as categories 3 and 4. Category 3 and 4A nodules that are unchanged on interval CT should be coded as category 2, and individuals returned to screening in 12 months. Category 4X: Category 3 or 4 nodules with additional imaging findings that increase the suspicion of lung cancer, such as spiculation, GGN that doubles in size in 1 year, enlarged lymph notes, etc. Category Modifiers: S (significant finding unrelated to lung cancer) and C (prior history of treated lung cancer) may be added to the 0-4 Lung-RADS Electronically Signed: Joey Morris, at 14:24 EDT , Service support ,
== END ==
PROVIDERS: PCP Family Medicine; Referring Provider Internal Medicine Critical Care Medicine; Visit Provider Internal Medicine Critical Care Medicine
DX: F17.210 Nicotine dependence, cigarettes, uncomplicated (principal); I73.9 Peripheral vascular disease, unspecified; E11.621 Type 2 diabetes mellitus with foot ulcer; L97.519 Non-pressure chronic ulcer of other part of right foot with unspecified severity
CPT/HCPCS: 11042; G0297

== ENCOUNTER → 2019-09-09 15:48 | Outpatient (CLI) | payer MEDICARE, MEDICAID, SELFPAY ==
[2019-08-28 11:36] VITALS: BMI 43.9
[2019-09-09 17:30] LABS: AST(SGOT) 14 U/L (15-37); Alanine Aminotransfer ALT/SGPT 24 U/L (13-56); Albumin, Serum 3.5 g/dL (3.2-5.0); Alkaline Phosphatase 135 U/L (45-117); Globulin 4.6 g/dL (2.2-4.2); Protein, Total 8.1 g/dL (6.4-8.2)
== END ==
PROVIDERS: PCP Family Medicine; Visit Provider Obstetrics & Gynecology
DX: R10.11 Right upper quadrant pain (principal)
CPT/HCPCS: 36415; 80076

== ENCOUNTER → 2019-09-12 09:39 | Outpatient (CLI) | payer MEDICARE, MEDICAID, SELFPAY ==
[2019-07-23 06:43] VITALS: BMI 43.9
[2019-08-28 11:36] VITALS: BMI 43.9
--- NOTE | 2019-09-12 11:14 | PFT ---
INTRODUCTION: The patient is a 54-year-old female that presents for pulmonary function studies secondary to a diagnosis of COPD. Respiratory therapy reports good patient effort. Bronchodilators were used during testing. INTERPRETATION: Forced expiration spirometry demonstrates no evidence of a large airways obstructive ventilatory defect. There was no significant response to aerosolized bronchodilators. Spirograms are of good quality and plateau normally. Body plethysmography was performed and reveals a decreased TLC to 3.44 L, 70% of predicted, indicative of a mild restrictive ventilatory impairment. Diffusing capacity by single breath CO is reduced at 59% of predicted. IMPRESSION: Mild restrictive ventilatory impairment with disproportionate reduction in diffusing capacity.
== END ==
PROVIDERS: PCP Family Medicine; Referring Provider Internal Medicine Critical Care Medicine; Visit Provider Internal Medicine Critical Care Medicine
DX: J44.9 Chronic obstructive pulmonary disease, unspecified (principal)
CPT/HCPCS: 94060; 94726; 94729

== ENCOUNTER 2019-09-18 10:00 | Outpatient (RCR) | payer MEDICARE, MEDICAID, SELFPAY ==
[2019-08-22 00:16] VITALS: BP 121/66; PULSE 82; RESP 18; TEMP 36.6
[2019-08-28 11:36] VITALS: BP 141/57; PULSE 85; RESP 20; TEMP 36.2; BMI 43.9
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
[2019-09-18 09:57] VITALS: BP 147/102; PULSE 88; RESP 18; TEMP 36.3; BMI 43.9
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
== END 2019-09-21 23:59 ==
LOC: WC 10:00
PROVIDERS: PCP Family Medicine; Referring Provider Nurse Practitioner Family; Visit Provider Nurse Practitioner Family
DX: E11.621 Type 2 diabetes mellitus with foot ulcer (principal); E11.51 Type 2 diabetes mellitus with diabetic peripheral angiopathy without gangrene; L97.412 Non-pressure chronic ulcer of right heel and midfoot with fat layer exposed; L97.522 Non-pressure chronic ulcer of other part of left foot with fat layer exposed; E66.01 Morbid (severe) obesity due to excess calories; Z68.41 Body mass index [BMI] 40.0-44.9, adult; E11.42 Type 2 diabetes mellitus with diabetic polyneuropathy; E11.22 Type 2 diabetes mellitus with diabetic chronic kidney disease; N18.3 Chronic kidney disease, stage 3 (moderate); F17.200 Nicotine dependence, unspecified, uncomplicated; I12.9 Hypertensive chronic kidney disease with stage 1 through stage 4 chronic kidney disease, or unspecified chronic kidney disease; M06.9 Rheumatoid arthritis, unspecified; M32.9 Systemic lupus erythematosus, unspecified; L97.521 Non-pressure chronic ulcer of other part of left foot limited to breakdown of skin
CPT/HCPCS: 11042; 97597

== ENCOUNTER 2019-09-25 09:18 | Outpatient (RCR) | payer MEDICARE, MEDICAID, SELFPAY ==
[2019-09-22 00:26] VITALS: BP 147/102; PULSE 88; RESP 18; TEMP 36.3
[2019-09-25 09:57] VITALS: BP 118/56; PULSE 81; RESP 18; TEMP 36.2; BMI 43.9
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
== END 2019-10-21 23:59 ==
LOC: WC 09:18
PROVIDERS: PCP Family Medicine; Referring Provider Nurse Practitioner Family; Visit Provider Nurse Practitioner Family
DX: Z09 Encounter for follow-up examination after completed treatment for conditions other than malignant neoplasm (principal); E11.42 Type 2 diabetes mellitus with diabetic polyneuropathy; I10 Essential (primary) hypertension; M06.9 Rheumatoid arthritis, unspecified; M32.9 Systemic lupus erythematosus, unspecified; E66.01 Morbid (severe) obesity due to excess calories; Z68.41 Body mass index [BMI] 40.0-44.9, adult; Z87.891 Personal history of nicotine dependence
CPT/HCPCS: 99214; G0463

== ENCOUNTER → 2019-09-30 12:39 | Outpatient (CLI) | payer MEDICARE, MEDICAID, SELFPAY ==
[2019-08-28 11:36] VITALS: BMI 43.9
[2019-09-25 09:57] VITALS: BMI 43.9
--- NOTE | 2019-09-30 12:40 | BI_ITS ---
MAMMOGRAPHY - BILATERAL SCREENING REASON FOR EXAM: Female, 54 years old. Routine annual screening examination. PERTINENT HISTORY: Non-contributory. Remote left middle biopsy. TECHNIQUE: Digital bilateral breast bk (3D mammographic acquisition) in the CC and MLO projections. 2-D mediolateral oblique (MLO) and craniocaudad (CC) views of both breasts were obtained. CAD: Full Field Digital Mammography with Computer Added Detection was performed. COMPARISON: Comparison is made with prior study dated September 24, 2018 and August 21, 2017. FINDINGS: Breast Composition: There are scattered areas of fibroglandular density. There are no dominant masses or suspicious calcifications. A tissue clip marker is once again seen in the upper lateral aspect of the left breast. Once again, there is prominence of the venous vessels in the region of the axilla. Stable benign appearing bilateral axillary lymph nodes. No other significant abnormalities are identified. There has been no significant change since the prior study. BI/SCREEN MAMM (CAD) W/BK BILAT IMPRESSION: Stable bilateral screening mammogram. Yearly follow-up mammogram recommended. (A) ASSESSMENT CATEGORY: BIRADS Category 2: Benign. A letter regarding these results will be sent to the patient by the facility within 30 days. Approximately 10% of breast cancers are not detected by mammography. A normal mammogram should not delay biopsy of a clinically suspicious abnormality. [id number] Electronically Signed: Joey Morris, at 13:33 EDT , Service support ,
== END ==
PROVIDERS: PCP Family Medicine; Referring Provider Obstetrics & Gynecology; Visit Provider Obstetrics & Gynecology
DX: Z12.31 Encounter for screening mammogram for malignant neoplasm of breast (principal)
CPT/HCPCS: 77063; 77067

== ENCOUNTER 2019-11-12 07:52 | Outpatient (RCR) | payer MEDICARE, MEDICAID, SELFPAY ==
[2019-10-16 14:50] VITALS: BMI 46.3
[2019-10-22 00:26] VITALS: BP 118/56; PULSE 81; RESP 18; TEMP 36.2
== END 2019-11-21 23:59 ==
LOC: WC 07:52
PROVIDERS: PCP Family Medicine; Referring Provider Nurse Practitioner Family; Visit Provider Nurse Practitioner Family
DX: I73.9 Peripheral vascular disease, unspecified (principal); E11.621 Type 2 diabetes mellitus with foot ulcer; L97.519 Non-pressure chronic ulcer of other part of right foot with unspecified severity; F17.210 Nicotine dependence, cigarettes, uncomplicated

== ENCOUNTER → 2019-11-25 23:33 | Outpatient (CLI) | payer MEDICARE, MEDICAID, SELFPAY ==
[2019-10-16 14:50] VITALS: BMI 46.3
== END ==
PROVIDERS: PCP Family Medicine; Referring Provider Nurse Practitioner Acute Care; Visit Provider Nurse Practitioner Acute Care
DX: G47.33 Obstructive sleep apnea (adult) (pediatric) (principal)
CPT/HCPCS: 95810

== ENCOUNTER 2019-12-18 14:45 | Outpatient (RCR) | payer MEDICARE, MEDICAID, SELFPAY ==
[2019-10-16 14:50] VITALS: BMI 46.3
[2019-11-22 00:26] VITALS: BP 118/56; PULSE 81; RESP 18; TEMP 36.2
[2019-11-27 14:01] VITALS: BP 145/59; PULSE 102; RESP 16; TEMP 36.4; BMI 44.6
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
[2019-12-11 15:10] VITALS: BP 139/76; PULSE 112; RESP 20; TEMP 36.9; BMI 44.6
--- NOTE | 2019-12-11 16:52 | PCM.WC.PN ---
(1) Diabetic ulcer of right foot Status: Acute Current Visit: Yes Qualifiers: Diabetic foot ulcer location: heel Diabetes mellitus type: type 2 Non-pressure ulcer stage: with fat layer exposed Qualified Code(s): E11.621 - Type 2 diabetes mellitus with foot ulcer; L97.412 - Non-pressure chronic ulcer of right heel and midfoot with fat layer exposed Code(s): E11.621 - Type 2 diabetes mellitus with foot ulcer; L97.519 - Non-pressure chronic ulcer of other part of right foot with unspecified severity (2) SARTHAK (obstructive sleep apnea) Status: Acute Current Visit: No Code(s): G47.33 - Obstructive sleep apnea (adult) (pediatric) (3) Anxiety Status: Chronic Current Visit: No Code(s): F41.9 - Anxiety disorder, unspecified Comment: Enc patient to consider if she feels she has need for additional medication or counseling and to discuss with PCP as this may be intefering with her ability to control diabetes. (4) COPD (chronic obstructive pulmonary disease) Status: Chronic Current Visit: No Code(s): J44.9 - Chronic obstructive pulmonary disease, unspecified (5) HTN (hypertension) Status: Chronic Current Visit: No Code(s): I10 - Essential (primary) hypertension (6) Hypothyroidism Status: Chronic Current Visit: No Qualifiers: Code(s): E03.9 - Hypothyroidism, unspecified Comment: Continues on levothyroxine 100 mcg daily. Takes as directed. Denies any s/s of hypothyroidism. (7) Morbid obesity with BMI of 40.0-44.9, adult Status: Chronic Current Visit: No Code(s): E66.01 - Morbid (severe) obesity due to excess calories; Z68.41 - Body mass index (BMI) 40.0-44.9, adult (8) Polyneuropathy due to type 2 diabetes mellitus Status: Chronic Current Visit: No Code(s): E11.42 - Type 2 diabetes mellitus with diabetic polyneuropathy (9) Rheumatoid arthritis Status: Chronic Current Visit: No Code(s): M06.9 - Rheumatoid arthritis, unspecified (10) SLE (systemic lupus erythematosus) Status: Chronic Current Visit: No Qualifiers: Code(s): M32.9 - Systemic lupus erythematosus, unspecified (11) Stage 3 chronic kidney disease due to type 2 diabetes mellitus Status: Chronic Current Visit: No Code(s): E11.22 - Type 2 diabetes mellitus with diabetic chronic kidney disease; N18.3 - Chronic kidney disease, stage 3 (moderate) (12) Tobacco dependence due to cigarettes Status: Chronic Current Visit: No Code(s): F17.210 - Nicotine dependence, cigarettes, uncomplicated (13) Diabetic ulcer of left lower leg Status: Acute Current Visit: Yes Code(s): E11.622 - Type 2 diabetes mellitus with other skin ulcer; L97.929 - Non-pressure chronic ulcer of unspecified part of left lower leg with unspecified severity (14) Cellulitis of left lower extremity Status: Acute Current Visit: Yes Code(s): L03.116 - Cellulitis of left lower limb Type of Wound Date of Service: 12/11/19 Chief Complaint: Right foot wounds History of Wound: Patient is a pleasant 53-year-old female who [facility] for evaluation and treatment of wounds to her right foot. About 3 weeks prior, she believes that she stepped on a hot cigarette butt, causing a wound on her right heel. She states that she saw her carbon brushes assembler, Dr. Estrada, and Was instructed to follow-up with the wound center. She states that for wound care she has been utilizing leftover Santyl that she had.She states that the wound is not improving in size and notes a moderate amount of clear drainage. She denies any pain with her Ulcer, due to her diabetic neuropathy. She denies any increasing redness, swelling, or drainage. She denies any foul-smelling or purulent drainage. She denies any nausea, vomiting, or diarrhea. Patient wears diabetic shoes, and has an offloading boot for her right foot which she Only occasionally wears. She reports walking barefoot in home. She also reports frequently sleeping in a chair without her feet elevated. Patient has a significant past medical history of tobacco dependence, smoking 1 pack/day. She is also a type II diabetic, with poor glycemic control. Most recent A1c over 9. She has extensive peripheral neuropathy. She also has comorbidities of hypertension, rheumatoid arthritis, lupus, and morbid obesity with a BMI of 44.6. She sees Dr. Verdugo as her primary care provider. Patient had arterial studies completed on 06/24/2019. Arterial studies showed the following: Right CHRISTELLE (DP) 1.10, (PT) 1.05. Right DBI 0.79. Left CHRISTELLE (DP) 1.15, (PT) 1.03. Left TBI 0.86. Triphasic Doppler waveforms noted at ankle level bilaterally. Pulse volume recording waveform amplitudes are slightly diminished at digital level bilaterally, but otherwise satisfactory at all other levels. No evidence of significant arterial occlusive disease in bilateral lower extremities. (See report for full details.) Progress of Wound: 12/11/2019?patient does have increased left lower extremity swelling and redness and tenderness, also notes that a blister formed last week and opened up and that there is a new ulcer, she continues to have a right heel ulcer but denies any new concerns with that. Denies any systemic signs of infection at this time. - Physical Exam Vital Signs Temp Pulse Resp BP 98.5 F 112 H 20 H 139/76 H 12/11/19 15:10 12/11/19 15:10 12/11/19 15:10 12/11/19 15:10 General: Alert, Oriented x3, Cooperative, No apparent distress HEENT: Atraumatic Lungs: Clear to auscultation, Normal air movement Cardiovascular: Regular rate, Regular Rhythm Abdomen: Soft Extremities: No clubbing, No cyanosis, Edema - 2+ pitting edema bilateral lower extremities, left lower extremity cellulitic in appearance with erythema and warmth present to anterior left lower extremity, Peripheral Pulses Normal Skin: Ulcer/ Wound - The nursing documentation, slough and devitalized tissue present, on the left lower extremity ulceration there is signs of cellulitis present surrounding the ulcer Wound Measurements and Assessment WC - Nurse 1 - General Ulcer Measurement Start: 11/27/19 14:01 Freq: Status: Active Protocol: Activity Type Activity Date Activity User E-Sign Co-Sign Detail Recorded Client Recorded Date Recorded By Document 12/11/19 15:10 [facility] [id number] 12/11/19 15:21 [facility] 12/11/19 15:10 Wound Center Nurse 1 [Ulcer Assessment] #8- L AVERY -Combined with other wound No -Current Size (cm) - Length 1.8 -Current Size (cm) - Width 2.3 -Current Size (cm) - Depth 0.1 -Total Square Cm 4.14 -Date of Last Picture (Recall this 08/20/20 field) -Photo Taken Yes -Epithelialization None Present -Tunneling No -Undermining/Tunneling No -Circular Undermining No -Exudate Amt Small -Exudate Type Serosanguineous -Wound Margin Distinct, Outline Attached -Granulation Amt Large (67-100%) -Granulation Quality Red -Slough/Fibrin Yes -Necrosis Amt Small (1-33%) -Necrotic Tissue Type Adherent Slough -Texture (Shraddha-wound Skin Appearance) Not Assessed, Scarring -Moisture (Shraddha-wound Skin Appearance Assessed ) -Color (Shraddha-wound Skin Appearance) Assessed, Erythema, Hemosiderin Staining -Temperature (Shraddha-wound Skin No Abnormality Appearance) (Pt Warm) -Tenderness on Palpation (Shraddha-wound No Skin Appearance) -Ulcer Cleansing Rinsed/ Irrigated with Saline -Foul Odor after Cleansing No -Anesthetic Used 5% Lidocaine Gel #7- R HEEL -Combined with other wound No -Current Size (cm) - Length 0.4 -Current Size (cm) - Width 0.5 -Current Size (cm) - Depth 0.3 -Total Square Cm 0.20 -Photo Taken No -Epithelialization None Present -Tunneling No -Undermining/Tunneling No -Circular Undermining No -Exudate Amt Small -Exudate Type Serosanguineous -Wound Margin Distinct, Outline Attached -Granulation Amt Small (1-33%) -Granulation Quality Red -Slough/Fibrin Yes -Necrosis Amt Medium (34-66%) -Necrotic Tissue Type Adherent Slough -Texture (Shraddha-wound Skin Appearance) Assessed,Callus ,Scarring -Moisture (Shraddha-wound Skin Appearance Assessed,Dry/ ) Scaly -Color (Shraddha-wound Skin Appearance) Assessed -Temperature (Shraddha-wound Skin No Abnormality Appearance) (Pt Warm) -Tenderness on Palpation (Shraddha-wound Yes Skin Appearance) -Ulcer Cleansing Rinsed/ Irrigated with Saline -Foul Odor after Cleansing No -Anesthetic Used 5% Lidocaine Gel [Edema Assessment] -Lower Limb Edema Present Yes -Right Calf (cm) 39.4 -Right Ankle (cm) 24.9 -Left Calf (cm) 43.2 -Left Ankle (cm) 26.5 WC - Nurse 2 - General Ulcer CM Notes Start: 12/09/19 20:13 Freq: Status: Active Protocol: Activity Type Activity Date Activity User E-Sign Co-Sign Detail Recorded Client Recorded Date Recorded By Document 12/11/19 15:48 MW [id number] 12/11/19 15:57 MW 12/11/19 15:48 Wound Center Nurse 2 [Procedure/Treatment] #8- L AVERY -Time 15:56 -Correct Patient Yes -Correct Side, Site, Position Yes -Correct Procedure Yes -Procedure Performed Yes -Type of Procedure Debridement -Clinical Debridement Subcutaneous -Tissue Removed Subcutaneous -Post Debridement (cm) - Length 1.2 -Post Debridement (cm) - Width 3.3 -Post Debridement (cm) - Depth 0.1 -Total Square (Post) (cm) 3.96 -Area of Debridement (cm) - Length 1.2 -Area of Debridement (cm) - Width 3.3 -Total Square (Area) (cm) 3.96 -Tunneling No -Undermining/Tunneling No -Circular Undermining No -Wound/Ulcer Outcome Not Healed -Ulcer Cleansing Rinsed/ Irrigated with Saline -Foul Odor after Cleansing No -Bioengineered Tissue No -Bleeding Controlled with Pressure -Offloading No -Treatment Response Procedure Tolerated Well -Debridement - Subq, 1st 20sq cm Yes #7- R HEEL -Time 15:56 -Correct Patient Yes -Correct Side, Site, Position Yes -Correct Procedure Yes -Procedure Performed Yes -Type of Procedure Debridement -Clinical Debridement Subcutaneous -Tissue Removed Subcutaneous -Post Debridement (cm) - Length 0.7 -Post Debridement (cm) - Width 0.7 -Post Debridement (cm) - Depth 0.2 -Total Square (Post) (cm) 0.49 -Area of Debridement (cm) - Length 0.7 -Area of Debridement (cm) - Width 0.7 -Total Square (Area) (cm) 0.49 -Tunneling No -Undermining/Tunneling No -Circular Undermining No -Wound/Ulcer Outcome Not Healed -Ulcer Cleansing Rinsed/ Irrigated with Saline -Foul Odor after Cleansing No -Bioengineered Tissue No -Bleeding Controlled with Pressure -Offloading No -Treatment Response Procedure Tolerated Well -Debridement - Subq, 1st 20sq cm No [See Physician Procedure note for Specifics] Pain Scale: 0-10 Numeric [Pain] -Is Patient Pain Free? Yes WC - Nurse 3 - General Ulcer D/C NN Start: 12/09/19 20:13 Freq: Status: Active Protocol: Activity Type Activity Date Activity User E-Sign Co-Sign Detail Recorded Client Recorded Date Recorded By Document 12/11/19 15:57 MW [id number] 12/11/19 15:59 MW 12/11/19 15:57 Wound Care Nurse 3 [Wound Dressing] #8- L AVERY -Ulcer Cleansing Rinsed/ Irrigated with Saline -Foul Odor after Cleansing No -Negative Pressure Wound Therapy N/A -Primary Dressing Applied Promogran Rene Matter -Primary Dressing Covered/Secured Dry Gauze & with Roll Gauze, Secured with Tape -Promogran Rene Matter 1 #7- R HEEL -Ulcer Cleansing Rinsed/ Irrigated with Saline -Foul Odor after Cleansing No -Negative Pressure Wound Therapy N/A -Primary Dressing Applied Promogran Rene Matter -Primary Dressing Covered/Secured Dry Gauze & with Roll Gauze, Secured with Tape -Promogran Rene Matter 1 [Post Procedure Tolerated] -Treatment Response Procedure Tolerated Well Pain Scale: 0-10 Numeric [Pain] -Is Patient Pain Free? Yes Teaching: Wound Center [Wound Center Education] (Items with an * have Printed Materials Available- Please identify what is given to patient under the Teaching materials given to patient and caregiver Section. Dressing Your Wound -Person Taught Patient -Teaching Method Discussion, Demonstration -Response to teaching Verbalize understanding WC - Visit Discharge [Visit Discharge Information] -Discharge Condition Stable -Ambulatory Status Ambulatory -Transportation Private Auto -Accompanied by self -Medication Reconcilliation completed No & provided to patient/care provider -Clinical Summary of Care Provided Yes Neurological: Neuro grossly intact Psych/Mental Status: Normal Affect, Appropriate, Alert and oriented to time, place, person, mood and affect Debridement Note Post-Debridement Measurements/Treatment WC - Nurse 2 - General Ulcer CM Notes Start: 12/09/19 20:13 Freq: Status: Active Protocol: Activity Type Activity Date Activity User E-Sign Co-Sign Detail Recorded Client Recorded Date Recorded By Document 12/11/19 15:48 MW [id number] 12/11/19 15:57 MW 12/11/19 15:48 Wound Center Nurse 2 #8- L AVERY -Time 15:56 -Correct Patient Yes -Correct Side, Site, Position Yes -Correct Procedure Yes -Procedure Performed Yes -Type of Procedure Debridement -Clinical Debridement Subcutaneous -Tissue Removed Subcutaneous -Post Debridement (cm) - Length 1.2 -Post Debridement (cm) - Width 3.3 -Post Debridement (cm) - Depth 0.1 -Total Square (Post) (cm) 3.96 -Area of Debridement (cm) - Length 1.2 -Area of Debridement (cm) - Width 3.3 -Total Square (Area) (cm) 3.96 -Tunneling No -Undermining/Tunneling No -Circular Undermining No -Wound/Ulcer Outcome Not Healed -Ulcer Cleansing Rinsed/ Irrigated with Saline -Foul Odor after Cleansing No -Bioengineered Tissue No -Bleeding Controlled with Pressure -Offloading No -Treatment Response Procedure Tolerated Well -Debridement - Subq, 1st 20sq cm Yes #7- R HEEL -Time 15:56 -Correct Patient Yes -Correct Side, Site, Position Yes -Correct Procedure Yes -Procedure Performed Yes -Type of Procedure Debridement -Clinical Debridement Subcutaneous -Tissue Removed Subcutaneous -Post Debridement (cm) - Length 0.7 -Post Debridement (cm) - Width 0.7 -Post Debridement (cm) - Depth 0.2 -Total Square (Post) (cm) 0.49 -Area of Debridement (cm) - Length 0.7 -Area of Debridement (cm) - Width 0.7 -Total Square (Area) (cm) 0.49 -Tunneling No -Undermining/Tunneling No -Circular Undermining No -Wound/Ulcer Outcome Not Healed -Ulcer Cleansing Rinsed/ Irrigated with Saline -Foul Odor after Cleansing No -Bioengineered Tissue No -Bleeding Controlled with Pressure -Offloading No -Treatment Response Procedure Tolerated Well -Debridement - Subq, 1st 20sq cm No Pain Scale: 0-10 Numeric Is Patient Pain Free? Yes WC - Nurse 3 - General Ulcer D/C NN Start: 12/09/19 20:13 Freq: Status: Active Protocol: Activity Type Activity Date Activity User E-Sign Co-Sign Detail Recorded Client Recorded Date Recorded By Document 12/11/19 15:57 MW [id number] 12/11/19 15:59 MW 12/11/19 15:57 Wound Care Nurse 3 #8- L AVERY -Ulcer Cleansing Rinsed/ Irrigated with Saline -Foul Odor after Cleansing No -Negative Pressure Wound Therapy N/A -Primary Dressing Applied Promogran Rene Matter -Primary Dressing Covered/Secured with Dry Gauze & Roll Gauze, Secured with Tape -Promogran Rene Matter 1 #7- R HEEL -Ulcer Cleansing Rinsed/ Irrigated with Saline -Foul Odor after Cleansing No -Negative Pressure Wound Therapy N/A -Primary Dressing Applied Promogran Rene Matter -Primary Dressing Covered/Secured with Dry Gauze & Roll Gauze, Secured with Tape -Promogran Rene Matter 1 Treatment Response Procedure Tolerated Well Pain Scale: 0-10 Numeric Is Patient Pain Free? Yes Teaching: Wound Center Dressing Your Wound -Person Taught Patient -Teaching Method Discussion, Demonstration -Response to teaching Verbalize understanding WC - Visit Discharge Discharge Condition Stable Ambulatory Status Ambulatory Transportation Private Auto Accompanied by self Medication Reconcilliation completed & No provided to patient/care provider Clinical Summary of Care Provided Yes Wound debrided: Right heel diabetic foot ulcer Laterality: Right Type of Debridement: Excisional debridement Anesthesia Used: 5% Lidocaine Gel Depth: in the subcutaneous layer Percentage of wound debrided: 100 Instrument Used: 3mm curette Tissue Removed: Slough devitalized tissue and callus Severity: Fat Layer Exposed Amount of bleeding with debridement: Mild Bleeding Controlled with: Pressure Patient tolerated procedure well - Additional Wound Wound debrided: Left diabetic leg ulcer Laterality: Left Type of Debridement: Excisional debridement Anesthesia Used: 5% Lidocaine Gel Depth: in the subcutaneous layer Percentage of wound debrided: 100 Instrument Used: 5mm curette Tissue Removed: Slough and devitalized tissue Severity: Fat Layer Exposed Amount of bleeding with debridement: Mild Bleeding Controlled with: Pressure Patient tolerated procedure: Patient tolerated procedure well Assessment/Plan Active Problems (Last Reviewed 10/17/19 @ 12:[address] Nelson Ocasio MD) Diabetic ulcer of right foot (Acute) Diabetic ulcer of left lower leg (Acute) Cellulitis of left lower extremity (Acute) Assessment: Same as above. Plan: The patient was seen and examined at the wound center today and was updated on the plan of care. A subcutaneous debridement was performed today. The patient tolerated the procedure well. The patients wound care will consist of:Moistened rene to all ulcer and a prefabricated offloading ABD to her heel. Discussed the importance of wearing her offloading shoe. Discussed importance of glycemic control. Discussed the importance of remaining compliant with her compression stockings.. Wound cultures were collected today on new ulcer and given her cellulitis will treat empirically with Augmentin as well. Baseline bloodwork Held at this time and recent vascular studies this year as stated above. Patient educated on the importance of diet on wound healing and instructed to increase protein and vitamin C intake. Given the delayed wound healing, will apply for the use of nushield as the Ulceration is now 5 weeks with failed standard wound therapy.Patient verbalized understanding. Patient will follow up at wound healing center in one week or sooner if needed. This note was generated with [employer] dictation software. It may contain incorrect words, spelling, and punctuation that were not noted in checking the note before signing. [id number]: [id number] Teresa subq tissue 20 sq cm/<
[2019-12-18 14:49] VITALS: BP 155/77; PULSE 99; RESP 22; TEMP 36.8; BMI 44.6
--- NOTE | 2019-12-21 15:30 | PN.PCM_ITS ---
(1) Diabetic ulcer of right foot Status: Acute Qualifiers: Diabetic foot ulcer location: heel Diabetes mellitus type: type 2 Non- pressure ulcer stage: with fat layer exposed Qualified Code(s): E11.621 - Type 2 diabetes mellitus with foot ulcer; L97.412 - Non-pressure chronic ulcer of right heel and midfoot with fat layer exposed Code(s): E11.621 - Type 2 diabetes mellitus with foot ulcer; L97.519 - Non-pr essure chronic ulcer of other part of right foot with unspecified severity (2) SARTHAK (obstructive sleep apnea) Status: Acute Code(s): G47.33 - Obstructive sleep apnea (adult) (pediatric) (3) Anxiety Status: Chronic Code(s): F41.9 - Anxiety disorder, unspecified Comment: Enc patient to consider if she feels she has need for additional medication or counseling and to discuss with PCP as this may be intefering with her ability to control diabetes. (4) COPD (chronic obstructive pulmonary disease) Status: Chronic Code(s): J44.9 - Chronic obstructive pulmonary disease, unspecified (5) HTN (hypertension) Status: Chronic Code(s): I10 - Essential (primary) hypertension (6) Hypothyroidism Status: Chronic Qualifiers: Code(s): E03.9 - Hypothyroidism, unspecified Comment: Continues on levothyroxine 100 mcg daily. Takes as directed. Denies any s/s of hypothyroidism. (7) Morbid obesity with BMI of 40.0-44.9, adult Status: Chronic Code(s): E66.01 - Morbid (severe) obesity due to excess calories; Z68.41 - Body mass index (BMI) 40.0-44.9, adult (8) Polyneuropathy due to type 2 diabetes mellitus Status: Chronic Code(s): E11.42 - Type 2 diabetes mellitus with diabetic polyneuropathy (9) Rheumatoid arthritis Status: Chronic Code(s): M06.9 - Rheumatoid arthritis, unspecified (10) SLE (systemic lupus erythematosus) Status: Chronic Qualifiers: Code(s): M32.9 - Systemic lupus erythematosus, unspecified (11) Stage 3 chronic kidney disease due to type 2 diabetes mellitus Status: Chronic Code(s): E11.22 - Type 2 diabetes mellitus with diabetic chronic kidney disease; N18.3 - Chronic kidney disease, stage 3 (moderate) (12) Tobacco dependence due to cigarettes Status: Chronic Code(s): F17.210 - Nicotine dependence, cigarettes, uncomplicated (13) Diabetic ulcer of left lower leg Status: Acute Code(s): E11.622 - Type 2 diabetes mellitus with other skin ulcer; L97.929 - Non-pressure chronic ulcer of unspecified part of left lower leg with unspecified severity (14) Cellulitis of left lower extremity Status: Acute Code(s): L03.116 - Cellulitis of left lower limb Type of Wound Date of Service: 12/18/19 Chief Complaint: Right foot wounds History of Wound: Patient is a pleasant 53-year-old female who [facility] for evaluation and treatment of wounds to her right foot. About 3 weeks prior, she believes that she stepped on a hot cigarette butt, causing a wound on her right heel. She states that she saw her civil engineering professional, Dr. Estrada, and Was instructed to follow-up with the wound center. She states that for wound care she has been utilizing leftover Santyl that she had.She states that the wound is not improving in size and notes a moderate amount of clear drainage. She denies any pain with her Ulcer, due to her diabetic neuropathy. She denies any increasing redness, swelling, or drainage. She denies any foul-smelling or purulent drainage. She denies any nausea, vomiting, or diarrhea. Patient wears diabetic shoes, and has an offloading boot for her right foot which she Only occasionally wears. She reports walking barefoot in home. She also reports frequently sleeping in a chair without her feet elevated. Patient has a significant past medical history of tobacco dependence, smoking 1 pack/day. She is also a type II diabetic, with poor glycemic control. Most recent A1c over 9. She has extensive peripheral neuropathy. She also has comorbidities of hypertension, rheumatoid arthritis, lupus, and morbid obesity with a BMI of 44.6. She sees Dr. Verdugo as her primary care provider. Patient had arterial studies completed on 06/24/2019. Arterial studies showed the following: Right CHRISTELLE (DP) 1.10, (PT) 1.05. Right DBI 0.79. Left CHRISTELLE (DP) 1.15, (PT) 1.03. Left TBI 0.86. Triphasic Doppler waveforms noted at ankle level bilaterally. Pulse volume recording waveform amplitudes are slightly diminished at digital level bilaterally, but otherwise satisfactory at all other levels. No evidence of significant arterial occlusive disease in bilateral lower extremities. (See report for full details.) Progress of Wound: 12/11/2019?patient does have increased left lower extremity swelling and redness and tenderness, also notes that a blister formed last week and opened up and that there is a new ulcer, she continues to have a right heel ulcer but denies any new concerns with that. Denies any systemic signs of infection at this time. 12/18/2019?wound cultures were reviewed from prior and negative, patient tolerating the Augmentin, denies any new concerns. - Physical Exam Vital Signs Temp Pulse Resp BP 98.2 F 99 22 H 155/77 H 12/18/19 14:49 12/18/19 14:49 12/18/19 14:49 12/18/19 14:49 General: Alert, Oriented x3, Cooperative, No apparent distress HEENT: Atraumatic Oral: Moist Mucosa Lungs: Clear to auscultation, Normal air movement Cardiovascular: Regular rate Abdomen: Soft, Non Tender Extremities: No clubbing, No cyanosis, Diminished Peripheral Pulses, Edema - Generalized bilateral lower extremity edema with chronic venous changes present Skin: Ulcer/ Wound - See nursing documentation, slough and devitalized tissue present, no signs of obvious infection at this time Wound Measurements and Assessment WC - Nurse 1 - General Ulcer Measurement Start: 11/27/19 14:01 Freq: Status: Active Protocol: Activity Type Activity Date Activity User E-Sign Co-Sign Detail Recorded Client Recorded Date Recorded By Document 12/18/19 14:49 DL [id number] 12/18/19 14:58 DL 12/18/19 14:49 Wound Center Nurse 1 [Ulcer Assessment] #8- L AVERY -Current Size (cm) - Length 1.3 -Current Size (cm) - Width 2.3 -Current Size (cm) - Depth 0.1 -Total Square Cm 2.99 -Photo Taken No -Exudate Amt None Present -Wound Margin Distinct, Outline Attached -Granulation Amt Small (1-33%) -Granulation Quality [place] -Necrosis Amt Large (67-100%) -Necrotic Tissue Type Adherent Slough -Structure Exposed N/A -Texture (Shraddha-wound Skin Appearance) Localized Edema -Moisture (Shraddha-wound Skin Appearance Dry/Scaly ) -Color (Shraddha-wound Skin Appearance) Hemosiderin Staining -Temperature (Shraddha-wound Skin No Abnormality Appearance) (Pt Warm) -Tenderness on Palpation (Shraddha-wound No Skin Appearance) -Ulcer Cleansing Rinsed/ Irrigated with Saline -Foul Odor after Cleansing No -Anesthetic Used 4% Lidocaine Solution #7- R HEEL -Current Size (cm) - Length 0.6 -Current Size (cm) - Width 0.7 -Current Size (cm) - Depth 0.3 -Total Square Cm 0.42 -Photo Taken No -Exudate Amt None Present -Wound Margin Distinct, Outline Attached -Granulation Amt Small (1-33%) -Granulation Quality [place] -Necrosis Amt Small (1-33%) -Necrotic Tissue Type Adherent Slough -Texture (Shraddha-wound Skin Appearance) Callus,Scarring -Moisture (Shraddha-wound Skin Appearance Dry/Scaly ) -Color (Shraddha-wound Skin Appearance) Hemosiderin Staining -Temperature (Shraddha-wound Skin No Abnormality Appearance) (Pt Warm) -Tenderness on Palpation (Shraddha-wound No Skin Appearance) -Ulcer Cleansing Rinsed/ Irrigated with Saline -Foul Odor after Cleansing No [Edema Assessment] -Right Calf (cm) 39 -Right Ankle (cm) 24 -Left Calf (cm) 41.7 -Left Ankle (cm) 26 WC - Nurse 2 - General Ulcer CM Notes Start: 12/09/19 20:13 Freq: Status: Active Protocol: Activity Type Activity Date Activity User E-Sign Co-Sign Detail Recorded Client Recorded Date Recorded By Document 12/18/19 15:21 MW [id number] 12/18/19 15:27 MW 12/18/19 15:21 Wound Center Nurse 2 [Procedure/Treatment] #8- L AVERY -Time 15:21 -Correct Patient Yes -Correct Side, Site, Position Yes -Correct Procedure Yes -Procedure Performed Yes -Type of Procedure Debridement -Clinical Debridement Subcutaneous -Tissue Removed Subcutaneous -Post Debridement (cm) - Length 1.4 -Post Debridement (cm) - Width 2.5 -Post Debridement (cm) - Depth 0.1 -Total Square (Post) (cm) 3.50 -Area of Debridement (cm) - Length 1.4 -Area of Debridement (cm) - Width 2.5 -Total Square (Area) (cm) 3.50 -Tunneling No -Undermining/Tunneling No -Circular Undermining No -Wound/Ulcer Outcome Not Healed -Ulcer Cleansing Rinsed/ Irrigated with Saline -Foul Odor after Cleansing No -Bioengineered Tissue No -Bleeding Controlled with Pressure -Offloading No -Treatment Response Procedure Tolerated Well -Debridement - Subq, 1st 20sq cm Yes #7- R HEEL -Time 15:22 -Correct Patient Yes -Correct Side, Site, Position Yes -Correct Procedure Yes -Procedure Performed Yes -Type of Procedure Debridement -Clinical Debridement Subcutaneous -Tissue Removed Subcutaneous -Post Debridement (cm) - Length 0.6 -Post Debridement (cm) - Width 0.6 -Post Debridement (cm) - Depth 0.2 -Total Square (Post) (cm) 0.36 -Area of Debridement (cm) - Length 0.6 -Area of Debridement (cm) - Width 0.6 -Total Square (Area) (cm) 0.36 -Tunneling No -Undermining/Tunneling No -Circular Undermining No -Wound/Ulcer Outcome Not Healed -Ulcer Cleansing Rinsed/ Irrigated with Saline -Foul Odor after Cleansing No -Bioengineered Tissue No -Bleeding Controlled with Pressure -Offloading No -Debridement - Subq, 1st 20sq cm No [See Physician Procedure note for Specifics] Pain Scale: 0-10 Numeric [Pain] -Is Patient Pain Free? Yes WC - Nurse 3 - General Ulcer D/C NN Start: 12/09/19 20:13 Freq: Status: Active Protocol: Activity Type Activity Date Activity User E-Sign Co-Sign Detail Recorded Client Recorded Date Recorded By Document 12/18/19 15:35 [facility] [id number] 12/18/19 15:36 [facility] 12/18/19 15:35 Wound Care Nurse 3 [Wound Dressing] #8- L AVERY -Ulcer Cleansing Rinsed/ Irrigated with Saline -Foul Odor after Cleansing No -Primary Dressing Applied Promogran Rene Matter -Other Dressing drsg by yonathan blood rn -Primary Dressing Covered/Secured Dry Gauze, with Secured with Tape -Promogran Rene Matter 1 #7- R HEEL -Ulcer Cleansing Rinsed/ Irrigated with Saline -Foul Odor after Cleansing No -Primary Dressing Applied Promogran Rene Matter -Other Dressing drsg by yonathan blood rn -Primary Dressing Covered/Secured Dry Gauze & with Roll Gauze, Secured with Tape -Promogran Rene Matter 0 [Compression Applied] Right -Other pts own tubis applied Left -Other pts own tubis applied [Post Procedure Tolerated] -Treatment Response Procedure Tolerated Well Pain Scale: 0-10 Numeric [Pain] -Is Patient Pain Free? Yes WC - Visit Discharge [Visit Discharge Information] -Discharge Condition Stable -Ambulatory Status Ambulatory -Transportation Private Auto Neurological: Neuro grossly intact Psych/Mental Status: Normal Affect, Appropriate, Alert and oriented to time, place, person, mood and affect Debridement Note Post-Debridement Measurements/Treatment - Nurse 2 - General Ulcer CM Notes Start: 12/09/19 20:13 Freq: Status: Active Protocol: Activity Type Activity Date Activity User E-Sign Co-Sign Detail Recorded Client Recorded Date Recorded By Document 12/11/19 15:48 MW [id number] 12/11/19 15:57 MW Document 12/18/19 15:21 MW [id number] 12/18/19 15:27 MW 12/11/19 12/18/19 15:48 15:21 Wound Center Nurse 2 #8- L AVERY -Time 15:56 15:21 -Correct Patient Yes Yes -Correct Side, Site, Position Yes Yes -Correct Procedure Yes Yes -Procedure Performed Yes Yes -Type of Procedure Debridement Debridement -Clinical Debridement Subcutaneous Subcutaneous -Tissue Removed Subcutaneous Subcutaneous -Post Debridement (cm) - Length 1.2 1.4 -Post Debridement (cm) - Width 3.3 2.5 -Post Debridement (cm) - Depth 0.1 0.1 -Total Square (Post) (cm) 3.96 3.50 -Area of Debridement (cm) - Length 1.2 1.4 -Area of Debridement (cm) - Width 3.3 2.5 -Total Square (Area) (cm) 3.96 3.50 -Tunneling No No -Undermining/Tunneling No No -Circular Undermining No No -Wound/Ulcer Outcome Not Healed Not Healed -Ulcer Cleansing Rinsed/ Rinsed/ Irrigated with Irrigated with Saline Saline -Foul Odor after Cleansing No No -Bioengineered Tissue No No -Bleeding Controlled with Pressure Pressure -Offloading No No -Treatment Response Procedure Procedure Tolerated Well Tolerated Well -Debridement - Subq, 1st 20sq cm Yes Yes #7- R HEEL -Time 15:56 15:22 -Correct Patient Yes Yes -Correct Side, Site, Position Yes Yes -Correct Procedure Yes Yes -Procedure Performed Yes Yes -Type of Procedure Debridement Debridement -Clinical Debridement Subcutaneous Subcutaneous -Tissue Removed Subcutaneous Subcutaneous -Post Debridement (cm) - Length 0.7 0.6 -Post Debridement (cm) - Width 0.7 0.6 -Post Debridement (cm) - Depth 0.2 0.2 -Total Square (Post) (cm) 0.49 0.36 -Area of Debridement (cm) - Length 0.7 0.6 -Area of Debridement (cm) - Width 0.7 0.6 -Total Square (Area) (cm) 0.49 0.36 -Tunneling No No -Undermining/Tunneling No No -Circular Undermining No No -Wound/Ulcer Outcome Not Healed Not Healed -Ulcer Cleansing Rinsed/ Rinsed/ Irrigated with Irrigated with Saline Saline -Foul Odor after Cleansing No No -Bioengineered Tissue No No -Bleeding Controlled with Pressure Pressure -Offloading No No -Treatment Response Procedure Tolerated Well -Debridement - Subq, 1st 20sq cm No No Pain Scale: 0-10 Numeric Is Patient Pain Free? Yes Yes WC - Nurse 3 - General Ulcer D/C NN Start: 12/09/19 20:13 Freq: Status: Active Protocol: Activity Type Activity Date Activity User E-Sign Co-Sign Detail Recorded Client Recorded Date Recorded By Document 12/11/19 15:57 MW [id number] 12/11/19 15:59 MW Document 12/18/19 15:35 BM [id number] 12/18/19 15:36 BM 12/11/19 12/18/19 15:57 15:35 Wound Care Nurse 3 #8- L AVERY -Ulcer Cleansing Rinsed/ Rinsed/ Irrigated with Irrigated with Saline Saline -Foul Odor after Cleansing No No -Negative Pressure Wound Therapy N/A -Primary Dressing Applied Promogran Rene Matter -Primary Dressing Applied Promogran Rene Matter -Other Dressing drsg by yonathan blood rn -Primary Dressing Covered/Secured with Dry Gauze & Dry Gauze, Roll Gauze, Secured with Secured with Tape Tape -Promogran Rene Matter 1 1 #7- R HEEL -Ulcer Cleansing Rinsed/ Rinsed/ Irrigated with Irrigated with Saline Saline -Foul Odor after Cleansing No No -Negative Pressure Wound Therapy N/A -Primary Dressing Applied Promogran Rene Matter -Primary Dressing Applied Promogran Rene Matter -Other Dressing drsg by yonathan blood rn -Primary Dressing Covered/Secured with Dry Gauze & Dry Gauze & Roll Gauze, Roll Gauze, Secured with Secured with Tape Tape -Promogran Rene Matter 1 0 Right -Other pts own tubis applied Left -Other pts own tubis applied Treatment Response Procedure Procedure Tolerated Well Tolerated Well Pain Scale: 0-10 Numeric Is Patient Pain Free? Yes Yes Teaching: Wound Center Dressing Your Wound -Person Taught Patient -Teaching Method Discussion, Demonstration -Response to teaching Verbalize understanding WC - Visit Discharge Discharge Condition Stable Stable Ambulatory Status Ambulatory Ambulatory Transportation Private Auto Private Auto Accompanied by self Medication Reconcilliation completed & No provided to patient/care provider Clinical Summary of Care Provided Yes Wound debrided: Left lower extremity ulcer and right diabetic foot ulcer on the heel Type of Debridement: Excisional debridement Anesthesia Used: 5% Lidocaine Gel Depth: Down to and including healthy tissue, in the subcutaneous layer Percentage of wound debrided: 100 Instrument Used: 5mm curette Tissue Removed: Slough and devitalized tissue Severity: Fat Layer Exposed Amount of bleeding with debridement: Mild Bleeding Controlled with: Pressure Patient tolerated procedure well Assessment/Plan Assessment: Same as above. Plan: The patient was seen and examined at the wound center today and was updated on the plan of care. A subcutaneous debridement was performed today. The patient tolerated the procedure well. The patients wound care will consist of:Moistened rene to all ulcer and a prefabricated offloading ABD to her heel. Discussed the importance of wearing her offloading shoe. Discussed importance of glycemic control. Discussed the importance of remaining compliant with her compression stockings.. Wound cultures were collected prior and negative, tolerating the Augmentin as well. Baseline bloodwork Held at this time and recent vascular studies this year as stated above. Patient educated on the importance of diet on wound healing and instructed to increase protein and vitamin C intake. Given the delayed wound healing, will apply for the use of nushield as the Ulceration is now 5 weeks with failed standard wound therapy.Patient verbalized understanding. Patient will follow up at wound healing center in one week or sooner if needed. This note was generated with [employer] software. It may contain incorrect words, spelling, and punctuation that were not noted in checking the note before signing. [id number]: [id number] Teresa subq tissue 20 sq cm/<
== END 2019-12-22 23:59 ==
LOC: WC 14:45
PROVIDERS: PCP Family Medicine; Referring Provider Nurse Practitioner Family; Visit Provider Nurse Practitioner Family
DX: E11.621 Type 2 diabetes mellitus with foot ulcer (principal); L97.412 Non-pressure chronic ulcer of right heel and midfoot with fat layer exposed; I73.9 Peripheral vascular disease, unspecified; G47.33 Obstructive sleep apnea (adult) (pediatric); F41.9 Anxiety disorder, unspecified; J44.9 Chronic obstructive pulmonary disease, unspecified; E03.9 Hypothyroidism, unspecified; E66.01 Morbid (severe) obesity due to excess calories; Z68.41 Body mass index [BMI] 40.0-44.9, adult; E11.42 Type 2 diabetes mellitus with diabetic polyneuropathy; E11.22 Type 2 diabetes mellitus with diabetic chronic kidney disease; M06.9 Rheumatoid arthritis, unspecified; M32.9 Systemic lupus erythematosus, unspecified; M32.14 Glomerular disease in systemic lupus erythematosus; I12.9 Hypertensive chronic kidney disease with stage 1 through stage 4 chronic kidney disease, or unspecified chronic kidney disease; N18.3 Chronic kidney disease, stage 3 (moderate); Z79.4 Long term (current) use of insulin; Z79.51 Long term (current) use of inhaled steroids; Z79.82 Long term (current) use of aspirin; Z82.49 Family history of ischemic heart disease and other diseases of the circulatory system; Z87.891 Personal history of nicotine dependence; Z88.2 Allergy status to sulfonamides; E11.319 Type 2 diabetes mellitus with unspecified diabetic retinopathy without macular edema
CPT/HCPCS: 11042; 87070; 87075; 87205; 99213; G0463

== ENCOUNTER → 2019-12-23 20:00 | Outpatient (CLI) | payer MEDICARE, MEDICAID, SELFPAY ==
[2019-11-27 14:01] VITALS: BMI 44.6
[2019-12-23] MEDS: Zolpidem Tartrate 5 MG Tablet PO (21:45)
== END ==
PROVIDERS: PCP Family Medicine; Referring Provider Nurse Practitioner Acute Care; Visit Provider Nurse Practitioner Acute Care
DX: G47.33 Obstructive sleep apnea (adult) (pediatric) (principal)
CPT/HCPCS: 95811

== ENCOUNTER → 2019-12-24 06:30 | Outpatient (CLI) | payer MEDICARE, MEDICAID, SELFPAY ==
[2019-07-23 06:43] VITALS: BMI 43.9
[2019-12-18 14:49] VITALS: BMI 44.6
[2019-12-24 07:30] VITALS: PULSE 100; PULSE 80; PULSE 82; PULSE 90; PULSE 94; PULSE 98; PULSE 99; O2SAT 85; O2SAT 91; O2SAT 92; O2SAT 94
--- NOTE | 2019-12-24 07:34 | CPS ---
PATIENT SAT IN W/C ON ROOM AIR FOR 10 MINUTES PRIOR TO TESTING. AT REST HER SPO2 WAS 85% SO TEST BEGAN ON 2LPM FOR WHICH SHE REMAINED THE ENTIRE STUDY. SPO2 ON 2LPM PRIOR TO START OF AMBULATION WAS 93%. SHE TOOK 3 REST BREAKS, EACH TIME D/T INCREASED SOB AND BACK PAIN/LEG FATIGUE. SHE WAS D/C HOME AFTER TESTING WITH INFORMATION/DISCUSSION ON TOBACCO CESSATION WELL INFORMED [facility] [place] WOULD BE CONTACTING HER TO S/U HOME OXYGEN TODAY. I ALSO STRESSED IMPORTANCE OF COMPLIANCE AND DANGERS OF SMOKING WHILE USING OXYGEN. SPOKE TO SURINDER IN PMW OFFICE AND EMAILED INFO TO [facility] FOR S/U ONCE THEY OPEN.
--- NOTE | 2019-12-24 12:12 | PCM.PSN.6M ---
PSN 6 Minute Walk Test - 6 Minute Walk Test 6 Minute Walk Test: 6 Minute Walk Test PSN:6-Minute Walk Test Start: 12/24/19 07:30 Freq: Status: Active Protocol: RESP.6MINW Document 12/24/19 07:30 [facility] (Rec: 12/24/19 07:40 [facility] [id number]) 6 Minute Walk Test Date Performed 12/24/19 Time Performed 06:30 Height 5 ft 4 in Weight: 121.109 kg Weight in Pounds 267.[address]: Rafael Londono Assistive device used: None Pre-test Oxygen Delivery Method Room Air Pulse Ox (%) 85 Pulse Rate (60-100 beats/min) 80 Dyspnea Liliya Scale (0-10) 2 1st minute Oxygen Flow Rate (L/min) (L/min) 2 Oxygen Delivery Method Nasal Cannula Pulse Ox (%) 92 Pulse Rate (60-100 beats/min) 90 Dyspnea Liliya Scale (0-10) 3 Number of Rests Taken 0 Reported Symptoms Increased Work of Breathing 2nd minute Oxygen Flow Rate (L/min) (L/min) 2 Oxygen Delivery Method Nasal Cannula Pulse Ox (%) 91 Pulse Rate (60-100 beats/min) 94 Dyspnea Liliya Scale (0-10) 4 Number of Rests Taken 1 Reported Symptoms Increased Work of Breathing 3rd minute Oxygen Flow Rate (L/min) (L/min) 2 Oxygen Delivery Method Nasal Cannula Pulse Ox (%) 94 Pulse Rate (60-100 beats/min) 94 Dyspnea Liliya Scale (0-10) 4 Number of Rests Taken 1 Reported Symptoms Increased Work of Breathing 4th minute Oxygen Flow Rate (L/min) (L/min) 2 Oxygen Delivery Method Nasal Cannula Pulse Ox (%) 94 Pulse Rate (60-100 beats/min) 99 Dyspnea Liliya Scale (0-10) 4 Number of Rests Taken 0 Reported Symptoms Increased Work of Breathing 5th minute Oxygen Flow Rate (L/min) (L/min) 2 Oxygen Delivery Method Nasal Cannula Pulse Ox (%) 92 Pulse Rate (60-100 beats/min) 100 Dyspnea Liliya Scale (0-10) 4 Number of Rests Taken 1 Reported Symptoms Increased Work of Breathing 6th minute Oxygen Flow Rate (L/min) (L/min) 2 Oxygen Delivery Method Nasal Cannula Pulse Ox (%) 91 Pulse Rate (60-100 beats/min) 98 Dyspnea Liliya Scale (0-10) 5 Number of Rests Taken 0 Reported Symptoms Increased Work of Breathing Post-test Oxygen Flow Rate (L/min) (L/min) 2 Oxygen Delivery Method Nasal Cannula Pulse Ox (%) 94 Pulse Rate (60-100 beats/min) 82 Dyspnea Liliya Scale (0-10) 2 Full Laps Walked 6 Partial Lap, Number of Tiles Walked 20 Total Distance Walked (ft) 374 12/24/19 07:34 Cardiopulmonary Services by Marlene Lindsay PATIENT SAT IN W/C ON ROOM AIR FOR 10 MINUTES PRIOR TO TESTING. AT REST HER SPO2 WAS 85% SO TEST BEGAN ON 2LPM FOR WHICH SHE REMAINED THE ENTIRE STUDY. SPO2 ON 2LPM PRIOR TO START OF AMBULATION WAS 93%. SHE TOOK 3 REST BREAKS, EACH TIME D/T INCREASED SOB AND BACK PAIN/LEG FATIGUE. SHE WAS D/C HOME AFTER TESTING WITH INFORMATION/DISCUSSION ON TOBACCO CESSATION WELL INFORMED [facility] WOULD BE CONTACTING HER TO S/U HOME OXYGEN TODAY. I ALSO STRESSED IMPORTANCE OF COMPLIANCE AND DANGERS OF SMOKING WHILE USING OXYGEN. SPOKE TO SURINDER IN PMW OFFICE AND EMAILED INFO TO [facility] FOR S/U ONCE THEY OPEN. Initialized on 12/24/19 07:34 - END OF NOTE - Interpretation Interpretation: The patient was noted to be 85% on room air and then was placed on 2 L nasal cannula. On 2 L nasal cannula, the patient was able to ambulate 374 feet over the course of 6 minutes with an oxygen griselda of 91% with the assistance of 3 breaks secondary to shortness of breath and back and leg pain. These findings are consistent with a respiratory limitation exercise tolerance. - Recommendations Recommendations: The patient requires 2 L nasal cannula at all times.
== END ==
PROVIDERS: PCP Family Medicine; Referring Provider Internal Medicine Critical Care Medicine; Visit Provider Internal Medicine Critical Care Medicine
DX: J44.9 Chronic obstructive pulmonary disease, unspecified (principal)
CPT/HCPCS: 94618

== ENCOUNTER 2019-12-26 07:55 | Outpatient (RCR) | payer MEDICARE, MEDICAID, SELFPAY ==
[2019-12-23 00:30] VITALS: BP 155/77; PULSE 99; RESP 22; TEMP 36.8
[2019-12-26 08:00] VITALS: BP 141/65; PULSE 96; RESP 22; TEMP 36.3; BMI 44.6
--- NOTE | 2019-12-26 08:35 | PN.PCM_ITS ---
(1) Diabetic ulcer of left lower leg Status: Acute Current Visit: Yes Code(s): E11.622 - Type 2 diabetes mellitus with other skin ulcer; L97.929 - Non-pressure chronic ulcer of unspecified part of left lower leg with unspecified severity (2) Diabetic ulcer of right foot Status: Acute Current Visit: Yes Qualifiers: Diabetic foot ulcer location: heel Diabetes mellitus type: type 2 Non- pressure ulcer stage: with fat layer exposed Qualified Code(s): E11.621 - Type 2 diabetes mellitus with foot ulcer; L97.412 - Non-pressure chronic ulcer of right heel and midfoot with fat layer exposed Code(s): E11.621 - Type 2 diabetes mellitus with foot ulcer; L97.519 - Non- pressure chronic ulcer of other part of right foot with unspecified severity (3) Rheumatoid arthritis Status: Chronic Current Visit: No Code(s): M06.9 - Rheumatoid arthritis, unspecified (4) COPD (chronic obstructive pulmonary disease) Status: Chronic Current Visit: No Code(s): J44.9 - Chronic obstructive pulmonary disease, unspecified (5) Essential (primary) hypertension Status: Chronic Current Visit: No Code(s): I10 - Essential (primary) hypertension (6) Hypothyroidism Status: Chronic Current Visit: No Qualifiers: Code(s): E03.9 - Hypothyroidism, unspecified Comment: Continues on levothyroxine 100 mcg daily. Takes as directed. Denies any s/s of hypothyroidism. (7) Lupus Status: Chronic Current Visit: No Code(s): M32.9 - Systemic lupus erythematosus, unspecified (8) Morbid obesity with BMI of 40.0-44.9, adult Status: Chronic Current Visit: No Code(s): E66.01 - Morbid (severe) obesity due to excess calories; Z68.41 - Body mass index (BMI) 40.0-44.9, adult (9) Polyneuropathy due to type 2 diabetes mellitus Status: Chronic Current Visit: No Code(s): E11.42 - Type 2 diabetes mellitus with diabetic polyneuropathy Type of Wound Date of Service: 12/26/19 Chief Complaint: Right foot wound and left leg wound History of Wound: Patient is a pleasant 54-year-old female who [facility] for evaluation and treatment of a wound to her right foot. About 3 weeks prior, she believes that she stepped on a hot cigarette butt, causing a wound on her right heel. She states that she saw her pawn shop keeper, Dr. Estrada, and was instructed to follow-up with the [facility]. Initially for wound care she had been utilizing leftover Santyl at home. The wound was not improving in size and she noted a moderate amount of clear drainage. She denies any pain with her ulcer d/t her diabetic neuropathy. She denies any increasing redness, swelling, or drainage from her heel wound. She denies any foul-smelling or purulent drainage. She denies any nausea, vomiting, or diarrhea from her heel wound. Patient wears diabetic shoes, and has an offloading boot for her right foot which she only occasionally wears. She reports walking barefoot in home. She also reports frequently sleeping in a chair without her feet elevated. At her visit on 12/11/2019, patient reported that a week prior to her visit she had increased left lower extremity swelling, redness, and tenderness causing a blister to form on her left silva; the blister ruptured, creating a left lower leg ulcer. She completed a course of Augmentin and cultures collected on 12/11/2019 from the left lower leg ulcer were negative. Patient has a significant past medical history of tobacco dependence, smoking 1 PPD, though she is currently attempting smoking cessation as of 12/24/2019. She is wearing a nicotine patch today. She is also a type II diabetic, with poor glycemic control. Her most recent A1c (10/16/2019) was 9.8%. She has extensive peripheral neuropathy. She also has comorbidities of hypertension, rheumatoid arthritis, lupus, and morbid obesity with a BMI of 44.6. She sees Dr. Verdugo as her primary care provider. Patient had arterial studies completed on 06/24/2019. Arterial studies showed the following: Right CHRISTELLE (DP) 1.10, (PT) 1.05. Right DBI 0.79. Left CHRISTELLE (DP) 1.15, (PT) 1.03. Left TBI 0.86. Triphasic Doppler waveforms noted at ankle level bilaterally. Pulse volume recording waveform am plitudes are slightly diminished at digital level bilaterally, but otherwise satisfactory at all other levels. No evidence of significant arterial occlusive disease in bilateral lower extremities. (See report for full details.) Progress of Wound: The patient denies any fever, chills, nausea, vomiting, or diarrhea. Denies any signs of infection, including increasing pain, redness, swelling, or drainage from affected area. Right heel DFU is stable. Left leg diabetic ulcer is decreased in size. - Physical Exam Vital Signs Temp Pulse Resp BP 97.4 F L 96 22 H 141/65 H 12/26/19 08:00 12/26/19 08:00 12/26/19 08:00 12/26/19 08:00 General: Alert, Oriented x3, Cooperative, No apparent distress HEENT: Atraumatic, Normocephalic Oral: Moist Mucosa Neck: Supple, Trachea Midline Lungs: Clear to auscultation, Normal air movement, No rhonchi, No wheeze, No rales Cardiovascular: Regular rate, Regular Rhythm Abdomen: Bowel Sounds Present, Soft Extremities: No clubbing, No cyanosis, Capillary Refill Less than 3 Seconds, Edema - 1+ bilateral lower extremity edema, pitting, Peripheral Pulses Normal Skin: Ulcer/ Wound - Diabetic foot ulcer of right heel with fat layer exposed, small amount of slough and devitalized tissue and callus present. No tunneling, undermining, or probing to bone. Left diabetic leg ulcer with scant slough and devitalized tissue, and good granulation. No tunneling, undermining or probing to bone. No purulent or foul-smelling drainage. No warmth or tenderness to palpation. No periwound erythema or swelling., - - Cellulitis has resolved Wound Measurements and Assessment WC - Nurse 1 - General Ulcer Measurement Start: 12/26/19 08:00 Freq: Status: Active Protocol: Activity Type Activity Date Activity User E-Sign Co-Sign Detail Recorded Client Recorded Date Recorded By Document 12/26/19 08:00 DL [id number] 12/26/19 08:06 DL 12/26/19 08:00 Wound Center Nurse 1 [Ulcer Assessment] #8- L SILVA -Current Size (cm) - Length 0.9 -Current Size (cm) - Width 1.7 -Current Size (cm) - Depth 0.1 -Total Square Cm 1.53 -Photo Taken No -Exudate Amt None Present -Exudate Type Sanguineous -Wound Margin Thickened -Granulation Amt None Present (0 %) -Necrosis Amt Large (67-100%) -Necrotic Tissue Type Eschar -Structure Exposed N/A -Texture (Shraddha-wound Skin Appearance) Scarring -Moisture (Shraddha-wound Skin Appearance No Abnormality ) -Color (Shraddha-wound Skin Appearance) Hemosiderin Staining -Temperature (Shraddha-wound Skin No Abnormality Appearance) (Pt Warm) -Tenderness on Palpation (Shraddha-wound No Skin Appearance) -Ulcer Cleansing Rinsed/ Irrigated with Saline -Foul Odor after Cleansing No -Anesthetic Used 4% Lidocaine Solution #7- R HEEL -Current Size (cm) - Length 0.4 -Current Size (cm) - Width 0.4 -Current Size (cm) - Depth 0.3 -Total Square Cm 0.16 -Photo Taken No -Maximum Distance #2 (cm) 0.2 -Circular Undermining Yes -Exudate Amt Small -Exudate Type Yellow/Green -Wound Margin Thickened -Granulation Amt None Present (0 %) -Necrosis Amt Small (1-33%) -Necrotic Tissue Type Adherent Slough -Structure Exposed N/A -Texture (Shraddha-wound Skin Appearance) Callus,Scarring -Moisture (Shraddha-wound Skin Appearance Dry/Scaly ) -Color (Shraddha-wound Skin Appearance) No Abnormality -Temperature (Shraddha-wound Skin No Abnormality Appearance) (Pt Warm) -Tenderness on Palpation (Shraddha-wound No Skin Appearance) -Ulcer Cleansing Rinsed/ Irrigated with Saline -Foul Odor after Cleansing No -Anesthetic Used 4% Lidocaine Solution [Edema Assessment] -Right Calf (cm) 36.5 -Right Ankle (cm) 21.2 -Left Calf (cm) 38.5 -Left Ankle (cm) 23.3 WC - Nurse 2 - General Ulcer CM Notes Start: 12/26/19 08:00 Freq: Status: Active Protocol: Activity Type Activity Date Activity User E-Sign Co-Sign Detail Recorded Client Recorded Date Recorded By Document 12/26/19 08:20 PL [id number] 12/26/19 08:27 PL 12/26/19 08:20 Wound Center Nurse 2 [Procedure/Treatment] #8- L SILVA -Time 08:15 -Correct Patient Yes -Correct Side, Site, Position Yes -Correct Procedure Yes -Procedure Performed Yes -Type of Procedure Debridement -Clinical Debridement Subcutaneous -Tissue Removed Subcutaneous -Post Debridement (cm) - Length 1.3 -Post Debridement (cm) - Width 1.8 -Post Debridement (cm) - Depth 0.1 -Total Square (Post) (cm) 2.34 -Area of Debridement (cm) - Length 1.3 -Area of Debridement (cm) - Width 1.8 -Total Square (Area) (cm) 2.34 -Tunneling No -Undermining/Tunneling No -Circular Undermining No -Wound/Ulcer Outcome Not Healed -Ulcer Cleansing Rinsed/ Irrigated with Saline -Foul Odor after Cleansing No -Bioengineered Tissue No -Treatment Response Procedure Tolerated Well -Debridement - Subq, 1st 20sq cm Yes #7- R HEEL -Time 08:15 -Correct Patient Yes -Correct Side, Site, Position Yes -Correct Procedure Yes -Procedure Performed Yes -Type of Procedure Debridement -Clinical Debridement Subcutaneous -Tissue Removed Subcutaneous -Post Debridement (cm) - Length 0.6 -Post Debridement (cm) - Width 0.8 -Post Debridement (cm) - Depth 0.2 -Total Square (Post) (cm) 0.48 -Area of Debridement (cm) - Length 0.6 -Area of Debridement (cm) - Width 0.8 -Total Square (Area) (cm) 0.48 -Tunneling No -Undermining/Tunneling No -Wound/Ulcer Outcome Not Healed -Ulcer Cleansing Rinsed/ Irrigated with Saline -Foul Odor after Cleansing No -Bioengineered Tissue No -Treatment Response Procedure Tolerated Well -Debridement - Subq, 1st 20sq cm No [See Physician Procedure note for Specifics] Pain Scale: 0-10 Numeric [Pain] -Is Patient Pain Free? Yes Neurological: Cranial nerves II-XII grossly intact Psych/Mental Status: Normal Affect, Appropriate Debridement Note Post-Debridement Measurements/Treatment WC - Nurse 2 - General Ulcer CM Notes Start: 12/26/19 08:00 Freq: Status: Active Protocol: Activity Type Activity Date Activity User E-Sign Co-Sign Detail Recorded Client Recorded Date Recorded By Document 12/26/19 08:20 PL [id number] 12/26/19 08:27 PL 12/26/19 08:20 Wound Center Nurse 2 #8- L SILVA -Time 08:15 -Correct Patient Yes -Correct Side, Site, Position Yes -Correct Procedure Yes -Procedure Performed Yes -Type of Procedure Debridement -Clinical Debridement Subcutaneous -Tissue Removed Subcutaneous -Post Debridement (cm) - Length 1.3 -Post Debridement (cm) - Width 1.8 -Post Debridement (cm) - Depth 0.1 -Total Square (Post) (cm) 2.34 -Area of Debridement (cm) - Length 1.3 -Area of Debridement (cm) - Width 1.8 -Total Square (Area) (cm) 2.34 -Tunneling No -Undermining/Tunneling No -Circular Undermining No -Wound/Ulcer Outcome Not Healed -Ulcer Cleansing Rinsed/ Irrigated with Saline -Foul Odor after Cleansing No -Bioengineered Tissue No -Treatment Response Procedure Tolerated Well -Debridement - Subq, 1st 20sq cm Yes #7- R HEEL -Time 08:15 -Correct Patient Yes -Correct Side, Site, Position Yes -Correct Procedure Yes -Procedure Performed Yes -Type of Procedure Debridement -Clinical Debridement Subcutaneous -Tissue Removed Subcutaneous -Post Debridement (cm) - Length 0.6 -Post Debridement (cm) - Width 0.8 -Post Debridement (cm) - Depth 0.2 -Total Square (Post) (cm) 0.48 -Area of Debridement (cm) - Length 0.6 -Area of Debridement (cm) - Width 0.8 -Total Square (Area) (cm) 0.48 -Tunneling No -Undermining/Tunneling No -Wound/Ulcer Outcome Not Healed -Ulcer Cleansing Rinsed/ Irrigated with Saline -Foul Odor after Cleansing No -Bioengineered Tissue No -Treatment Response Procedure Tolerated Well -Debridement - Subq, 1st 20sq cm No Pain Scale: 0-10 Numeric Is Patient Pain Free? Yes Wound debrided: Right heel diabetic foot ulcer Laterality: Right Wound Grade/Stage: Chavez grade 1 Type of Debridement: Excisional debridement Anesthesia Used: 5% Lidocaine Gel Depth: in the subcutaneous layer Percentage of wound debrided: 100 Instrument Used: 3mm curette Tissue Removed: Callus, slough and devitalized tissue Severity: Fat Layer Exposed Amount of bleeding with debridement: Mild Bleeding Controlled with: Pressure Patient tolerated procedure well - Additional Wound Wound debrided: Left diabetic leg ulcer Laterality: Left Type of Debridement: Excisional debridement Anesthesia Used: 5% Lidocaine Gel Depth: in the subcutaneous layer Percentage of wound debrided: 100 Instrument Used: 5mm curette Tissue Removed: Slough and devitalized tissue Severity: Fat Layer Exposed Amount of bleeding with debridement: Mild Bleeding Controlled with: Pressure Patient tolerated procedure: Patient tolerated procedure well Assessment/Plan Active Problems (Last Reviewed 10/17/19 @ 12:[address] Nelson Ocasio MD) Diabetic ulcer of right foot (Acute) Diabetic ulcer of left lower leg (Acute) Assessment: Same as above. Plan: Debridement performed today in clinic today as annotated above. Pretty applied to right heel DFU and left leg ulcer. Given the duration of the wound and failure of the wound to respond to standard wound care, we will apply for advanced skin substitutes. Patient is to continue daily dressing changes with moistened Pretty to both ulcers. May continue to shower. Remove dressing prior to showering. Wash shraddha-ulcer areas with mild antibacterial soap, rinse well and pat dry. Apply clean dressing following shower. Do not soak or submerge right foot/ulcers. Avoid ambulating barefoot at home, wear offloading boot to right foot at all times when ambulating. Compression: Patient is to continue compression daily at home. Off-loading: Avoid prolonged standing or dangling of legs. Keep feet elevated at or above waist level when seated. Lay flat or with feet elevated while sleeping. Continue use of offloading boot to right foot. Continue prefabricated offloading ABD to heel. Diet: Patient encouraged to increase protein and vitamin C intake while taking caution to avoid high carbohydrate and/or sugar intake. Discussed importance of tight glycemic control. Patient encouraged to continue with smoking cessation, which she initiated on 12/24/2019. Labs/cultures/imaging: Wound cultures collected 12/11/2019: Left leg wound culture negative. A course of Augmentin was completed. Follow-up: Return to clinic in 1 week for re-evaluation. Return sooner or report to the emergency room should symptoms worsen, or new symptoms arise. Note: [employer] speech recognition infectious diseases physician software was used to create portions of this document. Sound-alike and misspelled words, as well as other infectious diseases physician errors may be contained in the documentation. [id number]: [id number] Teresa subq tissue 20 sq cm/<
== END 2020-01-21 23:59 ==
LOC: WC 07:55
PROVIDERS: PCP Family Medicine; Referring Provider Nurse Practitioner Family; Visit Provider Nurse Practitioner Family
DX: E11.621 Type 2 diabetes mellitus with foot ulcer (principal); M06.9 Rheumatoid arthritis, unspecified; L97.412 Non-pressure chronic ulcer of right heel and midfoot with fat layer exposed; J44.9 Chronic obstructive pulmonary disease, unspecified; I10 Essential (primary) hypertension; E66.01 Morbid (severe) obesity due to excess calories; M32.9 Systemic lupus erythematosus, unspecified; Z68.41 Body mass index [BMI] 40.0-44.9, adult; E03.9 Hypothyroidism, unspecified; E11.42 Type 2 diabetes mellitus with diabetic polyneuropathy; Z87.891 Personal history of nicotine dependence; E11.622 Type 2 diabetes mellitus with other skin ulcer; L97.822 Non-pressure chronic ulcer of other part of left lower leg with fat layer exposed
CPT/HCPCS: 11042

== ENCOUNTER → 2020-01-06 15:52 | Outpatient (CLI) | payer MEDICARE, MEDICAID, SELFPAY ==
[2019-12-26 08:00] VITALS: BMI 44.6
--- NOTE | 2020-01-06 15:56 | VDLE_ITS ---
Reason For Study: Swelling Procedure LEFT Exam performed in department. GSV is normal. A preliminary report was called and/or faxed CFV is compressible, spontaneous, competent, to Natalie. and demonstrates pulsatile venous flow. FV is compressible, spontaneous, competent and demonstrates pulsatile venous flow. POP V is compressible, spontaneous, competent and demonstrates pulsatile venous flow. T/P Trunk is compressible. PTV is compressible. LT PerV is compressible. Interpretation Summary Deep veins of the left lower extremity are patent and compressible segmentally. There is no evidence of left lower extremity deep vein thrombosis. Valvular competence appears intact within the proximal deep venous system on the left . The left great saphenous vein appears patent and compressible segmentally. Pulsatile flow is noted in the left lower extremity deep venous system, which may be indicative of elevated central venous pressure (i.e. congestive heart failure, tricuspid valve insufficiency, etc.). Clinical correlation is advised. Ordering Physician: Trey Estrada Referring Physician: Richar Galvez Performed By: Myla Bajwa RVT
== END ==
PROVIDERS: PCP Family Medicine; Referring Provider Podiatrist; Visit Provider Podiatrist
DX: M79.89 Other specified soft tissue disorders (principal)
CPT/HCPCS: 93971

== ENCOUNTER → 2020-01-29 13:00 | Outpatient (CLI) | payer MEDICARE, SELFPAY | PROVIDERS: PCP Family Medicine; Referring Provider Nurse Practitioner Acute Care; Visit Provider Nurse Practitioner Acute Care | DX: Z46.89 Encounter for fitting and adjustment of other specified devices (principal) ==

== ENCOUNTER 2020-04-09 10:45 | Outpatient (RCR) | payer MEDICARE, MEDICAID, SELFPAY ==
[2020-01-20 11:46] VITALS: BMI 46.3
[2020-01-22 00:29] VITALS: BP 141/65; PULSE 96; RESP 22; TEMP 36.3
[2020-01-22 14:12] VITALS: BMI 46.5
[2020-04-02 10:33] VITALS: BP 140/79; PULSE 98; RESP 20; TEMP 36.6; BMI 50.2
--- NOTE | 2020-04-02 12:20 | VDLE_ITS ---
Reason For Study: Swelling Procedure LEFT Exam performed in department. GSV is normal. A preliminary report was called and/or faxed CFV is compressible, spontaneous, phasic, to María Flores [employer]. competent, and demonstrates normal augmentation. FV is compressible, spontaneous, phasic, competent and demonstrates normal augmentation. POP V is compressible, spontaneous, phasic, competent and demonstrates normal augmentation. T/P Trunk is compressible. PTV is compressible. LT PerV is compressible. Unable to visualize Lt mid calf veins due to bandages/wound. Interpretation Summary Deep veins of the left lower extremity are patent and compressible segmentally. There is no evidence of left lower extremity deep vein thrombosis. Valvular competence appears intact within the proximal deep venous system on the left . The left great saphenous vein appears patent and compressible segmentally. The deep veins of the left mid-calf were not visualized due to the presence of bandages. Ordering Physician: Maraí Flores Referring Physician: Richar Galvez Performed By: Mague Obrien, TAYA, RVT
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
[2020-04-02 13:45] LABS: Erythrocyte Sedimentation Rate 66 mm/hr (0-30)
[2020-04-02 13:46] LABS: Absolute Lymphocyte Count 1.01 X10^3/uL (0.83-4.51); Basophil# 0.06 X10^3/uL; Basophil% 0.7 % (0-1); Eosinophils% 1.1 % (0-5); Hematocrit 47.8 % (37-47); Lymphocyte # 1.01 X10^3/ul (4.0); Lymphocyte % 11.2 % (19-41); Mean Corp Hgb Conc 31.4 g/dL (32-36); Mean Corpuscular Hgb 27.3 pg (27.0-32.0); Mean Corpuscular Volume 86.9 fL (81-99); Mean Platelet Vol. 9.2 fl (6.2-12.0); Monocyte# 0.71 X10^3/uL; Monocyte% 7.9 % (0-10); NRBC Flagged by Analyzer 0 % (0-5); Neutrophil # 7.01 X10^3/uL (2.7-7.7); Neutrophil % 78.1 % (47-70); Platelet Count 237 K/mm3 (150-450); RBC Distribution Width CV 16.8 % (11.6-14.6); RBC Distribution Width SD 51.8 fl (35.1-43.9)
[2020-04-02 14:08] LABS: ALB/GLOB Ratio 0.7 RATIO (0.9-2.4); AST(SGOT) 12 U/L (15-37); Alanine Aminotransfer ALT/SGPT 28 U/L (13-56); Albumin, Serum 3.3 g/dL (3.2-5.0); Alkaline Phosphatase 186 U/L (45-117); Anion Gap 7 (5-15); BUN 16 mg/dL (7-18); BUN/Creat Ratio 15.1 RATIO (10-20); Calcium,Total 9.5 mg/dL (8.5-10.1); Chloride 94 mmol/L (98-107); Creatinine, Serum 1.06 mg/dL (0.55-1.02); EST Glomerular Filtration Rate 57 mL/min (>60); Est Glom Filt Rate - Afr Amer 69 mL/min (>60); Estimated Creatinine Clearance 51.17 ml/min; Globulin 4.7 g/dL (2.2-4.2); Glucose 347 mg/dL (74-106); Potassium 4.2 mmol/L (3.5-5.1); Prealbumin 16.7 mg/dL (20.0-40.0); Sodium Level 134 mmol/L (136-145)
--- NOTE | 2020-04-08 09:33 | WC ---
Voice mail left for patient to continue Doxycycline and to start Augmentin
[2020-04-09 10:54] VITALS: BP 142/85; PULSE 79; TEMP 36.3; BMI 50.2
--- NOTE | 2020-04-09 14:17 | PN.PCM_ITS ---
(1) Diabetic ulcer of left lower leg Status: Chronic Code(s): E11.622 - Type 2 diabetes mellitus with other skin ulcer; L97.929 - Non-pressure chronic ulcer of unspecified part of left lower leg with unspecified severity (2) Cellulitis of left lower extremity Status: Acute Code(s): L03.116 - Cellulitis of left lower limb (3) Type 2 diabetes mellitus, uncontrolled, with neuropathy Status: Chronic Code(s): E11.40 - Type 2 diabetes mellitus with diabetic neuropathy, unspecified; E11.65 - Type 2 diabetes mellitus with hyperglycemia (4) Hyperlipidemia Status: Chronic Code(s): E78.5 - Hyperlipidemia, unspecified (5) Hypothyroidism Status: Chronic Code(s): E03.9 - Hypothyroidism, unspecified (6) SARTHAK (obstructive sleep apnea) Status: Chronic Code(s): G47.33 - Obstructive sleep apnea (adult) (pediatric) (7) SLE (systemic lupus erythematosus) Status: Chronic Code(s): M32.9 - Systemic lupus erythematosus, unspecified (8) COPD (chronic obstructive pulmonary disease) Status: Chronic Code(s): J44.9 - Chronic obstructive pulmonary disease, unspecified (9) Essential (primary) hypertension Status: Chronic Code(s): I10 - Essential (primary) hypertension (10) Obesity, morbid, BMI 50 or higher Status: Chronic Code(s): E66.01 - Morbid (severe) obesity due to excess calories Type of Wound Date of Service: 04/09/20 Chief Complaint: Left leg redness, swelling and ulcers History of Wound: Patient is a pleasant 54-year-old female who [facility] for evaluation and treatment of left lower leg erythema, swelling, and ulcerations. She is [facility] for treatment of previous diabetic ulcers. The patient reports the ulcers of her left lower extremity initially began as blisters which first appeared a few months ago. She has been applying antibacterial ointment to the ulcers of her left lower extremity daily. The erythema and swelling of her left lower extremity subsequently developed a few weeks ago. She denies left lower extremity pain with ambulation. She denies any foul-smelling or purulent drainage from her left lower extremity ulcers. She denies any fever, chills, nausea, vomiting, or diarrhea. She frequently sleeps in a chair without her feet elevated. She had a previous episode of cellulitis in November 2019, during which she developed left lower extremity erythema, swelling, and tenderness, as well as blisters which subsequently ruptured and resulted in left lower extremity ulcers. She was treated with Augmentin at that time; wound cultures were negative. Patient has a significant past medical history of tobacco dependence, smoking 1 PPD x 40+ years, though she recently quit smoking in 12/2019. She is a type II diabetic, with poor glycemic control. Her most recent A1c (01/22/2020) was 9.6%. She sees Dr. Ocasio for endocrinology. She has extensive peripheral neuropathy. She also has comorbidities of hypertension, rheumatoid arthritis, lupus, and morbid obesity with a BMI of 50.2. She sees Dr. Verdugo as her primary care provider. Patient had arterial studies completed on 06/24/2019. Arterial studies showed no evidence of significant arterial occlusive disease in bilateral lower extremities. (See report for full details.) A left lower extremity venous ultrasound completed on 01/06/2020 was negative for LLE DVT and demonstrated valvular competence, venous compressibility, and pulsatile venous flow of the left lower extremity. The patient has no history of DVT. Progress of Wound: The patient's left lower extremity ultrasound on 04/02/2020 was negative for DVT. The patient was started empirically on doxycycline last week. Her wound cultures from 04/02/2020 showed 3+ Staph aureus (susceptible to doxycycline) and anaerobic gram-positive cocci. A prescription for Augmentin was sent and the patient was instructed to continue doxycycline and initiate Augmentin. However, the patient discontinued the doxycycline and started the Augmentin. She reports mild nausea with taking antibiotics. She also states that she lost the Aquacel Ag that was given to her last week and did not receive a shipment of supplies, so she began using leftover Santyl that she had at home on the wounds of her left lower extremity. The patient denies any fever, chills, vomiting, or diarrhea. Denies any increasing pain, redness, swelling, or purulent/malodorous drainage from affected area. - Physical Exam Vital Signs Temp Pulse Resp BP 97.4 F L 79 20 H 142/85 H 04/09/20 10:54 04/09/20 10:54 04/02/20 10:33 04/09/20 10:54 General: Alert, Cooperative, No apparent distress HEENT: Atraumatic, Normocephalic Oral: Moist Mucosa Neck: Supple, Trachea Midline Lungs: Normal air movement Abdomen: Obese Extremities: No clubbing, No cyanosis, Capillary Refill Less than 3 Seconds, Edema - 2+ pitting edema of bilateral lower extremities, Peripheral Pulses Normal Skin: Ulcer/ Wound - Ulcers of LLE with subcutaneous layer exposed. Tissue is red and beefy with good granulation. There is no purulent or malodorous drainage., Rash Present - Erythema and swelling of left lower extremity persists. Venous stasis skin changes of left lower extremity. Wound Measurements and Assessment WC - Nurse 1 - General Ulcer Measurement Start: 04/02/20 10:20 Freq: Status: Active Protocol: Activity Type Activity Date Activity User E-Sign Co-Sign Detail Recorded Client Recorded Date Recorded By Document 04/09/20 10:54 KR [id number] 04/09/20 11:02 KR 04/09/20 10:54 Wound Center Nurse 1 [Ulcer Assessment] #11 Ant Wolf -Current Size (cm) - Length 10.5 -Current Size (cm) - Width 3.9 -Current Size (cm) - Depth 0.1 -Total Square Cm 40.95 -Exudate Amt Medium -Exudate Type Serosanguineous -Wound Margin Distinct, Outline Attached -Granulation Amt Medium (34-66%) -Granulation Quality Red -Necrosis Amt Medium (34-66%) -Necrotic Tissue Type Adherent Slough -Texture (Shraddha-wound Skin Appearance) Assessed, Scarring -Moisture (Shraddha-wound Skin Appearance No Abnormality, ) Assessed -Color (Shraddha-wound Skin Appearance) No Abnormality, Assessed -Temperature (Shraddha-wound Skin No Abnormality Appearance) (Pt Warm) -Tenderness on Palpation (Shraddha-wound No Skin Appearance) -Ulcer Cleansing soap and water -Foul Odor after Cleansing No -Anesthetic Used 4% Lidocaine Solution #10 L Post Sup Cluster -Current Size (cm) - Length 7.1 -Current Size (cm) - Width 1.7 -Current Size (cm) - Depth 0.1 -Total Square Cm 12.07 -Exudate Amt Small -Exudate Type Serosanguineous -Wound Margin Distinct, Outline Attached -Granulation Amt Medium (34-66%) -Granulation Quality Red -Necrosis Amt Medium (34-66%) -Necrotic Tissue Type Adherent Slough -Texture (Shraddha-wound Skin Appearance) Assessed, Scarring -Moisture (Shraddha-wound Skin Appearance No Abnormality, ) Assessed -Color (Shraddha-wound Skin Appearance) No Abnormality, Assessed -Temperature (Shraddha-wound Skin No Abnormality Appearance) (Pt Warm) -Tenderness on Palpation (Shraddha-wound No Skin Appearance) -Ulcer Cleansing soap and water -Foul Odor after Cleansing No -Anesthetic Used 4% Lidocaine Solution #9 L post inf -Current Size (cm) - Length 4.8 -Current Size (cm) - Width 3 -Current Size (cm) - Depth 0.1 -Total Square Cm 14.4 -Exudate Amt Small -Exudate Type Serosanguineous -Wound Margin Distinct, Outline Attached -Granulation Amt Medium (34-66%) -Granulation Quality Red -Necrosis Amt Medium (34-66%) -Necrotic Tissue Type Adherent Slough -Texture (Shraddha-wound Skin Appearance) Assessed, Scarring -Moisture (Shraddha-wound Skin Appearance No Abnormality, ) Assessed -Color (Shraddha-wound Skin Appearance) No Abnormality, Assessed -Temperature (Shraddha-wound Skin No Abnormality Appearance) (Pt Warm) -Tenderness on Palpation (Shraddha-wound No Skin Appearance) -Ulcer Cleansing soap and water -Foul Odor after Cleansing No -Anesthetic Used 4% Lidocaine Solution [Edema Assessment] -Left Calf (cm) 43.8 -Left Ankle (cm) 25.6 WC - Nurse 2 - General Ulcer CM Notes Start: 04/02/20 10:20 Freq: Status: Active Protocol: Activity Type Activity Date Activity User E-Sign Co-Sign Detail Recorded Client Recorded Date Recorded By Document 04/09/20 13:42 PL [id number] 04/09/20 13:47 PL 04/09/20 13:42 Wound Center Nurse 2 [Procedure/Treatment] #11 Ant Wolf -Time 11:11 -Correct Patient Yes -Correct Side, Site, Position Yes -Correct Procedure Yes -Procedure Performed Yes -Type of Procedure Debridement -Clinical Debridement Subcutaneous -Tissue Removed Subcutaneous -Post Debridement (cm) - Length 11 -Post Debridement (cm) - Width 4.2 -Post Debridement (cm) - Depth 0.1 -Total Square (Post) (cm) 46.2 -Area of Debridement (cm) - Length 11 -Area of Debridement (cm) - Width 4.2 -Total Square (Area) (cm) 46.2 -Tunneling No -Undermining/Tunneling No -Circular Undermining No -Wound/Ulcer Outcome Not Healed -Ulcer Cleansing Rinsed/ Irrigated with Saline -Foul Odor after Cleansing No -Bioengineered Tissue No -Debridement - Subq, 1st 20sq cm No -Debridement, SubQ, ea addt'l 20sq cm 2 or part thereof #10 L Post Sup Cluster -Time 11:11 -Correct Patient Yes -Correct Side, Site, Position Yes -Correct Procedure Yes -Procedure Performed Yes -Type of Procedure Debridement -Clinical Debridement Subcutaneous -Tissue Removed Subcutaneous -Post Debridement (cm) - Length 6.5 -Post Debridement (cm) - Width 2.5 -Post Debridement (cm) - Depth 0.1 -Total Square (Post) (cm) 16.25 -Area of Debridement (cm) - Length 6.5 -Area of Debridement (cm) - Width 2.5 -Total Square (Area) (cm) 16.25 -Tunneling No -Undermining/Tunneling No -Circular Undermining No -Wound/Ulcer Outcome Not Healed -Ulcer Cleansing Rinsed/ Irrigated with Saline -Foul Odor after Cleansing No -Bioengineered Tissue No -Debridement - Subq, 1st 20sq cm No #9 L post inf -Time 11:11 -Correct Patient Yes -Correct Side, Site, Position Yes -Correct Procedure Yes -Procedure Performed Yes -Type of Procedure Debridement -Clinical Debridement Subcutaneous -Tissue Removed Subcutaneous -Post Debridement (cm) - Length 4.5 -Post Debridement (cm) - Width 4 -Post Debridement (cm) - Depth 0.1 -Total Square (Post) (cm) 18.0 -Area of Debridement (cm) - Length 4.5 -Area of Debridement (cm) - Width 4.0 -Total Square (Area) (cm) 18.00 -Tunneling No -Undermining/Tunneling No -Circular Undermining No -Wound/Ulcer Outcome Not Healed -Ulcer Cleansing Rinsed/ Irrigated with Saline -Foul Odor after Cleansing No -Bioengineered Tissue No -Bleeding Controlled with Pressure -Debridement - Subq, 1st 20sq cm Yes [See Physician Procedure note for Specifics] Pain Scale: 0-10 Numeric [Pain] -Is Patient Pain Free? Yes Psych/Mental Status: Normal Affect, Appropriate Debridement Note Post-Debridement Measurements/Treatment WC - Nurse 2 - General Ulcer CM Notes Start: 04/02/20 10:20 Freq: Status: Active Protocol: Activity Type Activity Date Activity User E-Sign Co-Sign Detail Recorded Client Recorded Date Recorded By Document 04/02/20 18:26 PL [id number] 04/02/20 18:29 PL Document 04/09/20 13:42 PL [id number] 04/09/20 13:47 PL 04/02/20 04/09/20 18:26 13:42 Wound Center Nurse 2 #11 Ant Wolf -Time 10:35 11:11 -Correct Patient Yes Yes -Correct Side, Site, Position Yes Yes -Correct Procedure Yes Yes -Procedure Performed Yes Yes -Type of Procedure Debridement Debridement -Clinical Debridement Subcutaneous Subcutaneous -Tissue Removed Subcutaneous Subcutaneous -Post Debridement (cm) - Length 14.5 11 -Post Debridement (cm) - Width 4.5 4.2 -Post Debridement (cm) - Depth 0.1 0.1 -Total Square (Post) (cm) 65.25 46.2 -Area of Debridement (cm) - Length 14.5 11 -Area of Debridement (cm) - Width 4.5 4.2 -Total Square (Area) (cm) 65.25 46.2 -Tunneling No No -Undermining/Tunneling No No -Circular Undermining No No -Wound/Ulcer Outcome Not Healed Not Healed -Ulcer Cleansing Rinsed/ Rinsed/ Irrigated with Irrigated with Saline Saline -Foul Odor after Cleansing No No -Bioengineered Tissue No No -Debridement - Subq, 1st 20sq cm No No -Debridement, SubQ, ea addt'l 20sq cm 3 2 or part thereof #10 L Post Sup Cluster -Time 10:35 11:11 -Correct Patient Yes Yes -Correct Side, Site, Position Yes Yes -Correct Procedure Yes Yes -Procedure Performed Yes Yes -Type of Procedure Debridement Debridement -Clinical Debridement Subcutaneous Subcutaneous -Tissue Removed Subcutaneous Subcutaneous -Post Debridement (cm) - Length 5.6 6.5 -Post Debridement (cm) - Width 5.4 2.5 -Post Debridement (cm) - Depth 0.1 0.1 -Total Square (Post) (cm) 30.24 16.25 -Area of Debridement (cm) - Length 5.6 6.5 -Area of Debridement (cm) - Width 5.4 2.5 -Total Square (Area) (cm) 30.24 16.25 -Tunneling No No -Undermining/Tunneling No No -Circular Undermining No No -Wound/Ulcer Outcome Not Healed Not Healed -Ulcer Cleansing Rinsed/ Rinsed/ Irrigated with Irrigated with Saline Saline -Foul Odor after Cleansing No No -Bioengineered Tissue No No -Debridement - Subq, 1st 20sq cm No No -Debridement, SubQ, ea addt'l 20sq cm 1 or part thereof #9 L post inf -Time 10:35 11:11 -Correct Patient Yes Yes -Correct Side, Site, Position Yes Yes -Correct Procedure Yes Yes -Procedure Performed Yes Yes -Type of Procedure Debridement Debridement -Clinical Debridement Subcutaneous Subcutaneous -Tissue Removed Subcutaneous Subcutaneous -Post Debridement (cm) - Length 7 4.5 -Post Debridement (cm) - Width 4 4 -Post Debridement (cm) - Depth 0.1 0.1 -Total Square (Post) (cm) 28 18.0 -Area of Debridement (cm) - Length 7 4.5 -Area of Debridement (cm) - Width 4 4.0 -Total Square (Area) (cm) 28 18.00 -Tunneling No No -Undermining/Tunneling No No -Circular Undermining No No -Wound/Ulcer Outcome Not Healed Not Healed -Ulcer Cleansing Rinsed/ Rinsed/ Irrigated with Irrigated with Saline Saline -Foul Odor after Cleansing No No -Bioengineered Tissue No No -Bleeding Controlled with Pressure -Debridement - Subq, 1st 20sq cm Yes Yes -Debridement, SubQ, ea addt'l 20sq cm 1 or part thereof Pain Scale: 0-10 Numeric Is Patient Pain Free? Yes Yes - Nurse 3 - General Ulcer D/C NN Start: 04/02/20 10:20 Freq: Status: Active Protocol: Activity Type Activity Date Activity User E-Sign Co-Sign Detail Recorded Client Recorded Date Recorded By Document 04/02/20 11:56 KR [id number] 04/02/20 11:58 JAYSON 04/02/20 11:56 Wound Care Nurse 3 #11 Ant Wolf -Ulcer Cleansing Wound Cleanser -Foul Odor after Cleansing No -Primary Dressing Applied Aquacel AG 4x4 -Primary Dressing Covered/Secured with Dry Gauze & Roll Gauze, Secured with Tape -Aquacel AG 4x4 1 #10 L Post Sup Cluster -Ulcer Cleansing Wound Cleanser -Foul Odor after Cleansing No -Other Dressing aquacel ag -Primary Dressing Covered/Secured with Dry Gauze & Roll Gauze, Secured with Tape #9 L post inf -Ulcer Cleansing Wound Cleanser -Foul Odor after Cleansing No -Other Dressing aquacel ag -Primary Dressing Covered/Secured with Dry Gauze & Roll Gauze, Secured with Tape Left -Tubular Bandage Double Layer -Size of Tubigrip Used Size F -Size F ($) 2 Treatment Response Procedure Tolerated Well Pain Scale: 0-10 Numeric Is Patient Pain Free? Yes WC - Visit Discharge Discharge Condition Stable Ambulatory Status Ambulatory Transportation Private Auto Wound debrided: Anterior LLE ulcers Laterality: Left Type of Debridement: Excisional debridement Anesthesia Used: 4% Lidocaine Solution Depth: in the subcutaneous layer Percentage of wound debrided: 100 Instrument Used: 7mm curette Tissue Removed: Slough and devitalized tissue Severity: Fat Layer Exposed Amount of bleeding with debridement: Mild Bleeding Controlled with: Pressure Patient tolerated procedure well - Additional Wound Wound debrided: Posterior LLE inferior Laterality: Left Type of Debridement: Excisional debridement Anesthesia Used: 4% Lidocaine Solution Depth: in the subcutaneous layer Percentage of wound debrided: 100 Instrument Used: 3mm curette Tissue Removed: Slough and devitalized tissue Severity: Fat Layer Exposed Amount of bleeding with debridement: Mild Bleeding Controlled with: Pressure Patient tolerated procedure: Patient tolerated procedure well - Additional Wound Wound debrided: Superior posterior LLE cluster Laterality: Left Type of Debridement: Excisional debridement Anesthesia Used: 4% Lidocaine Solution Depth: Down to and including healthy tissue Percentage of wound debrided: 100 Instrument Used: 3mm curette Tissue Removed: Slough and devitalized tissue Severity: Fat Layer Exposed Amount of bleeding with debridement: Mild Bleeding Controlled with: Pressure Patient tolerated procedure: Patient tolerated procedure well Assessment/Plan Active Problems (Last Reviewed 01/22/20 @ 14:[address] Nelson Ocasio MD) Diabetic ulcer of left lower leg (Chronic) Cellulitis of left lower extremity (Acute) Type 2 diabetes mellitus, uncontrolled, with neuropathy (Chronic) Obesity, morbid, BMI 50 or higher (Chronic) SARTHAK (obstructive sleep apnea) (Chronic) COPD (chronic obstructive pulmonary disease) (Chronic) Essential (primary) hypertension (Chronic) SLE (systemic lupus erythematosus) (Chronic) Hypothyroidism (Chronic) Hyperlipidemia (Chronic) Assessment: Same as above. Plan: Debridement performed today in clinic today as annotated above. Aquacel Ag applied to ulcers of left lower extremity. Given the duration of the wound and failure of the wound to respond to standard wound care, we applied for advanced skin substitutes: puraply, nushield, and Apligraf were approved. We will plan to initiate advanced skin substitutes following the holidays due to difficulty with scheduling. Patient is to perform daily dressing changes with Aquacel Ag to left lower extremity ulcers. She may continue to shower. Remove dressing prior to showering. Perform daily cleansing of ulcers with mild antibacterial soap, rinse well and pat dry. Apply clean dressing following cleansing. Do not soak or submerge ulcers. Compression: Double Tubigrip's applied. Patient to use double Tubigrip's for compression at home daily. Avoid prolonged standing or dangling of legs. Keep feet elevated at or above waist level when seated. Lay flat or with feet elevated at or above heart level while sleeping. Diet: Patient encouraged to increase protein and vitamin C intake while taking caution to avoid high carbohydrate and/or sugar intake. Discussed importance of tight glycemic control. Patient encouraged to continue with smoking cessation, which she initiated 12/2019. Labs/cultures/imaging: Baseline lab work from 04/02/2020 was reviewed and significant for the following: ESR 66 (H), creatinine 1.06 (H), estimated GFR 57 (L), glucose 347 (H), CRP 21.10 (H), prealbumin 16.7 (L). Wound cultures were positive for 3+ Staph aureus (doxycycline susceptible) and anaerobic gram-positive cocci. A 7-day extension of doxycycline 100 mg p.o. every 12 hours was called in to the patient's pharmacy today. The patient was instructed to resume taking doxycycline and to complete her current and new prescription for a total of 14 days of treatment with doxycycline. She was also instructed to take Augmentin while taking Doxycycline. A prescription for Zofran 4mg PO Q8H PRN for nausea (#30, 0RF) was called to the patient's pharmacy. A stat left lower extremity ultrasound was negative for DVT on 04/02/2020. Follow-up: Return to clinic in 1-2 weeks for re-evaluation. Return sooner or report to the emergency room should symptoms worsen, or new symptoms arise. If increasing pain, redness, or swelling occur, report to the emergency room. If you develop fever, chills, nausea, vomiting, or diarrhea, report to the emergency room. If you develop purulent/foul- smelling drainage from your wound, report to the emergency room. Note: [employer] speech recognition sales and service officer software was used to create portions of this document. Sound-alike and misspelled words, as well as other sales and service officer errors may be contained in the documentation. [id number]: [id number] Teresa subq tissue 20 sq cm/< Add On Codes: 20228 Teresa subq tissue add-on - x3
== END 2020-04-22 23:59 ==
LOC: WC 10:45
PROVIDERS: PCP Family Medicine; Referring Provider Nurse Practitioner Family; Visit Provider Nurse Practitioner Family
DX: E11.622 Type 2 diabetes mellitus with other skin ulcer (principal); E11.51 Type 2 diabetes mellitus with diabetic peripheral angiopathy without gangrene; L97.822 Non-pressure chronic ulcer of other part of left lower leg with fat layer exposed; E78.5 Hyperlipidemia, unspecified; G47.33 Obstructive sleep apnea (adult) (pediatric); M32.9 Systemic lupus erythematosus, unspecified; J44.9 Chronic obstructive pulmonary disease, unspecified; E66.01 Morbid (severe) obesity due to excess calories; Z68.43 Body mass index [BMI] 50.0-59.9, adult; E11.42 Type 2 diabetes mellitus with diabetic polyneuropathy; Z87.891 Personal history of nicotine dependence; M06.9 Rheumatoid arthritis, unspecified; E11.22 Type 2 diabetes mellitus with diabetic chronic kidney disease; I12.9 Hypertensive chronic kidney disease with stage 1 through stage 4 chronic kidney disease, or unspecified chronic kidney disease; N18.30 Chronic kidney disease, stage 3 unspecified; E03.9 Hypothyroidism, unspecified; Z79.899 Other long term (current) drug therapy; Z79.82 Long term (current) use of aspirin; Z79.4 Long term (current) use of insulin; L03.116 Cellulitis of left lower limb
CPT/HCPCS: 11042; 11045; 36415; 80053; 84134; 85025; 85652; 86140; 87070; 87075; 87077; 87186; 87205; 93971; 99213; G0463

== ENCOUNTER 2020-05-21 10:30 | Outpatient (RCR) | payer MEDICARE, MEDICAID, SELFPAY ==
[2020-04-23 00:05] VITALS: BP 142/85; PULSE 79; RESP 20; TEMP 36.3
[2020-04-30 09:14] VITALS: BP 152/72; PULSE 102; RESP 20; TEMP 36.3; BMI 50.2
--- NOTE | 2020-04-30 12:13 | PN.PCM_ITS ---
(1) Diabetic ulcer of left lower leg Status: Chronic Code(s): E11.622 - Type 2 diabetes mellitus with other skin ulcer; L97.929 - Non-pressure chronic ulcer of unspecified part of left lower leg with unspecified severity (2) Type 2 diabetes mellitus, uncontrolled, with neuropathy Status: Chronic Code(s): E11.40 - Type 2 diabetes mellitus with diabetic neuropathy, unspecified; E11.65 - Type 2 diabetes mellitus with hyperglycemia (3) Cellulitis of left lower extremity Status: Resolved Code(s): L03.116 - Cellulitis of left lower limb (4) COPD (chronic obstructive pulmonary disease) Status: Chronic Code(s): J44.9 - Chronic obstructive pulmonary disease, unspecified (5) Essential (primary) hypertension Status: Chronic Code(s): I10 - Essential (primary) hypertension (6) Hyperlipidemia Status: Chronic Code(s): E78.5 - Hyperlipidemia, unspecified (7) Hypothyroidism Status: Chronic Qualifiers: Code(s): E03.9 - Hypothyroidism, unspecified Comment: Continues on levothyroxine 100 mcg daily. Takes as directed. Denies any s/s of hypothyroidism. (8) SARTHAK (obstructive sleep apnea) Status: Chronic Code(s): G47.33 - Obstructive sleep apnea (adult) (pediatric) (9) Obesity, morbid, BMI 50 or higher Status: Chronic Code(s): E66.01 - Morbid (severe) obesity due to excess calories (10) SLE (systemic lupus erythematosus) Status: Chronic Qualifiers: Code(s): M32.9 - Systemic lupus erythematosus, unspecified Type of Wound Date of Service: 04/30/20 Chief Complaint: Left leg redness, swelling and ulcers History of Wound: Patient is a pleasant 54-year-old female who [facility] for evaluation and treatment of left lower leg erythema, swelling, and ulcerations. She is [facility] for treatment of previous diabetic ulcers. The patient reports the ulcers of her left lower extremity initially began as blisters which first appeared a few months ago. She has been applying antibacterial ointment to the ulcers of her left lower extremity daily. The erythema and swelling of her left lower extremity subsequently developed a few weeks ago. She denies left lower extremity pain with ambulation. She denies any foul-smelling or purulent drainage from her left lower extremity ulcers. She denies any fever, chills, nausea, vomiting, or diarrhea. She frequently sleeps in a chair without her feet elevated. She had a previous episode of cellulitis in November 2019, during which she developed left lower extremity erythema, swelling, and tenderness, as well as blisters which subsequently ruptured and resulted in left lower extremity ulcers. She was treated with Augmentin at that time; wound cultures were negative. Patient has a significant past medical history of tobacco dependence, smoking 1 PPD x 40+ years, though she recently quit smoking in 12/2019. She is a type II diabetic, with poor glycemic control. Her most recent A1c (01/22/2020) was 9.6%. She sees Dr. Ocasio for endocrinology. She has extensive peripheral neuropathy. She also has comorbidities of hypertension, rheumatoid arthritis, lupus, and morbid obesity with a BMI of 50.2. She sees Dr. Verdugo as her primary care provider. Patient had arterial studies completed on 06/24/2019. Arterial studies showed no evidence of significant arterial occlusive disease in bilateral lower extremities. (See report for full details.) A left lower extremity venous ultrasound completed on 01/06/2020 was negative for LLE DVT and demonstrated valvular competence, venous compressibility, and pulsatile venous flow of the left lower extremity. The patient has no history of DVT. Progress of Wound: The patient's left lower extremity ultrasound on 04/02/2020 was negative for DVT. Her wound cultures from 04/02/2020 showed 3+ Staph aureus (susceptible to doxycycline) and anaerobic gram-positive cocci. She completed courses of doxycycline and Augmentin. She has been using Aquacel Ag to her left lower extremity ulcers. She reports she has been noncompliant with daily use of compression with double Tubigrip's, and has 3+ pitting edema in her left lower extremity today. She denies any fever or chills. She denies any increasing pain, redness, swelling, or purulent/malodorous drainage from affected area. - Physical Exam Vital Signs Temp Pulse Resp BP 97.3 F L 102 H 20 H 152/72 H 04/30/20 09:14 04/30/20 09:14 04/30/20 09:14 04/30/20 09:14 General: Alert, Cooperative, No apparent distress HEENT: Atraumatic, Normocephalic Neck: Supple, Trachea Midline Lungs: Normal air movement Abdomen: Obese Extremities: No clubbing, No cyanosis, Capillary Refill Less than 3 Seconds, Edema - 3+ pitting edema of left lower extremity; 1+ pitting edema of right lower extremity, Peripheral Pulses Normal Skin: Ulcer/ Wound - Ulcers of left lower extremity with subcutaneous layer exposed. Tissue is red and beefy with good granulation. No purulent or malodorous drainage. Venous stasis skin changes of left lower extremity Wound Measurements and Assessment WC - Nurse 1 - General Ulcer Measurement Start: 04/30/20 09:14 Freq: Status: Active Protocol: Activity Type Activity Date Activity User E-Sign Co-Sign Detail Recorded Client Recorded Date Recorded By Document 04/30/20 09:14 [facility] [id number] 04/30/20 09:20 [facility] 04/30/20 09:14 Wound Center Nurse 1 [Ulcer Assessment] #11 Ant Wolf -Combined with other wound No -Current Size (cm) - Length 3.7 -Current Size (cm) - Width 2.3 -Current Size (cm) - Depth 0.1 -Total Square Cm 8.51 -Photo Taken No -Epithelialization None Present -Tunneling No -Undermining/Tunneling No -Circular Undermining No -Exudate Amt Medium -Exudate Type Serosanguineous -Wound Margin Flat & Intact -Granulation Amt Large (67-100%) -Granulation Quality Red -Slough/Fibrin Yes -Necrosis Amt Small (1-33%) -Necrotic Tissue Type Adherent Slough -Texture (Shraddha-wound Skin Appearance) Assessed, Scarring -Moisture (Shraddha-wound Skin Appearance Assessed ) -Color (Shraddha-wound Skin Appearance) Assessed, Hemosiderin Staining -Temperature (Shraddha-wound Skin No Abnormality Appearance) (Pt Warm) -Tenderness on Palpation (Shraddha-wound No Skin Appearance) -Ulcer Cleansing Rinsed/ Irrigated with Saline -Foul Odor after Cleansing No -Anesthetic Used 4% Lidocaine Solution #10 L Post Sup Cluster -Combined with other wound No -Current Size (cm) - Length 0.4 -Current Size (cm) - Width 0.4 -Current Size (cm) - Depth 0.1 -Total Square Cm 0.16 -Photo Taken No -Epithelialization None Present -Tunneling No -Undermining/Tunneling No -Circular Undermining No -Exudate Amt None Present -Wound Margin Distinct, Outline Attached -Granulation Amt None Present (0 %) -Slough/Fibrin Yes -Necrosis Amt Large (67-100%) -Necrotic Tissue Type Adherent Slough -Texture (Shraddha-wound Skin Appearance) Assessed, Scarring -Moisture (Shraddha-wound Skin Appearance Assessed ) -Color (Shraddha-wound Skin Appearance) Assessed -Temperature (Shraddha-wound Skin No Abnormality Appearance) (Pt Warm) -Tenderness on Palpation (Shraddha-wound No Skin Appearance) -Ulcer Cleansing Rinsed/ Irrigated with Saline -Foul Odor after Cleansing No -Anesthetic Used 4% Lidocaine Solution #9 L post inf -Combined with other wound No -Current Size (cm) - Length 1.8 -Current Size (cm) - Width 1.4 -Current Size (cm) - Depth 0.1 -Total Square Cm 2.52 -Photo Taken No -Epithelialization None Present -Tunneling No -Undermining/Tunneling No -Circular Undermining No -Exudate Amt None Present -Wound Margin Distinct, Outline Attached -Granulation Amt None Present (0 %) -Slough/Fibrin Yes -Necrosis Amt Large (67-100%) -Necrotic Tissue Type Eschar -Texture (Shraddha-wound Skin Appearance) Assessed, Scarring -Moisture (Shraddha-wound Skin Appearance Assessed ) -Color (Shraddha-wound Skin Appearance) Assessed -Temperature (Shraddha-wound Skin No Abnormality Appearance) (Pt Warm) -Tenderness on Palpation (Shraddha-wound No Skin Appearance) -Ulcer Cleansing Rinsed/ Irrigated with Saline -Foul Odor after Cleansing No -Anesthetic Used 4% Lidocaine Solution [Edema Assessment] -Lower Limb Edema Present Yes -Left Calf (cm) 43.4 -Left Ankle (cm) 27.2 WC - Nurse 2 - General Ulcer CM Notes Start: 04/30/20 09:14 Freq: Status: Active Protocol: Activity Type Activity Date Activity User E-Sign Co-Sign Detail Recorded Client Recorded Date Recorded By Document 04/30/20 10:12 [facility] [id number] 04/30/20 10:20 PL 04/30/20 10:12 Wound Center Nurse 2 [Procedure/Treatment] #11 Ant Wolf -Time 09:29 -Correct Patient Yes -Correct Side, Site, Position Yes -Correct Procedure Yes -Procedure Performed Yes -Type of Procedure Debridement -Clinical Debridement Subcutaneous -Tissue Removed Subcutaneous -Post Debridement (cm) - Length 2.0 -Post Debridement (cm) - Width 1.5 -Post Debridement (cm) - Depth 0.1 -Total Square (Post) (cm) 3.00 -Area of Debridement (cm) - Length 2.0 -Area of Debridement (cm) - Width 1.5 -Total Square (Area) (cm) 3.00 -Tunneling No -Undermining/Tunneling No -Circular Undermining No -Wound/Ulcer Outcome Not Healed -Ulcer Cleansing Rinsed/ Irrigated with Saline -Foul Odor after Cleansing No -Bioengineered Tissue No -Debridement - Subq, 1st 20sq cm No #10 L Post Sup Cluster -Time 09:29 -Correct Patient Yes -Correct Side, Site, Position Yes -Correct Procedure Yes -Procedure Performed Yes -Type of Procedure Debridement -Clinical Debridement Subcutaneous -Tissue Removed Subcutaneous -Post Debridement (cm) - Length 0.6 -Post Debridement (cm) - Width 0.5 -Post Debridement (cm) - Depth 0.1 -Total Square (Post) (cm) 0.30 -Area of Debridement (cm) - Length 0.6 -Area of Debridement (cm) - Width 0.5 -Total Square (Area) (cm) 0.30 -Tunneling No -Undermining/Tunneling No -Circular Undermining No -Wound/Ulcer Outcome Not Healed -Ulcer Cleansing Rinsed/ Irrigated with Saline -Foul Odor after Cleansing No -Bioengineered Tissue No -Debridement - Subq, 1st 20sq cm No #9 L post inf -Time 09:29 -Correct Patient Yes -Correct Side, Site, Position Yes -Correct Procedure Yes -Procedure Performed Yes -Type of Procedure Debridement -Clinical Debridement Subcutaneous -Tissue Removed Subcutaneous -Post Debridement (cm) - Length 1.8 -Post Debridement (cm) - Width 1.4 -Post Debridement (cm) - Depth 0.1 -Total Square (Post) (cm) 2.52 -Area of Debridement (cm) - Length 1.8 -Area of Debridement (cm) - Width 1.4 -Total Square (Area) (cm) 2.52 -Tunneling No -Undermining/Tunneling No -Circular Undermining No -Wound/Ulcer Outcome Not Healed -Ulcer Cleansing Rinsed/ Irrigated with Saline -Foul Odor after Cleansing No -Bioengineered Tissue Yes -Type of Bioengineered Tissue PuraPly AM -Expiration Date 06/23/22 -Product Lot Number [id number] -Percent Used 100 -Lot number of Saline Used [id number] -Bleeding Controlled with Pressure -Treatment Response Procedure Tolerated Well -Debridement - Subq, 1st 20sq cm No -Apply Skin Sub - 1st 25 sq cm - Legs 1 -PuraPly AM (per sq cm) 12 [See Physician Procedure note for Specifics] Pain Scale: 0-10 Numeric [Pain] -Is Patient Pain Free? Yes - Nurse 3 - General Ulcer D/C NN Start: 04/30/20 09:14 Freq: Status: Active Protocol: Activity Type Activity Date Activity User E-Sign Co-Sign Detail Recorded Client Recorded Date Recorded By Document 04/30/20 10:02 [facility] [id number] 04/30/20 10:03 [facility] 04/30/20 10:02 Wound Care Nurse 3 [Wound Dressing] #11 Ant Wolf -Primary Dressing Applied Other -Other Dressing puraply -Primary Dressing Covered/Secured Dry Gauze,Other with -Other Covering unna boot #10 L Post Sup Cluster -Primary Dressing Applied Other -Other Dressing puraply -Primary Dressing Covered/Secured Dry Gauze,Other with -Other Covering unna boot #9 L post inf -Primary Dressing Applied Other -Other Dressing puraply -Primary Dressing Covered/Secured Dry Gauze,Other with -Other Covering unna boot [Compression Applied] Left -Multi-Layered Wrap Application Unna Boot - Left ($) -Compression Wrap Unna Boot ($) ( single) [Post Procedure Tolerated] -Treatment Response Procedure Tolerated Well Pain Scale: 0-10 Numeric [Pain] -Is Patient Pain Free? Yes - Visit Discharge [Visit Discharge Information] -Discharge Condition Stable -Ambulatory Status Ambulatory -Transportation Private Auto Psych/Mental Status: Normal Affect, Appropriate Debridement Note Post-Debridement Measurements/Treatment - Nurse 2 - General Ulcer CM Notes Start: 04/30/20 09:14 Freq: Status: Active Protocol: Activity Type Activity Date Activity User E-Sign Co-Sign Detail Recorded Client Recorded Date Recorded By Document 04/30/20 10:12 PL [id number] 04/30/20 10:20 PL 04/30/20 10:12 Wound Center Nurse 2 #11 Ant Wolf -Time 09:29 -Correct Patient Yes -Correct Side, Site, Position Yes -Correct Procedure Yes -Procedure Performed Yes -Type of Procedure Debridement -Clinical Debridement Subcutaneous -Tissue Removed Subcutaneous -Post Debridement (cm) - Length 2.0 -Post Debridement (cm) - Width 1.5 -Post Debridement (cm) - Depth 0.1 -Total Square (Post) (cm) 3.00 -Area of Debridement (cm) - Length 2.0 -Area of Debridement (cm) - Width 1.5 -Total Square (Area) (cm) 3.00 -Tunneling No -Undermining/Tunneling No -Circular Undermining No -Wound/Ulcer Outcome Not Healed -Ulcer Cleansing Rinsed/ Irrigated with Saline -Foul Odor after Cleansing No -Bioengineered Tissue No -Debridement - Subq, 1st 20sq cm No #10 L Post Sup Cluster -Time 09: -Correct Patient Yes -Correct Side, Site, Position Yes -Correct Procedure Yes -Procedure Performed Yes -Type of Procedure Debridement -Clinical Debridement Subcutaneous -Tissue Removed Subcutaneous -Post Debridement (cm) - Length 0.6 -Post Debridement (cm) - Width 0.5 -Post Debridement (cm) - Depth 0.1 -Total Square (Post) (cm) 0.30 -Area of Debridement (cm) - Length 0.6 -Area of Debridement (cm) - Width 0.5 -Total Square (Area) (cm) 0.30 -Tunneling No -Undermining/Tunneling No -Circular Undermining No -Wound/Ulcer Outcome Not Healed -Ulcer Cleansing Rinsed/ Irrigated with Saline -Foul Odor after Cleansing No -Bioengineered Tissue No -Debridement - Subq, 1st 20sq cm No #9 L post inf -Time : -Correct Patient Yes -Correct Side, Site, Position Yes -Correct Procedure Yes -Procedure Performed Yes -Type of Procedure Debridement -Clinical Debridement Subcutaneous -Tissue Removed Subcutaneous -Post Debridement (cm) - Length 1.8 -Post Debridement (cm) - Width 1.4 -Post Debridement (cm) - Depth 0.1 -Total Square (Post) (cm) 2.52 -Area of Debridement (cm) - Length 1.8 -Area of Debridement (cm) - Width 1.4 -Total Square (Area) (cm) 2.52 -Tunneling No -Undermining/Tunneling No -Circular Undermining No -Wound/Ulcer Outcome Not Healed -Ulcer Cleansing Rinsed/ Irrigated with Saline -Foul Odor after Cleansing No -Bioengineered Tissue Yes -Type of Bioengineered Tissue PuraPly AM -Expiration Date 06/23/22 -Product Lot Number [id number] -Percent Used 100 -Lot number of Saline Used [id number] -Bleeding Controlled with Pressure -Treatment Response Procedure Tolerated Well -Debridement - Subq, 1st 20sq cm No -Apply Skin Sub - 1st 25 sq cm - Legs 1 -PuraPly AM (per sq cm) 12 Pain Scale: 0-10 Numeric Is Patient Pain Free? Yes - Nurse 3 - General Ulcer D/C NN Start: 04/30/20 09:14 Freq: Status: Active Protocol: Activity Type Activity Date Activity User E-Sign Co-Sign Detail Recorded Client Recorded Date Recorded By Document 04/30/20 10:02 [facility] [id number] 04/30/20 10:03 [facility] 04/30/20 10:02 Wound Care Nurse 3 #11 Ant Wolf -Primary Dressing Applied Other -Other Dressing puraply -Primary Dressing Covered/Secured with Dry Gauze,Other -Other Covering unna boot #10 L Post Sup Cluster -Primary Dressing Applied Other -Other Dressing puraply -Primary Dressing Covered/Secured with Dry Gauze,Other -Other Covering unna boot #9 L post inf -Primary Dressing Applied Other -Other Dressing puraply -Primary Dressing Covered/Secured with Dry Gauze,Other -Other Covering unna boot Left -Multi-Layered Wrap Application Unna Boot - Left ($) -Compression Wrap Unna Boot ($) ( single) Treatment Response Procedure Tolerated Well Pain Scale: 0-10 Numeric Is Patient Pain Free? Yes - Visit Discharge Discharge Condition Stable Ambulatory Status Ambulatory Transportation Private Auto Wound debrided: Anterior LLE ulcer Laterality: Left Type of Debridement: Excisional debridement Anesthesia Used: 4% Lidocaine Solution Depth: in the subcutaneous layer Percentage of wound debrided: 100 Instrument Used: 5mm curette Tissue Removed: Slough and devitalized tissue Severity: Fat Layer Exposed Amount of bleeding with debridement: Mild Bleeding Controlled with: Pressure Patient tolerated procedure well - Additional Wound Wound debrided: Posterior inferior LLE Laterality: Left Type of Debridement: Excisional debridement Anesthesia Used: 4% Lidocaine Solution Depth: in the subcutaneous layer Percentage of wound debrided: 100 Instrument Used: 5mm curette Tissue Removed: Slough and devitalized tissue Severity: Fat Layer Exposed Amount of bleeding with debridement: Mild Bleeding Controlled with: Pressure Patient tolerated procedure: Patient tolerated procedure well - Additional Wound Wound debrided: Superior posterior LLE cluster Laterality: Left Type of Debridement: Excisional debridement Anesthesia Used: 4% Lidocaine Solution Depth: in the subcutaneous layer Percentage of wound debrided: 100 Instrument Used: 5mm curette Tissue Removed: Slough and devitalized tissue Severity: Fat Layer Exposed Amount of bleeding with debridement: Mild Bleeding Controlled with: Pressure Patient tolerated procedure: Patient tolerated procedure well Assessment/Plan Active Problems (Last Reviewed 01/22/20 @ 14:[address] Nelson Ocasio MD) Diabetic ulcer of left lower leg (Chronic) Assessment: Same as above. Plan: Debridement performed today in clinic today as annotated above. Given the duration of the wound and failure of the wound to respond to standard wound care, we applied for advanced skin substitutes: puraply, nushield, and Apligraf were approved. Puraply #1 was applied today to the left lower extremity ulcers. 100% of the product was used. This was secured with a wound veil and Steri- Strips. An Unna boot was applied to the left lower extremity. Patient instructed to keep dressing clean and dry. She was instructed on covering her Unna boot when showering. She was advised to continue double Tubigrip's to her right lower extremity for compression. Avoid prolonged standing or dangling of legs. Keep feet elevated at or above waist level when seated. Lay flat or with feet elevated at or above heart level while sleeping. Diet: Patient encouraged to increase protein and vitamin C intake while taking caution to avoid high carbohydrate and/or sugar intake. Discussed importance of tight glycemic control. Patient encouraged to continue with smoking cessation, which she initiated 12/2019. Labs/cultures/imaging: Baseline lab work from 04/02/2020 was significant for the following: ESR 66 (H), creatinine 1.06 (H), estimated GFR 57 (L), glucose 347 (H), CRP 21.10 (H), prealbumin 16.7 (L). Wound cultures were positive for 3+ Staph aureus (doxycycline susceptible) and anaerobic gram- positive cocci. Doxycycline and Augmentin were completed. A stat left lower extremity ultrasound was negative for DVT on 04/02/2020. Follow-up: Turn to the clinic on Sunday to have an Unna boot removed and reapplied, as this is patient's first application of an Unna boot. Return to clinic in 1 week for re- evaluation. Return sooner or report to the emergency room should symptoms worsen, or new symptoms arise. She was advised to contact the wound healing center or report to the emergency room should she experience numbness and tingling and or discoloration of the toes while wearing the Unna boot. Note: [employer] speech recognition saw cleaner software was used to create portions of this document. Sound-alike and misspelled words, as well as other saw cleaner errors may be contained in the documentation. [id number]: [id number] Skin sub graft trnk/arm/leg
[2020-05-04 14:27] VITALS: BP 143/64; PULSE 100; TEMP 36.1; BMI 50.2
[2020-05-07 10:10] VITALS: BP 152/76; PULSE 90; TEMP 35.9; BMI 50.2
--- NOTE | 2020-05-07 13:15 | PCM.WC.PN ---
(1) Diabetic ulcer of left lower leg Status: Chronic Code(s): E11.622 - Type 2 diabetes mellitus with other skin ulcer; L97.929 - Non-pressure chronic ulcer of unspecified part of left lower leg with unspecified severity (2) Type 2 diabetes mellitus, uncontrolled, with neuropathy Status: Chronic Code(s): E11.40 - Type 2 diabetes mellitus with diabetic neuropathy, unspecified; E11.65 - Type 2 diabetes mellitus with hyperglycemia (3) Cellulitis of left lower extremity Status: Resolved Code(s): L03.116 - Cellulitis of left lower limb (4) COPD (chronic obstructive pulmonary disease) Status: Chronic Code(s): J44.9 - Chronic obstructive pulmonary disease, unspecified (5) Essential (primary) hypertension Status: Chronic Code(s): I10 - Essential (primary) hypertension (6) Hyperlipidemia Status: Chronic Code(s): E78.5 - Hyperlipidemia, unspecified (7) Hypothyroidism Status: Chronic Qualifiers: Code(s): E03.9 - Hypothyroidism, unspecified Comment: Continues on levothyroxine 100 mcg daily. Takes as directed. Denies any s/s of hypothyroidism. (8) SARTHAK (obstructive sleep apnea) Status: Chronic Code(s): G47.33 - Obstructive sleep apnea (adult) (pediatric) (9) Obesity, morbid, BMI 50 or higher Status: Chronic Code(s): E66.01 - Morbid (severe) obesity due to excess calories (10) SLE (systemic lupus erythematosus) Status: Chronic Qualifiers: Code(s): M32.9 - Systemic lupus erythematosus, unspecified Type of Wound Date of Service: 05/07/20 Chief Complaint: Left leg redness, swelling and ulcers History of Wound: Patient is a pleasant 54-year-old female who [facility] for evaluation and treatment of left lower leg erythema, swelling, and ulcerations. She is [facility] for treatment of previous diabetic ulcers. The patient reports the ulcers of her left lower extremity initially began as blisters which first appeared a few months ago. She has been applying antibacterial ointment to the ulcers of her left lower extremity daily. The erythema and swelling of her left lower extremity subsequently developed a few weeks ago. She denies left lower extremity pain with ambulation. She denies any foul-smelling or purulent drainage from her left lower extremity ulcers. She denies any fever, chills, nausea, vomiting, or diarrhea. She frequently sleeps in a chair without her feet elevated. She had a previous episode of cellulitis in November 2019, during which she developed left lower extremity erythema, swelling, and tenderness, as well as blisters which subsequently ruptured and resulted in left lower extremity ulcers. She was treated with Augmentin at that time; wound cultures were negative. Patient has a significant past medical history of tobacco dependence, smoking 1 PPD x 40+ years, though she recently quit smoking in 12/2019. She is a type II diabetic, with poor glycemic control. Her most recent A1c (01/22/2020) was 9.6%. She sees Dr. Ocasio for endocrinology. She has extensive peripheral neuropathy. She also has comorbidities of hypertension, rheumatoid arthritis, lupus, and morbid obesity with a BMI of 50.2. She sees Dr. Verdugo as her primary care provider. Patient had arterial studies completed on 06/24/2019. Arterial studies showed no evidence of significant arterial occlusive disease in bilateral lower extremities. (See report for full details.) A left lower extremity venous ultrasound completed on 01/06/2020 was negative for LLE DVT and demonstrated valvular competence, venous compressibility, and pulsatile venous flow of the left lower extremity. The patient has no history of DVT. Progress of Wound: The patient's left lower extremity ultrasound on 04/02/2020 was negative for DVT. Her wound cultures from 04/02/2020 showed 3+ Staph aureus (susceptible to doxycycline) and anaerobic gram-positive cocci. She completed courses of doxycycline and Augmentin. Last week puraply #1 was applied and an Unna boot was used for compression to the left lower extremity. She tolerated this well and was able to keep her dressings clean and dry. Her anterior LLE ulcer has improved in appearance. Her posterior LLE ulcers have healed. She denies any fever or chills. She denies any increasing pain, redness, swelling, or purulent/malodorous drainage from affected area. - Physical Exam Vital Signs Temp Pulse Resp BP 96.7 F L 90 20 H 152/76 H 05/07/20 10:10 05/07/20 10:10 04/30/20 09:14 05/07/20 10:10 General: Alert, Cooperative, No apparent distress HEENT: Atraumatic, Normocephalic Oral: Moist Mucosa Neck: Supple, Trachea Midline Lungs: Normal air movement Cardiovascular: Regular rate Abdomen: Obese Extremities: No clubbing, No cyanosis, Capillary Refill Less than 3 Seconds, Edema - Trace edema bilateral lower extremities, Peripheral Pulses Normal Skin: Ulcer/ Wound - Posterior LLE ulcers are healed. Anterior LLE ulcer with subcutaneous layer exposed is improved in size and appearance. No periulcer erythema, warmth, tenderness. No purulent/malodorous drainage. Wound Measurements and Assessment WC - Nurse 1 - General Ulcer Measurement Start: 04/30/20 09:14 Freq: Status: Active Protocol: Activity Type Activity Date Activity User E-Sign Co-Sign Detail Recorded Client Recorded Date Recorded By Document 05/07/20 10:10 JAYSON [id number] 05/07/20 10:23 JAYSON 05/07/20 10:10 [facility] Nurse 1 [Ulcer Assessment] #11 Ant Wolf -Current Size (cm) - Length 2.4 -Current Size (cm) - Width 2 -Current Size (cm) - Depth 0.1 -Total Square Cm 4.8 -Exudate Amt Medium -Exudate Type Serosanguineous -Wound Margin Distinct, Outline Attached -Necrosis Amt Medium (34-66%) -Necrotic Tissue Type Adherent Slough -Texture (Shraddha-wound Skin Appearance) Assessed, Scarring -Moisture (Shraddha-wound Skin Appearance No Abnormality, ) Assessed -Color (Shraddha-wound Skin Appearance) No Abnormality, Assessed -Temperature (Shraddha-wound Skin No Abnormality Appearance) (Pt Warm) -Tenderness on Palpation (Shraddha-wound No Skin Appearance) -Ulcer Cleansing soap and water -Foul Odor after Cleansing No -Anesthetic Used 4% Lidocaine Solution #10 L Post Sup Cluster -Current Size (cm) - Length 0.1 -Current Size (cm) - Width 0.1 -Current Size (cm) - Depth 0.1 -Total Square Cm 0.01 -Exudate Amt None Present -Wound Margin Distinct, Outline Attached -Granulation Amt None Present (0 %) -Necrosis Amt None Present (0 %) -Texture (Shraddha-wound Skin Appearance) Assessed, Scarring -Moisture (Shraddha-wound Skin Appearance Assessed,Dry/ ) Scaly -Color (Shraddha-wound Skin Appearance) No Abnormality, Assessed -Temperature (Shraddha-wound Skin No Abnormality Appearance) (Pt Warm) -Tenderness on Palpation (Shraddha-wound No Skin Appearance) -Ulcer Cleansing SOAP AND WATER -Foul Odor after Cleansing No -Anesthetic Used 4% Lidocaine Solution #9 L post inf -Current Size (cm) - Length 3 -Current Size (cm) - Width 1.7 -Current Size (cm) - Depth 0.1 -Total Square Cm 5.1 -Exudate Amt Small -Exudate Type Serosanguineous -Wound Margin Distinct, Outline Attached -Granulation Amt Small (1-33%) -Granulation Quality Wyatt -Necrosis Amt Small (1-33%) -Necrotic Tissue Type Adherent Slough -Texture (Shraddha-wound Skin Appearance) Assessed, Scarring -Moisture (Shraddha-wound Skin Appearance No Abnormality, ) Assessed -Color (Shraddha-wound Skin Appearance) No Abnormality, Assessed -Temperature (Shraddha-wound Skin No Abnormality Appearance) (Pt Warm) -Tenderness on Palpation (Shraddha-wound No Skin Appearance) -Ulcer Cleansing SOAP AND WATER -Foul Odor after Cleansing No -Anesthetic Used 4% Lidocaine Solution [Edema Assessment] -Left Calf (cm) 40 -Left Ankle (cm) 26 WC - Nurse 2 - General Ulcer CM Notes Start: 04/30/20 09:14 Freq: Status: Active Protocol: Activity Type Activity Date Activity User E-Sign Co-Sign Detail Recorded Client Recorded Date Recorded By Document 05/07/20 10:35 IMMANUEL [id number] 05/07/20 10:54 IMMANUEL 05/07/20 10:35 Wound Center Nurse 2 [Procedure/Treatment] #11 Ant Wolf -Time 10:41 -Correct Patient Yes -Correct Side, Site, Position Yes -Correct Procedure Yes -Procedure Performed Yes -Type of Procedure Debridement -Clinical Debridement Subcutaneous -Tissue Removed Subcutaneous -Post Debridement (cm) - Length 3 -Post Debridement (cm) - Width 1 -Post Debridement (cm) - Depth 0.1 -Total Square (Post) (cm) 3 -Area of Debridement (cm) - Length 3 -Area of Debridement (cm) - Width 1 -Total Square (Area) (cm) 3 -Tunneling No -Undermining/Tunneling No -Circular Undermining No -Wound/Ulcer Outcome Not Healed -Ulcer Cleansing Rinsed/ Irrigated with Saline -Foul Odor after Cleansing No -Bioengineered Tissue Yes -Type of Bioengineered Tissue PuraPly AM -Expiration Date 06/20/21 -Product Lot Number [id number] -Percent Used 100 -Lot number of Saline Used [id number] -Bleeding Controlled with Pressure -Offloading No -Treatment Response Procedure Tolerated Well -Debridement - Subq, 1st 20sq cm No -Apply Skin Sub - 1st 25 sq cm - Legs 1 -PuraPly AM (per sq cm) 8 #10 L Post Sup Cluster -Correct Patient No -Correct Side, Site, Position No -Correct Procedure No -Procedure Performed No -Post Debridement (cm) - Length 0 -Post Debridement (cm) - Width 0 -Post Debridement (cm) - Depth 0 -Total Square (Post) (cm) 0 -Area of Debridement (cm) - Length 0 -Area of Debridement (cm) - Width 0 -Total Square (Area) (cm) 0 -Tunneling No -Undermining/Tunneling No -Wound/Ulcer Outcome Healed- Epithelialized #9 L post inf -Correct Patient No -Correct Side, Site, Position No -Correct Procedure No -Procedure Performed No -Post Debridement (cm) - Length 0 -Post Debridement (cm) - Width 0 -Post Debridement (cm) - Depth 0 -Total Square (Post) (cm) 0 -Area of Debridement (cm) - Length 0 -Area of Debridement (cm) - Width 0 -Total Square (Area) (cm) 0 -Wound/Ulcer Outcome Healed- Epithelialized [See Physician Procedure note for Specifics] Pain Scale: 0-10 Numeric [Pain] -Is Patient Pain Free? Yes WC - Nurse 3 - General Ulcer D/C NN Start: 04/30/20 09:14 Freq: Status: Active Protocol: Activity Type Activity Date Activity User E-Sign Co-Sign Detail Recorded Client Recorded Date Recorded By Document 05/04/20 14:27 KR [id number] 05/04/20 14:29 KR 05/04/20 14:27 Vital Signs [Temperature Protocol: VS] -Temperature (97.8 F-99.1 F) 96.9 F L -Temperature Source Temporal [Pulse] -Pulse Rate (60-100) 100 -Pulse Location Monitor [Blood Pressure] -Blood Pressure (90/60-120/80) 143/64 H -Blood Pressure Mean (mm Hg) 90 -Source Monitor -Position Sitting -Blood Pressure Location Right Arm Pain Scale: 0-10 Numeric [Pain] -Is Patient Pain Free? Yes Wound Care Nurse 3 [Compression Applied] Left -Multi-Layered Wrap Application Unna Boot - Left ($) - Visit Discharge [Visit Discharge Information] -Discharge Condition Stable -Ambulatory Status Ambulatory -Transportation Private Auto Psych/Mental Status: Normal Affect, Appropriate Debridement Note Post-Debridement Measurements/Treatment - Nurse 2 - General Ulcer CM Notes Start: 04/30/20 09:14 Freq: Status: Active Protocol: Activity Type Activity Date Activity User E-Sign Co-Sign Detail Recorded Client Recorded Date Recorded By Document 04/30/20 10:12 PL [id number] 04/30/20 10:20 PL Document 05/07/20 10:35 JF [id number] 05/07/20 10:54 JF 04/30/20 05/07/20 10:12 10:35 Wound Center Nurse 2 #11 Ant Wolf -Time 09:29 10:41 -Correct Patient Yes Yes -Correct Side, Site, Position Yes Yes -Correct Procedure Yes Yes -Procedure Performed Yes Yes -Type of Procedure Debridement Debridement -Clinical Debridement Subcutaneous Subcutaneous -Tissue Removed Subcutaneous Subcutaneous -Post Debridement (cm) - Length 2.0 3 -Post Debridement (cm) - Width 1.5 1 -Post Debridement (cm) - Depth 0.1 0.1 -Total Square (Post) (cm) 3.00 3 -Area of Debridement (cm) - Length 2.0 3 -Area of Debridement (cm) - Width 1.5 1 -Total Square (Area) (cm) 3.00 3 -Tunneling No No -Undermining/Tunneling No No -Circular Undermining No No -Wound/Ulcer Outcome Not Healed Not Healed -Ulcer Cleansing Rinsed/ Rinsed/ Irrigated with Irrigated with Saline Saline -Foul Odor after Cleansing No No -Bioengineered Tissue No Yes -Type of Bioengineered Tissue PuraPly AM -Expiration Date 06/20/21 -Product Lot Number [id number] -Percent Used 100 -Lot number of Saline Used [id number] -Bleeding Controlled with Pressure -Offloading No -Treatment Response Procedure Tolerated Well -Debridement - Subq, 1st 20sq cm No No -Apply Skin Sub - 1st 25 sq cm - Legs 1 -PuraPly AM (per sq cm) 8 #10 L Post Sup Cluster -Time 09:29 -Correct Patient Yes No -Correct Side, Site, Position Yes No -Correct Procedure Yes No -Procedure Performed Yes No -Type of Procedure Debridement -Clinical Debridement Subcutaneous -Tissue Removed Subcutaneous -Post Debridement (cm) - Length 0.6 0 -Post Debridement (cm) - Width 0.5 0 -Post Debridement (cm) - Depth 0.1 0 -Total Square (Post) (cm) 0.30 0 -Area of Debridement (cm) - Length 0.6 0 -Area of Debridement (cm) - Width 0.5 0 -Total Square (Area) (cm) 0.30 0 -Tunneling No No -Undermining/Tunneling No No -Circular Undermining No -Wound/Ulcer Outcome Not Healed Healed- Epithelialized -Ulcer Cleansing Rinsed/ Irrigated with Saline -Foul Odor after Cleansing No -Bioengineered Tissue No -Debridement - Subq, 1st 20sq cm No #9 L post inf -Time 09:29 -Correct Patient Yes No -Correct Side, Site, Position Yes No -Correct Procedure Yes No -Procedure Performed Yes No -Type of Procedure Debridement -Clinical Debridement Subcutaneous -Tissue Removed Subcutaneous -Post Debridement (cm) - Length 1.8 0 -Post Debridement (cm) - Width 1.4 0 -Post Debridement (cm) - Depth 0.1 0 -Total Square (Post) (cm) 2.52 0 -Area of Debridement (cm) - Length 1.8 0 -Area of Debridement (cm) - Width 1.4 0 -Total Square (Area) (cm) 2.52 0 -Tunneling No -Undermining/Tunneling No -Circular Undermining No -Wound/Ulcer Outcome Not Healed Healed- Epithelialized -Ulcer Cleansing Rinsed/ Irrigated with Saline -Foul Odor after Cleansing No -Bioengineered Tissue Yes -Type of Bioengineered Tissue PuraPly AM -Expiration Date 06/23/22 -Product Lot Number [id number] -Percent Used 100 -Lot number of Saline Used [id number] -Bleeding Controlled with Pressure -Treatment Response Procedure Tolerated Well -Debridement - Subq, 1st 20sq cm No -Apply Skin Sub - 1st 25 sq cm - Legs 1 -PuraPly AM (per sq cm) 12 Pain Scale: 0-10 Numeric Is Patient Pain Free? Yes Yes WC - Nurse 3 - General Ulcer D/C NN Start: 04/30/20 09:14 Freq: Status: Active Protocol: Activity Type Activity Date Activity User E-Sign Co-Sign Detail Recorded Client Recorded Date Recorded By Document 04/30/20 10:02 [facility] [id number] 04/30/20 10:03 [facility] Document 05/04/20 14:27 JAYSON [id number] 05/04/20 14:29 KR 04/30/20 05/04/20 10:02 14:27 Wound Care Nurse 3 #11 Ant Wolf -Primary Dressing Applied Other -Other Dressing puraply -Primary Dressing Covered/Secured with Dry Gauze,Other -Other Covering unna boot #10 L Post Sup Cluster -Primary Dressing Applied Other -Other Dressing puraply -Primary Dressing Covered/Secured with Dry Gauze,Other -Other Covering unna boot #9 L post inf -Primary Dressing Applied Other -Other Dressing puraply -Primary Dressing Covered/Secured with Dry Gauze,Other -Other Covering unna boot Left -Multi-Layered Wrap Application Unna Boot - Unna Boot - Left ($) Left ($) -Compression Wrap Unna Boot ($) ( single) Treatment Response Procedure Tolerated Well Vital Signs Temperature (97.8 F-99.1 F) 96.9 F L Temperature Source Temporal Pulse Rate (60-100) 100 Pulse Location Monitor Blood Pressure (90/60-120/80) 143/64 H Blood Pressure Mean (mm Hg) 90 Source Monitor Position Sitting Blood Pressure Location Right Arm Pain Scale: 0-10 Numeric Is Patient Pain Free? Yes Yes WC - Visit Discharge Discharge Condition Stable Stable Ambulatory Status Ambulatory Ambulatory Transportation Private Auto Private Auto Wound debrided: Anterior LLE ulcer Laterality: Left Type of Debridement: Excisional debridement Anesthesia Used: 5% Lidocaine Gel Depth: in the subcutaneous layer Percentage of wound debrided: 100 Instrument Used: 5mm curette Tissue Removed: Slough and devitalized tissue Severity: Fat Layer Exposed Amount of bleeding with debridement: Mild Bleeding Controlled with: Compression and gauze Patient tolerated procedure well Assessment/Plan Active Problems (Last Reviewed 01/22/20 @ 14:[address] Nelson Ocasio MD) Diabetic ulcer of left lower leg (Chronic) Type 2 diabetes mellitus, uncontrolled, with neuropathy (Chronic) Obesity, morbid, BMI 50 or higher (Chronic) SARTHAK (obstructive sleep apnea) (Chronic) COPD (chronic obstructive pulmonary disease) (Chronic) Essential (primary) hypertension (Chronic) Hyperlipidemia (Chronic) SLE (systemic lupus erythematosus) (Chronic) Hypothyroidism (Chronic) Continues on levothyroxine 100 mcg daily. Takes as directed. Denies any s/s of hypothyroidism. Assessment: Same as above. Plan: Debridement performed today in clinic today as annotated above. Given the duration of the wound and failure of the wound to respond to standard wound care, we applied for advanced skin substitutes: puraply, nushield, and Apligraf were approved. Puraply #2 was applied today to the anterior LLE ulcer. 100% of the product was used. This was secured with a wound veil and Steri-Strips. An Unna boot was applied to the left lower extremity. Patient instructed to keep dressing clean and dry. She was instructed on covering her Unna boot when showering. She was advised to continue double Tubigrip's to her right lower extremity for compression. Avoid prolonged standing or dangling of legs. Keep feet elevated at or above waist level when seated. Lay flat or with feet elevated at or above heart level while sleeping. Diet: Patient encouraged to increase protein and vitamin C intake while taking caution to avoid high carbohydrate and/or sugar intake. Discussed importance of tight glycemic control. Patient encouraged to continue with smoking cessation, which she initiated 12/2019. Labs/cultures/imaging: Baseline lab work from 04/02/2020 was significant for the following: ESR 66 (H), creatinine 1.06 (H), estimated GFR 57 (L), glucose 347 (H), CRP 21.10 (H), prealbumin 16.7 (L). Wound cultures were positive for 3+ Staph aureus (doxycycline susceptible) and anaerobic gram-positive cocci. Doxycycline and Augmentin were completed. A stat left lower extremity ultrasound was negative for DVT on 04/02/2020. Follow-up: Return to clinic in 1 week for re-evaluation. We will plan to initiate treatment with Apligraf at next visit. Return sooner or report to the emergency room should symptoms worsen, or new symptoms arise. She was advised to contact the wound healing center or report to the emergency room should she experience numbness and tingling and/or discoloration of the toes while wearing the Unna boot. Note: [employer] speech recognition cement finishing supervisor software was used to create portions of this document. Sound-alike and misspelled words, as well as other cement finishing supervisor errors may be contained in the documentation. [id number]: [id number] Skin sub graft trnk/arm/leg
[2020-05-14 10:08] VITALS: BP 134/56; PULSE 93; RESP 18; TEMP 36.4; BMI 50.2
--- NOTE | 2020-05-14 10:31 | PN.PCM_ITS ---
(1) Diabetic ulcer of left lower leg Status: Chronic Code(s): E11.622 - Type 2 diabetes mellitus with other skin ulcer; L97.929 - Non-pressure chronic ulcer of unspecified part of left lower leg with unspecified severity (2) Type 2 diabetes mellitus, uncontrolled, with neuropathy Status: Chronic Code(s): E11.40 - Type 2 diabetes mellitus with diabetic neuropathy, unspecified; E11.65 - Type 2 diabetes mellitus with hyperglycemia (3) Cellulitis of left lower extremity Status: Resolved Code(s): L03.116 - Cellulitis of left lower limb (4) COPD (chronic obstructive pulmonary disease) Status: Chronic Code(s): J44.9 - Chronic obstructive pulmonary disease, unspecified (5) Essential (primary) hypertension Status: Chronic Code(s): I10 - Essential (primary) hypertension (6) Hyperlipidemia Status: Chronic Code(s): E78.5 - Hyperlipidemia, unspecified (7) Hypothyroidism Status: Chronic Qualifiers: Code(s): E03.9 - Hypothyroidism, unspecified Comment: Continues on levothyroxine 100 mcg daily. Takes as directed. Denies any s/s of hypothyroidism. (8) SARTHAK (obstructive sleep apnea) Status: Chronic Code(s): G47.33 - Obstructive sleep apnea (adult) (pediatric) (9) Obesity, morbid, BMI 50 or higher Status: Chronic Code(s): E66.01 - Morbid (severe) obesity due to excess calories (10) SLE (systemic lupus erythematosus) Status: Chronic Qualifiers: Code(s): M32.9 - Systemic lupus erythematosus, unspecified Type of Wound Date of Service: 05/14/20 Chief Complaint: Left leg redness, swelling and ulcers History of Wound: Patient is a pleasant 54-year-old female who [facility] for evaluation and treatment of left lower leg erythema, swelling, and ulcerations. She is known [facility] for treatment of previous diabetic ulcers. The patient reports the ulcers of her left lower extremity initially began as blisters which first appeared a few months ago. She has been applying antibacterial ointment to the ulcers of her left lower extremity daily. The erythema and swelling of her left lower extremity subsequently developed a few weeks ago. She denies left lower extremity pain with ambulation. She denies any foul-smelling or purulent drainage from her left lower extremity ulcers. She denies any fever, chills, nausea, vomiting, or diarrhea. She frequently sleeps in a chair without her feet elevated. She had a previous episode of cellulitis in November 2019, during which she developed left lower extremity erythema, swelling, and tenderness, as well as blisters which subsequently ruptured and resulted in left lower extremity ulcers. She was treated with Augmentin at that time; wound cultures were negative. Patient has a significant past medical history of tobacco dependence, smoking 1 PPD x 40+ years, though she recently quit smoking in 12/2019. She is a type II diabetic, with poor glycemic control. Her most recent A1c (01/22/2020) was 9.6%. She sees Dr. Ocasio for endocrinology. She has extensive peripheral neuropathy. She also has comorbidities of hypertension, rheumatoid arthritis, lupus, and morbid obesity with a BMI of 50.2. She sees Dr. Verdugo as her primary care provider. Patient had arterial studies completed on 06/24/2019. Arterial studies showed no evidence of significant arterial occlusive disease in bilateral lower extremities. (See report for full details.) A left lower extremity venous ultrasound completed on 01/06/2020 was negative for LLE DVT and demonstrated valvular competence, venous compressibility, and pulsatile venous flow of the left lower extremity. The patient has no history of DVT. Her wound cultures from 04/02/2020 showed 3+ Staph aureus (susceptible to doxycycline) and anaerobic gram-positive cocci. She completed courses of doxycycline and Augmentin. Progress of Wound: Last week puraply #2 was applied and an Unna boot was used for compression to the left lower extremity. She tolerated this well and was able to keep her dressings clean and dry. Her anterior LLE ulcer has improved in size and appearance. Her posterior LLE ulcers remain healed. She denies any fever or chills. She denies any increasing pain, redness, swelling, or purulent/malodorous drainage from affected area. - Physical Exam Vital Signs Temp Pulse Resp BP 97.5 F L 93 18 134/56 H 05/14/20 10:08 05/14/20 10:08 05/14/20 10:08 05/14/20 10:08 General: Alert, Cooperative, No apparent distress HEENT: Atraumatic, Normocephalic Oral: Moist Mucosa Neck: Supple, Trachea Midline Lungs: Normal air movement Extremities: No clubbing, No cyanosis, Capillary Refill Less than 3 Seconds, Edema - trace edema of LLE, Peripheral Pulses Normal Skin: Ulcer/ Wound - ulcer of anterior LLE with subQ layer exposed; good granulation tissue present; skin island present; mild bleeding, no purulent or malodorous drainage; no periulcer edema, erythema, warmth or tenderness Wound Measurements and Assessment WC - Nurse 1 - General Ulcer Measurement Start: 04/30/20 09:14 Freq: Status: Active Protocol: Activity Type Activity Date Activity User E-Sign Co-Sign Detail Recorded Client Recorded Date Recorded By Document 05/14/20 10:08 DL [id number] 05/14/20 10:10 DL 05/14/20 10:08 Wound Center Nurse 1 [Ulcer Assessment] #11 Ant Wolf -Current Size (cm) - Length 2.2 -Current Size (cm) - Width 0.7 -Current Size (cm) - Depth 0.1 -Total Square Cm 1.54 -Photo Taken No -Exudate Amt Small -Exudate Type Serosanguineous -Wound Margin Thickened -Granulation Amt None Present (0 %) -Necrosis Amt Large (67-100%) -Necrotic Tissue Type Eschar -Structure Exposed N/A -Texture (Shraddha-wound Skin Appearance) Scarring -Moisture (Shraddha-wound Skin Appearance No Abnormality ) -Color (Shraddha-wound Skin Appearance) Hemosiderin Staining -Temperature (Shraddha-wound Skin No Abnormality Appearance) (Pt Warm) -Tenderness on Palpation (Shraddha-wound No Skin Appearance) -Ulcer Cleansing Wound Cleanser -Foul Odor after Cleansing No -Anesthetic Used 4% Lidocaine Solution [Edema Assessment] -Left Calf (cm) 38.5 -Left Ankle (cm) 24.5 Psych/Mental Status: Normal Affect, Appropriate Debridement Note Post-Debridement Measurements/Treatment WC - Nurse 2 - General Ulcer CM Notes Start: 04/30/20 09:14 Freq: Status: Active Protocol: Activity Type Activity Date Activity User E-Sign Co-Sign Detail Recorded Client Recorded Date Recorded By Document 04/30/20 10:12 PL [id number] 04/30/20 10:20 PL Document 05/07/20 10:35 JF [id number] 05/07/20 10:54 JF 04/30/20 05/07/20 10:12 10:35 Wound Center Nurse 2 #11 Ant Wolf -Time 09:29 10:41 -Correct Patient Yes Yes -Correct Side, Site, Position Yes Yes -Correct Procedure Yes Yes -Procedure Performed Yes Yes -Type of Procedure Debridement Debridement -Clinical Debridement Subcutaneous Subcutaneous -Tissue Removed Subcutaneous Subcutaneous -Post Debridement (cm) - Length 2.0 3 -Post Debridement (cm) - Width 1.5 1 -Post Debridement (cm) - Depth 0.1 0.1 -Total Square (Post) (cm) 3.00 3 -Area of Debridement (cm) - Length 2.0 3 -Area of Debridement (cm) - Width 1.5 1 -Total Square (Area) (cm) 3.00 3 -Tunneling No No -Undermining/Tunneling No No -Circular Undermining No No -Wound/Ulcer Outcome Not Healed Not Healed -Ulcer Cleansing Rinsed/ Rinsed/ Irrigated with Irrigated with Saline Saline -Foul Odor after Cleansing No No -Bioengineered Tissue No Yes -Type of Bioengineered Tissue PuraPly AM -Expiration Date 06/20/21 -Product Lot Number [id number] -Percent Used 100 -Lot number of Saline Used [id number] -Bleeding Controlled with Pressure -Offloading No -Treatment Response Procedure Tolerated Well -Debridement - Subq, 1st 20sq cm No No -Apply Skin Sub - 1st 25 sq cm - Legs 1 -PuraPly AM (per sq cm) 8 #10 L Post Sup Cluster -Time 09:29 -Correct Patient Yes No -Correct Side, Site, Position Yes No -Correct Procedure Yes No -Procedure Performed Yes No -Type of Procedure Debridement -Clinical Debridement Subcutaneous -Tissue Removed Subcutaneous -Post Debridement (cm) - Length 0.6 0 -Post Debridement (cm) - Width 0.5 0 -Post Debridement (cm) - Depth 0.1 0 -Total Square (Post) (cm) 0.30 0 -Area of Debridement (cm) - Length 0.6 0 -Area of Debridement (cm) - Width 0.5 0 -Total Square (Area) (cm) 0.30 0 -Tunneling No No -Undermining/Tunneling No No -Circular Undermining No -Wound/Ulcer Outcome Not Healed Healed- Epithelialized -Ulcer Cleansing Rinsed/ Irrigated with Saline -Foul Odor after Cleansing No -Bioengineered Tissue No -Debridement - Subq, 1st 20sq cm No #9 L post inf -Time 09:29 -Correct Patient Yes No -Correct Side, Site, Position Yes No -Correct Procedure Yes No -Procedure Performed Yes No -Type of Procedure Debridement -Clinical Debridement Subcutaneous -Tissue Removed Subcutaneous -Post Debridement (cm) - Length 1.8 0 -Post Debridement (cm) - Width 1.4 0 -Post Debridement (cm) - Depth 0.1 0 -Total Square (Post) (cm) 2.52 0 -Area of Debridement (cm) - Length 1.8 0 -Area of Debridement (cm) - Width 1.4 0 -Total Square (Area) (cm) 2.52 0 -Tunneling No -Undermining/Tunneling No -Circular Undermining No -Wound/Ulcer Outcome Not Healed Healed- Epithelialized -Ulcer Cleansing Rinsed/ Irrigated with Saline -Foul Odor after Cleansing No -Bioengineered Tissue Yes -Type of Bioengineered Tissue PuraPly AM -Expiration Date 06/23/22 -Product Lot Number [id number] -Percent Used 100 -Lot number of Saline Used [id number] -Bleeding Controlled with Pressure -Treatment Response Procedure Tolerated Well -Debridement - Subq, 1st 20sq cm No -Apply Skin Sub - 1st 25 sq cm - Legs 1 -PuraPly AM (per sq cm) 12 Pain Scale: 0-10 Numeric Is Patient Pain Free? Yes Yes - Nurse 3 - General Ulcer D/C NN Start: 04/30/20 09:14 Freq: Status: Active Protocol: Activity Type Activity Date Activity User E-Sign Co-Sign Detail Recorded Client Recorded Date Recorded By Document 04/30/20 10:02 [facility] [id number] 04/30/20 10:03 BM Document 05/04/20 14:27 KR [id number] 05/04/20 14:29 KR Document 05/07/20 10:35 PL [id number] 05/12/20 15:17 PL 04/30/20 05/04/20 05/07/20 10:02 14:27 10:35 Wound Care Nurse 3 #11 Ant Wolf -Primary Dressing Applied Other -Other Dressing puraply -Primary Dressing Covered/Secured with Dry Gauze,Other -Other Covering unna boot #10 L Post Sup Cluster -Primary Dressing Applied Other -Other Dressing puraply -Primary Dressing Covered/Secured with Dry Gauze,Other -Other Covering unna boot #9 L post inf -Primary Dressing Applied Other -Other Dressing puraply -Primary Dressing Covered/Secured with Dry Gauze,Other -Other Covering unna boot Left -Multi-Layered Wrap Application Unna Boot - Unna Boot - Unna Boot - Left ($) Left ($) Left ($) -Compression Wrap Unna Boot ($) ( single) Treatment Response Procedure Tolerated Well Vital Signs Temperature (97.8 F-99.1 F) 96.9 F L Temperature Source Temporal Pulse Rate (60-100) 100 Pulse Location Monitor Blood Pressure (90/60-120/80) 143/64 H Blood Pressure Mean (mm Hg) 90 Source Monitor Position Sitting Blood Pressure Location Right Arm Pain Scale: 0-10 Numeric Is Patient Pain Free? Yes Yes WC - Visit Discharge Discharge Condition Stable Stable Ambulatory Status Ambulatory Ambulatory Transportation Private Auto Private Auto Wound debrided: anterior LLE ulcer Laterality: Left Type of Debridement: Excisional debridement Anesthesia Used: 4% Lidocaine Solution Depth: in the subcutaneous layer Percentage of wound debrided: 100 Tissue Removed: Slough and devitalized tissue Severity: Fat Layer Exposed Amount of bleeding with debridement: Mild Bleeding Controlled with: Pressure Patient tolerated procedure well Assessment/Plan Active Problems (Last Reviewed 01/22/20 @ 14:[address] Nelson Ocasio MD) Diabetic ulcer of left lower leg (Chronic) Type 2 diabetes mellitus, uncontrolled, with neuropathy (Chronic) Obesity, morbid, BMI 50 or higher (Chronic) SARTHAK (obstructive sleep apnea) (Chronic) COPD (chronic obstructive pulmonary disease) (Chronic) Essential (primary) hypertension (Chronic) Hyperlipidemia (Chronic) SLE (systemic lupus erythematosus) (Chronic) Hypothyroidism (Chronic) Continues on levothyroxine 100 mcg daily. Takes as directed. Denies any s/s of hypothyroidism. Assessment: Same as above. Plan: Debridement performed today in clinic today as annotated above. Given the duration of the wound and failure of the wound to respond to standard wound care, we applied for advanced skin substitutes: puraply, nushield, and Apligraf were approved. Nushield #1 (advanced skin substitute #3) was applied today to the anterior LLE ulcer. 100% of the product was used. This was secured with Adaptic Touch and Steri-Strips. An Unna boot was applied to the left lower extremity. Patient instructed to keep dressing clean and dry. She was instruct ed on covering her Unna boot when showering. She was advised to continue double Tubigrip's to her right lower extremity for compression. Avoid prolonged standing or dangling of legs. Keep feet elevated at or above waist level when seated. Lay flat or with feet elevated at or above heart level while sleeping. Diet: Patient encouraged to increase protein and vitamin C intake while taking caution to avoid high carbohydrate and/or sugar intake. Discussed importance of tight glycemic control. Patient encouraged to continue with smoking cessation, which she initiated 12/2019. Labs/cultures/imaging: Baseline lab work from 04/02/2020 was significant for the following: ESR 66 (H), creatinine 1.06 (H), estimated GFR 57 (L), glucose 347 (H), CRP 21.10 (H), prealbumin 16.7 (L). Wound cultures were positive for 3+ Staph aureus (doxycycline susceptible) and anaerobic gram-positive cocci. Doxycycline and Augmentin were completed. A stat left lower extremity ultrasound was negative for DVT on 04/02/2020. Follow-up: Return to clinic in 1 week for re-evaluation. Return sooner or report to the emergency room should symptoms worsen, or new symptoms arise. She was advised to contact the wound healing center or report to the emergency room should she experience numbness and tingling and/or discoloration of the toes while wearing the Unna boot. Note: [email or web address] speech recognition chief internal auditor software was used to create portions of this document. Sound-alike and misspelled words, as well as other chief internal auditor errors may be contained in the documentation. [id number]: [id number] Skin sub graft trnk/arm/leg
[2020-05-21 10:51] VITALS: PULSE 98; TEMP 36.2; BMI 50.2
--- NOTE | 2020-05-21 12:22 | PCM.WC.PN ---
(1) Diabetic ulcer of left lower leg Status: Resolved Code(s): E11.622 - Type 2 diabetes mellitus with other skin ulcer; L97.929 - Non-pressure chronic ulcer of unspecified part of left lower leg with unspecified severity (2) Type 2 diabetes mellitus, uncontrolled, with neuropathy Status: Chronic Code(s): E11.40 - Type 2 diabetes mellitus with diabetic neuropathy, unspecified; E11.65 - Type 2 diabetes mellitus with hyperglycemia (3) Cellulitis of left lower extremity Status: Resolved Code(s): L03.116 - Cellulitis of left lower limb (4) COPD (chronic obstructive pulmonary disease) Status: Chronic Code(s): J44.9 - Chronic obstructive pulmonary disease, unspecified (5) Essential (primary) hypertension Status: Chronic Code(s): I10 - Essential (primary) hypertension (6) Hyperlipidemia Status: Chronic Code(s): E78.5 - Hyperlipidemia, unspecified (7) Hypothyroidism Status: Chronic Qualifiers: Code(s): E03.9 - Hypothyroidism, unspecified Comment: Continues on levothyroxine 100 mcg daily. Takes as directed. Denies any s/s of hypothyroidism. (8) SARTHAK (obstructive sleep apnea) Status: Chronic Code(s): G47.33 - Obstructive sleep apnea (adult) (pediatric) (9) Obesity, morbid, BMI 50 or higher Status: Chronic Code(s): E66.01 - Morbid (severe) obesity due to excess calories (10) SLE (systemic lupus erythematosus) Status: Chronic Qualifiers: Code(s): M32.9 - Systemic lupus erythematosus, unspecified Type of Wound Date of Service: 05/21/20 Chief Complaint: Left leg redness, swelling and ulcers History of Wound: Patient is a pleasant 54-year-old female who [facility] for evaluation and treatment of left lower leg erythema, swelling, and ulcerations. She is [facility] for treatment of previous diabetic ulcers. The patient reports the ulcers of her left lower extremity initially began as blisters which first appeared a few months ago. She has been applying antibacterial ointment to the ulcers of her left lower extremity daily. The erythema and swelling of her left lower extremity subsequently developed a few weeks ago. She denies left lower extremity pain with ambulation. She denies any foul-smelling or purulent drainage from her left lower extremity ulcers. She denies any fever, chills, nausea, vomiting, or diarrhea. She frequently sleeps in a chair without her feet elevated. She had a previous episode of cellulitis in November 2019, during which she developed left lower extremity erythema, swelling, and tenderness, as well as blisters which subsequently ruptured and resulted in left lower extremity ulcers. She was treated with Augmentin at that time; wound cultures were negative. Patient has a significant past medical history of tobacco dependence, smoking 1 PPD x 40+ years, though she recently quit smoking in 12/2019. She is a type II diabetic, with poor glycemic control. Her most recent A1c (01/22/2020) was 9.6%. She sees Dr. Ocasio for endocrinology. She has extensive peripheral neuropathy. She also has comorbidities of hypertension, rheumatoid arthritis, lupus, and morbid obesity with a BMI of 50.2. She sees Dr. Verdugo as her primary care provider. Patient had arterial studies completed on 06/24/2019. Arterial studies showed no evidence of significant arterial occlusive disease in bilateral lower extremities. (See report for full details.) A left lower extremity venous ultrasound completed on 01/06/2020 was negative for LLE DVT and demonstrated valvular competence, venous compressibility, and pulsatile venous flow of the left lower extremity. The patient has no history of DVT. Her wound cultures from 04/02/2020 showed 3+ Staph aureus (susceptible to doxycycline) and anaerobic gram-positive cocci. She completed courses of doxycycline and Augmentin. Progress of Wound: Last week Nushield #1 (advanced skin substitute #3) was applied and an Unna boot was used for compression to the left lower extremity. She tolerated this well and was able to keep her dressings clean and dry. Her left lower extremity ulcers are healed today. She denies any fever or chills. - Physical Exam Vital Signs Temp Pulse Resp BP 97.2 F L 98 18 134/56 H 05/21/20 10:51 05/21/20 10:51 05/14/20 10:08 05/14/20 10:08 General: Alert, Cooperative, No apparent distress HEENT: Atraumatic, Normocephalic Oral: Moist Mucosa Neck: Supple, Trachea Midline Lungs: Normal air movement Cardiovascular: Regular rate Abdomen: Obese Extremities: No clubbing, No cyanosis, No edema, Capillary Refill Less than 3 Seconds, Peripheral Pulses Normal Skin: No rashes, No breakdown Wound Measurements and Assessment WC - Nurse 1 - General Ulcer Measurement Start: 04/30/20 09:14 Freq: Status: Discharge Protocol: Activity Type Activity Date Activity User E-Sign Co-Sign Detail Recorded Client Recorded Date Recorded By Document 05/21/20 10:51 KR [id number] 05/21/20 10:53 KR Edit Status 05/21/20 11:29 BKG DAEMON Active=>Discharge [id number] 05/21/20 11:29 BKG DAEMON 05/21/20 10:51 Wound Center Nurse 1 [Ulcer Assessment] #11 Ant Wolf -Current Size (cm) - Length 1 -Current Size (cm) - Width 0.5 -Current Size (cm) - Depth 0.1 -Total Square Cm 0.5 -Exudate Amt Small -Exudate Type Serosanguineous -Wound Margin Distinct, Outline Attached -Granulation Amt Small (1-33%) -Granulation Quality Red -Necrosis Amt Small (1-33%) -Necrotic Tissue Type Adherent Slough -Texture (Shraddha-wound Skin Appearance) Assessed, Scarring -Moisture (Shraddha-wound Skin Appearance No Abnormality, ) Assessed -Color (Shraddha-wound Skin Appearance) No Abnormality, Assessed -Temperature (Shraddha-wound Skin No Abnormality Appearance) (Pt Warm) -Tenderness on Palpation (Shraddha-wound No Skin Appearance) -Ulcer Cleansing soap and water -Foul Odor after Cleansing No -Anesthetic Used 4% Lidocaine Solution WC - Nurse 2 - General Ulcer CM Notes Start: 04/30/20 09:14 Freq: Status: Discharge Protocol: Activity Type Activity Date Activity User E-Sign Co-Sign Detail Recorded Client Recorded Date Recorded By Edit Status 05/21/20 11:29 BKG DAEMON Active=>Discharge [id number] 05/21/20 11:29 BKG DAEMON - Nurse 3 - General Ulcer D/C NN Start: 04/30/20 09:14 Freq: Status: Discharge Protocol: Activity Type Activity Date Activity User E-Sign Co-Sign Detail Recorded Client Recorded Date Recorded By Edit Status 05/21/20 11:29 BKG DAEMON Active=>Discharge [id number] 05/21/20 11:29 BKG DAEMON Psych/Mental Status: Normal Affect, Appropriate Debridement Note Post-Debridement Measurements/Treatment WC - Nurse 2 - General Ulcer CM Notes Start: 04/30/20 09:14 Freq: Status: Discharge Protocol: Activity Type Activity Date Activity User E-Sign Co-Sign Detail Recorded Client Recorded Date Recorded By Document 04/30/20 10:12 PL [id number] 04/30/20 10:20 PL Document 05/07/20 10:35 JF [id number] 05/07/20 10:54 JF Document 05/14/20 10:53 PL [id number] 05/14/20 10:55 PL 04/30/20 05/07/20 05/14/20 10:12 10:35 10:53 Wound Center Nurse 2 #11 Ant Wolf -Time 09:29 10:41 10:15 -Correct Patient Yes Yes Yes -Correct Side, Site, Position Yes Yes Yes -Correct Procedure Yes Yes Yes -Procedure Performed Yes Yes Yes -Type of Procedure Debridement Debridement Debridement -Clinical Debridement Subcutaneous Subcutaneous Subcutaneous -Tissue Removed Subcutaneous Subcutaneous Subcutaneous -Post Debridement (cm) - Length 2.0 3 1.1 -Post Debridement (cm) - Width 1.5 1 1.1 -Post Debridement (cm) - Depth 0.1 0.1 0.1 -Total Square (Post) (cm) 3.00 3 1.21 -Area of Debridement (cm) - Length 2.0 3 1.1 -Area of Debridement (cm) - Width 1.5 1 1.1 -Total Square (Area) (cm) 3.00 3 1.21 -Tunneling No No No -Undermining/Tunneling No No No -Circular Undermining No No No -Wound/Ulcer Outcome Not Healed Not Healed Not Healed -Ulcer Cleansing Rinsed/ Rinsed/ Rinsed/ Irrigated with Irrigated with Irrigated with Saline Saline Saline -Foul Odor after Cleansing No No No -Bioengineered Tissue No Yes Yes -Type of Bioengineered Tissue PuraPly AM Edinsonield Disc -Expiration Date 06/20/21 08/08/24 -Product Lot Number [id number] -Percent Used 100 100 -Lot number of Saline Used [id number] -Bleeding Controlled with Pressure Pressure -Offloading No -Treatment Response Procedure Procedure Tolerated Well Tolerated Well -Debridement - Subq, 1st 20sq cm No No No -Apply Skin Sub - 1st 25 sq cm - Legs 1 1 -NuShield 16mm Disc 2 -PuraPly AM (per sq cm) 8 #10 L Post Sup Cluster -Time 09:29 -Correct Patient Yes No -Correct Side, Site, Position Yes No -Correct Procedure Yes No -Procedure Performed Yes No -Type of Procedure Debridement -Clinical Debridement Subcutaneous -Tissue Removed Subcutaneous -Post Debridement (cm) - Length 0.6 0 -Post Debridement (cm) - Width 0.5 0 -Post Debridement (cm) - Depth 0.1 0 -Total Square (Post) (cm) 0.30 0 -Area of Debridement (cm) - Length 0.6 0 -Area of Debridement (cm) - Width 0.5 0 -Total Square (Area) (cm) 0.30 0 -Tunneling No No -Undermining/Tunneling No No -Circular Undermining No -Wound/Ulcer Outcome Not Healed Healed- Epithelialized -Ulcer Cleansing Rinsed/ Irrigated with Saline -Foul Odor after Cleansing No -Bioengineered Tissue No -Debridement - Subq, 1st 20sq cm No #9 L post inf -Time 09:29 -Correct Patient Yes No -Correct Side, Site, Position Yes No -Correct Procedure Yes No -Procedure Performed Yes No -Type of Procedure Debridement -Clinical Debridement Subcutaneous -Tissue Removed Subcutaneous -Post Debridement (cm) - Length 1.8 0 -Post Debridement (cm) - Width 1.4 0 -Post Debridement (cm) - Depth 0.1 0 -Total Square (Post) (cm) 2.52 0 -Area of Debridement (cm) - Length 1.8 0 -Area of Debridement (cm) - Width 1.4 0 -Total Square (Area) (cm) 2.52 0 -Tunneling No -Undermining/Tunneling No -Circular Undermining No -Wound/Ulcer Outcome Not Healed Healed- Epithelialized -Ulcer Cleansing Rinsed/ Irrigated with Saline -Foul Odor after Cleansing No -Bioengineered Tissue Yes -Type of Bioengineered Tissue PuraPly AM -Expiration Date 06/23/22 -Product Lot Number [id number] -Percent Used 100 -Lot number of Saline Used [id number] -Bleeding Controlled with Pressure -Treatment Response Procedure Tolerated Well -Debridement - Subq, 1st 20sq cm No -Apply Skin Sub - 1st 25 sq cm - Legs 1 -PuraPly AM (per sq cm) 12 Pain Scale: 0-10 Numeric Is Patient Pain Free? Yes Yes Yes WC - Nurse 3 - General Ulcer D/C NN Start: 04/30/20 09:14 Freq: Status: Discharge Protocol: Activity Type Activity Date Activity User E-Sign Co-Sign Detail Recorded Client Recorded Date Recorded By Document 04/30/20 10:02 BM [id number] 04/30/20 10:03 BMF Document 05/04/20 14:27 KR [id number] 05/04/20 14:29 KR Document 05/07/20 10:35 PL [id number] 05/12/20 15:17 PL Document 05/14/20 10:49 DL [id number] 05/14/20 10:50 DL 04/30/20 05/04/20 05/07/20 10:02 14:27 10:35 Wound Care Nurse 3 #11 Ant Wolf -Foul Odor after Cleansing -Primary Dressing Applied Other -Other Dressing puraply -Primary Dressing Covered/Secured with Dry Gauze,Other -Other Covering unna boot #10 L Post Sup Cluster -Primary Dressing Applied Other -Other Dressing puraply -Primary Dressing Covered/Secured with Dry Gauze,Other -Other Covering unna boot #9 L post inf -Primary Dressing Applied Other -Other Dressing puraply -Primary Dressing Covered/Secured with Dry Gauze,Other -Other Covering unna boot Left -Multi-Layered Wrap Application Unna Boot - Unna Boot - Unna Boot - Left ($) Left ($) Left ($) -Compression Wrap Unna Boot ($) ( single) Treatment Response Procedure Tolerated Well Vital Signs Temperature (97.8 F-99.1 F) 96.9 F L Temperature Source Temporal Pulse Rate (60-100) 100 Pulse Location Monitor Blood Pressure (90/60-120/80) 143/64 H Blood Pressure Mean (mm Hg) 90 Source Monitor Position Sitting Blood Pressure Location Right Arm Pain Scale: 0-10 Numeric Is Patient Pain Free? Yes Yes - Visit Discharge Discharge Condition Stable Stable Ambulatory Status Ambulatory Ambulatory Transportation Private Auto Private Auto 05/14/20 10:49 Wound Care Nurse 3 #11 Ant Wolf -Foul Odor after Cleansing No -Primary Dressing Applied -Other Dressing PuraPly -Primary Dressing Covered/Secured with Dry Gauze -Other Covering #10 L Post Sup Cluster -Primary Dressing Applied -Other Dressing -Primary Dressing Covered/Secured with -Other Covering #9 L post inf -Primary Dressing Applied -Other Dressing -Primary Dressing Covered/Secured with -Other Covering Left -Multi-Layered Wrap Application -Compression Wrap Unna Boot ($) ( single) Treatment Response Procedure Tolerated Well Vital Signs Temperature (97.8 F-99.1 F) Temperature Source Pulse Rate (60-100) Pulse Location Blood Pressure (90/60-120/80) Blood Pressure Mean (mm Hg) Source Position Blood Pressure Location Pain Scale: 0-10 Numeric Is Patient Pain Free? Yes WC - Visit Discharge Discharge Condition Stable Ambulatory Status Ambulatory Transportation Private Auto No debridement was completed today Assessment/Plan Active Problems (Last Reviewed 01/22/20 @ 14:[address] Nelson Ocasio MD) Type 2 diabetes mellitus, uncontrolled, with neuropathy (Chronic) Obesity, morbid, BMI 50 or higher (Chronic) SARTHAK (obstructive sleep apnea) (Chronic) COPD (chronic obstructive pulmonary disease) (Chronic) Essential (primary) hypertension (Chronic) Hyperlipidemia (Chronic) SLE (systemic lupus erythematosus) (Chronic) Hypothyroidism (Chronic) Continues on levothyroxine 100 mcg daily. Takes as directed. Denies any s/s of hypothyroidism. Assessment: Same as above. Plan: Patient's left lower extremity ulcers are healed today, after the completion of 3 advanced skin substitutes (2 Puraply and 1 Nushield). Patient is encouraged to use compression to bilateral lower extremities to prevent further wounds from forming. She is recommended to use 30 to 40 mmHg compression to bilateral lower extremities. She reports having compression stockings at home which she will use. Avoid prolonged standing or dangling of legs. Keep feet elevated at or above waist level when seated. Lay flat or with feet elevated at or above heart level while sleeping. Continue working on achieving tight glycemic control. Patient encouraged to continue with smoking cessation, which she initiated 12/2019. Follow-up: Return to clinic on an as-needed basis, should new wounds occur. Patient is discharged from the wound healing center at this time! Note: [employer] speech recognition research editor software was used to create portions of this document. Sound-alike and misspelled words, as well as other research editor errors may be contained in the documentation. Office Visits / Consults: [id number] OV [id number] Est
== END 2020-05-21 11:10 | disposition home or self-care (01) ==
LOC: WC 10:30
PROVIDERS: PCP Family Medicine; Referring Provider Nurse Practitioner Family; Visit Provider Nurse Practitioner Family
DX: E11.622 Type 2 diabetes mellitus with other skin ulcer (principal); L97.822 Non-pressure chronic ulcer of other part of left lower leg with fat layer exposed; E11.40 Type 2 diabetes mellitus with diabetic neuropathy, unspecified; E11.65 Type 2 diabetes mellitus with hyperglycemia; E11.42 Type 2 diabetes mellitus with diabetic polyneuropathy; E66.01 Morbid (severe) obesity due to excess calories; E03.9 Hypothyroidism, unspecified; E78.5 Hyperlipidemia, unspecified; G47.33 Obstructive sleep apnea (adult) (pediatric); I10 Essential (primary) hypertension; J44.9 Chronic obstructive pulmonary disease, unspecified; M06.9 Rheumatoid arthritis, unspecified; M32.9 Systemic lupus erythematosus, unspecified; Z68.43 Body mass index [BMI] 50.0-59.9, adult; Z91.19 Patient's noncompliance with other medical treatment and regimen
CPT/HCPCS: 15271; 29580; 99212; 99213; Q4160; Q4196; G0463

== ENCOUNTER → 2020-10-28 15:44 | Outpatient (CLI) | payer MEDICARE, MEDICAID, SELFPAY ==
[2020-06-23 11:19] VITALS: BMI 52.7
[2020-07-20 10:23] VITALS: BMI 50.4
--- NOTE | 2020-10-28 15:46 | CT_ITS ---
STUDY: LOW DOSE CT LUNG CANCER SCREENING REASON FOR EXAM: Female, 55 years old. Smoker and gt; 40 pack years quit 12/23/2019 RADIATION DOSAGE (If Supplied By Facility): CTDIvol = ( 4.02 ) mGy, DLP = ( 127.37 ) mGycm TECHNIQUE: No contrast was administered. Low dose technique was utilized (average mAS-38 and kVp 120). 1.25 mm axial source images with a slice interval of 1.25-mm were reconstructed in lung windows. 2.5 mm axial source images with a slice interval of 2.5-mm were reconstructed in lung windows. 5.0 mm axial source images with a slice interval of 5.0-mm were reconstructed in soft tissue windows. Nodule measured using lung windows on PACS and/or independent workstation with automated measurement of minimum and maximum diameter. Nodule measurement reported as average diameter rounded to the nearest whole number. Growth is defined as an increase ins size of greater than 1.5 mm. COMPARISON: Comparison is made with prior examination dated 08/14/2019. NODULES: Stable 3 adjacent calcified granulomas in the anterior aspect of the left lower lobe abutting the fissure. Stable 1.2 cm calcified granuloma in the posterior lateral aspect of the left lower lobe. Endobronchial lesion: None Aorta: Unremarkable. Coronary arteries: Coronary calcification. Heart: Unremarkable. Pulmonary artery: Unremarkable. Mediastinal nodes: Stable small benign-appearing mediastinal lymph nodes. Stable calcification of the left hilar lymph nodes. Other chest and abdominal findings: Multiple calcified splenic granulomas. CT/Low Dose CT Lung Screening IMPRESSION: Lung-RADS category 2 - Continue annual screening with LDCT in 12 months. IMPORTANT NOTES FOR USE: ACR Lung-RADS Version 1.1 Assessment Categories Release Date: 2018 Category: Coded 0-4 bases on nodule(s) with highest degree of suspicion. Negative screen is defined as categories 1 and 2; a positive screen is defined as categories 3 and 4. Category 3 and 4A nodules that are unchanged on interval CT should be coded as category 2, and individuals returned to screening in 12 months. Category 4X: Category 3 or 4 nodules with additional imaging findings that increase the suspicion of lung cancer, such as spiculation, GGN that doubles in size in 1 year, enlarged lymph notes, etc. Category Modifiers: S (significant finding unrelated to lung cancer) Electronically Signed: Joey Morris MD at 8:26 EDT , Service support ,
== END ==
PROVIDERS: PCP Family Medicine; Referring Provider Nurse Practitioner Acute Care; Visit Provider Nurse Practitioner Acute Care
DX: F17.210 Nicotine dependence, cigarettes, uncomplicated (principal)
CPT/HCPCS: 71271

== ENCOUNTER → 2020-11-02 13:32 | Outpatient (CLI) | payer MEDICARE, MEDICAID, SELFPAY ==
[2020-07-20 10:23] VITALS: BMI 50.4
--- NOTE | 2020-11-02 13:34 | BI_ITS ---
MAMMOGRAPHY - BILATERAL SCREENING REASON FOR EXAM: Female, 55 years old. Routine annual screening examination. PERTINENT HISTORY: Non-contributory. TECHNIQUE: Digital bilateral breast bk (3D mammographic acquisition) in the CC and MLO projections. 2-D mediolateral oblique (MLO) and craniocaudad (CC) views of both breasts were obtained. CAD: Full Field Digital Mammography with Computer Added Detection was performed. COMPARISON: Comparison is made with prior examination dated 09/30/2019 and 09/24/2008 FINDINGS: Breast Composition: There are scattered areas of fibroglandular density. There are no dominant masses or suspicious calcifications. Once again, there is evidence of prominent venous vessels in the axillary regions of both breasts. A tissue clip marker is once again seen in the upper lateral aspect of the left breast. Stable small benign appearing bilateral axillary lymph nodes. No other significant abnormalities are identified. There has been no significant change since the prior study. BI/SCRN MAMM (CAD)W/BK BILAT IMPRESSION: Stable bilateral screening mammogram. Yearly follow-up mammogram recommended. (A) ASSESSMENT CATEGORY: BIRADS Category 2: Benign. A letter regarding these results will be sent to the patient by the facility within 30 days. Approximately 10% of breast cancers are not detected by mammography. A normal mammogram should not delay biopsy of a clinically suspicious abnormality. [id number] Electronically Signed: Joey Morris MD at 14:20 EDT , Service support ,
== END ==
PROVIDERS: PCP Family Medicine; Referring Provider Obstetrics & Gynecology; Visit Provider Obstetrics & Gynecology
DX: Z12.31 Encounter for screening mammogram for malignant neoplasm of breast (principal)
CPT/HCPCS: 77063; 77067

== ENCOUNTER → 2020-11-25 09:21 | Outpatient (CLI) | payer MEDICARE, MEDICAID, SELFPAY ==
[2020-11-11 09:30] VITALS: BMI 50.3
--- NOTE | 2020-11-25 14:05 | PFTCOMP ---
COMPLETE PULMONARY FUNCTION TEST INTERPRETATION Brief HPI: Patient is a 55 year old female, currently under the care of Dr. Londono, who presents to [facility] for complete pulmonary function tests secondary to diagnosis of asthma. Respiratory therapist reports good effort and reproducible results. Interpretation: Forced expiration spirometry shows no large airways obstructive ventilatory defect with an FEV1 of 51% predicted. There is no significant bronchodilator response by strict ATS criteria. Spirograms are of good quality and plateau normally. The respiratory flow volume loop shows a normal pattern. Lung volumes by body plethysmography show a decreased total lung capacity at 3.27 L, 67% predicted. All other lung volumes are reduced symmetrically. Diffusion capacity by carbon monoxide is decreased at 58% predicted. The airway resistance is elevated. Compared to previous pulmonary function tests from 09/12/2019, there is been a significant improvement in FEV1 by 15%. Impression: Irreversible moderate restrictive ventilatory defect and symmetric reduction in diffusion capacity, with some improvements compared to previous study.
== END ==
PROVIDERS: PCP Family Medicine; Referring Provider Internal Medicine Critical Care Medicine; Visit Provider Internal Medicine Critical Care Medicine
DX: J45.909 Unspecified asthma, uncomplicated (principal); F17.210 Nicotine dependence, cigarettes, uncomplicated
CPT/HCPCS: 94060; 94726; 94729